=== PATIENT | female | born 1950 | race Caucasian/White ===

== ENCOUNTER → 2018-02-18 09:22 | Outpatient (CLI) | payer BC, MEDICARE, SELFPAY ==
[2018-02-18 10:12] LABS: Absolute Lymphocyte Count 1.73 X10^3/ul (0.83-4.51); Absolute Neutrophil Count 2.9 X10^3/uL (2.0-7.7); Basophil# 0.03 X10^3/uL; Basophil% 0.6 % (0-1); Eosinophil# 0.12 X10^3/uL; Eosinophils% 2.4 % (0-5); Hematocrit 40.9 % (37-47); Hemoglobin 13.2 g/dl (12.0-15.0); Lymphocyte # 1.73 X10^3/ul (4.0); Lymphocyte % 34.2 % (19-41); Mean Corp Hgb Conc 32.3 g/gl (32-36); Mean Corpuscular Hgb 28.1 pg (27.0-32.0); Mean Platelet Vol. 9.2 fl (6.2-12.0); Monocyte# 0.31 X10^3/uL; Monocyte% 6.1 % (0-10); Neutrophil # 2.87 X10^3/uL (2.7-7.7); Neutrophil % 56.7 % (47-70); Platelet Count 209 K/mm3 (150-450); RBC Distribution Width SD 44.7 fl (35.1-43.9); White Blood Count 5.1 K/mm3 (4.4-11.0)
[2018-02-18 10:14] LABS: POSITIVE COUNT NO; POSITIVE DIFFERENTIAL NO; POSITIVE MORPHOLOGY NO
[2018-02-18 10:39] LABS: Hemoglobin A1c 5.3 % (4.2-6.3)
[2018-02-18 10:46] LABS: Vitamin D,25 Hydroxy 32.5 ng/mL (29.95-100.01)
[2018-02-18 10:49] LABS: AST(SGOT) 24 U/L (15-37); Alanine Aminotransfer ALT/SGPT 24 U/L (13-56); Albumin, Serum 3.4 g/dL (3.2-5.0); Alkaline Phosphatase 67 U/L (45-117); Anion Gap 5 (5-15); BUN 13 mg/dL (7-18); BUN/Creat Ratio 18.6 RATIO (10-20); Calcium,Total 8.6 mg/dL (8.5-10.1); Chloride 109 mmol/L (98-107); EST Glomerular Filtration Rate 89 mL/min (>60); Est Glom Filt Rate - Afr Amer 108 mL/min (>60); Ferritin 48 ng/mL (8-252); Globulin 3.4 g/dL (2.2-4.2); Glucose 84 mg/dL (74-106); Magnesium 2.1 mg/dL (1.6-2.6); Potassium 3.8 mmol/L (3.5-5.1); Protein, Total 6.8 g/dL (6.4-8.2); Sodium Level 142 mmol/L (136-145); Thyroid Stim Hormone (TSH) 0.39 uIU/mL (0.358-3.74)
== END ==
PROVIDERS: Family Provider Family Medicine; PCP Family Medicine; Visit Provider Family Medicine
DX: E11.9 Type 2 diabetes mellitus without complications (principal); E03.9 Hypothyroidism, unspecified; Z98.84 Bariatric surgery status
CPT/HCPCS: 36415; 80053; 82306; 82728; 83036; 83735; 84443; 85025

== ENCOUNTER 2018-02-25 15:30 | Outpatient (RCR) | payer BC, SELFPAY ==
--- NOTE | 2017-10-08 14:56 | HP.PTEVAL_ITS ---
Patient's Visit Information GILBERTO STRATTON is a 67 year old F referred to Physical Therapy by Geo HULL with a diagnosis of R TKA. Date of Evaluation: 10/08/17 Physical Therapist: David Avina PT, - Visit Plan Frequency: 2-3x /Week Duration: 4-6 Weeks Plan: R knee PROM/mobs, stretching and strengthening, balnace and proprio, core , nustep, and HEP - Subjective Subjective: DOS: 10/06/17. Pt reports she has been in a lot of pain for the past 3 days. Pt reports she has been willy limited with sleep secondary to pain at this time. Pt is unable to take pain meds since previous surgery. `No T or N in R LE this date. Pt notes no prior Hx of R knee complications secondary to pain. Pt is retired at this time. Pt has stairs to her basement, and 2 steps into house that she nejgotiates one step at a time. Pt has been performing HEP from hospital. 8/10 at rest, 10/10 at worst - Pain R knee Pain Intensity (Out of 10): 8 Pain Intensity Range: 10 - Objective Neuro: B LE sensation is WNL to light touch. B achilles reflex= 2/3. Palpation : Incision healing well. No signs of infection. 2+ pitting edema. Girth at joint line: L knee 45 cm, R knee 51 CM. ROM: L knee 0-105 degrees, R knee 0-30- 60. MMT: L knee 5/5 throughout. R knee 2/5 and painful - Goals Goal 1:: Decrease R knee pain x 50% to aid with sleep Goal Time Frame: 4-6 Weeks Goal 2:: Increase R knee ROM x 40 degrees to aid with restoring normal gait pattern Goal Time Frame: 4-6 Weeks Goal 3:: Increase R knee strength x 1 grade to aid with stair negotiation Goal Time Frame: 4-6 Weeks Goal 4:: I with HEP Goal Time Frame: 4-6 Weeks - Rehabilitation Potential Physical Therapy Diagnosis: R knee pain, weakness, and limited ROM secondary to pain Rehabilitation Potential: Good - Anticipated Interventions Patient/Client Instruction: Educate patient on: Condition, Plan of Care For the Purpose of:: To improve self management Therapeutic Exercise to Include: Strength training, Endurance training, Balance training, Gait and locomotor training, Dynamic Lumbar Stabilization For the Purpose of:: To decrease pain, To increase ROM, To improve muscle performance and motor function Cryotherapy (ice pack, ice massage): Yes For the Purpose of:: To decrease pain Thank you for the opportunity to evaluate your patient. For Medicare and Medicare HMO plans, please review the plan of care and approve it. It will need to be FAXED BACK to us at [phone] for Medicare purposes. Please let me know if there are questions or concerns regarding this plan of care. Physician Signature: Date:
--- NOTE | 2017-11-08 17:28 | HP.PTREVAL_ITS ---
Geo Tierney, It has been my pleasure to treat GILBERTO STRATTON over the last 10 visits for R TKA. Please see the progress note below for an update on the physical therapy plan of care! Subjective: Pt reports she is sore this date. Still having trouble sleeping at night Objective/Function: R knee pain 5/10, increases to 7/10. R knee ROM: 0-22-84. R knee MMT: 3+/5. Pt is progressing well toward Rx goals. Bryant all ex's well. Plan Plan: R knee PROM/mobs, stretching and strengthening, balance and proprio, core , nustep, and HEP Goals Goal 1:: Decrease R knee pain x 50% to aid with sleep Goal Time Frame: 4-6 Weeks Goal 2:: Increase R knee ROM x 40 degrees to aid with restoring normal gait pattern Goal Time Frame: 4-6 Weeks Goal 3:: Increase R knee strength x 1 grade to aid with stair negotiation Goal Time Frame: 4-6 Weeks Goal 4:: I with HEP Goal Time Frame: 4-6 Weeks Anticipated Interventions Patient/Client Instruction: Educate patient on: Condition, Plan of Care For the Purpose of:: To improve self management Therapeutic Exercise to Include: Strength training, Endurance training, Balance training, Gait and locomotor training, Dynamic Lumbar Stabilization For the Purpose of:: To decrease pain, To increase ROM, To improve muscle performance and motor function Cryotherapy (ice pack, ice massage): Yes For the Purpose of:: To decrease pain Please do not hesitate to contact me at [phone] by phone or Fax: if you have questions or concerns regarding this new plan of care! Sincerely, David Avina, PT,
--- NOTE | 2018-02-28 16:09 | HP.PTDCSUM ---
HP - PT D/C Summary It has been my pleasure to treat GILBERTO STRATTON under orders from Geo Tierney, for the diagnosis of R TKA for a total of 58 visit(s). Discharge Date: 02/25/18 Please see the following information for a summary of their discharge status. - Subjective Subjective: Pt. reports I am doing pretty well today. Pt. reports no pain currently. Pt. reports being HEP compliant. Pt. reports being 85% better overall. - Pain R knee Pain Intensity (Out of 10): 0 - Overall Improvement % Improvement: 85 - Objective Objective/Function: PROM 0-0-112deg. AROM 0-2-104deg. Pt. contnues to have empty end feel, but limited secondary to pain. MMT: RLE- nancy 5/5 throughout; knee- ext 4+/5, flexion 4+/5; hip- flexion 4/5, abd 4/5, ext 4+/5. GAIT: Pt. ambulates with slight knee flexion in R knee during stance phase. STAIRS: Pt. is able to negotiate with 2HR and reciprocal pattern, mild increase NW with descending. - Goals Goal 1:: Decrease R knee pain x 50% to aid with sleep Goal Progress: Goal Met Goal 2:: Increase R knee ROM x 40 degrees to aid with restoring normal gait pattern Goal Progress: Goal Met Goal 3:: Increase R knee strength x 1 grade to aid with stair negotiation Goal Progress: Goal Met Goal 4:: I with HEP Goal Progress: Goal Met - Plan Plan: Pt. to be DC to HEP at this point in time. I stresed to patient to maintain knee ext stretching to continue to progress. Pt. consents. - D/C Information Discharge Comments: Pt. was treated for her R knee replacement. Pt. had difficulty with getting full ROM throughout her knee. She has progressed, but continues to be limited secondary to pain at end ranges. She is able to achieve TKE with PROM, but difficulty on own. She compleing all functional mobility with improved tolerance. Pt. will be DC to HEP to continue to progress at this point in time. If there are questions or concerns regarding this patient's physical therapy, please feel free to call me at [phone]. Thank you for the referral of this patient. Sincerely, Christ Yarbrough
== END 2018-02-25 19:00 | disposition home or self-care (01) ==
LOC: PT 15:30
PROVIDERS: Family Provider Family Medicine; PCP Family Medicine; Visit Provider Orthopaedic Surgery
DX: Z98.890 Other specified postprocedural states (principal)
CPT/HCPCS: 97110; 97161; 97530

== ENCOUNTER → 2018-03-11 12:42 | Outpatient (CLI) | payer BC, MEDICARE, SELFPAY ==
--- NOTE | 2018-03-11 12:44 | BI_ITS ---
MAMMOGRAPHY - BILATERAL SCREENING REASON FOR EXAM: Female, 67 years old. Routine annual screening examination. PERTINENT HISTORY: Non-contributory. TECHNIQUE: Digital bilateral breast ashley (3D mammographic acquisition) in the CC and MLO projections. 2-D mediolateral oblique (MLO) and craniocaudad (CC) views of both breasts were obtained. CAD: Full Field Digital Mammography with Computer Added Detection was performed. COMPARISON: Comparison is made with prior study dated March 10, 2017 and March 09, 2016. FINDINGS: Breast Composition: The breasts are almost entirely fatty. There are no dominant masses or suspicious calcifications. Stable 6 mm well-defined nodule in the upper outer aspect of the right breast. This most likely represents a small lymph node. Stable appearance of the benign appearing bilateral axillary lymph nodes. No other significant abnormalities are identified. There has been no significant change since the prior study. BI/SCREENING MAMM (CAD), BILAT IMPRESSION: Stable bilateral screening mammogram. Yearly follow-up mammogram recommended. (A) ASSESSMENT CATEGORY: BIRADS Category 2: Benign. A letter regarding these results will be sent to the patient by the facility within 30 days. Approximately 10% of breast cancers are not detected by mammography. A normal mammogram should not delay biopsy of a clinically suspicious abnormality. [id number] Electronically Signed: Noah Reno MD at 14:14 EDT Tel [phone], Service support ,
== END ==
PROVIDERS: Family Provider Family Medicine; PCP Family Medicine; Visit Provider Family Medicine
DX: Z12.31 Encounter for screening mammogram for malignant neoplasm of breast (principal)
CPT/HCPCS: 77063; 77067

== ENCOUNTER 2018-04-22 10:09 | Emergency (ER) | payer BC, MEDICARE, SELFPAY ==
[2018-04-22 10:10] VITALS: BP 141/74; PULSE 67; RESP 15; TEMP 36.6; O2SAT 98; BMI 39.8
--- NOTE | 2018-04-22 11:45 | ED.VISSUMM ---
- ER Visit Summary Date of Service: 04/22/18 Chief Complaint: Falling asleep easily at a state auction History of Present Illness: The patient is a 67 F with history of obstructive sleep apnea who has undergone 2 sleep studies. She was informed that she has no REM sleep. She recently had a sleep study with BiPAP machine. She still has not having REM sleep. Friend was concerned because she fell asleep while sitting in a chair. She reports fatigue and not sleeping well. She has not slept well for 1 year. She is awaiting the delivery of her machine. She denies headache. She denies any ocular, visual auditory symptoms. She denies any hot or cold intolerance. She does have history of hypothyroidism. She denies any cardiac, respiratory or GI symptoms. Physical Examination: Vital signs are noted and blood pressure is slightly elevated 141/74. BMI is 39.8. Head is atraumatic normocephalic. Pupils are equal round reactive. Extraocular muscles are intact. TMs are pearly white with landmarks noted. Nares patent with no drainage. Posterior pharynx without erythema or exudate. Uvula is midline. There is no dysphonia or dysphasia. Trachea is midline. There is no stridor with auscultation of the neck. Heart is regular without murmur, gallop or rub. S1 and S2 are normal. Lungs are clear to auscultation with good movement of air bilaterally. Abdomen soft nontender. She is oriented ?3. Motor sensory intact. DTRs are symmetric with no delay in relaxation phase of the ankle deep tendon reflex. Negative Babinski sign. Cranial 2 through 12 intact. Test Results: EKG was obtained and reveals a sinus rhythm rate of 61. Emergency Department Course and Treatment: Patient placed on a monitor to evaluate for any dysrhythmia or ectopy. None was noted. Twelve-lead EKG was obtained is no evidence of ischemia. Treatment Plan: Discharged to home with appropriate home-going instructions Disposition: Discharged home with friend in stable condition Impression: Sleep deprivation secondary to obstructive sleep apnea This note was generated with [employer] Later[employer] software. It may contain incorrect words, spelling, and punctuation that were not noted in review of the chart prior to signing ED Disposition - Plan for ED Patient: Disposition: Home or Assisted Living Chief Complaint: Weakness Instructions: ED Apnea Sleep Obstructive Referrals: Jarred Coley MD [Primary Care Provider] - As Needed
[2018-04-22 11:57] VITALS: PULSE 68; RESP 18; O2SAT 99
== END 2018-04-22 11:58 | disposition home or self-care (01) ==
PROVIDERS: Emergency Provider Emergency Medicine; Family Provider Family Medicine; PCP Family Medicine
DX: G47.33 Obstructive sleep apnea (adult) (pediatric) (principal); Z72.820 Sleep deprivation; E03.9 Hypothyroidism, unspecified; E66.9 Obesity, unspecified; Z68.39 Body mass index [BMI] 39.0-39.9, adult; Z79.899 Other long term (current) drug therapy
CPT/HCPCS: 93005; 99283

== ENCOUNTER → 2018-06-23 10:12 | Outpatient (CLI) | payer BC, SELFPAY ==
[2018-06-23 11:55] LABS: Hematocrit 41.9 % (37-47); Hemoglobin 12.9 g/dl (12.0-15.0); Mean Corp Hgb Conc 30.8 g/gl (32-36); Mean Corpuscular Hgb 28.4 pg (27.0-32.0); Mean Corpuscular Volume 92.1 fL (81-99); Mean Platelet Vol. 9.4 fl (6.2-12.0); Platelet Count 284 K/mm3 (150-450); RBC Distribution Width CV 13.6 % (11.6-14.6); RBC Distribution Width SD 44.8 fl (35.1-43.9); Red Blood Count 4.55 M/mm3 (4.2-5.4); White Blood Count 6.5 K/mm3 (4.4-11.0)
[2018-06-23 11:56] LABS: Scan Indicated on CBC? Y/N NO
[2018-06-23 12:14] LABS: Ferritin 633 ng/mL (8-252)
== END ==
PROVIDERS: Family Provider Family Medicine; PCP Family Medicine; Visit Provider Family Medicine
DX: D64.9 Anemia, unspecified (principal)
CPT/HCPCS: 36415; 82728; 85027

== ENCOUNTER 2018-08-19 15:30 | Outpatient (RCR) | payer BC, SELFPAY ==
--- NOTE | 2018-07-04 13:42 | HP.PTEVAL_ITS ---
Patient's Visit Information GILBERTO STRATTON is a 67 year old F referred to Physical Therapy by Geo Tierney with a diagnosis of s/p left knee replacement. Date of Evaluation: 06/03/18 Physical Therapist: Christ Yarbrough - Visit Plan Frequency: 2-3x /Week Duration: 6 Weeks Plan: Cont with POC - Subjective Subjective: pt is here today for their initial evaluation of their s/p left knee replacement. has a history of osteoarthritis and has had the right knee replaced. pt had the left knee replaced on Wednesday. On the pt received an iron transfusion and dischared. Last night the pt reported that they had significant dificulty sleeping due to frequent bathroom trips. pt reported dificulty getting in and out of bed. pt is able to perform bed transfers independantly but does recieve some help from their . pt is unable to take nsaids due to their bariatric surgery. pt relies on oxycodone and heat to alleviate pain. pt's previous right knee replacement rehab progress was slow but pt is excited and optimistic for the rehab for the left knee because they already see greater progress than they did at the beginning of the right knee's rehab. - Pain Left Knee Pain Intensity (Out of 10): 6 Pain Intensity Range: Unrated Comment: 5+ - Objective POSTURE: forward head and rounded shoulders. Pt. heavily uses AD in stance. Pt. has increased wt. shift to R side, slight L knee flexion in stance. ROM: L knee: 0-10-68deg, PROM- 0-8-78eeg. R knee AROM 0-0-118deg. MMT: LLE: pt performed knee flexion and extension against gravity but was unable to perform straight leg raise. resisted knee flexion and extension was omited this visit due to the proximity to the surgical date. GAIT: Pt. is able to ambulate with FWW without LOB and FARTUN. Pt. reports increased pain during L stance phase. Pt. ambualtes with slight knee flexion in stance phase and slightly step through pattern. STAIRS: Pt. is able to negotiate with BHR with step to pattern, loading RLE only. - Goals Goal 1:: Pt. to be I with HEP. Goal Time Frame: 4-6 Weeks Goal 2:: Pt. to have increased L knee ROM 0-0-120deg allowing for increased functional mobility. Goal Time Frame: 4-6 Weeks Goal 3:: Pt. to ambulate unlimted distances without increase in symptoms with normalized gait pattern and no AD. Goal Time Frame: 4-6 Weeks Goal 4:: Pt. to have increased L knee MMT by 1/2 grade throughout all effected musculature. Goal Time Frame: 4-6 Weeks Goal 5:: Pt. to negotiate steps with 1 HR with reciprocal pattern. - Rehabilitation Potential Physical Therapy Diagnosis: Pt. presents with s/p left knee replacement with subsequent hypombility, weakness, increased pain, decreased stability with gait and decrased functional mobility. Pt. would benefit from PT to address above limitations and get back to PLOF. Rehabilitation Potential: Good - Anticipated Interventions Patient/Client Instruction: Educate patient on: Condition, Plan of Care, Risk Factors, Benefits of Fitness Program For the Purpose of:: To foster healthy habits, To improve decision making, To facilitate caregiver knowledge, To improve self management, To prevent re- injury, To improve ability to perform tasks related to life management, To improve tolerance to ADL's Therapeutic Exercise to Include: Strength training, Power training, Agility training, Body mechanics, Flexibilty training, Gait and locomotor training, Passive ROM, Active ROM For the Purpose of:: To decrease pain, To decrease swelling/inflammation, To inc rease ROM, To improve nutrient delivery to tissue, To increase oxygenation perfusion, To improve muscle performance and motor function, To improve gait and locomotor functions, To improve health of tissue, To decrease soft tissue restriction, To increase flexibility/ROM, To improve endurance, To improve balance, To improve safety with gait Manual Therapy Techniques to Include: Mobilization, Passive ROM For the Purpose of:: To decrease pain, To decrease swelling/inflammation, To increase ROM IF ES: Yes Cryotherapy (ice pack, ice massage): Yes Vasopneumatic device: Yes For the Purpose of:: To decrease pain, To decrease swelling/inflammation, To increase ROM, To improve nutrient delivery to tissue, To improve muscle performance and motor function, To improve ability to perform ADL's Thank you for the opportunity to evaluate your patient. For Medicare and Medicare HMO plans, please review the plan of care and approve it. It will need to be FAXED BACK to us at [phone] for Medicare purposes. Please let me know if there are questions or concerns regarding this plan of care. Physician Signature: Date:
--- NOTE | 2018-11-28 18:09 | HP.PTDCSUM ---
HP - PT D/C Summary It has been my pleasure to treat GILBERTO STRATTON under orders from MAGGIE MORGAN DO, for the diagnosis of s/p left knee replacement for a total of 17 visit(s). Discharge Date: 08/19/18 Please see the following information for a summary of their discharge status. - Subjective Subjective: Pt. saw her physician and they have decided to progress with HEP at this point in time. Pt. has made gains with Pt, but has started to platuea. Pt. reports being 85% better overall. - Pain Left Knee Pain Intensity (Out of 10): 2 - Overall Improvement % Improvement: 85 - Objective Objective/Function: ROM- 0-2-114deg. MMT- 4+/5 throughout BLEs. Pt. continues to report increased soreness as end ranges. Pt. has been walking without AD and is progressing. pt. is negotiating steps with with reciprocal pattern, but has increasd functional weakness with descending. Pt. is independent with her HEP and will be DC from PT at this point in time. - Goals Goal 1:: Pt. to be I with HEP. Goal Progress: Goal Met Goal 2:: Pt. to have increased L knee ROM 0-0-120deg allowing for increased functional mobility. Goal Progress: Progressing Goal 3:: Pt. to ambulate unlimted distances without increase in symptoms with normalized gait pattern and no AD. Goal Progress: Progressing Goal 4:: Pt. to have increased L knee MMT by 1/2 grade throughout all effected musculature. Goal Progress: Progressing Goal 5:: Pt. to negotiate steps with 1 HR with reciprocal pattern. Goal Progress: Progressing - Plan Plan: pt. will be DC from PT at this point in time to HEP. - D/C Information Discharge Comments: Pt. was treated for her TKA. Pt. had a slow progression of ROM and strengthening. Treatment focused on ROM. Pt. is independent with her HEP and will be DC from PT at this point in time. If there are questions or concerns regarding this patient's physical therapy, please feel free to call me at [phone]. Thank you for the referral of this patient. Sincerely, Christ Yarbrough DPT
== END 2018-08-19 19:00 | disposition home or self-care (01) ==
LOC: PT 15:30
PROVIDERS: Family Provider Family Medicine; PCP Family Medicine; Visit Provider Orthopaedic Surgery
DX: M25.562 Pain in left knee (principal)
CPT/HCPCS: 97110; 97140; 97162

== ENCOUNTER → 2019-02-21 09:42 | Outpatient (CLI) | payer MEDICARE, SELFPAY ==
[2019-02-21 12:33] LABS: Absolute Lymphocyte Count 1.52 X10^3/ul (0.83-4.51); Absolute Neutrophil Count 2.5 X10^3/uL (2.0-7.7); Basophil# 0.01 X10^3/uL; Basophil% 0.2 % (0-1); Eosinophil# 0.08 X10^3/uL; Eosinophils% 1.8 % (0-5); Hematocrit 40.8 % (37-47); Hemoglobin 13.3 g/dl (12.0-15.0); Lymphocyte # 1.52 X10^3/ul (4.0); Lymphocyte % 34.9 % (19-41); Mean Corp Hgb Conc 32.6 g/gl (32-36); Mean Corpuscular Hgb 28.7 pg (27.0-32.0); Mean Corpuscular Volume 88.1 fL (81-99); Monocyte# 0.27 X10^3/uL; Monocyte% 6.2 % (0-10); Neutrophil # 2.46 X10^3/uL (2.7-7.7); Neutrophil % 56.7 % (47-70); Platelet Count 207 K/mm3 (150-450); RBC Distribution Width CV 12.8 % (11.6-14.6); RBC Distribution Width SD 40.5 fl (35.1-43.9); Red Blood Count 4.63 M/mm3 (4.2-5.4); White Blood Count 4.4 K/mm3 (4.4-11.0)
[2019-02-21 12:41] LABS: POSITIVE COUNT NO; POSITIVE DIFFERENTIAL NO; POSITIVE MORPHOLOGY NO
[2019-02-21 12:57] LABS: Hemoglobin A1c 4.8 % (4.2-6.3)
[2019-02-21 13:00] LABS: Vitamin D,25 Hydroxy 36.8 ng/mL (29.95-100.01)
[2019-02-21 13:13] LABS: ALB/GLOB Ratio 1.1 RATIO (0.9-2.4); AST(SGOT) 27 U/L (15-37); Alanine Aminotransfer ALT/SGPT 30 U/L (13-56); Albumin, Serum 3.4 g/dL (3.2-5.0); Alkaline Phosphatase 76 U/L (45-117); Anion Gap 9 (5-15); BUN 14 mg/dL (7-18); BUN/Creat Ratio 20.7 RATIO (10-20); Calcium,Total 9.2 mg/dL (8.5-10.1); Chloride 107 mmol/L (98-107); Cholesterol 213 mg/dL (200); Creatinine, Serum 0.68 mg/dL (0.55-1.02); EST Glomerular Filtration Rate 93 mL/min (>60); Est Glom Filt Rate - Afr Amer 112 mL/min (>60); Ferritin 294 ng/mL (8-252); Globulin 3.2 g/dL (2.2-4.2); Glucose 85 mg/dL (74-106); High Density Lipoprotein 63 mg/dL; Magnesium 2.2 mg/dL (1.6-2.6); Potassium 4.1 mmol/L (3.5-5.1); Protein, Total 6.6 g/dL (6.4-8.2); Sodium Level 144 mmol/L (136-145); Thyroid Stim Hormone (TSH) 0.15 uIU/mL (0.358-3.74); Triglycerides 96 mg/dL; Very Low Density Lipoprotein 19 mg/dL (5-40)
== END ==
PROVIDERS: Family Provider Family Medicine; PCP Family Medicine; Visit Provider Family Medicine
DX: E11.9 Type 2 diabetes mellitus without complications (principal); E03.9 Hypothyroidism, unspecified; Z98.0 Intestinal bypass and anastomosis status
CPT/HCPCS: 36415; 80053; 80061; 82306; 82728; 83036; 83735; 84443; 85025

== ENCOUNTER → 2019-03-13 | Outpatient (CLI) | payer MEDICARE, SELFPAY ==
--- NOTE | 2019-03-13 12:14 | BI_ITS ---
MAMMOGRAPHY - BILATERAL SCREENING REASON FOR EXAM: Female, 68 years old. Routine annual screening examination. PERTINENT HISTORY: Non-contributory. 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 2-D mediolateral oblique (MLO) and craniocaudad (CC) views of both breasts were obtained. CAD: Full Field Digital Mammography with Computer Added Detection was performed. COMPARISON: Comparison is made with prior study dated March 11, 2000. FINDINGS: Breast Composition: The breasts are almost entirely fatty. There are no dominant masses or suspicious calcifications. Stable 6 mm well-defined nodule in the upper outer aspect of the right breast. A central notch is seen suggestive of a small lymph node. Small benign-appearing lymph nodes are also seen in the axillary regions bilaterally. No other significant abnormalities are identified. There has been no significant change since the prior study. BI/SCREEN MAMM (CAD) W/JOSE BILAT IMPRESSION: Stable bilateral screening mammogram. Yearly follow-up mammogram recommended. (A) ASSESSMENT CATEGORY: BIRADS Category 2: Benign. A letter regarding these results will be sent to the patient by the facility within 30 days. Approximately 10% of breast cancers are not detected by mammography. A normal mammogram should not delay biopsy of a clinically suspicious abnormality. [id number] Electronically Signed: Noah Reno, at 13:47 EDT , Service support ,
== END | disposition home or self-care (01) ==
LOC: OPBI 12:11
PROVIDERS: Family Provider Family Medicine; PCP Family Medicine; Referring Provider Family Medicine; Visit Provider Family Medicine
DX: Z12.31 Encounter for screening mammogram for malignant neoplasm of breast (principal)
CPT/HCPCS: 77063; 77067

== ENCOUNTER 2019-07-20 09:30 | Outpatient (RCR) | payer MEDICARE, OTHER, SELFPAY ==
--- NOTE | 2019-06-05 16:07 | HP.PTEVAL ---
Patient's Visit Information GILBERTO STRATTON is a 68 year old F referred to Physical Therapy by Geo Tierney DO with a diagnosis of B knee pain, BN knee ankylosis. Date of Evaluation: 06/05/19 Physical Therapist: Christ Yarbrough DPT - Visit Plan Frequency: 3x /Week Duration: 4-6 Weeks Plan: Start with ROM of B knee both into flexion and extension. May us modalities to reduce symptoms. Shhe is doing some light strengthening exercises at home. Pt. to continue at home. I will see her with focus on ROM to ease symptoms while completing functional activities. - Subjective Findings: Pt. is here today for her initial evaluation with diagnosis of rigth and leg knee pain, presence of L and R artificial knee joint and ankylosis of B knees. Pt. reports she was doing well, but fell out of bed onto her R knee. Pt. had subsequent knee pain and effusion. She had an injection and draining. Pt. is walking wihtout AD, but reports walking smaller distances. Pt. is hopeful to increase her ROM and decrease her symptoms in order to get back to all recreational activities without limitations. - Pain L knee Pain Intensity (Out of 10): 3 Pain Intensity Range: 1, 5 R knee Pain Intensity (Out of 10): 4 Pain Intensity Range: 1, 5 - Objective POSTURE: Pt. has generally slight flexed posture. Pt. does not have full TKE in stance on either LE. L worse than R. PALPATION: Pt. has tenderness throughout B knees including joint lines, distal quads and distal HS. NEURO: normal throughout. ROM: R knee 0-2-110deg. L knee 0-5-108deg. Tight HS and tight hip flexors bilateral. MMT: PT. has general 4/5 strength throughout BLEs. GAIT: Pt. ambulates with slight flexed posture, increased hip lateral sway and lacks TKE on LLE during stance phase. - Goals Goal 1:: Pt. to be I with HEP. Goal Time Frame: 4-6 Weeks Goal 2:: Pt. to have increased B knee ROM to 0-0-115deg without increase in symptoms. Goal Time Frame: 4-6 Weeks Goal 3:: Pt. to complete all sit to stand movements including from latter day pew without increase in symptoms. Goal Time Frame: 4-6 Weeks Goal 4:: Pt. to complete all ADLs without increase in symptoms. Goal Time Frame: 4-6 Weeks - Rehabilitation Potential Physical Therapy Diagnosis: Pt. has signs and symptoms of B knee pain and stiffness. Pt. would benefit from PT to increase ROM and decrease her symptoms, promoting increased toelrance to all functional mobility. Rehabilitation Potential: Good - Anticipated Interventions Thank you for the opportunity to evaluate your patient. For Medicare and Medicare HMO plans, please review the plan of care and approve it. It will need to be FAXED BACK to us at [phone] for Medicare purposes. For Medicare only, by signing this I certify the plan of care. Please let me know if there are questions or concerns regarding this plan of care. Physician Signature: Date:
--- NOTE | 2020-01-29 08:48 | HP.PTDCSUM ---
It has been my pleasure to treat GILBERTO STRATTON referred by Dr. Geo Tierney DO, with the diagnosis of B knee pain, BN knee ankylosis for a total of 20 visit(s). Discharge Date: 07/20/19 Please see the following information for a summary of their discharge status. Subjective: Pt. reports she is doing much better. Pt. reprots being HEP compliant. Pt. reprots no pain currently. L knee Pain Intensity (Out of 10): 0 R knee Pain Intensity (Out of 10): 0 % Improvement: 80 Objective/Function: Pt is doing much better. Pt. has improved ROM overall. Pt. is still lacking 10deg of B knees into flexion, but is overall doign mucbn better. Pt. is walking and doing her ADls with decreased symptoms. I urged her to stay active. Pt. consents. Goal 1:: Pt. to be I with HEP. Goal Progress: Goal Met Goal 2:: Pt. to have increased B knee ROM to 0-0-115deg without increase in symptoms. Goal Progress: Progressing Goal 3:: Pt. to complete all sit to stand movements including from latter day pew without increase in symptoms. Goal Progress: Goal Met Goal 4:: Pt. to complete all ADLs without increase in symptoms. Goal Progress: Goal Met Plan: Pt. to be DC from PT at this point in time. Discharge Comments: Pt. was treated wtih ROM and stretching for her B knees. Pt. progressed, but is still stiff into flexion. I urged her to stay active and keep progressing ROM as toleraetd. Pt. cosnents. Pt. will be DC to HEP at this point in time. If there are questions or concerns regarding this patient's physical therapy, please feel free to call me at [phone]. Thank you for the referral of this patient. Sincerely, CARLOS BeltreT
== END 2019-07-20 19:00 | disposition home or self-care (01) ==
LOC: PT 09:30
PROVIDERS: Family Provider Family Medicine; PCP Family Medicine; Referring Provider Orthopaedic Surgery; Visit Provider Orthopaedic Surgery
DX: Z96.653 Presence of artificial knee joint, bilateral (principal); M24.662 Ankylosis, left knee; M24.661 Ankylosis, right knee; M25.562 Pain in left knee; M25.461 Effusion, right knee; M25.561 Pain in right knee
CPT/HCPCS: 97110; 97140; 97161

== ENCOUNTER → 2019-10-09 11:21 | Outpatient (CLI) | payer MEDICARE, OTHER, SELFPAY ==
[2019-10-09 12:55] LABS: Thyroid Stim Hormone (TSH) 5.03 uIU/mL (0.358-3.74)
== END ==
PROVIDERS: PCP Family Medicine; Referring Provider Family Medicine; Visit Provider Family Medicine
DX: E03.9 Hypothyroidism, unspecified (principal)
CPT/HCPCS: 36415; 84443

== ENCOUNTER → 2020-03-19 10:52 | Outpatient (CLI) | payer MEDICARE, OTHER, SELFPAY ==
[2020-03-19 12:46] LABS: Thyroid Stim Hormone (TSH) 7.36 uIU/mL (0.358-3.74)
[2020-03-22 09:51] LABS: Cholesterol 203 mg/dL (200); High Density Lipoprotein 77 mg/dL; Triglycerides 51 mg/dL; Very Low Density Lipoprotein 10 mg/dL (5-40)
== END ==
PROVIDERS: PCP Family Medicine; Referring Provider Family Medicine; Visit Provider Family Medicine
DX: E03.9 Hypothyroidism, unspecified (principal)
CPT/HCPCS: 36415; 80061; 84443

== ENCOUNTER → 2020-05-16 10:20 | Outpatient (CLI) | payer MEDICARE, OTHER, SELFPAY ==
--- NOTE | 2020-05-16 10:22 | BI_ITS ---
MAMMOGRAPHY - BILATERAL SCREENING REASON FOR EXAM: Female, 69 years old. Routine annual screening examination. PERTINENT HISTORY: Non-contributory. 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 2-D mediolateral oblique (MLO) and craniocaudad (CC) views of both breasts were obtained. CAD: Full Field Digital Mammography with Computer Added Detection was performed. COMPARISON: Comparison is made with prior study dated 03/13/2019 and 03/11/2018. FINDINGS: Breast Composition: The breasts are almost entirely fatty. There are no dominant masses or suspicious calcifications. Stable 6 mm well-defined nodule in the upper-outer quadrant of the right breast. No other significant abnormalities are identified. There has been no significant change since the prior study. BI/SCREEN MAMM (CAD) W/JOSE BILAT IMPRESSION: Stable bilateral screening mammogram. Yearly follow-up mammogram recommended. (A) ASSESSMENT CATEGORY: BIRADS Category 2: Benign. A letter regarding these results will be sent to the patient by the facility within 30 days. Approximately 10% of breast cancers are not detected by mammography. A normal mammogram should not delay biopsy of a clinically suspicious abnormality. [id number] Electronically Signed: Noah Reno, at 12:12 EDT , Service support ,
== END ==
PROVIDERS: PCP Family Medicine; Referring Provider Nurse Practitioner Family; Visit Provider Nurse Practitioner Family
DX: Z12.31 Encounter for screening mammogram for malignant neoplasm of breast (principal)
CPT/HCPCS: 77063; 77067

== ENCOUNTER → 2020-06-14 10:00 | Outpatient (CLI) | payer MEDICARE, OTHER, SELFPAY | PROVIDERS: PCP Family Medicine; Referring Provider Family Medicine; Visit Provider Nurse Practitioner Family | DX: E03.9 Hypothyroidism, unspecified (principal) | CPT/HCPCS: 36415; 84443 ==

== ENCOUNTER → 2020-12-14 09:09 | Outpatient (CLI) | payer MEDICARE, OTHER, SELFPAY ==
[2020-12-14 09:59] LABS: Absolute Lymphocyte Count 2.03 X10^3/uL (0.83-4.51); Absolute Neutrophil Count 2.8 X10^3/uL (2.0-7.7); Basophil# 0.03 X10^3/uL; Basophil% 0.5 % (0-1); Eosinophil# 0.12 X10^3/uL; Eosinophils% 2.2 % (0-5); Hematocrit 40.5 % (37-47); Hemoglobin 12.5 g/dL (12.0-15.0); Lymphocyte # 2.03 X10^3/ul (0.83-4.51); Lymphocyte % 37.2 % (19-41); Mean Corp Hgb Conc 30.9 g/dL (32-36); Mean Corpuscular Hgb 27.8 pg (27.0-32.0); Mean Platelet Vol. 9.7 fl (6.2-12.0); Monocyte# 0.43 X10^3/uL; Monocyte% 7.9 % (0-10); NRBC Flagged by Analyzer 0 % (0-5); Neutrophil # 2.84 X10^3/uL (2.7-7.7); Platelet Count 179 K/mm3 (150-450); RBC Distribution Width CV 13.8 % (11.6-14.6); RBC Distribution Width SD 45.8 fl (35.1-43.9); White Blood Count 5.5 K/mm3 (4.4-11.0)
[2020-12-14 10:17] LABS: Hemoglobin A1c 5.1 % (3.8-5.6)
[2020-12-14 10:29] LABS: ALB/GLOB Ratio 1.1 RATIO (0.9-2.4); AST(SGOT) 29 U/L (15-37); Alanine Aminotransfer ALT/SGPT 35 U/L (13-56); Albumin, Serum 3.4 g/dL (3.2-5.0); Alkaline Phosphatase 67 U/L (45-117); Anion Gap 5 (5-15); BUN 16 mg/dL (7-18); BUN/Creat Ratio 25.1 RATIO (10-20); Calcium,Total 8.9 mg/dL (8.5-10.1); Chloride 107 mmol/L (98-107); Cholesterol 207 mg/dL (200); Creatinine, Serum 0.64 mg/dL (0.55-1.02); EST Glomerular Filtration Rate 99 mL/min (>60); Est Glom Filt Rate - Afr Amer 119 mL/min (>60); Globulin 3.1 g/dL (2.2-4.2); Glucose 93 mg/dL (74-106); High Density Lipoprotein 72 mg/dL; Potassium 3.8 mmol/L (3.5-5.1); Protein, Total 6.5 g/dL (6.4-8.2); Sodium Level 141 mmol/L (136-145); Triglycerides 91 mg/dL; Very Low Density Lipoprotein 18 mg/dL (5-40)
== END ==
PROVIDERS: PCP Family Medicine; Referring Provider Family Medicine; Visit Provider Family Medicine
DX: I10 Essential (primary) hypertension (principal); E03.9 Hypothyroidism, unspecified; E11.9 Type 2 diabetes mellitus without complications; E78.00 Pure hypercholesterolemia, unspecified
CPT/HCPCS: 36415; 80053; 80061; 83036; 84443; 85025

== ENCOUNTER → 2021-02-18 12:20 | Outpatient (CLI) | payer MEDICARE, OTHER, SELFPAY ==
[2021-02-18 14:55] LABS: Erythrocyte Sedimentation Rate 23 mm/hr (0-30)
[2021-02-18 14:56] LABS: Hematocrit 42.7 % (37-47); Hemoglobin 13.5 g/dL (12.0-15.0); Mean Corp Hgb Conc 31.6 g/dL (32-36); Mean Corpuscular Hgb 28.3 pg (27.0-32.0); Mean Corpuscular Volume 89.5 fL (81-99); Platelet Count 220 K/mm3 (150-450); RBC Distribution Width CV 13.4 % (11.6-14.6); RBC Distribution Width SD 44.3 fl (35.1-43.9); Red Blood Count 4.77 M/mm3 (4.2-5.4); White Blood Count 5.6 K/mm3 (4.4-11.0)
[2021-02-18 15:09] LABS: BNP,B-Type NATRIURETIC PEPTIDE 36.2 pg/mL (0-100)
[2021-02-18 15:20] LABS: AST(SGOT) 25 U/L (15-37); Alanine Aminotransfer ALT/SGPT 31 U/L (13-56); Albumin, Serum 3.7 g/dL (3.2-5.0); Alkaline Phosphatase 72 U/L (45-117); Anion Gap 5 (5-15); BUN 14 mg/dL (7-18); BUN/Creat Ratio 20.6 RATIO (10-20); CRP < 2.90 mg/L (0.0-3.0); Chloride 107 mmol/L (98-107); Creatinine, Serum 0.68 mg/dL (0.55-1.02); EST Glomerular Filtration Rate 91 mL/min (>60); Est Glom Filt Rate - Afr Amer 110 mL/min (>60); Globulin 3.6 g/dL (2.2-4.2); Glucose 77 mg/dL (74-106); Protein, Total 7.3 g/dL (6.4-8.2); Rheumatoid Factor < 10.0 IU/mL (<15); Sodium Level 142 mmol/L (136-145)
[2021-02-20 19:48] LABS: ANTINUCLEAR ANTIBODIES DIRECT Negative (Negative)
[2021-02-22 09:57] LABS: CCP IgG Antibodies 6 units (0-19)
== END ==
PROVIDERS: PCP Family Medicine; Referring Provider Family Medicine; Visit Provider Family Medicine
DX: M79.89 Other specified soft tissue disorders (principal); R06.01 Orthopnea; M25.50 Pain in unspecified joint
CPT/HCPCS: 36415; 80053; 83880; 85027; 85652; 86038; 86140; 86200; 86431

== ENCOUNTER → 2021-03-17 09:22 | Outpatient (CLI) | payer MEDICARE, OTHER, SELFPAY ==
[2021-03-17 10:46] LABS: Free T3 2.4 pg/mL (2.18-3.98); T4 Free Direct 1.37 ng/dL (0.76-1.46); Thyroid Stim Hormone (TSH) 1.54 uIU/mL (0.358-3.74)
== END ==
PROVIDERS: PCP Family Medicine; Visit Provider Family Medicine
DX: E03.9 Hypothyroidism, unspecified (principal)
CPT/HCPCS: 36415; 84439; 84443; 84481

== ENCOUNTER → 2021-03-24 07:41 | Outpatient (CLI) | payer MEDICARE, OTHER, SELFPAY ==
--- NOTE | 2021-03-24 07:44 | CT_ITS ---
STUDY: CT CHEST WITH CONTRAST REASON FOR EXAM: Female, 70 years old. Chronic cough, SOB. 2 year history of cough. RADIATION DOSAGE (If Supplied By Facility): CTDIvol = ( 17.74 ) mGy, DLP = ( 583.07 ) mGycm TECHNIQUE: Transaxial imaging was performed following intravenous administration of IV 100mL Isovue-370. Multiplanar coronal and sagittal images were reformatted. Individualized dose optimization techniques were used for this CT. COMPARISON: None. FINDINGS: Stable small benign appearing bilateral axillary lymph nodes. The lungs are normal. There is no demonstrated pleural abnormality. There are calcifications of the coronary arteries. Normal mediastinum. Normal hilar regions. Normal enhanced pulmonary arteries. There is atherosclerotic calcification of the aortic arch . There are degenerative changes of the thoracic spine. Moderate sized Hiatal hernia. The patient is status post gastric bypass surgery CT/Chest WITH Contrast IMPRESSION: No acute abnormality is seen. Status post gastric bypass surgery and moderate sized hiatal hernia. Electronically Signed: Noah Reno MD at 13:32 EDT , Service support ,
[2021-03-24 14:26] LABS: CREATININE FINGERSTICK 0.6 mg/dL (0.55-1.02); EGFR FINGERSTICK > 60.0000 mL/min (>60)
== END ==
PROVIDERS: PCP Family Medicine; Referring Provider Family Medicine; Visit Provider Family Medicine
DX: J44.9 Chronic obstructive pulmonary disease, unspecified (principal)
CPT/HCPCS: 71260; Q9967

== ENCOUNTER → 2021-04-24 16:43 | Outpatient (CLI) | payer MEDICARE, OTHER, SELFPAY | PROVIDERS: PCP Family Medicine; Visit Provider Family Medicine | DX: B34.9 Viral infection, unspecified (principal) | CPT/HCPCS: 87635; U0005; U0003 ==

== ENCOUNTER → 2021-05-30 14:37 | Outpatient (CLI) | payer MEDICARE, OTHER, SELFPAY ==
[2021-05-30 17:44] LABS: Absolute Lymphocyte Count 2.29 X10^3/uL (0.83-4.51); Absolute Neutrophil Count 3.2 X10^3/uL (2.0-7.7); Basophil# 0.03 X10^3/uL; Basophil% 0.5 % (0-1); Eosinophil# 0.17 X10^3/uL; Eosinophils% 2.7 % (0-5); Hematocrit 40.5 % (37-47); Hemoglobin 12.7 g/dL (12.0-15.0); Lymphocyte # 2.29 X10^3/ul (0.83-4.51); Lymphocyte % 36.9 % (19-41); Mean Corp Hgb Conc 31.4 g/dL (32-36); Mean Corpuscular Hgb 28.5 pg (27.0-32.0); Mean Platelet Vol. 10.3 fl (6.2-12.0); Monocyte# 0.48 X10^3/uL; Monocyte% 7.7 % (0-10); NRBC Flagged by Analyzer 0 % (0-5); Neutrophil # 3.23 X10^3/uL (2.7-7.7); Platelet Count 215 K/mm3 (150-450); RBC Distribution Width CV 13.9 % (11.6-14.6); RBC Distribution Width SD 46.5 fl (35.1-43.9); Red Blood Count 4.45 M/mm3 (4.2-5.4); White Blood Count 6.2 K/mm3 (4.4-11.0)
[2021-05-30 18:22] LABS: ALB/GLOB Ratio 0.8 RATIO (0.9-2.4); AST(SGOT) 26 U/L (15-37); Alanine Aminotransfer ALT/SGPT 33 U/L (13-56); Albumin, Serum 3.3 g/dL (3.2-5.0); Alkaline Phosphatase 71 U/L (45-117); Anion Gap 8 (5-15); BUN 19 mg/dL (7-18); Calcium,Total 9.6 mg/dL (8.5-10.1); Chloride 108 mmol/L (98-107); Creatinine, Serum 0.66 mg/dL (0.55-1.02); EST Glomerular Filtration Rate 95 mL/min (>60); Est Glom Filt Rate - Afr Amer 115 mL/min (>60); Globulin 3.9 g/dL (2.2-4.2); Glucose 81 mg/dL (74-106); Potassium 3.9 mmol/L (3.5-5.1); Protein, Total 7.2 g/dL (6.4-8.2); Rheumatoid Factor < 10.0 IU/mL (<15); Sodium Level 142 mmol/L (136-145)
[2021-06-02 09:34] LABS: Hepatitis B Surface Antibody Non-Reactive; Hepatitis B Surface Antigen Non-Reactive (Nonreactive); Hepatitis C Antibody Non-Reactive (Nonreactive)
[2021-06-04 14:30] LABS: CCP IgG Antibodies 6 units (0-19)
== END ==
PROVIDERS: Visit Provider Internal Medicine Rheumatology
DX: M06.4 Inflammatory polyarthropathy (principal); M79.7 Fibromyalgia; M17.0 Bilateral primary osteoarthritis of knee; M18.0 Bilateral primary osteoarthritis of first carpometacarpal joints; E11.9 Type 2 diabetes mellitus without complications; E03.9 Hypothyroidism, unspecified; E78.5 Hyperlipidemia, unspecified; G25.81 Restless legs syndrome; F41.9 Anxiety disorder, unspecified
CPT/HCPCS: 36415; 80053; 85025; 86200; 86431; 86706; 86803; 87340

== ENCOUNTER → 2021-06-03 16:15 | Outpatient (CLI) | payer MEDICARE, OTHER, SELFPAY | PROVIDERS: PCP Family Medicine; Referring Provider Internal Medicine Gastroenterology; Visit Provider Internal Medicine Gastroenterology | DX: Z11.59 Encounter for screening for other viral diseases (principal) ==

== ENCOUNTER → 2021-06-04 08:48 | Outpatient (CLI) | payer MEDICARE, OTHER, SELFPAY | PROVIDERS: PCP Family Medicine; Referring Provider Internal Medicine Gastroenterology; Visit Provider Internal Medicine Gastroenterology | DX: Z11.59 Encounter for screening for other viral diseases (principal) | CPT/HCPCS: 87635; C9803; U0005; U0003 ==

== ENCOUNTER → 2021-06-12 10:10 | Outpatient (CLI) | payer MEDICARE, OTHER, SELFPAY ==
--- NOTE | 2021-06-12 10:15 | BI_ITS ---
MAMMOGRAPHY - BILATERAL SCREENING REASON FOR EXAM: Female, 70 years old. Routine annual screening examination. PERTINENT HISTORY: Non-contributory. 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 2-D mediolateral oblique (MLO) and craniocaudad (CC) views of both breasts were obtained. CAD: Full Field Digital Mammography with Computer Added Detection was performed. COMPARISON: Comparison is made with prior study dated 05/16/2020 and 03/13/2019. FINDINGS: Breast Composition: The breasts are almost entirely fatty. There are no dominant masses or suspicious calcifications. Stable 6 mm well-defined nodule in the upper outer quadrant of the right breast. This most likely represents a small lymph node. No other significant abnormalities are identified. There has been no significant change since the prior study. BI/SCRN MAMM (CAD)W/JOSE BILAT IMPRESSION: Stable bilateral screening mammogram. Yearly follow-up mammogram recommended. (A) ASSESSMENT CATEGORY: BIRADS Category 2: Benign. A letter regarding these results will be sent to the patient by the facility within 30 days. Approximately 10% of breast cancers are not detected by mammography. A normal mammogram should not delay biopsy of a clinically suspicious abnormality. [id number] Electronically Signed: Noah Reno MD at 12:11 EDT , Service support ,
== END ==
PROVIDERS: PCP Family Medicine; Referring Provider Family Medicine; Visit Provider Family Medicine
DX: Z12.31 Encounter for screening mammogram for malignant neoplasm of breast (principal)
CPT/HCPCS: 77063; 77067

== ENCOUNTER → 2021-08-01 11:51 | Outpatient (CLI) | payer MEDICARE, OTHER, SELFPAY ==
[2021-08-01 15:07] LABS: Absolute Lymphocyte Count 1.67 X10^3/uL (0.83-4.51); Absolute Neutrophil Count 2.8 X10^3/uL (2.0-7.7); Basophil# 0.03 X10^3/uL; Basophil% 0.6 % (0-1); Eosinophil# 0.12 X10^3/uL; Eosinophils% 2.4 % (0-5); Hematocrit 41.5 % (37-47); Hemoglobin 13.3 g/dL (12.0-15.0); Lymphocyte # 1.67 X10^3/ul (0.83-4.51); Mean Corpuscular Hgb 28.9 pg (27.0-32.0); Mean Platelet Vol. 10.2 fl (6.2-12.0); Monocyte# 0.47 X10^3/uL; Monocyte% 9.3 % (0-10); NRBC Flagged by Analyzer 0 % (0-5); Neutrophil # 2.76 X10^3/uL (2.7-7.7); Neutrophil % 54.5 % (47-70); Platelet Count 215 K/mm3 (150-450); RBC Distribution Width CV 14.1 % (11.6-14.6); RBC Distribution Width SD 46.3 fl (35.1-43.9); Red Blood Count 4.61 M/mm3 (4.2-5.4); White Blood Count 5.1 K/mm3 (4.4-11.0)
[2021-08-01 15:24] LABS: AST(SGOT) 32 U/L (15-37); Alanine Aminotransfer ALT/SGPT 45 U/L (13-56); Albumin, Serum 3.5 g/dL (3.2-5.0); Alkaline Phosphatase 82 U/L (45-117); Anion Gap 6 (5-15); BUN 18 mg/dL (7-18); BUN/Creat Ratio 27.1 RATIO (10-20); Calcium,Total 9.5 mg/dL (8.5-10.1); Chloride 107 mmol/L (98-107); Creatinine, Serum 0.66 mg/dL (0.55-1.02); EST Glomerular Filtration Rate 94 mL/min (>60); Est Glom Filt Rate - Afr Amer 114 mL/min (>60); Globulin 3.5 g/dL (2.2-4.2); Glucose 91 mg/dL (74-106); Potassium 4.2 mmol/L (3.5-5.1); Sodium Level 141 mmol/L (136-145)
== END ==
PROVIDERS: PCP Internal Medicine Rheumatology; Referring Provider Internal Medicine Rheumatology; Visit Provider Internal Medicine Rheumatology
DX: M06.4 Inflammatory polyarthropathy (principal); M79.7 Fibromyalgia; M17.0 Bilateral primary osteoarthritis of knee; M18.0 Bilateral primary osteoarthritis of first carpometacarpal joints; E11.9 Type 2 diabetes mellitus without complications; E03.9 Hypothyroidism, unspecified; E78.5 Hyperlipidemia, unspecified; G25.81 Restless legs syndrome; F41.9 Anxiety disorder, unspecified; G47.33 Obstructive sleep apnea (adult) (pediatric); Z98.84 Bariatric surgery status
CPT/HCPCS: 36415; 80053; 85025

== ENCOUNTER 2021-10-08 08:10 | Outpatient (CLI) | payer MEDICARE, OTHER, SELFPAY ==
[2021-10-08 10:25] LABS: Absolute Lymphocyte Count 2.44 X10^3/uL (0.83-4.51); Absolute Neutrophil Count 2.3 X10^3/uL (2.0-7.7); Basophil# 0.03 X10^3/uL; Basophil% 0.6 % (0-1); Eosinophil# 0.13 X10^3/uL; Eosinophils% 2.4 % (0-5); Hemoglobin 13.1 g/dL (12.0-15.0); Lymphocyte # 2.44 X10^3/ul (0.83-4.51); Lymphocyte % 44.9 % (19-41); Mean Corpuscular Hgb 29.5 pg (27.0-32.0); Mean Corpuscular Volume 92.3 fL (81-99); Mean Platelet Vol. 9.6 fl (6.2-12.0); Monocyte# 0.52 X10^3/uL; Monocyte% 9.6 % (0-10); NRBC Flagged by Analyzer 0 % (0-5); Neutrophil % 42.3 % (47-70); Platelet Count 204 K/mm3 (150-450); RBC Distribution Width CV 14.7 % (11.6-14.6); RBC Distribution Width SD 49.9 fl (35.1-43.9); Red Blood Count 4.44 M/mm3 (4.2-5.4); White Blood Count 5.4 K/mm3 (4.4-11.0)
[2021-10-08 10:48] LABS: AST(SGOT) 31 U/L (15-37); Alanine Aminotransfer ALT/SGPT 44 U/L (13-56); Albumin, Serum 3.5 g/dL (3.2-5.0); Alkaline Phosphatase 98 U/L (45-117); Anion Gap 6 (5-15); BUN 16 mg/dL (7-18); BUN/Creat Ratio 24.1 RATIO (10-20); Calcium,Total 9.4 mg/dL (8.5-10.1); Chloride 109 mmol/L (98-107); Creatinine, Serum 0.66 mg/dL (0.55-1.02); EST Glomerular Filtration Rate 94 mL/min (>60); Est Glom Filt Rate - Afr Amer 113 mL/min (>60); Globulin 3.4 g/dL (2.2-4.2); Glucose 89 mg/dL (74-106); Potassium 4.1 mmol/L (3.5-5.1); Protein, Total 6.9 g/dL (6.4-8.2); Sodium Level 141 mmol/L (136-145)
== END 2021-10-08 23:59 | disposition home or self-care (01) ==
LOC: MFPLAB 08:16
PROVIDERS: PCP Internal Medicine Rheumatology; Referring Provider Internal Medicine Rheumatology; Visit Provider Internal Medicine Rheumatology
DX: M06.4 Inflammatory polyarthropathy (principal); E11.9 Type 2 diabetes mellitus without complications; M79.7 Fibromyalgia; M65.341 Trigger finger, right ring finger; M17.0 Bilateral primary osteoarthritis of knee; M18.0 Bilateral primary osteoarthritis of first carpometacarpal joints; E03.9 Hypothyroidism, unspecified; E78.5 Hyperlipidemia, unspecified; G25.81 Restless legs syndrome; F41.9 Anxiety disorder, unspecified; G47.33 Obstructive sleep apnea (adult) (pediatric); Z98.84 Bariatric surgery status; Z79.899 Other long term (current) drug therapy
CPT/HCPCS: 36415; 80053; 85025

== ENCOUNTER 2021-10-17 10:25 | Outpatient (CLI) | payer MEDICARE, OTHER, SELFPAY ==
[2021-10-17 11:56] LABS: Erythrocyte Sedimentation Rate 16 mm/hr (0-30)
[2021-10-17 11:58] LABS: Absolute Lymphocyte Count 2.18 X10^3/uL (0.83-4.51); Absolute Neutrophil Count 2.9 X10^3/uL (2.0-7.7); Basophil# 0.03 X10^3/uL; Basophil% 0.5 % (0-1); Eosinophil# 0.14 X10^3/uL; Eosinophils% 2.4 % (0-5); Hematocrit 42.5 % (37-47); Hemoglobin 14.2 g/dL (12.0-15.0); Lymphocyte # 2.18 X10^3/ul (0.83-4.51); Lymphocyte % 37.5 % (19-41); Mean Corp Hgb Conc 33.4 g/dL (32-36); Mean Corpuscular Hgb 30.8 pg (27.0-32.0); Mean Corpuscular Volume 92.2 fL (81-99); Mean Platelet Vol. 9.7 fl (6.2-12.0); Monocyte# 0.56 X10^3/uL; Monocyte% 9.6 % (0-10); NRBC Flagged by Analyzer 0 % (0-5); Neutrophil % 49.8 % (47-70); Platelet Count 196 K/mm3 (150-450); RBC Distribution Width CV 14.3 % (11.6-14.6); RBC Distribution Width SD 48.2 fl (35.1-43.9); Red Blood Count 4.61 M/mm3 (4.2-5.4); White Blood Count 5.8 K/mm3 (4.4-11.0)
[2021-10-17 12:33] LABS: CRP < 2.90 mg/L (0.0-3.0)
== END 2021-10-17 23:59 | disposition home or self-care (01) ==
LOC: MFPLAB 10:27
PROVIDERS: PCP Physician Assistant Surgical; Referring Provider Physician Assistant Surgical; Visit Provider Physician Assistant Surgical
DX: Z96.651 Presence of right artificial knee joint (principal)
CPT/HCPCS: 36415; 85025; 85652; 86140

== ENCOUNTER 2021-11-18 09:30 | Outpatient (RCR) | payer MEDICARE, OTHER, SELFPAY | END 2021-11-27 23:59 | LOC: NS 09:30 | PROVIDERS: PCP Physician Assistant Surgical; Visit Provider Physician Assistant Surgical | DX: Z71.3 Dietary counseling and surveillance (principal); E66.01 Morbid (severe) obesity due to excess calories; E11.9 Type 2 diabetes mellitus without complications; Z68.41 Body mass index [BMI] 40.0-44.9, adult | CPT/HCPCS: 97802; 97803 ==

== ENCOUNTER 2021-11-21 15:50 | Outpatient (CLI) | payer MEDICARE, OTHER, SELFPAY ==
[2021-11-21 17:35] LABS: Absolute Lymphocyte Count 2.46 X10^3/uL (0.83-4.51); Absolute Neutrophil Count 2.8 X10^3/uL (2.0-7.7); Basophil# 0.03 X10^3/uL; Basophil% 0.5 % (0-1); Eosinophil# 0.09 X10^3/uL; Eosinophils% 1.5 % (0-5); Hematocrit 40.6 % (37-47); Lymphocyte # 2.46 X10^3/ul (0.83-4.51); Lymphocyte % 41.8 % (19-41); Mean Corpuscular Hgb 29.9 pg (27.0-32.0); Mean Corpuscular Volume 93.3 fL (81-99); Monocyte# 0.51 X10^3/uL; Monocyte% 8.7 % (0-10); NRBC Flagged by Analyzer 0 % (0-5); Neutrophil # 2.79 X10^3/uL (2.7-7.7); Neutrophil % 47.5 % (47-70); Platelet Count 208 K/mm3 (150-450); RBC Distribution Width CV 13.2 % (11.6-14.6); RBC Distribution Width SD 45.1 fl (35.1-43.9); Red Blood Count 4.35 M/mm3 (4.2-5.4); White Blood Count 5.9 K/mm3 (4.4-11.0)
[2021-11-21 18:17] LABS: ALB/GLOB Ratio 1.2 RATIO (0.9-2.4); AST(SGOT) 31 U/L (15-37); Alanine Aminotransfer ALT/SGPT 38 U/L (13-56); Albumin, Serum 3.8 g/dL (3.2-5.0); Alkaline Phosphatase 94 U/L (45-117); Anion Gap 4 (5-15); BUN 18 mg/dL (7-18); BUN/Creat Ratio 19.7 RATIO (10-20); Calcium,Total 9.5 mg/dL (8.5-10.1); Chloride 107 mmol/L (98-107); Cholesterol 206 mg/dL (200); Creatinine, Serum 0.91 mg/dL (0.55-1.02); EST Glomerular Filtration Rate 65 mL/min (>60); Est Glom Filt Rate - Afr Amer 79 mL/min (>60); Ferritin 285 ng/mL (8-252); Globulin 3.3 g/dL (2.2-4.2); Glucose 93 mg/dL (74-106); High Density Lipoprotein 57 mg/dL; Iron 47 ug/dL (50-170); Magnesium 2.5 mg/dL (1.6-2.6); Phosphorus 3.5 mg/dL (2.5-4.9); Potassium 3.8 mmol/L (3.5-5.1); Protein, Total 7.1 g/dL (6.4-8.2); Sodium Level 140 mmol/L (136-145); T4 Free Direct 1.42 ng/dL (0.76-1.46); Thyroid Stim Hormone (TSH) 0.12 uIU/mL (0.358-3.74); Triglycerides 107 mg/dL; Very Low Density Lipoprotein 21 mg/dL (5-40)
[2021-11-21 18:18] LABS: Hemoglobin A1c 5.3 % (3.8-5.6)
[2021-11-21 18:25] LABS: Vitamin B12 > 2000 pg/mL (211-911)
== END 2021-11-21 23:59 | disposition home or self-care (01) ==
LOC: MFPLAB 16:00
PROVIDERS: PCP Family Medicine; Referring Provider Family Medicine; Visit Provider Family Medicine
DX: E03.9 Hypothyroidism, unspecified (principal); E11.9 Type 2 diabetes mellitus without complications; E78.00 Pure hypercholesterolemia, unspecified; Z98.84 Bariatric surgery status
CPT/HCPCS: 36415; 80053; 80061; 82043; 82570; 82607; 82728; 83036; 83540; 83735; 84100; 84432; 84439; 84443; 84630; 85025; 86376; 86800

== ENCOUNTER 2021-11-27 10:25 | Outpatient (CLI) | payer MEDICARE, OTHER, SELFPAY ==
--- NOTE | 2021-11-27 10:28 | BD_ITS ---
STUDY: DUAL ENERGY X-RAY ABSORPTIOMETRY / DXA REASON FOR EXAM: Female, 71 years old. 733.90OsteopeniaBONE DENSITY REASON FOR EXAM TECHNIQUE: Bone Mineral Density (BMD) measurements of lumbar spine and bilateral hips were obtained. COMPARISON: Comparison is made with prior study dated 03/10/2017. FINDINGS: Lumbar Spine (L1-L4): g/cm2 (0.892) / T-score (-1.4) / Z-score (0.7) Findings are suggestive of normal bone density with a low fracture risk. Left Femur Total: g/cm2 (0.780) / T-score (-1.3) / Z-score (0.1) Left Femoral Neck: g/cm2 (0.603) / T-score (-2.2) / Z-score (-0.5) Right Femur Total: g/cm2 (0.731) / T-score (-1.7) / Z-score (-0.3) Right Femoral Neck: g/cm2 (0.604) / T-score (-2.2) / Z-score (-0.5) The T-Scores on the most recent prior examination were: Lumbar Spine (L1-L4): There has been worsening of bone density since the previous examination. Left Femur Total: which represents a worsening of 8.5%. Right Femur Total: which represents a worsening of 12.1%. BD/Dexa Bone Density Study IMPRESSION: The patient is considered osteopenic as outlined below according to World Ross Organization (WHO) criteria with a moderate fracture risk. There has been worsening of bone density since the previous examination. Reference Information: The T-score is the number of standard deviations above or below the standard which is normal for young adults at their peak bone mineral density. The World Health Organization (WHO) interprets the T-scores as follows: Above -1 Normal bone density Between -1 and -2.5 Osteopenia Equal to / or below -2.5 Osteoporosis As a practical clinical guideline, osteopenia may be graded as follows: Mild -1 through -1.5 Moderate -1.6 through -2.0 Severe -2.1 through -2.4 The Z-score is the number of standard deviations above or below age-matched controls. A Z-score of less than -1.5 would be considered abnormal. References: 1. NIH Osteoporosis and Related Bone Diseases www osteo.org 2. International Society for Clinical Densitometry www iscd.org 3. National Osteoporosis Foundation www nof.org Electronically Signed: Noah Reno MD at 8:49 EDT ,
== END 2021-11-27 23:59 | disposition home or self-care (01) ==
LOC: OPBD 10:26
PROVIDERS: PCP Family Medicine; Visit Provider Family Medicine
DX: M85.89 Other specified disorders of bone density and structure, multiple sites (principal)
CPT/HCPCS: 77080

== ENCOUNTER 2021-12-17 12:28 | Outpatient (CLI) | payer MEDICARE, OTHER, SELFPAY ==
[2021-12-17 15:17] LABS: Absolute Lymphocyte Count 2.41 X10^3/uL (0.83-4.51); Basophil# 0.02 X10^3/uL; Basophil% 0.3 % (0-1); Eosinophil# 0.12 X10^3/uL; Hematocrit 40.2 % (37-47); Lymphocyte # 2.41 X10^3/ul (0.83-4.51); Lymphocyte % 40.2 % (19-41); Mean Corp Hgb Conc 32.3 g/dL (32-36); Mean Corpuscular Hgb 29.5 pg (27.0-32.0); Mean Corpuscular Volume 91.4 fL (81-99); Monocyte# 0.41 X10^3/uL; Monocyte% 6.8 % (0-10); NRBC Flagged by Analyzer 0 % (0-5); Neutrophil # 3.03 X10^3/uL (2.7-7.7); Neutrophil % 50.7 % (47-70); Platelet Count 203 K/mm3 (150-450); RBC Distribution Width CV 12.7 % (11.6-14.6); RBC Distribution Width SD 42.5 fl (35.1-43.9)
[2021-12-17 15:42] LABS: Ferritin 240 ng/mL (8-252); Iron 63 ug/dL (50-170); Iron Binding Capacity,Total 426 ug/dL (250-450); T4 Free Direct 1.37 ng/dL (0.76-1.46); Thyroid Stim Hormone (TSH) 0.18 uIU/mL (0.358-3.74)
== END 2021-12-17 23:59 | disposition home or self-care (01) ==
LOC: MFPLAB 12:35
PROVIDERS: PCP Family Medicine; Referring Provider Family Medicine; Visit Provider Family Medicine
DX: E61.1 Iron deficiency (principal); R79.89 Other specified abnormal findings of blood chemistry; E03.9 Hypothyroidism, unspecified
CPT/HCPCS: 36415; 82728; 83540; 83550; 84432; 84439; 84443; 84445; 85025; 86376; 86800

== ENCOUNTER 2021-12-23 09:30 | Outpatient (RCR) | payer MEDICARE, OTHER, SELFPAY | END 2021-12-27 23:59 | LOC: NS 09:30 | PROVIDERS: PCP Family Medicine; Referring Provider Physician Assistant Surgical; Visit Provider Physician Assistant Surgical | DX: Z71.3 Dietary counseling and surveillance (principal); E66.01 Morbid (severe) obesity due to excess calories; E11.9 Type 2 diabetes mellitus without complications; Z68.41 Body mass index [BMI] 40.0-44.9, adult | CPT/HCPCS: 97803 ==

== ENCOUNTER → 2022-01-12 | Outpatient (CLI) | payer MEDICARE, OTHER, SELFPAY ==
--- NOTE | 2022-01-12 12:48 | ECHOD_ITS ---
Version 2 Reason For Study: Cardiac Murmur Procedure This was a 2D Doppler, Color Flow transthoracic echocardiogram. Exam performed in department. Left Ventricle Normal LV size. Left ventricular systolic function is normal. The estimated ejection fraction is 60 %. Stage 1 diastolic dysfunction. No regional wall motion abnormalities noted. Right Ventricle Normal RV size. Normal systolic function. Atria Normal left atrium. Normal right atrium. Patent foramen ovale. Mitral Valve Normal mitral valve. No mitral valve insufficiency. Tricuspid Valve Normal tricuspid valve. Mild tricuspid valve insufficiency. Pulmonary artery systolic pressure is 30 mmHg. Aortic Valve Trisinus/trileaflet aortic valve. Mild focal aortic valve calcification. Mild (1+) aortic valve insufficiency. Pulmonic Valve Normal pulmonic valve. Great Vessels Normal aortic root. The pulmonary artery is normal size. Normal inferior vena cava. Pericardium/Pleural No pericardial effusion. MMode/2D Measurements & Calculations LVIDd: 4.7 cm IVSd: 0.96 cm Ao root diam: 3.0 cm LVIDs: 2.6 cm LVPWd: 0.84 cm RVDd: 3.1 cm FS: 44.4 % LAV(MOD-bp): 46.5 ml LVAd ap4: 26.1 cm2 SV(MOD-sp4): 50.3 ml LAV(MOD-bp) Indexed: 23.8 ml/m2 LVLd ap4: 7.6 cm LAV(MOD-sp2): 51.2 ml EDV(MOD-sp4): 73.5 ml LAV(MOD-sp4): 42.9 ml EDV(sp4-el): 76.2 ml LVAs ap4: 13.1 cm2 LVLs ap4: 6.2 cm ESV(MOD-sp4): 23.2 ml ESV(sp4-el): 23.3 ml EF(MOD-sp4): 68.5 % EF(sp4-el): 69.4 % SV(sp4-el): 52.8 ml LA A4 area: 16.8 cm2 LA dimension(2D): 3.7 cm RA A4 area: 14.1 cm2 Doppler Measurements & Calculations MV E max jh: 90.2 cm/sec Lat Peak E' Jh: 10.8 cm/sec Med Peak E' Jh: 9.5 cm/sec MV A max jh: 107.2 cm/sec E/E' lat: 8.4 E/E' med: 9.5 MV E/A: 0.84 Ao V2 max: 175.3 cm/sec AI max jh: 359.7 cm/sec LV V1 max: 103.8 cm/sec Ao max P.3 mmHg AI max P.8 mmHg LV V1 max P.3 mmHg Ao V2 mean: 123.3 cm/sec Ao mean P.7 mmHg AI dec slope: 227.5 cm/sec2 Ao V2 VTI: 41.1 cm AI P1/2t: 463.1 msec PA V2 max: 90.6 cm/sec TR max jh: 254.4 cm/sec TR max P.9 mmHg ECHO/Echo Complete Interpretation Summary Normal LV size. Left ventricular systolic function is normal. The estimated ejection fraction is 60 %. Stage 1 diastolic dysfunction. Mild tricuspid valve insufficiency. Patent foramen ovale. Mild (1+) aortic valve insufficiency. Normal mitral valve. Ordering Physician: Jarred Sanabria Referring Physician: Jarred Sanabria Performed By: Bel Damon, VALENTINA, RVT
== END | disposition home or self-care (01) ==
LOC: CVS 12:46
PROVIDERS: PCP Family Medicine; Visit Provider Family Medicine
DX: R01.1 Cardiac murmur, unspecified (principal)
CPT/HCPCS: 93306

== ENCOUNTER 2022-01-13 09:21 | Outpatient (RCR) | payer MEDICARE, OTHER, SELFPAY | END 2022-01-27 23:59 | LOC: NS 09:21 | PROVIDERS: PCP Family Medicine; Referring Provider Physician Assistant Surgical; Visit Provider Physician Assistant Surgical | DX: Z71.3 Dietary counseling and surveillance (principal); E66.01 Morbid (severe) obesity due to excess calories; E11.9 Type 2 diabetes mellitus without complications; Z68.41 Body mass index [BMI] 40.0-44.9, adult | CPT/HCPCS: 97803 ==

== ENCOUNTER → 2022-02-17 | Outpatient (CLI) | payer MEDICARE, OTHER, SELFPAY ==
[2022-02-17 15:41] LABS: Absolute Lymphocyte Count 2.37 X10^3/uL (0.83-4.51); Basophil# 0.02 X10^3/uL; Basophil% 0.3 % (0-1); Eosinophil# 0.11 X10^3/uL; Eosinophils% 1.8 % (0-5); Hematocrit 42.3 % (37-47); Hemoglobin 13.4 g/dL (12.0-15.0); Lymphocyte # 2.37 X10^3/ul (0.83-4.51); Lymphocyte % 39.2 % (19-41); Mean Corp Hgb Conc 31.7 g/dL (32-36); Mean Corpuscular Volume 91.6 fL (81-99); Monocyte# 0.55 X10^3/uL; Monocyte% 9.1 % (0-10); NRBC Flagged by Analyzer 0 % (0-5); Neutrophil # 2.98 X10^3/uL (2.7-7.7); Neutrophil % 49.4 % (47-70); Platelet Count 197 K/mm3 (150-450); RBC Distribution Width CV 12.7 % (11.6-14.6); RBC Distribution Width SD 42.5 fl (35.1-43.9); Red Blood Count 4.62 M/mm3 (4.2-5.4)
[2022-02-17 18:09] LABS: Vitamin B12 912 pg/mL (211-911)
[2022-02-17 21:11] LABS: AST(SGOT) 29 U/L (15-37); Alanine Aminotransfer ALT/SGPT 38 U/L (13-56); Albumin, Serum 3.5 g/dL (3.2-5.0); Alkaline Phosphatase 83 U/L (45-117); Anion Gap 12 (5-15); BUN 15 mg/dL (7-18); Calcium,Total 9.1 mg/dL (8.5-10.1); Chloride 109 mmol/L (98-107); Creatinine, Serum 0.75 mg/dL (0.55-1.02); EST Glomerular Filtration Rate 81 mL/min (>60); Est Glom Filt Rate - Afr Amer 98 mL/min (>60); Ferritin 206 ng/mL (8-252); Globulin 3.4 g/dL (2.2-4.2); Glucose 73 mg/dL (74-106); Iron 70 ug/dL (50-170); Magnesium 2.2 mg/dL (1.6-2.6); Phosphorus 3.8 mg/dL (2.5-4.9); Potassium 4.1 mmol/L (3.5-5.1); Protein, Total 6.9 g/dL (6.4-8.2); Sodium Level 142 mmol/L (136-145); T4 Free Direct 1.22 ng/dL (0.76-1.46); Thyroid Stim Hormone (TSH) 0.34 uIU/mL (0.358-3.74)
[2022-02-20 20:42] LABS: Zinc, Plasma or Serum 75 ug/dL (44-115)
== END | disposition home or self-care (01) ==
LOC: MFPLAB 12:36
PROVIDERS: PCP Family Medicine; Referring Provider Family Medicine; Visit Provider Family Medicine
DX: E61.1 Iron deficiency (principal); E03.8 Other specified hypothyroidism; Z98.84 Bariatric surgery status
CPT/HCPCS: 36415; 80053; 82607; 82728; 83540; 83735; 84100; 84439; 84443; 84630; 85025

== ENCOUNTER 2022-02-24 09:55 | Outpatient (RCR) | payer MEDICARE, OTHER, SELFPAY | END 2022-02-26 23:59 | LOC: NS 09:55 | PROVIDERS: PCP Family Medicine; Referring Provider Physician Assistant Surgical; Visit Provider Physician Assistant Surgical | DX: Z71.3 Dietary counseling and surveillance (principal); E66.01 Morbid (severe) obesity due to excess calories; E11.9 Type 2 diabetes mellitus without complications; Z68.41 Body mass index [BMI] 40.0-44.9, adult | CPT/HCPCS: 97803 ==

== ENCOUNTER → 2022-03-03 | Outpatient (CLI) | payer MEDICARE, OTHER, SELFPAY | END | disposition home or self-care (01) | LOC: MFPLAB 10:29 | PROVIDERS: PCP Family Medicine; Visit Provider Family Medicine | DX: Z01.818 Encounter for other preprocedural examination (principal) | CPT/HCPCS: 87077; 87081 ==

== ENCOUNTER → 2022-03-05 | Outpatient (CLI) | payer MEDICARE, OTHER, SELFPAY ==
[2022-03-05 15:12] LABS: Absolute Lymphocyte Count 2.22 X10^3/uL (0.83-4.51); Absolute Neutrophil Count 3.5 X10^3/uL (2.0-7.7); Basophil# 0.03 X10^3/uL; Basophil% 0.5 % (0-1); Eosinophil# 0.14 X10^3/uL; Eosinophils% 2.2 % (0-5); Hematocrit 41.9 % (37-47); Hemoglobin 13.4 g/dL (12.0-15.0); Lymphocyte # 2.22 X10^3/ul (0.83-4.51); Lymphocyte % 34.8 % (19-41); Mean Corpuscular Hgb 28.7 pg (27.0-32.0); Mean Corpuscular Volume 89.7 fL (81-99); Mean Platelet Vol. 10.1 fl (6.2-12.0); Monocyte# 0.52 X10^3/uL; Monocyte% 8.2 % (0-10); NRBC Flagged by Analyzer 0 % (0-5); Neutrophil # 3.46 X10^3/uL (2.7-7.7); Neutrophil % 54.1 % (47-70); Platelet Count 213 K/mm3 (150-450); RBC Distribution Width CV 13.2 % (11.6-14.6); RBC Distribution Width SD 43.2 fl (35.1-43.9); Red Blood Count 4.67 M/mm3 (4.2-5.4); White Blood Count 6.4 K/mm3 (4.4-11.0)
[2022-03-05 15:33] LABS: Vitamin D,25 Hydroxy 36.9 ng/mL
[2022-03-05 15:38] LABS: ALB/GLOB Ratio 1.1 RATIO (0.9-2.4); AST(SGOT) 33 U/L (15-37); Alanine Aminotransfer ALT/SGPT 41 U/L (13-56); Albumin, Serum 3.5 g/dL (3.2-5.0); Alkaline Phosphatase 83 U/L (45-117); Anion Gap 5 (5-15); BUN 19 mg/dL (7-18); BUN/Creat Ratio 26.8 RATIO (10-20); Calcium,Total 9.7 mg/dL (8.5-10.1); Chloride 109 mmol/L (98-107); Cholesterol 226 mg/dL (200); Creatinine, Serum 0.71 mg/dL (0.55-1.02); EST Glomerular Filtration Rate 87 mL/min (>60); Est Glom Filt Rate - Afr Amer 105 mL/min (>60); Ferritin 206 ng/mL (8-252); Globulin 3.2 g/dL (2.2-4.2); Glucose 81 mg/dL (74-106); High Density Lipoprotein 64 mg/dL; Iron 78 ug/dL (50-170); Iron Binding Capacity,Total 322 ug/dL (250-450); Potassium 3.9 mmol/L (3.5-5.1); Protein, Total 6.7 g/dL (6.4-8.2); Sodium Level 142 mmol/L (136-145); Thyroid Stim Hormone (TSH) 2.26 uIU/mL (0.358-3.74); Triglycerides 104 mg/dL; Very Low Density Lipoprotein 21 mg/dL (5-40)
== END | disposition home or self-care (01) ==
LOC: MFPLAB 11:27
PROVIDERS: PCP Family Medicine; Visit Provider Family Medicine
DX: E61.1 Iron deficiency (principal); R79.89 Other specified abnormal findings of blood chemistry; M85.80 Other specified disorders of bone density and structure, unspecified site; E78.00 Pure hypercholesterolemia, unspecified
CPT/HCPCS: 36415; 80053; 80061; 82306; 82728; 83540; 83550; 84439; 84443; 85025

== ENCOUNTER 2022-03-11 09:17 | Inpatient (IN) | payer MEDICARE, OTHER, SELFPAY ==
--- NOTE | 2022-02-24 15:15 | HP.PCM_ITS ---
History and Physical History and Physical [facility] Patient Name: Michaela Hernandez : 1950 From:? DONNA BELLAMY PA-C? DATE OF SURGERY:? 03/11/2022 SCHEDULED PROCEDURE: revision right total knee arthroplasty HISTORY OF PRESENT ILLNESS: Preoperative history and physical exam was performed on February 23, 2022.? This is a 71-year-old female who has had previous bilateral total knee arthroplasties by Dr. Tierney in 2018.? ?Patient's right total knee was performed in September 2017 followed by a manipulation for the right knee in December 2017.? Patient's right knee has been having constant pain which is sharp, stabbing, sore.? She has difficulty with activities of daily living including bathing, driving, housework and shopping.? Pain is increased with going up and down stairs, sitting, walking and getting in and out of the car.? She does have start up pain.? Patient feels unsafe performing stairs as well as getting in and out of the tub.? She has tried conservative measures including ice, elevation without relief.? She has been on gabapentin.? Patient has tried physical therapy and home exercises.? Patient has had bariatric surgery in 2006 and has also participated in the [employer] program.? Despite conservative measures she continues to have severe pain with associated loss of range of motion and arthrofibrosis.? She has been using I cane for the past 4 years.? She has tried a brace over the past 6 months without relief.? After failing conservative measures and discussing treatment options with Dr. Christopher Mercedes, the patient does wish to proceed with a revision right total knee arthroplasty.? We are obtaining surgical clearance from primary care physician Dr. Sanabria.? Patient has medical history pertinent for fibromyalgia, sleep apnea with use of CPAP, osteopenia, thyroid disease.? She currently denies any chest pain, shortness of breath, fevers chills or recent infections. REVIEW OF SYSTEMS: Review Of Systems: Constitutional: Denies change in appetite, fever and weight change. Cardiovasular: Denies chest pain, heart murmur, irregular heartbeat and rest pain. Respiratory: Denies cough, pneumonia, shortness of breath, tuberculosis and wheezing. Gastrointestinal: Denies constipation, diarrhea, heartburn, nausea, rectal itching, bloody stools and vomiting. Genitourinary: Denies postmenopausal symptoms. Denies incontinence. Musculoskeletal: Reports leg swelling, pain and trouble walking, but denies weakness. Skin: Denies Raynaud's, history of shingles and tattoo. Neurological: Reports ambulatory dysfunction but denies dizziness, numbness/tingling and tremor. Psychiatric: Reports depression, but denies anxiety, insomnia and stress. Hematologic/Lymphatic: Denies anemia, bleeding/bruising tendency and past transfusion. Reviewed and updated. PAST MEDICAL HISTORY: Advance Care Plan: Other Directive, LIVING WILL Effective Date: 10/17/2021 Other Directive, POA Effective Date: 10/17/2021 Past Medical History: Medical Problems: Kidney Stones, Thyroid Disease, Osetopnea, Sleep Apnea, Fibromyalgia, Arthritis Accidents: None Surgical Hx: Bariatric Bypass - (2006) Shoulder Arthroscopy LT - (10/26/2008) DR AMOS AT [facility] Robson Arm Reduction - (09/01/2011) [facility] LT Knee Arthroscopy - (06/29/2012) [facility] Knee Replacement LT - (05/2018) -[facility] Knee Replacement RT - (09/2017) -[facility] knee manipulation - Right knee? December 2017 Anesthesia Complications: Respiratory Depression, Blood Pressure Went Low Assistive Devices: Glasses, Cpap Reviewed and updated. SOCIAL HISTORY: Social History: Marital: .Occupation: Retired.Work Status: Retired.Hand Dominance: Right- Handed. Personal Habits:? Tobacco Use: Patient has never smoked.Cigarette Use: Never.Smokeless Tobacco: Never Used Smokeless Tobacco.E-Cigarette Use: Never used.Alcohol: Denies use.Drug Use: Denies Use.Enjoy Exercising: Exercises 1-3 X/Week. Reviewed, no changes. VITALS: Ht: 60.2 Wt: 217lb 6oz Wt k.601 BMI: 42.2 BP: 134/84 Pulse: 74 Resp: 14 T: 98.7 T: 37.1C Pain Level: 8 O2SatR: 96 ALLERGIES: Vicodin - Itchy Latex NSAIDS? MEDICATIONS: Mirapex 0.25 mg 1/2 tab PO qhs, Levothyroxine Sodium 112 mcg 1 PO qam, Magnesium Oxide 400 mg 1 by mouth every day, Turmeric 500 mg take per directions on bottle, Calcium Citrate 250 mg 1200 mg calcium daily, Tylenol Extra Strength 500 mg 2 by mouth every 8 hours, Gabapentin 300 mg 1 by mouth a day, Bariatric Multivitamins/Iron? 1po qday, Baclofen 10 mg 1 by mouth every day, Escitalopram Oxalate 5 mg 1 by mouth every day, Ferrousul 325 (65 Fe) MG 1 by mouth every day, Mirtazapine 15 mg 1po qday PRE-OP EXAM:? General appearance:NORMAL? ? ? Other: Eyes: Conjunctivae and lids: NORMAL? Pupils: ERR Ears, Nose, Mouth, and Throat: NORMAL? Other: Inspection of lips, teeth and gums: NORMAL? ?Other: Neck: Examination of neck: no masses noted. Respiratory: Assessment of respiratory effort: NORMAL? ?Other: ?Auscultation of lungs: clear to auscultation no wheezes, rhonchi or rales. Cardiovascular:? Auscultation of heart: regular rate and rhythm, no murmurs, gallops or rubs. PHYSICAL EXAMINATION: Patient does walk with an antalgic gait.? Previous incision is well-healed without erythema or signs of infection.? Patient does have tenderness to palpation over the Pes bursa.? Range of motion: 0 extension to 65 flexion.? Sensation intact to light touch.? Neurovascularly intact. IMAGING STUDIES: Previous x-rays of the right knee reveal stable well aligned total knee replacement with well fixed implants.? Cement mantle appears stable.? There is anterior prominence of the anterior flange of the femur. IMPRESSION: 1.? Painful right total knee arthroplasty 2.? Sleep apnea 3.? Fibromyalgia 4.? Osteopenia 5.? Thyroid disease 6.? History of kidney stones PLAN: Dr. Christopher Mercedes did discuss and review with the patient all treatment options including surgical versus nonsurgical options.? Patient does wish to proceed with the above-stated procedure.? Potential risks, benefits, and complications of the procedure were discussed in detail including but not limited to , infection, nerve and blood vessel damage, persistent pain, numbness, tingling, paresthesias, blood clot, pulmonary embolism, and requirement for possible further surgery.? The patient expressed full understanding and has no further questions for the doctor.? Patient does agree to proceed with the above-stated procedure and has signed the surgery consent form. We discussed the current risks associated with COVID 19.? This does include the risk of exposure while in the hospital.? Patient was reassured local hospitals have low infection rates and are taking all necessary precautions to avoid exposure to patients.? In addition, we discussed strategies that can be used to help limit exposure including those that limit the patient's time in the hospital.? Also using strategies to limit the patient's need for continued inpatient services after being discharged from the hospital.? Patient was notified that we will need to comply with any screening or testing the hospital wishes to perform or that surgery may be delayed for any positive results. This dictation was created using voice recognition software. Phonetic and/or grammatical errors may exist. ___? I have re-examined the patient.? There are no clinical changes since date of exam. ___? See progress notes for changes. ___? Dictated on admission Date: ? ? ?Time: Signature:
[2022-03-11] VITALS (12 sets, daily range): BP systolic 106–140; BP diastolic 54–84; PULSE 59–82; RESP 12–18; TEMP 36.2–37; O2SAT 94–100; BMI 41.1; BMI 43.9
[2022-03-11] MEDS: Lactated Ringers 1,000 ML 999 ML IV ×2 (09:58→16:32)
[2022-03-11] MEDS: Acetaminophen 500 MG Tablet 1000 MG PO ×2 (10:00→22:37)
[2022-03-11] MEDS: Gabapentin 600 MG Tablet PO (10:00)
[2022-03-11 10:31] LABS: Bedside Glucose 80 mg/dL (74-106)
[2022-03-11] MEDS: Cefazolin 2 GM in 0.9% Normal Saline 100 ML IV (12:29)
[2022-03-11] MEDS: TXA 1000mg in NS100 100ml (IVPB at Incision) 660 MG IV (12:44)
[2022-03-11] MEDS: dexAMETHasone 10 MG/ML Vial IV (12:53)
[2022-03-11] MEDS: TXA 1000mg in NS100 100ml (IVPB at Closure) 660 MG IV (14:52)
--- NOTE | 2022-03-11 15:08 | PCM.OPRPT ---
Report of Operation Date of Procedure: 03/11/22 Pre-Operative Diagnosis: Painful right total knee replacement, arthrofibrosis Post-Operative Diagnosis: Painful right total knee replacement, arthrofibrosis Surgery/Procedure Performed:: Revision right total knee replacement entire femur and tibia. Description of Surgical Findings:: Patient had improved range of motion. Significant quadriceps tightness. Quadricep snip was performed to help with exposure and repaired with #2 FiberWire. Surgeon: Christopher Mercedes final operations technician: Sam Alonso Type of Anesthesia: Spinal Anesthesiologist: Rashaad Lay Special Medications: 2 g Ancef, 1 g TXA at incision, 1 g TXA closure, 10 mg Decadron, joint cocktail (5 mg Duramorph, 30 mL of 0.5% Ropivicaine, 1000 units of epinephrine, 30 mg of Toradol) Ancef was redosed after 2 and half hours. Specimen's removed: 3 separate specimens were sent to microbiology Estimated Blood Loss (mL): 300 Fluids Replaced: 1000 mL crystalloid Description of Procedure: Implants used: Femur: Valley triathlon total stabilized size 3 right distal femur. Distal augments: 10 mm lateral, 50 mm medial. Posterior augments 5 mm lateral, 5 mm medial. Stem: 15 x 100 mm cemented stem Tibia: Darya size 3 universal tibial baseplate with 15 x 50 mm cemented stem. Size C cone Poly: 16mm total stabilized Valley X3 polyethylene Brief history operative indications: 71-year-old F with total knee replacement previously done at outside institution. Patient demonstrated severe arthrofibrosis and continued pain. After ruling out infection we agreed to proceed with revision total knee replacement which had risks which include but not limited to blood loss, DVTs, PEs, nervous damage, infection, the risk of anesthesia. Patient demonstrate understanding was able to sign informed consent. Medical clearance was obtained. Procedure: On the date of procedure patient's R lower extremity was marked in the preoperative area. The patient was then taken back to the operating room where the patient was placed on the table in the supine position. All bony prominences were identified a well-padded. Anesthesia assumed control of the C-spine and airway and remained controlled throughout the remainder of the procedure. A tourniquet was placed on the R upper thigh and the leg was prepped in a sterile fashion. The surgeon then scrubbed at this time. Upon reentering the room R lower extremity was draped in a standard orthopedic fashion. A timeout was then called and everyone agreed upon the side, the site, the procedure to be performed, patient's identity and antibiotics given. An Esmarch bandage was used to exsanguinate the extremity and the tourniquet was placed up to 250 mmHg with the knee in flexion. A midline skin incision was made using the previous incision and extending it proximally and distally to identify normal tissue planes. Medial and lateral flaps were developed appropriate releases. The standard medial parapatellar arthrotomy was made and extended proximally with a quadricep snip based on the patient's preoperative limited range of motion we knew we were going to need extensile approach for exposure. The patella was subluxed laterally. At this time an aggressive synovectomy was performed re-creating the medial gutter first, then the suprapatellar pouch than the lateral gutter. Once this was completed the knee was flexed up an osteotome was used to remove the tibial polyethylene. The remainder of the synovium was debrided. The standard deep MCL release was done and the patella scar pad was resected and lateral releases were performed. Next our attention was directed to the femur. Where flexible osteotomes and TPS saw were used to break up the implant cement interface. This was done both medially and laterally. After this a bone tamp was used to remove the femur component from the end of the bone. This was done with minimal bone loss. At this time attention was now directed towards the proximal tibia. Possible osteotome and TPS saw were then used to break up the proximal tibia implant interface and stacked osteotomes were used to remove the tibial implant. This was done with minimal bone loss. Our attention was then turned to the tibia where the intramedullary canal was reamed to 18 and a size C tibial cone was reamed. We then made a cleanup cut on the tibia, A drop makayla was then used to verify the cut. A size 3 tibial base plate was selected. the knee was flexed and the tibial component was pinned into place and the boss reamer was used to ream the proximal medullary canal. The trial implant was impacted in its prepared position. Our attention was then turned back to the femur or the femur intramedullary canal was reamed to 18 mm using the previous implants a size 3 TCG cutting guide with a 18 mm stem was put into place. The medial epicondyle was used to set the joint line. With this TCG cutting guide we used a 16 mm polyethylene trial in order to help balance the gaps. Once the gaps were appropriately balanced the guide was firmly pinned into place. Distal cuts were made with 15 mm augments medially and 10 mm augment laterally. Posterior cuts were made with 5 mm augments medially and 5 mm augment laterally. Using the guide the box cut was made using a reciprocating saw. The appropriate trials were then placed on the femur and tibia. A trial polyethylene was trialed to ensure proper balancing and stability of the knee. Patella tracking, was then verified and corrected appropriately as needed. Our attention was then directed to the patella. Patella remained intact and appropriate. Based on x-rays it was firmly fixed. Patellar tracking was again checked and deemed appropriate. Final components were verified and opened, 6 liters of normal saline were irrigated throughout the joint under low-pressure lavage. Then the cement was mixed in a vacuum. [employer] Simplex cement with tobramycin was used. The wound was copiously irrigated with normal saline. When the cement was ready cement plugs were placed in the tibial cone was placed the components were cemented into place starting with the tibia, femur. The trial poly component was placed and the knee was placed in full extension. All excess cement was removed in the process. Once the cement had cured the tracking, alignment and balance were verified and a size 16 mm TS polyethylene component was placed. Once the final components were placed a 3-minute dilute Betadine lavage was performed followed by a chlorhexidine lavage was used and the wound was copiously irrigated with normal saline solution and the remainder of the periarticular injection was given. The wound was closed in a layer west fashion using #1 vicryl interrupted sutures for the arthrotomy, 2-0 interrupted Vicryl for the subcuticular layer and tamika for final skin closure. A sterile compressive dressing was then placed. The patient was then awakened from anesthesia, transferred to the [facility] and transferred to the PACU for recovery. Post op plan DVT ppx: Xarelto 10 mg daily patient cannot take NSAIDs due to previous bariatric surgery, thigh high compression stockings Follow up: in office in 2 weeks for wound check PT: to start POD #0 at hospital, outpatient PT should be arranged. Patient will be placed on doxycycline 100 mg twice daily for 2 weeks following surgery as we follow cultures My physician greenhouse assistant was a vital part of this case. He was important in appropriate retraction during the case, and protection of soft tissues during bony cuts. His intimate knowledge of the case and my steps aided in safe and expedient completion of the procedure as well as appropriate position of the leg during the case. He was also vital in assisting with closure under my direct supervision. Complications No intraoperative complications Admit VTE Documentation VTE Present on Admission: No VTE Mechan Device Prophylaxis: SCD's and Thigh High DONY Hose VTE Pharm Prophylaxis ordered?: Yes
--- NOTE | 2022-03-11 16:40 | RAD_ITS ---
EXAM: XR RIGHT KNEE, 1 OR 2 VIEWS CLINICAL INDICATION: post op -- AP and Lateral xray of operative knee in PACU TECHNIQUE: Frontal and/or lateral views of the right knee. This report was created using [employer] report generation technology. COMPARISON: None. FINDINGS: BONES/JOINTS: There is total knee prosthesis in anatomic alignment. No acute fracture. Preservation of the joint space. No sclerotic or destructive changes observed. SOFT TISSUES: Unremarkable. No soft tissue swelling or gas. No radiopaque foreign body. RAD/Knee 1 or 2 Views IMPRESSION: Total knee prosthesis. There are no osseous abnormalities. Electronically Signed: Calixto Washburn MD at 17:38 EDT ,
--- NOTE | 2022-03-11 17:13 | PCM.PN.HOSP ---
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 Procedure was performed by Dr. Mercedes. The hospitalist service was consulted to assist with management of patient medical comorbidities Objective Data Objective Data Vital Signs: Vital Signs Temp Pulse Resp BP Pulse Ox O2 Del Method O2 Flow Rate 98.5 F 80 14 119/65 97 Nasal Cannula 4 03/11/22 15:59 03/11/22 17:00 03/11/22 17:00 03/11/22 17:00 03/11/22 17:00 03/11/22 17:00 03/11/22 17:00 Oxygen Flow Rate (L/min) 4 Oxygen Delivery Method Nasal Cannula Weight: 102.058 kg Body Mass Index (BMI) 41.1 Intake & Output: Intake and Output for Last 24 Hours 03/09/22 03/10/22 03/11/22 23:59 23:59 23:59 Intake Total 2962 / 2962 Balance 2962 / 2962 Lab / Micro Data Labs: Laboratory Results - last 24 hr 03/11/22 10:03: POC Glucose 80 Physical Exam Narrative GENERAL: In no apparent distress HEENT: Atraumatic; EYES; Anicteric, Normal Conjunctiva NECK; supple, normal thyroid, RESPIRATORY: Diminished to auscultation CARDIOVASCULAR: Regular S1 S2, GI: soft, normoactive bowel sounds, : No Renal angle tenderness; EXTREMITIES: No edema, no clubbing, MUSCULOSKELETAL: no muscle wasting NEURO: Awake; no lateralizing signs. 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 Procedure was performed by Dr. Mercedes. The hospitalist service was consulted to assist with management of patient medical comorbidities 1. 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 Procedure was performed by Dr. Mercedes on 03/11/2022 2. Obstructive sleep apnea ? Patient is a CPAP at night plan is to continue 3. Hypothyroidism - Patient is on levothyroxine home dose continued ? 4. Restless leg syndrome Patient is on pramipexole did continue 5. Depression ? Patient is on citalopram plan is to continue 6. Class III obesity with BMI of 41.2 ? Weight loss advised Charges/Coding Visit Charges Inpatient E&M: 20356 Subs Hosp L3
[2022-03-11] MEDS: oxyCODONE 5 MG Tablet PO (18:11)
--- NOTE | 2022-03-11 19:35 | CPS ---
Set up pt's own CPAP machine with 4 lpm Bleed in and placed on pt d/t pt being unarousable and on 4 lpm nasal cannula. Nursing notified.
[2022-03-11] MEDS: Lactated Ringers 1,000 ML 125 ML IV (22:31)
[2022-03-11] MEDS: Baclofen 10 MG Tablet PO (22:36)
[2022-03-11] MEDS: Pramipexole Di-HCl 0.25 MG Tablet PO (22:36)
[2022-03-11] MEDS: Mirtazapine 15 MG Tablet PO (22:37)
[2022-03-11] MEDS: Gabapentin 400 MG Capsule PO (22:37)
[2022-03-11] MEDS: Senna/Docusate Sodium 1 Tablet 2 TABLET PO (22:37)
[2022-03-11] MEDS: Cefazolin 1 GM/50 ML BAG IV (22:38)
[2022-03-12] VITALS (7 sets, daily range): BP systolic 79–140; BP diastolic 37–93; PULSE 58–85; RESP 12–16; TEMP 36.5–37.1; O2SAT 95–99; BMI 43.9
[2022-03-12] MEDS: Acetaminophen 500 MG Tablet 1000 MG PO ×3 (05:09→20:44)
[2022-03-12] MEDS: Levothyroxine 112 MCG Tablet PO (05:09)
[2022-03-12] MEDS: Rivaroxaban 10 MG Tablet PO (05:09)
[2022-03-12 05:34] LABS: Hematocrit 31.3 % (37-47); Hemoglobin 9.8 g/dL (12.0-15.0); Mean Corp Hgb Conc 31.3 g/dL (32-36); Mean Corpuscular Hgb 29.1 pg (27.0-32.0); Mean Corpuscular Volume 92.9 fL (81-99); Mean Platelet Vol. 9.8 fl (6.2-12.0); Platelet Count 167 K/mm3 (150-450); RBC Distribution Width CV 13.2 % (11.6-14.6); RBC Distribution Width SD 45.2 fl (35.1-43.9); Red Blood Count 3.37 M/mm3 (4.2-5.4); White Blood Count 11.4 K/mm3 (4.4-11.0)
[2022-03-12 06:13] LABS: Anion Gap 6 (5-15); BUN 21 mg/dL (7-18); BUN/Creat Ratio 28.6 RATIO (10-20); Calcium,Total 8.3 mg/dL (8.5-10.1); Chloride 109 mmol/L (98-107); Creatinine, Serum 0.74 mg/dL (0.55-1.02); EST Glomerular Filtration Rate 83 mL/min (>60); Est Glom Filt Rate - Afr Amer 101 mL/min (>60); Estimated Creatinine Clearance 38.14 ml/min; Glucose 140 mg/dL (74-106); Sodium Level 141 mmol/L (136-145)
[2022-03-12] MEDS: Cefazolin 1 GM/50 ML BAG IV (06:13)
--- NOTE | 2022-03-12 07:31 | PCM.PN.HOSP ---
Subjective Subjective Postoperative day 1. Patient complains of some discomfort in the right thigh Objective Data Objective Data Vital Signs: Vital Signs Temp Pulse Resp BP Pulse Ox O2 Del Method O2 Flow Rate 98.7 F 65 15 121/93 H 99 CPAP 4 03/12/22 05:00 03/12/22 05:00 03/12/22 05:00 03/12/22 05:00 03/12/22 05:00 03/12/22 05:00 03/11/22 19:35 Oxygen Flow Rate (L/min) 4 Oxygen Delivery Method CPAP Weight: 102 kg Body Mass Index (BMI) 43.9 Intake & Output: Intake and Output for Last 24 Hours 03/10/22 03/11/22 03/12/22 23:59 23:59 23:59 Intake Total 4012 / 4812 2337.5 / 2337.5 Output Total 0 / 350 750 / 750 Balance 4012 / 4462 1587.5 / 1587.5 Lab / Micro Data Result Diagrams: 03/12/22 05:01 03/12/22 05:01 Labs: Laboratory Results - last 24 hr 03/11/22 10:03: POC Glucose 80 03/12/22 05:01: WBC 11.4 H, RBC 3.37 L, Hgb 9.8 L, Hct 31.3 L, MCV 92.9, MCH 29.1, MCHC 31.3 L, RDW Std Deviation 45.2 H, RDW Coeff of Edwar 13.2, Plt Count 167, MPV 9.8 03/12/22 05:01: Sodium 141, Potassium 5.0, Chloride 109 H, Carbon Dioxide 26.0, Anion Gap 6, BUN 21 H, Creatinine 0.74, Estim Creat Clear Calc 38.14, Est GFR (MDRD) Af Amer 101, Est GFR (MDRD) Non-Af 83, BUN/Creatinine Ratio 28.6 H, Glucose 140 H, Calcium 8.3 L Radiography Diagnostic Testing: Radiology Impression Knee X-Ray 03/11/22 16:40 IMPRESSION: Total knee prosthesis. There are no osseous abnormalities. Electronically Signed: Calixto Washburn MD at 17:38 EDT , Physical Exam Narrative GENERAL: In no apparent distress HEENT: Atraumatic; EYES; Anicteric, Normal Conjunctiva NECK; supple, normal thyroid, RESPIRATORY: Diminished to auscultation CARDIOVASCULAR: Regular S1 S2, GI: soft, normoactive bowel sounds, : No Renal angle tenderness; EXTREMITIES: No edema, no clubbing, MUSCULOSKELETAL: no muscle wasting NEURO: Awake; no lateralizing signs. 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 Procedure was performed by Dr. Mercedes. The hospitalist service was consulted to assist with management of patient medical comorbidities 1. 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 Procedure was performed by Dr. Mercedes on 03/11/2022 2. Obstructive sleep apnea ? Patient is a CPAP at night plan is to continue 3. Hypothyroidism - Patient is on levothyroxine home dose continued ? 4. Restless leg syndrome Patient is on pramipexole did continue 5. Depression ? Patient is on citalopram plan is to continue 6. Class III obesity with BMI of 41.2 ? Weight loss advised Charges/Coding Visit Charges Inpatient E&M: 59526 Subs Hosp L2
[2022-03-12] MEDS: Senna/Docusate Sodium 1 Tablet 2 TABLET PO ×2 (07:59→20:44)
[2022-03-12] MEDS: Calcium Carb/Vitamin D 1 TABLET Tablet PO ×2 (07:59→17:22)
[2022-03-12] MEDS: Ensure Surgery 237 ML LIQUID PO ×2 (07:59→17:22)
[2022-03-12] MEDS: Citalopram 10 MG Tablet PO (07:59)
[2022-03-12] MEDS: oxyCODONE 5 MG Tablet PO (09:48)
--- NOTE | 2022-03-12 10:09 | CT_ITS ---
STUDY: CT CERVICAL SPINE WITHOUT CONTRAST REASON FOR EXAM: Female, 71 years old. New onset weakness RADIATION DOSAGE (If Supplied By Facility): CTDIvol = ( 25.95 ) mGy, DLP = ( 497.39 ) mGycm TECHNIQUE: High resolution transaxial imaging was performed without contrast material. Sagittal and coronal images were reconstructed. Individualized dose optimization techniques were used for this CT. COMPARISON: None FINDINGS: Normal craniovertebral junction. Normal anterior atlantoaxial articulation. Normal odontoid process. Normal cervical lordosis. Normal vertebral bodies and posterior osseous elements. C2-3: Normal endplates. Normal disc height and morphology. Normal central canal and intervertebral neuroforamina. C3-4: Mild degree of disc space narrowing and spondylosis. C4-5: Moderate degree of disc space narrowing and spondylosis. Uncovertebral arthrosis. Mild degree of bilateral neural foraminal stenosis. C5-6: Moderate degree of disc space narrowing and spondylosis. Uncovertebral arthrosis. C6-7: Mild degree of disc space narrowing. Spondylosis. C7-T1: Normal endplates. Normal disc height and morphology. Normal central canal and intervertebral neuroforamina. Atherosclerotic calcification of the carotid bifurcations. CT/Spine Cervical without Contras IMPRESSION: Multilevel degenerative changes, as described above. Electronically Signed: Noah Reno MD at 11:09 EDT ,
--- NOTE | 2022-03-12 10:14 | PN.ORTHO_ITS ---
Subjective Subjective The patient was sitting in bedside chair upon examination after physical therapy has worked with the patient. Patient denies any chest pain, shortness of breath, dizziness, lightheadedness, or calf pain. Patient does complain of some regurgitation/nausea after eating pudding. She does have previous history of hi atal hernia and bariatric surgery. Patient is complaining of new onset weakness with dropping things with her left hand. She has had similar symptoms on her right hand but the left is new onset this morning. Pain is controlled on medications. No adverse overnight events. Patient does complain of stiffness in the knee and difficulty moving it with therapy. Patient states she has seen chiropractor in the past in which she has had some neck pain. She is concerned with the new onset of difficulty holding objects with her left hand. Objective Data Objective Data Vital Signs: Vital Signs Temp Pulse Resp BP Pulse Ox O2 Del Method O2 Flow Rate 98.2 F 60 16 108/50 L 95 Room Air 4 03/12/22 08:02 03/12/22 08:02 03/12/22 08:02 03/12/22 08:02 03/12/22 08:02 03/12/22 08:02 03/11/22 19:35 Oxygen Flow Rate (L/min) 4 Oxygen Delivery Method Room Air Weight: 102 kg Body Mass Index (BMI) 43.9 Intake & Output: Intake and Output for Last 24 Hours 03/10/22 03/11/22 03/12/22 23:59 23:59 23:59 Intake Total 4012 / 4812 2337.5 / 2337.5 Output Total 0 / 350 750 / 750 Balance 4012 / 4462 1587.5 / 1587.5 Lab / Micro Data Result Diagrams: 03/12/22 05:01 03/12/22 05:01 Labs: Laboratory Results - last 24 hr 03/11/22 10:03: POC Glucose 80 03/12/22 05:01: WBC 11.4 H, RBC 3.37 L, Hgb 9.8 L, Hct 31.3 L, MCV 92.9, MCH 29.1, MCHC 31.3 L, RDW Std Deviation 45.2 H, RDW Coeff of Edwar 13.2, Plt Count 167, MPV 9.8 03/12/22 05:01: Sodium 141, Potassium 5.0, Chloride 109 H, Carbon Dioxide 26.0, Anion Gap 6, BUN 21 H, Creatinine 0.74, Estim Creat Clear Calc 38.14, Est GFR (MDRD) Af Amer 101, Est GFR (MDRD) Non-Af 83, BUN/Creatinine Ratio 28.6 H, Glucose 140 H, Calcium 8.3 L Radiography Diagnostic Testing: Radiology Impression Knee X-Ray 03/11/22 16:40 IMPRESSION: Total knee prosthesis. There are no osseous abnormalities. Electronically Signed: Calixto Washburn MD at 17:38 EDT , Physical Exam Narrative Vital signs stable and afebrile. On clinical exam patient had no slurred speech, pupils were equal and reactive to light, no asymmetry of the face with smiling and frowning. Patient does complain of some weakness and dropping objects with her left hand SCDs and DONY hose are in place bilaterally Patient is able to plantarflex and dorsiflex actively. Sensation is intact to light touch to saphenous, sural, superficial and deep pe roneal, and tibial distribution. Incisional wound VAC in place with no drainage in the tubing or canister Negative Homans bilaterally, negative signs and symptoms of DVT. Const alert, oriented x3 and no apparent distress Assessment & Plan Assessment/Plan (1) Status post revision of total replacement of right knee: PLAN: 1. S/P revision right total knee arthroplasty POD #1 2. New onset weakness left upper extremity: Patient does have history of cervical neck pain. Case was discussed with hospitalist Dr. Henao. Hospitalist would like a CT scan of the cervical spine without contrast. 3. Continue Pain Medications: Continue with Tylenol and oxycodone for pain control. 4. DVT Prophylaxis: Patient will be on Xarelto for 2 weeks postoperatively as she is not able to have nonsteroidal anti-inflammatories due to previous bariatric surgery. 5. PT/OT: Weightbearing as tolerated with walker. 6. H & H: 9.8/31.3, asymptomatic. Postoperative anemia secondary to acute blood loss from surgery without any intra operative complications. Patient does take ferrous sulfate at home. I will add and folic acid 1 mg daily. Case was discussed with Christopher Mercedes. 7. Encouraged Incentive Spirometry 8. Continue postoperative medical management per medicine: Case was discussed with the hospitalist and at this time would like a CT scan of the cervical spine without contrast due to the new onset weakness in the left upper extremity. Clinical exam patient did not have any asymmetry of the face, slurred speech, visual changes. Patient does complain of some regurgitation with some food however she does have history of hiatal hernia. She currently denies any chest pain or shortness of breath. 9. Continue antibiotics while following cultures: Currently on doxycycline for 2 weeks postoperatively while following cultures. Currently there is no growth on cultures in chart. We will continue to monitor. 10. Disposition: Patient will require additional stay as we are currently working her up for new onset weakness with her left upper extremity with CT scan of the cervical spine. Patient also has some postoperative anemia which we will continue to follow with repeat lab work tomorrow morning. Patient does wish to try to go home when medically appropriate. Again case was discussed with hospitalist and Dr. Christopher Mercedes. I have reviewed the [place] Automated Rx Reporting System (OARRS) report for this patient for refill pattern and other prescriber involvement as part of the appr opriate surveillance for the provision of acute and chronic controlled medications. The report was requested and reviewed on the date of this entry and was considered in the prescribing process. This dictation was created using voice recognition software. Phonetic and/or grammatical errors may exist.
[2022-03-12] MEDS: Ondansetron 4 MG/2 ML Vial IV (10:17)
[2022-03-12] MEDS: 0.9% Saline Lock 10 ML Syringe IV (10:17)
--- NOTE | 2022-03-12 11:04 | CASEMGMT ---
HENRRY MATTHEWS Assessment: Face to Face with pt for initial transition planning/care coordination assessment. HENRRY MATTHEWS introduced self and role at [facility], pt voices understanding and consents to assessment. Pt is A/O x4 and answers all questions appropriately at this time. Pt sitting up in bed in no distress with at bedside. Care providers, pharmacy, and demographics verified/updated. Admitting Dx: R total knee revision PCP:Elly Specialists:lamar Mercedes Pharmacy: [facility] Insurance: [facility], MMO Prescription Benefit: yes LW/HPOA: Pt states she has a LW/DPOA and she brought it in yesterday and staff took it to be copied. She states her is her DPOA. LNOK: Joshau Hernandez, Living Arrangements: Pt lives with in a single story house with 4 steps to enter with a grab bar. Pt reports she is I in ADL's and denies concerns at home. Transportation: Pt does not drive. She states her provides her with transportation. DME/HHC/SNF: Pt has 2 grab bars in the shower, a shower chair, standard walker, cane, walking stick, high rise toilets as well as grab bars over the toilet.. Pt denies hx of HHC or SNF stays. Pt states no concerns with going home at time of dc. Pt has her outpatient therapy set up at [facility] on March 16 at 10am with her transporting her. Pt states no further concerns/needs. CM to follow. Advised pt to ask CM if any further question/concerns/needs arise, voices understanding. Pt Goal: Home with outpt therapy Plan: Home with outpt therapy set up.
--- NOTE | 2022-03-12 12:18 | CHAPLAIN ---
Type of Pastoral Visit _x__ Initial Visit ___ Follow-up Visit ___ On-call Visit ___ General Patient Visit ___ Spiritual Assessment ___ Family Conference ___ Bereavement ___ Rapid Response ___ Code Blue ___ Other (describe below) Pastoral Care Referral From _x__ Patient ___ Family ___ Nurse ___ Physician ___ Lumber Tallier ___ Chief Cruiser ___ Other (describe below) Sacrament/Intervention _x__ Active listening ___ Anointing ___ Christianity ___ Bereavement ___ Communion _x__ Taylor exploration ___ _x__ Life review _x__ Prayer ___ Reconciliation ___ Sacrament of Sick _x__ Supportive presence ___ Wedding ___ Other (describe below) Pastoral Comments patient gives report of her surgery and a few health issues being addressed at this time; pt will need to stay an additional night for more observation but states she is okay with that; spouse is in room for support as well; pt talks about her life and her taylor; interactive conversation and supportive presence given; prayer is welcomed
[2022-03-12] MEDS: Multivitamins,Ther W-Minerals Tablet 1 TABLET PO (12:36)
[2022-03-12] MEDS: Ferrous Sulfate 325 MG Tablet PO (12:36)
[2022-03-12] MEDS: Folic Acid 1 MG Tablet PO (12:36)
[2022-03-12] MEDS: Doxycycline 100 MG CAPSULE PO (20:42)
[2022-03-12] MEDS: Pramipexole Di-HCl 0.25 MG Tablet PO (20:43)
[2022-03-12] MEDS: Baclofen 10 MG Tablet PO (20:43)
[2022-03-12] MEDS: Mirtazapine 15 MG Tablet PO (20:44)
[2022-03-12] MEDS: Gabapentin 400 MG Capsule PO (20:44)
[2022-03-13 02:00] VITALS: BP 142/61; PULSE 76; RESP 14; TEMP 37; O2SAT 97
[2022-03-13] MEDS: oxyCODONE 5 MG Tablet PO ×3 (04:01→12:14)
[2022-03-13 06:00] LABS: Hematocrit 30.9 % (37-47); Hemoglobin 9.7 g/dL (12.0-15.0); Mean Corp Hgb Conc 31.4 g/dL (32-36); Mean Corpuscular Volume 92.5 fL (81-99); Mean Platelet Vol. 9.4 fl (6.2-12.0); Platelet Count 158 K/mm3 (150-450); RBC Distribution Width CV 13.4 % (11.6-14.6); RBC Distribution Width SD 44.6 fl (35.1-43.9); Red Blood Count 3.34 M/mm3 (4.2-5.4); White Blood Count 9.5 K/mm3 (4.4-11.0)
[2022-03-13 06:30] LABS: Anion Gap 2 (5-15); BUN 26 mg/dL (7-18); BUN/Creat Ratio 34.5 RATIO (10-20); Calcium,Total 8.7 mg/dL (8.5-10.1); Chloride 109 mmol/L (98-107); Creatinine, Serum 0.75 mg/dL (0.55-1.02); EST Glomerular Filtration Rate 81 mL/min (>60); Est Glom Filt Rate - Afr Amer 98 mL/min (>60); Estimated Creatinine Clearance 38.14 ml/min; Glucose 107 mg/dL (74-106); Sodium Level 143 mmol/L (136-145)
[2022-03-13] MEDS: Acetaminophen 500 MG Tablet 1000 MG PO (06:30)
[2022-03-13] MEDS: Rivaroxaban 10 MG Tablet PO (06:30)
[2022-03-13] MEDS: Levothyroxine 112 MCG Tablet PO (06:30)
--- NOTE | 2022-03-13 06:33 | PCM.PN.ORT ---
Subjective Subjective The patient was sitting in bedside chair sleeping upon examination. Patient denies any chest pain, shortness of breath, dizziness, lightheadedness, nausea or vomiting, or calf pain. Pain is controlled on medications. No adverse overnight events. Patient does complain of right thigh pain. I do feel this is secondary from the tourniquet while in surgery. She states she still has some jerking of the left hand at times. She has had this presurgery on the right side. She has been treated by chiropractor for cervical neck pain. She has never been seen by back specialist. A CT scan of the cervical spine was ordered which was consistent with degenerative changes. Patient has had wound VAC with no output in the tubing or canister. She has also tolerated therapy and has been doing well. Patient does plan on going home upon discharge in which she has help from her . She has outpatient physical therapy established. Objective Data Objective Data Vital Signs: Vital Signs Temp Pulse Resp BP Pulse Ox O2 Del Method O2 Flow Rate 98.6 F 76 14 142/61 H 97 Room Air 4 03/13/22 02:00 03/13/22 02:00 03/13/22 02:00 03/13/22 02:00 03/13/22 02:00 03/13/22 02:00 03/11/22 19:35 Oxygen Flow Rate (L/min) 4 Oxygen Delivery Method Room Air Weight: 102 kg Body Mass Index (BMI) 43.9 Intake & Output: Intake and Output for Last 24 Hours 03/11/22 03/12/22 03/13/22 23:59 23:59 23:59 Intake Total 4012 / 4812 3087.5 / 3487.5 800 / 800 Output Total 0 / 350 950 / 950 Balance 4012 / 4462 2137.5 / 2537.5 800 / 800 Lab / Micro Data Result Diagrams: 03/13/22 05:50 03/13/22 05:50 Labs: Laboratory Results - last 24 hr 03/13/22 05:50: WBC 9.5, RBC 3.34 L, Hgb 9.7 L, Hct 30.9 L, MCV 92.5, MCH 29.0, MCHC 31.4 L, RDW Std Deviation 44.6 H, RDW Coeff of Edwar 13.4, Plt Count 158, MPV 9.4 03/13/22 05:50: Sodium 143, Potassium 4.0, Chloride 109 H, Carbon Dioxide 32.0, Anion Gap 2 L, BUN 26 H, Creatinine 0.75, Estim Creat Clear Calc 38.14, Est GFR (MDRD) Af Amer 98, Est GFR (MDRD) Non-Af 81, BUN/Creatinine Ratio 34.5 H, Glucose 107 H, Calcium 8.7 Micro: Microbiology 03/11/22 16:06 Tissue - Knee Gram Stain - Final 03/11/22 16:06 Tissue - Knee Wound Culture - Preliminary No growth-Final to follow 03/11/22 16:06 Tissue - Knee Gram Stain - Final 03/11/22 16:06 Tissue - Knee Wound Culture - Preliminary No growth-Final to follow 03/11/22 16:06 Tissue - Knee Gram Stain - Final 03/11/22 16:06 Tissue - Knee Wound Culture - Preliminary No growth-Final to follow Radiography Diagnostic Testing: Radiology Impression Cervical Spine CT 03/12/22 10:09 IMPRESSION: Multilevel degenerative changes, as described above. Electronically Signed: Noah Reno MD at 11:09 EDT , Physical Exam Narrative Vital signs stable and afebrile. SCDs and DONY hose are in place bilaterally Right thigh is soft and supple. She does have tenderness in the right thigh. Patient is able to plantarflex and dorsiflex actively. Sensation is intact to light touch to saphenous, sural, superficial and deep peroneal, and tibial distribution. Incisional wound VAC in place with no output or drainage in the tubing or canister Sensation intact to light touch to axillary, radial, median, ulnar nerve distribution. Motor intact with patient able to make okay sign, cross fingers, and thumbs up Negative Homans bilaterally, negative signs and symptoms of DVT CT scan of the cervical spine was reviewed again which did reveal degenerative changes. Const alert, oriented x3 and no apparent distress Assessment & Plan Assessment/Plan (1) Status post revision of total replacement of right knee: PLAN: 1. S/P revision right total knee arthroplasty POD #2 2. Cervical spine degenerative changes: I did discuss this with the patient and I do recommend on an outpatient setting she does follow-up with back specialist. I did let her know that we had a back specialist Dr. Teran at our office that she can see as well as Dr. Cordero at [facility]. I do not feel there is any urgent reason to be seen as this is a chronic condition. She has been seen ongoing by chiropractor for adjustments. 3. Continue Pain Medications: Continue with Tylenol and oxycodone for pain control. 4. DVT Prophylaxis: Patient will be on Xarelto for 2 weeks postoperatively as she is not able to have nonsteroidal anti-inflammatories due to previous bariatric surgery. 5. PT/OT: Weightbearing as tolerated with walker. 6. H & H: 9.7/30.9, asymptomatic. Postoperative anemia secondary to acute blood loss from surgery without any intra operative complications. Patient does take ferrous sulfate at home. Patient will also utilize folic acid 1 mg daily and I did recommend follow-up with primary care physician in 12 to 14 days for recheck. 7. Reactive leukocytosis: Resolved and currently 9.5, afebrile. 8. Encouraged Incentive Spirometry 9. Continue postoperative medical management per medicine 10. Continue antibiotics while following cultures: Currently on doxycycline for 2 weeks postoperatively while following cultures. Currently there is no growth on cultures in chart. We will continue to monitor. I did discuss with the patient while taking antibiotics would recommend she use a probiotic. Also discussed with her sensitivity to the sun with doxycycline and she needs to take appropriate precautions in the sun. 11. Continue incisional wound VAC for 1 week postoperatively. Patient is to remove the wound VAC on March 18, 2022. Once the wound VAC has been removed she can shower get the incision wet. Do not submerge underwater for 6 weeks postoperatively. Only utilize soap and water over the incision. No topical ointments for 6 weeks postoperatively 12. Disposition: I do feel from an orthopedic standpoint patient is ready for discharge. I would like medical clearance for discharge from medical standpoint. With regards to the neck pain and symptoms in bilateral upper extremities I do feel patient needs to see back specialist. I did offer her recommendations. This can be done in an outpatient setting. We can also get this established at our office at her next follow-up postoperatively for her neck. Patient does have outpatient physical therapy established. Patient will follow-up per postop instructions. She would like her medications sent to [facility]. Upon discharge if she has any concerns or questions she will contact our office. I have reviewed the [place] Automated Rx Reporting System (OARRS) report for this patient for refill pattern and other prescriber involvement as part of the appropriate surveillance for the provision of acute and chronic controlled medications. The report was requested and reviewed on the date of this entry and was considered in the prescribing process. This dictation was created using voice recognition software. Phonetic and/or grammatical errors may exist.
--- NOTE | 2022-03-13 06:43 | DCINST_ITS ---
Discharge Instructions Diet Discharge Diet: No restrictions Activity Discharge Activity: May Not Drive (No driving for 6 weeks postoperatively. Must also be off all narcotics and able to walk 100 feet without the use of cane or walker) May shower in (days): 5 (Okay to shower once the incisional wound VAC has been removed on March 18, 2022. Please turn dressing away from water. Okay to get wet as long as dressing is intact to skin.) Ice area for (Minutes): 20 (Every 1-2 hours while awake[address] Please place barrier between the skin and ice pack.) Weight Bearing Status: Weight bearing as tolerated (With walker) Keep extremity elevated above heart level: Operative Extremity Dressing / Incision Call your doctor if your incision/area has: Continuous Slow Oozing, Sudden Increased Bleeding, Increased Pain/ Swelling, Increased Redness and Foul Smelling Discharge Call your doctor if you observe: Fever of 101 or Higher, Coldness, Increased Pain, Numbness or Tingling, Change in Color, Shortness of breath, Chest pain, Calf discomfort and Uncontrolled pain Additional Dressing/Incision Instructions:: Remove wound VAC on March 18, 2022. Follow [facility] Post-op Instructions. Once incisional wound VAC has been removed only use gentle soap and water over the incision. Do not use any ointments, Neosporin, salves, alcohol pads over the incision for 6 weeks postoperatively. Do not submerge underwater for 6 weeks postoperatively. Continue with DONY hose/elastic stockings for 2 weeks postoperatively. May remove at nighttime but needs to be placed back on the leg during the day. Do NOT use alcohol with narcotic pain medication. Do NOT make important decisions while taking narcotic medication. If you have problems with taking your medication (rash, itching, nausea, etc.) call the office at once. Follow Up Care Test Results: Test results from this visit will be discussed in further detail at your follow- up appointment, if applicable. Discharge Plan Admission Admit Date/Time: 03/11/22 09:17 Attending Provider: Christopher Mercedes Primary Care Provider: Jarred Sanabria Consulting Providers: Ryan Henao Instructions Additional Instructions / Restrictions: Please follow-up with primary care physician in 2 weeks for recheck with lab work for postoperative anemia Discharge Orders/Prescriptions Prescriptions: New acetaminophen 500 mg Tablet 1,000 mg PO Q8 Qty: 0 0RF Rx Instructions: Do not take more than 3000 mg Tylenol in a 24-hour period. doxycycline monohydrate 100 mg Capsule 100 mg PO BID 12 Days Qty: 24 0RF Rx Instructions: Take for 2 weeks postoperatively folic acid 1 mg Tablet 1 mg PO DAILYCM 14 Days Qty: 14 0RF oxycodone 5 mg Tablet 5 - 10 mg PO Q4H PRN PRN (Reason: Pain Score 4-10) 5 Days Qty: 60 0RF Xarelto 10 mg Tablet 10 mg PO DAILY@0600 13 Days Qty: 13 0RF Rx Instructions: Take for 2 weeks postoperatively for DVT prophylaxis sennosides-docusate sodium [Stool Softener-Stimulant Laxat] 8.6-50 mg Tablet 2 tab PO BID Qty: 14 0RF Rx Instructions: Take until first bowel movement, then as needed Continued levothyroxine 112 tablet 112 mcg PO DAILY Label Comments: magnesium 500 mg Tablet 15 mg PO DAILY citalopram [Celexa] 10 mg Tablet 10 mg PO DAILY gabapentin 400 mg Capsule 400 mg PO QHS baclofen 10 mg Tablet 10 mg PO QHS ferrous sulfate [Iron (ferrous sulfate)] 325 mg (65 mg iron) Tablet 325 mg PO DAILY pramipexole 0.25 mg tablet 1 tab PO QHS mirtazapine 15 mg Tablet 15 mg PO QHS calcium citrate-vitamin D3 [Calcium Citrate + D] 315 mg-5 mcg (200 unit) Tablet 2 tab PO BID Bariatric Multivitamins 45 mg iron- 800 mcg-120 mcg Capsule 1 cap PO DAILY Discontinued acetaminophen 500 mg Tablet 1,000 mg PO QHS Referrals / Follow Up: Jarred Sanabria MD [Primary Care Provider] - (Follow-up in 2 weeks with primary care physician) Sam Alonso PA-C [PHYSICIAN SALESPERSON [employer]] - 03/26/22 10:30 am Disposition Disposition (needs filled in before D/C Order can be placed): Home, Self Care
--- NOTE | 2022-03-13 07:30 | PCM.PN.HOSP ---
Subjective Subjective Patient seen reports not having a restful night. Hemoglobin down to 9.7 patient however not requiring blood transfusion. Case discussed with Ortho planv is for possible discharge Objective Data Objective Data Vital Signs: Vital Signs Temp Pulse Resp BP Pulse Ox O2 Del Method O2 Flow Rate 98.6 F 76 14 142/61 H 97 Room Air 4 03/13/22 02:00 03/13/22 02:00 03/13/22 02:00 03/13/22 02:00 03/13/22 02:00 03/13/22 02:00 03/11/22 19:35 Oxygen Flow Rate (L/min) 4 Oxygen Delivery Method Room Air Weight: 102 kg Body Mass Index (BMI) 43.9 Intake & Output: Intake and Output for Last 24 Hours 03/11/22 03/12/22 03/13/22 23:59 23:59 23:59 Intake Total 4012 / 4812 3087.5 / 3487.5 800 / 800 Output Total 0 / 350 950 / 950 Balance 4012 / 4462 2137.5 / 2537.5 800 / 800 Lab / Micro Data Result Diagrams: 03/13/22 05:50 03/13/22 05:50 Labs: Laboratory Results - last 24 hr 03/13/22 05:50: WBC 9.5, RBC 3.34 L, Hgb 9.7 L, Hct 30.9 L, MCV 92.5, MCH 29.0, MCHC 31.4 L, RDW Std Deviation 44.6 H, RDW Coeff of Edwar 13.4, Plt Count 158, MPV 9.4 03/13/22 05:50: Sodium 143, Potassium 4.0, Chloride 109 H, Carbon Dioxide 32.0, Anion Gap 2 L, BUN 26 H, Creatinine 0.75, Estim Creat Clear Calc 38.14, Est GFR (MDRD) Af Amer 98, Est GFR (MDRD) Non-Af 81, BUN/Creatinine Ratio 34.5 H, Glucose 107 H, Calcium 8.7 Micro: Microbiology 03/11/22 16:06 Tissue - Knee Gram Stain - Final 03/11/22 16:06 Tissue - Knee Wound Culture - Preliminary No growth-Final to follow 03/11/22 16:06 Tissue - Knee Gram Stain - Final 03/11/22 16:06 Tissue - Knee Wound Culture - Preliminary No growth-Final to follow 03/11/22 16:06 Tissue - Knee Gram Stain - Final 03/11/22 16:06 Tissue - Knee Wound Culture - Preliminary No growth-Final to follow Radiography Diagnostic Testing: Radiology Impression Cervical Spine CT 03/12/22 10:09 IMPRESSION: Multilevel degenerative changes, as described above. Electronically Signed: Noah Reno MD at 11:09 EDT , Physical Exam Narrative GENERAL: In no apparent distress HEENT: Atraumatic; EYES; Anicteric, Normal Conjunctiva NECK; supple, normal thyroid, RESPIRATORY: Diminished to auscultation CARDIOVASCULAR: Regular S1 S2, GI: soft, normoactive bowel sounds, : No Renal angle tenderness; EXTREMITIES: No edema, no clubbing, MUSCULOSKELETAL: no muscle wasting NEURO: Awake; no lateralizing signs. 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 Procedure was performed by Dr. Mercedes. The hospitalist service was consulted to assist with management of patient medical comorbidities 1. 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 Procedure was performed by Dr. Mercedes on 03/11/2022 2. Obstructive sleep apnea ? Patient is a CPAP at night plan is to continue 3. Hypothyroidism - Patient is on levothyroxine home dose continued ? 4. Restless leg syndrome Patient is on pramipexole did continue 5. Depression ? Patient is on citalopram plan is to continue 6. Class III obesity with BMI of 41.2 ? Weight loss advised Charges/Coding Visit Charges Inpatient E&M: 50003 Subs Hosp L2
[2022-03-13 07:51] VITALS: BP 113/51; PULSE 71; RESP 18; TEMP 36.6; O2SAT 100
[2022-03-13] MEDS: Doxycycline 100 MG CAPSULE PO (08:03)
[2022-03-13] MEDS: Ensure Surgery 237 ML LIQUID PO ×2 (08:03→12:14)
[2022-03-13] MEDS: Senna/Docusate Sodium 1 Tablet 2 TABLET PO (08:03)
[2022-03-13] MEDS: Folic Acid 1 MG Tablet PO (08:03)
[2022-03-13] MEDS: Citalopram 10 MG Tablet PO (08:03)
[2022-03-13] MEDS: Calcium Carb/Vitamin D 1 TABLET Tablet PO (08:03)
[2022-03-13 12:11] VITALS: BP 138/62; PULSE 103; RESP 18; TEMP 36.8; O2SAT 97
[2022-03-13] MEDS: Multivitamins,Ther W-Minerals Tablet 1 TABLET PO (12:14)
[2022-03-13] MEDS: Ferrous Sulfate 325 MG Tablet PO (12:14)
== END 2022-03-13 13:55 | disposition home or self-care (01) | DRG 467 ==
LOC: ACINP 09:19 → MS3 15:16
PROVIDERS: Physician Assistant Surgical; Admitting Provider Specialist; PCP Family Medicine; Referring Provider Specialist; Visit Provider Specialist
PROC: 0SRC0J9 Replacement of Right Knee Joint with Synthetic Substitute, Cemented, Open Approach (ICD-10-PCS; principal; 2022-03-11 11:35)
DX: T84.84XA Pain due to internal orthopedic prosthetic devices, implants and grafts, initial encounter (principal); D62 Acute posthemorrhagic anemia; Z68.41 Body mass index [BMI] 40.0-44.9, adult; E66.01 Morbid (severe) obesity due to excess calories; M24.661 Ankylosis, right knee; E03.9 Hypothyroidism, unspecified; G47.33 Obstructive sleep apnea (adult) (pediatric); M79.7 Fibromyalgia; G25.81 Restless legs syndrome; M47.812 Spondylosis without myelopathy or radiculopathy, cervical region; Y83.1 Surgical operation with implant of artificial internal device as the cause of abnormal reaction of the patient, or of later complication, without mention of misadventure at the time of the procedure; F32.A Depression, unspecified; M85.80 Other specified disorders of bone density and structure, unspecified site; Z79.890 Hormone replacement therapy; Z79.899 Other long term (current) drug therapy; Z96.653 Presence of artificial knee joint, bilateral; Z98.84 Bariatric surgery status
CPT/HCPCS: 36415; 72125; 73560; 80048; 82962; 85027; 87015; 87070; 87075; 87102; 87116; 87205; 87206; 97110; 97116; 97162; 97166; 97530; 97535; 99251; C1776; J7040; J7050; J7120; A4216; G0463; J2405; J3475

== ENCOUNTER → 2022-03-20 | Outpatient (CLI) | payer MEDICARE, OTHER, SELFPAY ==
--- NOTE | 2022-03-20 10:15 | RAD_ITS ---
EXAM: XR CHEST, 2 VIEWS CLINICAL INDICATION: RHONCHI AT RIGHT LUNG BASE TECHNIQUE: Frontal and lateral views of the chest. This report was created using [employer] report generation technology. COMPARISON: None. FINDINGS: LUNGS AND PLEURAL SPACES: Unremarkable. No consolidation or edema. No pneumothorax. No effusion. HEART: Unremarkable. Cardiac silhouette not enlarged. MEDIASTINUM: Central airways and mediastinal contour are unremarkable. BONES/JOINTS: Unremarkable. SOFT TISSUES: Unremarkable. RAD/Chest PA and Lateral IMPRESSION: No radiographic evidence of acute cardiopulmonary disease. Electronically Signed: Calixto Washburn MD at 2:57 EDT ,
== END | disposition home or self-care (01) ==
LOC: MTRAD 10:14
PROVIDERS: PCP Family Medicine; Referring Provider Family Medicine; Visit Provider Family Medicine
DX: R09.89 Other specified symptoms and signs involving the circulatory and respiratory systems (principal)
CPT/HCPCS: 71046

== ENCOUNTER → 2022-03-26 | Outpatient (CLI) | payer MEDICARE, OTHER, SELFPAY ==
--- NOTE | 2022-03-26 13:56 | VDLE_ITS ---
Reason For Study: Pain RIGHT GSV is normal. CFV is compressible, spontaneous, phasic, competent and demonstrates normal augmentation. FV is compressible, spontaneous, phasic, competent and demonstrates normal augmentation. POP V is compressible, spontaneous, phasic, competent and demonstrates normal augmentation. T/P Trunk is compressible. PTV is compressible. RT PerV is compressible. Procedure This is a venous duplex using B-mode, color flow and spectral Doppler. Exam performed in department. A preliminary report was called and/or faxed to [facility]. VL/Venous Duplex US, Unilateral Interpretation Summary Deep veins of the right lower extremity are patent and compressible segmentally . There is no evidence of right lower extremity deep vein thrombosis. Valvular competence kristian ears intact within the proximal deep venous system on the right . The right great saphenous vein a ppears patent and compressible segmentally. Ordering Physician: Sam Alonso Referring Physician: Jarred Sanabria Performed By: Kiana Harrison RVT
== END | disposition home or self-care (01) ==
LOC: CVS 13:55
PROVIDERS: PCP Family Medicine; Referring Provider Physician Assistant Surgical; Visit Provider Physician Assistant Surgical
DX: M79.661 Pain in right lower leg (principal)
CPT/HCPCS: 93971

== ENCOUNTER 2022-04-03 08:45 | Emergency (ER) | payer MEDICARE, OTHER, SELFPAY ==
[2022-04-03 08:46] VITALS: BP 142/59; PULSE 75; RESP 24; TEMP 37; O2SAT 94; BMI 44.5
--- NOTE | 2022-04-03 09:44 | CT_ITS ---
We are attempting to reach an attending provider to discuss findings. An addendum with communication details will be sent when the communication is complete. EXAM: CT ANGIOGRAPHY CHEST WITHOUT AND WITH INTRAVENOUS CONTRAST CLINICAL INDICATION: suspect PE, TECHNIQUE: Helically acquired angiography images were obtained of the chest without and with intravenous contrast. This CT exam was performed using one or more of the following dose reduction techniques: automated exposure control, adjustment of the mA and/or kV according to patient size, and/or use of iterative reconstruction technique. This report was created using [employer] report generation technology. MIP reconstructed images were created and reviewed. CONTRAST: IV 100mL Isovue-370 COMPARISON: None. FINDINGS: PULMONARY ARTERIES: There is a low density filling defects seen within the distal right main pulmonary artery as well as within the right upper middle and lower lobe segmental and subsegmental pulmonary arteries. There is also low-density filling defects seen in the left lower lobe subsegmental pulmonary arteries compatible small bilateral pulmonary emboli. There are no large central emboli identified. AORTA: Unremarkable. Normal in caliber. No evidence of dissection. GREAT VESSELS OF AORTIC ARCH: Unremarkable. Normal in caliber. No evidence of dissection. LUNGS AND PLEURAL SPACES: There are trace bilateral effusions with minimal bibasilar atelectasis. No mass. No pneumothorax. HEART: Unremarkable. Heart size is normal. No pericardial effusion. No signs of right heart strain, ratio of right ventricle to left ventricle measures less than 1. MEDIASTINUM: Unremarkable. No mediastinal or hilar adenopathy. Esophagus is unremarkable. No hiatal hernia. THYROID: Unremarkable. No thyroid lesions. BONES/JOINTS: Unremarkable. No suspicious lytic or blastic abnormality. CT/CTA Chest W/WO Contrast IMPRESSION: Small bilateral filling defects seen within right upper and lower lobe and left lower lobe subsegmental pulmonary arteries compatible small bilateral pulmonary emboli. There is minimal bibasilar atelectasis. Electronically Signed: Calixto Washburn MD at 11:37 EDT ,
--- NOTE | 2022-04-03 09:45 | CT_ITS ---
EXAM: CT ABDOMEN AND PELVIS WITH INTRAVENOUS CONTRAST CLINICAL INDICATION: upper abdominal pain TECHNIQUE: Helically acquired images were obtained of the abdomen and pelvis with intravenous contrast. This CT exam was performed using one or more of the following dose reduction techniques: automated exposure control, adjustment of the mA and/or kV according to patient size, and/or use of iterative reconstruction technique. This report was created using [employer] report generation technology. CONTRAST: IV 100mL Isovue-370 COMPARISON: None. FINDINGS: LOWER THORAX: There are small bilateral effusions. There is minimal bibasilar atelectasis. There is small hiatal hernia. There are surgical clips at the GE junction. No cardiomegaly. ABDOMEN: LIVER: Unremarkable. Homogeneous. No focal mass. GALLBLADDER AND BILE DUCTS: Unremarkable. No calcified gallstones. No gallbladder distention or wall edema. No intra- or extrahepatic biliary ductal dilation. PANCREAS: Unremarkable. No focal cystic or solid mass. SPLEEN: Unremarkable. Normal size without focal cystic or solid mass. ADRENALS: Unremarkable. No nodules. KIDNEYS AND URETERS: Unremarkable. Normal renal size and position. No hydronephrosis. STOMACH AND BOWEL: There is mild to moderate amount of stool seen throughout the colon which may represent early constipation. No stomach or bowel distention. No focal inflammatory change. PELVIS: APPENDIX: No evidence of acute appendicitis. BLADDER: Unremarkable. REPRODUCTIVE: Unremarkable as visualized. No mass. ABDOMEN and PELVIS: INTRAPERITONEAL SPACE: Unremarkable. No ascites or other fluid collection. No free air. BONES/JOINTS: See above. SOFT TISSUES: Unremarkable. No discrete abdominal or pelvic wall hernia. VASCULATURE: Unremarkable. Abdominal aorta is non-dilated. LYMPH NODES: Unremarkable. No enlarged lymph nodes. CT/Abdomen/Pelvis W IV Cont ONLY IMPRESSION: 1. Trace bilateral effusions with bibasilar atelectasis. 2. Small hiatal hernia. There are surgical clips seen at the gastroesophageal junction. 3. Mild to moderate amount of stool seen throughout the colon which may represent early constipation. Electronically Signed: Calixto Washburn MD at 11:28 EDT ,
--- NOTE | 2022-04-03 09:45 | EKG12_ITS ---
Test Reason : ABD PAIN Blood Pressure : / mmHG Vent. Rate : 068 BPM Atrial Rate : 068 BPM P-R Int : 166 ms QRS Dur : 094 ms QT Int : 398 ms P-R-T Axes : 053 -28 022 degrees QTc Int : 423 ms Normal sinus rhythm Leftward axis Low voltage QRS (Limb Leads) Poor R wave progression Confirmed by JANETT ROMERO, PHIL ([id number]), supervising editor trailer FLY LATIF ([id number]) on 04/06/2022 11:42:35 AM Referred By: GWENDOLYN Confirmed By:PHIL ROWLAND MD
--- NOTE | 2022-04-03 09:52 | ED.VIS.GI ---
HPI HPI - GI History of Present Illness Chief Complaint: Abd Pain Informant: patient Narrative Narrative: Patient is a 71-year-old female status post revision of right knee on 03/[address] Mercedes presenting with worsening abdominal pain. She states is in her left upper quadrant but radiates across her upper abdomen. She states she woke up at 3 AM with that and the pain persisted however it subsided. It worsened again this morning and so she came to the emergency room. She denies any nausea or vomiting. She denies any abdominal distention. She notes that yesterday she had a painful hard bowel movement. She has been taking stool softener/laxative as needed. She is currently on oxycodone 3 times a day. She notes the pain is worse if she takes a deep breath. Denies any associated chest pain or shortness of breathing. Is never had any like this before. Denies any history of any abdominal surgeries. Was on Xarelto 2 weeks postoperatively but is no longer on it. Denies any new swelling of her legs. Is currently participating in physical therapy. [facility] Medical History Ambulates with cane Arthritis Brain fog Chronic pain COVID-19 CPAP (continuous positive airway pressure) dependence Depression Diabetes History of echocardiogram History of edema Hypothyroid Loss of hearing Redness of skin Restless legs Shortness of breath on exertion Sleep apnea Wears hearing aid Home Medications levothyroxine 112 mcg tablet 112 mcg PO DAILY Thyroid 04/22/18 [History Last Taken 03/11/22] baclofen 10 mg tablet 10 mg PO QHS muscle spasm 02/25/22 [History Last Taken Unknown] calcium citrate 315 mg-vitamin D3 5 mcg (200 unit) tablet (Calcium Citrate + D) 2 tab PO BID supplement 02/25/22 [History Last Taken Unknown] citalopram 10 mg tablet (Celexa) 10 mg PO DAILY depression 02/25/22 [History Last Taken Unknown] ferrous sulfate 325 mg (65 mg iron) tablet (Iron (ferrous sulfate)) 325 mg PO DAILY supplement 02/25/22 [History Last Taken Unknown] gabapentin 400 mg capsule 400 mg PO QHS RLS 02/25/22 [History Last Taken Unknown] magnesium 500 mg tablet 15 mg PO DAILY supplement 02/25/22 [History Last Taken Unknown] mirtazapine 15 mg tablet 15 mg PO QHS sleep 02/25/22 [History Last Taken Unknown] fwkvncpy-ljncsdrr-djqf 45 mg-folic acid 800 mcg-vit K 120 mcg capsule (Bariatric Multivitamins) 1 cap PO DAILY supplement 02/25/22 [History Last Taken Unknown] pramipexole 0.25 mg tablet 1 tab PO QHS RLS 02/25/22 [History Last Taken Unknown] acetaminophen 500 mg tablet 1,000 mg PO Q8 #0 tabs 03/13/22 [Rx Last Taken Unknown] doxycycline monohydrate 100 mg capsule 100 mg PO BID 12 days #24 caps 03/13/22 [Rx Last Taken Unknown] folic acid 1 mg tablet 1 mg PO DAILYCM 14 days #14 tabs 03/13/22 [Rx Last Taken Unknown] oxycodone 5 mg tablet 5 - 10 mg PO Q4H PRN PRN Pain Score 4-10 5 days #60 tabs 03/13/22 [Rx Last Taken Unknown] rivaroxaban 10 mg tablet (Xarelto) 10 mg PO DAILY@0600 13 days #13 tabs 03/13/22 [Rx Last Taken Unknown] sennosides 8.6 mg-docusate sodium 50 mg tablet (Stool Softener-Stimulant Laxative) 2 tab PO BID #14 tabs 03/13/22 [Rx Last Taken Unknown] rivaroxaban 15 mg (42)-20 mg (9) tablets in a starter pack (Xarelto DVT-PE Treatment 30-Day Starter) See Rx Instructions PO .COMPLEX #51 tabs 04/03/22 [Rx Last Taken Unknown] Allergy/AdvReac Type Severity Reaction Status Date / Time latex Allergy Other Verified 04/03/22 08:46 NSAIDS (Non-Steroidal Allergy Other Verified 04/03/22 08:46 Anti-Inflamma hydrocodone AdvReac Itching Verified 04/03/22 08:46 Surgical History Bariatric surgery status History of knee replacement procedure of left knee History of knee replacement procedure of right knee History of surgery on arm Hx of shoulder surgery Status post total right knee replacement Social History Smoking Status: Never smoker ROS ROS ED Constitutional Constitutional ED: Denies chills or fever(s) ENT ENT ED: Denies rhinorrhea or sore throat Cardiovascular Cardiovascular: Denies chest pain or palpitations Respiratory/Chest Respiratory/Chest: Denies cough or dyspnea Gastrointestinal Gastrointestinal: Reports abdominal pain and constipation; Denies diarrhea, nausea or vomiting Genitourinary Genitourinary ED: Denies dysuria or hematuria Musculoskeletal Musculoskeletal: Denies arthralgias or myalgias Integumentary Denies rash Neurologic Neurologic: Denies headache(s), paresthesias or weakness Psychiatric Psychiatric: Denies anxiety Hematologic/Lymphatic Hematologic/Lymphatic: Denies easy bleeding or easy bruising EXAM Physical Exam Const Vital Signs: 04/03/22 08:46 04/03/22 10:29 04/03/22 12:00 Temperature 98.6 F Temperature Source Oral Pulse Rate 75 66 80 Respiratory Rate 24 H 19 H Blood Pressure 142/59 H 159/84 H 163/64 H Blood Pressure Mean 86 109 97 Pulse Ox 94 94 94 Oxygen Delivery Method Room Air Room Air Room Air 04/03/22 13:00 04/03/22 13:24 Temperature Temperature Source Pulse Rate 64 71 Respiratory Rate Blood Pressure 136/76 H 136/75 H Blood Pressure Mean 96 Pulse Ox 95 93 Oxygen Delivery Method Room Air Positive well nourished and well developed General Appearance ED: well developed and NAD HEENT Reports moist mucous membranes normocephalic and atraumatic Eyes PERRL and EOMs intact bilaterally Neck supple and no JVD Resp normal respiratory effort and clear to auscultation bilaterally Auscultation: Negative for rhonchi or wheezes Cardio regular rate, regular rhythm and no murmurs GI non-tender and non-distended GI Narrative: No pinpoint reproducible tenderness. Patient points to her left upper quadrant as well as her left costal margin as the area of her pain. Inspection: Negative for abdominal distention Auscultation: hypoactive bowel sounds Back/Spine no CVA tenderness Extremity full ROM Extremity Narrative: Small amount of edema of the right lower extremity consistent with postoperative status General Extremety ED: Negative for tenderness Neuro moves all extremities and no sensory deficits noted Motor Exam: Negative for general weakness Psych mental status grossly normal and thought process normal Skin Skin Narrative: Surgical incision of right anterior knee healing appropriately. No cellulitic changes or drainage appreciated MDM MDM MDM Narrative Medical decision making narrative: Patient is 71-year-old female that is status post right total knee revision presenting with left upper quadrant abdominal pain. Is not clear if this is pleuritic pain versus GI. Patient declined pain medication initially in the ER but then eventually does ask for some and is given a dose of morphine. Lab work shows anemia with a hemoglobin of 10.3 which is actually up trending from her surgery. Kidney function is normal. Troponin as well as BNP are normal. CTA of the chest shows subsegmental pulmonary emboli as well as pleural effusion on the left side. I suspect this is the cause of her pain. She does have some mild constipation on CT abdomen and pelvis. Case is discussed with the patient's surgeon, Dr. Mercedes, who is aware of these findings and that patient will need to be started anticoagulation. He recommends patient follow-up with primary care doctor for the pulmonary emboli. Patient started on Xarelto given first dose in the emergency room. She is given a starter pack. She is ambulated emergency room and does not desaturate. She is not complaining of any respiratory symptoms. She does not have findings consistent with right heart strain and I do think that she will be stable for outpatient follow-up. She is given return precautions. She is encouraged to start taking MiraLAX to help with her constipation. Lab Data Attestation: I reviewed the patient's lab results. Labs: Laboratory Results - last 24 hr 04/03/22 04/03/22 04/03/22 09:43 09:43 09:43 WBC 5.5 RBC 3.75 L Hgb 10.3 L Hct 33.7 L MCV 89.9 MCH 27.5 MCHC 30.6 L RDW Std Deviation 44.4 H RDW Coeff of Edwar 13.5 Plt Count 222 MPV 9.2 Immature Gran % (Auto) 0.200 Neut % (Auto) 69.3 Lymph % (Auto) 18.4 L Ashley % (Auto) 8.6 Eos % (Auto) 3.1 Baso % (Auto) 0.4 Absolute Neuts (auto) 3.8 Absolute Lymphs (auto) 1.01 Nucleated RBC % 0 Sodium 141 Potassium 3.9 Chloride 107 Carbon Dioxide 30.0 Anion Gap 4 L BUN 18 Creatinine 0.71 Estim Creat Clear Calc 38.14 Est GFR (MDRD) Af Amer 105 Est GFR (MDRD) Non-Af 87 BUN/Creatinine Ratio 25.4 H Glucose 99 Calcium 8.9 Total Bilirubin 0.50 AST 22 ALT 19 Alkaline Phosphatase 86 Troponin I High Sens 4 B-Natriuretic Peptide 86.4 Total Protein 6.4 Albumin 2.9 L Globulin 3.5 Albumin/Globulin Ratio 0.8 L Lipase 75 Urine Color Urine Clarity Urine pH Ur Specific [place] Urine Protein Urine Glucose (UA) Urine Ketones Urine Occult Blood Urine Nitrite Urine Bilirubin Urine Urobilinogen Ur Leukocyte Esterase Urine RBC Urine WBC Ur Squamous Epith Cells Urine Bacteria Urine Mucus 04/03/22 10:00 WBC RBC Hgb Hct MCV MCH MCHC RDW Std Deviation RDW Coeff of [place]war Plt Count MPV Immature Gran % (Auto) Neut % (Auto) Lymph % (Auto) Ashley % (Auto) Eos % (Auto) Baso % (Auto) Absolute Neuts (auto) Absolute Lymphs (auto) Nucleated RBC % Sodium Potassium Chloride Carbon Dioxide Anion Gap BUN Creatinine Estim Creat Clear Calc Est GFR (MDRD) Af Amer Est GFR (MDRD) Non-Af BUN/Creatinine Ratio Glucose Calcium Total Bilirubin AST ALT Alkaline Phosphatase Troponin I High Sens B-Natriuretic Peptide Total Protein Albumin Globulin Albumin/Globulin Ratio Lipase Urine Color Yellow Urine Clarity Clear Urine pH 8.0 Ur Specific [place] 1.015 Urine Protein Negative Urine Glucose (UA) Normal Urine Ketones Negative Urine Occult Blood Negative Urine Nitrite Negative Urine Bilirubin Negative Urine Urobilinogen Normal Ur Leukocyte Esterase Negative Urine RBC 0 SEEN Urine WBC 0-5 SEEN Ur Squamous Epith Cells 0-5 SEEN Urine Bacteria 0 SEEN Urine Mucus 0 SEEN Radiography Diagnostic Testing: Clinical Impression(s) from Imaging Studies Chest CTA 04/03/22 09:44 IMPRESSION: Small bilateral filling defects seen within right upper and lower lobe and left lower lobe subsegmental pulmonary arteries compatible small bilateral pulmonary emboli. There is minimal bibasilar atelectasis. Electronically Signed: Calixto Washburn MD at 11:37 EDT , ADDENDUM: 04/03/22 1299 IMPRESSION: Small bilateral filling defects seen within right upper and lower lobe and left lower lobe subsegmental pulmonary arteries compatible small bilateral pulmonary emboli. There is minimal bibasilar atelectasis. N.B. : The above Results were Read Back by Calixto Washburn MD to Cari Sarmiento and understanding confirmed on 04/03/2022 11:50:16 (ET). Electronically Signed: Calixto Washburn MD at 11:37 EDT , ADDENDUM: 04/03/22 1210 IMPRESSION: Small bilateral filling defects seen within right upper and lower lobe and left lower lobe subsegmental pulmonary arteries compatible small bilateral pulmonary emboli. There is minimal bibasilar atelectasis. N.B. : The above Results were Read Back by Calixto Washburn MD to Cari [id number], and understanding confirmed on 04/03/2022 12:03:50 (ET). Electronically Signed: Calixto Washburn MD at 11:37 EDT , Abdomen/Pelvis CT 04/03/22 09:45 IMPRESSION: 1. Trace bilateral effusions with bibasilar atelectasis. 2. Small hiatal hernia. There are surgical clips seen at the gastroesophageal junction. 3. Mild to moderate amount of stool seen throughout the colon which may represent early constipation. Electronically Signed: Calixto Washburn MD at 11:28 EDT , Rhythm Strip Rhythm Strip: Sinus Rhythm Rate: 68 Ectopy: None EKG Initial EKG: Attestation: I personally reviewed and interpreted this EKG as follows: Interpretation: Sinus Rhythm Comments: Sugar of 68 Left axis deviation Normal intervals Normal ST segments Discharge Plan Triage Chief Complaint: Abd Pain ED Provider: Cari Sarmiento Dx/Rx/DC Orders Clinical Impression: Bilateral pulmonary embolism, Status post total right knee replacement, Abdominal pain, LUQ Instructions: Embolism Pulmonary Dc, ED Constipation (Adult) Prescriptions: New Xarelto DVT-PE Treat 30d Start 15 mg (42)- 20 mg (9) tablets,dose pack See Rx Instructions .ROUTE .COMPLEX Qty: 51 0RF Rx Instructions: take one-15 mg tablet twice daily for 21 days, then one-20 mg tablet once daily; must take with meal/food No Action levothyroxine 112 tablet 112 mcg PO DAILY Label Comments: magnesium 500 mg Tablet 15 mg PO DAILY citalopram [Celexa] 10 mg Tablet 10 mg PO DAILY gabapentin 400 mg Capsule 400 mg PO QHS baclofen 10 mg Tablet 10 mg PO QHS ferrous sulfate [Iron (ferrous sulfate)] 325 mg (65 mg iron) Tablet 325 mg PO DAILY pramipexole 0.25 mg tablet 1 tab PO QHS mirtazapine 15 mg Tablet 15 mg PO QHS calcium citrate-vitamin D3 [Calcium Citrate + D] 315 mg-5 mcg (200 unit) Tablet 2 tab PO BID Bariatric Multivitamins 45 mg iron- 800 mcg-120 mcg Capsule 1 cap PO DAILY acetaminophen 500 mg Tablet 1,000 mg PO Q8 Qty: 0 0RF Rx Instructions: Do not take more than 3000 mg Tylenol in a 24-hour period. doxycycline monohydrate 100 mg Capsule 100 mg PO BID 12 Days Qty: 24 0RF Rx Instructions: Take for 2 weeks postoperatively folic acid 1 mg Tablet 1 mg PO DAILYCM 14 Days Qty: 14 0RF oxycodone 5 mg Tablet 5 - 10 mg PO Q4H PRN PRN (Reason: Pain Score 4-10) 5 Days Qty: 60 0RF Xarelto 10 mg Tablet 10 mg PO DAILY@0600 13 Days Qty: 13 0RF Rx Instructions: Take for 2 weeks postoperatively for DVT prophylaxis sennosides-docusate sodium [Stool Softener-Stimulant Laxat] 8.6-50 mg Tablet 2 tab PO BID Qty: 14 0RF Rx Instructions: Take until first bowel movement, then as needed Primary Care Provider: Jarred Sanabria Referrals: Jarred Sanabria MD [Primary Care Provider] - Activity Restrictions/Additional Instructions: Please follow-up with your primary care doctor in the next week for your blood clots. Return the emergency room if you develop worsening difficulty breathing or worsening pain. Start taking MiraLAX daily to help with the constipation. You should be taking stool softener every time you take pain pills as opioid pain medication causes profound constipation. Disposition Disposition: Home, Self Care Discharge Date/Time: 04/03/22 13:49
[2022-04-03 10:05] LABS: Bacteria 0 SEEN /hpf (None Seen); Mucous, Urine 0 SEEN /hpf (<or=2+); Red Blood Cells-Urine 0 SEEN /hpf (0-5)
[2022-04-03 10:06] LABS: Color, Urine Yellow (Yellow); Glucose, Dipstick Normal (Normal); Ketone-Dipstick Negative (Negative); Leukocyte Esterase-Dipstick Negative /ul (Negative); Nitrite-Dipstick Negative (Negative); Occult Blood-Urine Negative /ul (Negative); Protein-Dipstick Negative (Negative); Specific Gravity, Urine 1.015 (1.002-1.030); Urine Bilirubin Dipstick Negative (Negative); Urine Clarity Clear (Clear); Urine Urobilinogen Normal (Normal)
[2022-04-03 10:10] LABS: Absolute Lymphocyte Count 1.01 X10^3/uL (0.83-4.51); Absolute Neutrophil Count 3.8 X10^3/uL (2.0-7.7); Basophil# 0.02 X10^3/uL; Basophil% 0.4 % (0-1); Eosinophil# 0.17 X10^3/uL; Eosinophils% 3.1 % (0-5); Hematocrit 33.7 % (37-47); Hemoglobin 10.3 g/dL (12.0-15.0); Lymphocyte # 1.01 X10^3/ul (0.83-4.51); Lymphocyte % 18.4 % (19-41); Mean Corp Hgb Conc 30.6 g/dL (32-36); Mean Corpuscular Hgb 27.5 pg (27.0-32.0); Mean Corpuscular Volume 89.9 fL (81-99); Mean Platelet Vol. 9.2 fl (6.2-12.0); Monocyte# 0.47 X10^3/uL; Monocyte% 8.6 % (0-10); NRBC Flagged by Analyzer 0 % (0-5); Neutrophil % 69.3 % (47-70); Platelet Count 222 K/mm3 (150-450); RBC Distribution Width CV 13.5 % (11.6-14.6); RBC Distribution Width SD 44.4 fl (35.1-43.9); Red Blood Count 3.75 M/mm3 (4.2-5.4); White Blood Count 5.5 K/mm3 (4.4-11.0)
[2022-04-03] MEDS: Morphine 4 MG/ML Syringe IV (10:25)
[2022-04-03 10:28] LABS: Squamous Epithelial Cells - UA 0-5 SEEN /hpf (5-10); White Blood Cells 0-5 SEEN /hpf (0-5)
[2022-04-03 10:29] VITALS: BP 159/84; PULSE 66; RESP 19; O2SAT 94
[2022-04-03 10:30] LABS: ALB/GLOB Ratio 0.8 RATIO (0.9-2.4); AST(SGOT) 22 U/L (15-37); Alanine Aminotransfer ALT/SGPT 19 U/L (13-56); Albumin, Serum 2.9 g/dL (3.2-5.0); Alkaline Phosphatase 86 U/L (45-117); Anion Gap 4 (5-15); BUN 18 mg/dL (7-18); BUN/Creat Ratio 25.4 RATIO (10-20); Calcium,Total 8.9 mg/dL (8.5-10.1); Chloride 107 mmol/L (98-107); Creatinine, Serum 0.71 mg/dL (0.55-1.02); EST Glomerular Filtration Rate 87 mL/min (>60); Est Glom Filt Rate - Afr Amer 105 mL/min (>60); Estimated Creatinine Clearance 38.14 ml/min; Globulin 3.5 g/dL (2.2-4.2); Glucose 99 mg/dL (74-106); Lipase 75 U/L (73-393); Potassium 3.9 mmol/L (3.5-5.1); Protein, Total 6.4 g/dL (6.4-8.2); Sodium Level 141 mmol/L (136-145); Troponin-I HS 4 pg/mL (3.0-54.0)
[2022-04-03 10:35] LABS: BNP,B-Type NATRIURETIC PEPTIDE 86.4 pg/mL (0-100)
[2022-04-03 12:00] VITALS: BP 163/64; PULSE 80; O2SAT 94
[2022-04-03 12:30] VITALS: O2SAT 95
[2022-04-03 13:00] VITALS: BP 136/76; PULSE 64; O2SAT 95
[2022-04-03 13:24] VITALS: BP 136/75; PULSE 71; O2SAT 93
[2022-04-03] MEDS: Rivaroxaban 15 MG Tablet PO (13:25)
== END 2022-04-03 13:49 | disposition home or self-care (01) ==
PROVIDERS: Emergency Provider Emergency Medicine; PCP Family Medicine; Visit Provider Emergency Medicine
DX: I26.99 Other pulmonary embolism without acute cor pulmonale (principal); R10.12 Left upper quadrant pain; G47.30 Sleep apnea, unspecified; Z96.651 Presence of right artificial knee joint; Z86.16 Personal history of COVID-19
CPT/HCPCS: 71275; 74177; 80053; 81001; 83690; 83880; 84484; 85025; 93005; 96374; 99285; Q9967; A4216

== ENCOUNTER → 2022-04-09 | Outpatient (CLI) | payer MEDICARE, OTHER, SELFPAY ==
[2022-04-09 15:01] LABS: Hematocrit 37.2 % (37-47); Hemoglobin 11.4 g/dL (12.0-15.0); Mean Corp Hgb Conc 30.6 g/dL (32-36); Mean Corpuscular Hgb 27.2 pg (27.0-32.0); Mean Corpuscular Volume 88.8 fL (81-99); Mean Platelet Vol. 9.7 fl (6.2-12.0); Platelet Count 292 K/mm3 (150-450); RBC Distribution Width CV 13.6 % (11.6-14.6); RBC Distribution Width SD 44.4 fl (35.1-43.9); Red Blood Count 4.19 M/mm3 (4.2-5.4)
[2022-04-09 15:21] LABS: Anion Gap 7 (5-15); BUN 20 mg/dL (7-18); BUN/Creat Ratio 24.4 RATIO (10-20); Calcium,Total 9.4 mg/dL (8.5-10.1); Chloride 106 mmol/L (98-107); Creatinine, Serum 0.82 mg/dL (0.55-1.02); EST Glomerular Filtration Rate 73 mL/min (>60); Est Glom Filt Rate - Afr Amer 89 mL/min (>60); Glucose 86 mg/dL (74-106); Potassium 4.3 mmol/L (3.5-5.1); Sodium Level 140 mmol/L (136-145)
== END | disposition home or self-care (01) ==
LOC: MFPLAB 11:33
PROVIDERS: PCP Family Medicine; Visit Provider Nurse Practitioner Family
DX: I26.99 Other pulmonary embolism without acute cor pulmonale (principal)
CPT/HCPCS: 36415; 80048; 85027

== ENCOUNTER → 2022-06-09 | Outpatient (CLI) | payer MEDICARE, OTHER, SELFPAY ==
[2022-06-09 12:26] LABS: Absolute Lymphocyte Count 2.01 X10^3/uL (0.83-4.51); Absolute Neutrophil Count 3.7 X10^3/uL (2.0-7.7); Basophil# 0.02 X10^3/uL; Basophil% 0.3 % (0-1); Eosinophil# 0.12 X10^3/uL; Eosinophils% 1.9 % (0-5); Hematocrit 39.9 % (37-47); Hemoglobin 12.3 g/dL (12.0-15.0); Lymphocyte # 2.01 X10^3/ul (0.83-4.51); Lymphocyte % 31.5 % (19-41); Mean Corp Hgb Conc 30.8 g/dL (32-36); Mean Corpuscular Hgb 26.1 pg (27.0-32.0); Mean Corpuscular Volume 84.5 fL (81-99); Mean Platelet Vol. 9.5 fl (6.2-12.0); Monocyte# 0.53 X10^3/uL; Monocyte% 8.3 % (0-10); NRBC Flagged by Analyzer 0 % (0-5); Neutrophil # 3.69 X10^3/uL (2.7-7.7); Neutrophil % 57.7 % (47-70); Platelet Count 236 K/mm3 (150-450); RBC Distribution Width CV 14.6 % (11.6-14.6); RBC Distribution Width SD 44.9 fl (35.1-43.9); Red Blood Count 4.72 M/mm3 (4.2-5.4); White Blood Count 6.4 K/mm3 (4.4-11.0)
[2022-06-09 12:51] LABS: ALB/GLOB Ratio 0.9 RATIO (0.9-2.4); AST(SGOT) 31 U/L (15-37); Alanine Aminotransfer ALT/SGPT 45 U/L (13-56); Albumin, Serum 3.4 g/dL (3.2-5.0); Alkaline Phosphatase 86 U/L (45-117); Anion Gap 6 (5-15); BUN 14 mg/dL (7-18); BUN/Creat Ratio 21.1 RATIO (10-20); Calcium,Total 9.7 mg/dL (8.5-10.1); Chloride 110 mmol/L (98-107); Creatinine, Serum 0.66 mg/dL (0.55-1.02); EST Glomerular Filtration Rate 94 mL/min (>60); Est Glom Filt Rate - Afr Amer 113 mL/min (>60); Ferritin 129 ng/mL (8-252); Globulin 3.7 g/dL (2.2-4.2); Glucose 90 mg/dL (74-106); Iron 43 ug/dL (50-170); Iron Binding Capacity,Total 296 ug/dL (250-450); Magnesium 2.6 mg/dL (1.6-2.6); Phosphorus 3.2 mg/dL (2.5-4.9); Potassium 4.1 mmol/L (3.5-5.1); Protein, Total 7.1 g/dL (6.4-8.2); Sodium Level 143 mmol/L (136-145); T4 Free Direct 1.18 ng/dL (0.76-1.46); Thyroid Stim Hormone (TSH) 0.66 uIU/mL (0.358-3.74)
[2022-06-09 13:15] LABS: Vitamin B12 1609 pg/mL (211-911)
[2022-06-11 10:34] LABS: Zinc, Plasma or Serum 85 ug/dL (44-115)
== END | disposition home or self-care (01) ==
LOC: MFPLAB 10:31
PROVIDERS: PCP Family Medicine; Referring Provider Family Medicine; Visit Provider Family Medicine
DX: E61.1 Iron deficiency (principal); E03.8 Other specified hypothyroidism; Z98.84 Bariatric surgery status
CPT/HCPCS: 36415; 80053; 82607; 82728; 83540; 83550; 83735; 84100; 84439; 84443; 84630; 85025

== ENCOUNTER 2022-06-16 10:34 | Emergency (ER) | payer MEDICARE, OTHER, SELFPAY ==
[2022-06-16 10:35] VITALS: BP 147/80; PULSE 85; RESP 14; TEMP 36.8; O2SAT 97; BMI 41.5
--- NOTE | 2022-06-16 10:50 | EDS_ITS ---
HPI History of Present Illness Chief Complaint: Nosebleed Detail of Chief Complaint: Nosebleed Informant: patient Narrative Narrative: Patient presents emergency department complaint of a left-sided nosebleed that started an hour and a half ago. Patient states that she was brushing her teeth and bent over the sink when spontaneously it started to bleed. Patient is on Xarelto for history of PEs. Patient states she had a similar episode about a week and a half ago that stopped relatively easily. Patient tried using ice to the area and squeezing her nose without success. Patient states that she called her ENT's office and was advised to come to the emergency department. Prior similar symptoms: Yes PFSH [facility] Medical History Ambulates with cane Arthritis Brain fog Chronic pain COVID-19 CPAP (continuous positive airway pressure) dependence Depression Diabetes History of echocardiogram History of edema Hypothyroid Loss of hearing Redness of skin Restless legs Shortness of breath on exertion Sleep apnea Wears hearing aid Home Medications levothyroxine 112 mcg tablet 112 mcg PO DAILY Thyroid 04/22/18 [History Last Taken 03/11/22] baclofen 10 mg tablet 10 mg PO QHS muscle spasm 02/25/22 [History Last Taken Unknown] calcium citrate 315 mg-vitamin D3 5 mcg (200 unit) tablet (Calcium Citrate + D) 2 tab PO BID supplement 02/25/22 [History Last Taken Unknown] ferrous sulfate 325 mg (65 mg iron) tablet (Iron (ferrous sulfate)) 325 mg PO DAILY supplement 02/25/22 [History Last Taken Unknown] gabapentin 400 mg capsule 400 mg PO QHS RLS 02/25/22 [History Last Taken Unknown] magnesium 500 mg tablet 15 mg PO DAILY supplement 02/25/22 [History Last Taken Unknown] mirtazapine 15 mg tablet 15 mg PO QHS sleep 02/25/22 [History Last Taken Unknown] dbmudeou-sdbkvbfi-wkqi 45 mg-folic acid 800 mcg-vit K 120 mcg capsule (Bariatric Multivitamins) 1 cap PO DAILY supplement 02/25/22 [History Last Taken Unknown] pramipexole 0.25 mg tablet 1 tab PO QHS RLS 02/25/22 [History Last Taken Unknown] acetaminophen 500 mg tablet 1,000 mg PO Q8 #0 tabs 03/13/22 [Rx Last Taken Unknown] sennosides 8.6 mg-docusate sodium 50 mg tablet (Stool Softener-Stimulant Laxative) 2 tab PO BID #14 tabs 03/13/22 [Rx Last Taken Unknown] escitalopram oxalate 10 mg tablet 10 mg PO DAILY 06/16/22 [History Last Taken Unknown] montelukast 10 mg tablet 10 mg PO DAILY 06/16/22 [History Last Taken Unknown] rivaroxaban 10 mg tablet (Xarelto) 20 mg PO DAILY@0600 06/16/22 [History Last Taken Unknown] Allergy/AdvReac Type Severity Reaction Status Date / Time latex Allergy Other Verified 06/16/22 10:35 NSAIDS (Non-Steroidal Allergy Other Verified 06/16/22 10:35 Anti-Inflamma hydrocodone AdvReac Itching Verified 06/16/22 10:35 Surgical History Bariatric surgery status History of knee replacement procedure of left knee History of knee replacement procedure of right knee History of surgery on arm Hx of shoulder surgery Status post total right knee replacement Social History Smoking Status: Never smoker ROS ROS ED Review of Systems ROS Unobtainable: other Constitutional Constitutional ED: Reports lethargy; Denies chills, fever(s), sweats or weight loss Eyes Eyes: Denies blurry vision, change in vision or diplopia ENT ENT ED: Reports other Details: Left-sided nosebleed ; Denies rhinorrhea or sore throat Cardiovascular Cardiovascular: Denies chest pain, orthopnea or racing heartbeat Respiratory/Chest Respiratory/Chest: Denies cough, dyspnea, dyspnea on exertion, orthopnea or sputum Gastrointestinal Gastrointestinal: Denies abdominal pain, diarrhea, nausea or vomiting Genitourinary Genitourinary ED: Denies dysuria, hematuria or urinary frequency Musculoskeletal Musculoskeletal: Denies arthralgias, back pain, myalgias or neck pain Integumentary Denies abscess, Abrasions or rash Neurologic Neurologic: Denies headache(s) or weakness Psychiatric Psychiatric: Denies anxiety, depression or suicidal thoughts Endocrine Endocrinology: Denies polydipsia, polyphagia or polyuria Hematologic/Lymphatic Hematologic/Lymphatic: Denies easy bleeding, easy bruising or lymphadenopathy Allergic/Immunologic Allergic/Immunologic ED: Denies mouth swelling, tongue swelling or urticaria EXAM Physical Exam Const Vital Signs: 06/16/22 10:35 Temperature 98.2 F Temperature Source Temporal Pulse Rate 85 Respiratory Rate 14 Blood Pressure 147/80 H Blood Pressure Mean 102 Pulse Ox 97 Oxygen Delivery Method Room Air Positive well nourished and well developed General Appearance ED: well developed and NAD HEENT Reports TM's clear and moist mucous membranes HEENT Narrative: Patient had a clip on her nose as I enter the room. There is no significant active bleeding noted. When I inspected the left nasal vault there was a large clot noted within the nasal vault. I had her blow the clot out. I was able to visualize a vessel on the anterior septum where I suspect the bleeding was originating and it happens to have a clot on it. normocephalic and atraumatic; Negative for trauma or tenderness Tympanic Membrane ED: Yes TM's clear Eyes PERRL and EOMs intact bilaterally General Eye ED: Negative for pale conjunctiva or scleral icterus Neck no lymphadenopathy, supple and no JVD General: Negative for tenderness Chest Wall inspection of chest normal and palpation of chest normal Chest: Negative for tenderness Resp normal respiratory effort and clear to auscultation bilaterally Effort and Inspection: Negative for respiratory distress or pain with movement Auscultation: Negative for rhonchi, wheezes or diminished lung sounds Cardio regular rate, regular rhythm, S1 normal heart sound, S2 normal heart sound and no murmurs Peripheral Pulses: pulses 2+ throughout GI normal to inspection, nondistended, normoactive bowel sounds, soft to palpation, non-tender, non-distended and no masses Back/Spine no CVA tenderness and no thoracic nor lumbar tenderness Extremity normal to inspection General Extremety ED: Negative for edema General Extremity: Negative for edema Neuro oriented x3, CN's II-XII intact bilaterally, no sensory deficits noted and gait normal Sensorium / Orientation: awake, alert, oriented to person, oriented to place and oriented to time Motor Exam: strength 5/5 throughout and strength abnormal Psych mental status grossly normal Skin no rashes or lesions noted and no wounds MDM MDM MDM Narrative Medical decision making narrative: I had patient blow her nose and expel the clot from the left side of the nose. I visualized a vessel on the anterior septum that I suspect was the source of the bleeding and had a clot on it. I did dip a cottonball in the other solution and placed in the left nasal vault. After the cottonball was removed there was small amount of oozing noted from the suspected vessel on the anterior septum. I used silver nitrate sticks to cauterize this area with good results. Patient was observed for half an hour in the department and had no further bleeding. There is no blood on the oropharynx. I ambulated the patient. At this point we will attempt to contact her ear nose and throat physician to arrange close follow-up. Patient advised to hold constant pressure for 20 minutes without letting go if symptoms recur. If the bleeding does not stop with pressure she is to return to the emergency department. Discharge Plan Triage Chief Complaint: Nosebleed ED Provider: Wellington Garibay Dx/Rx/DC Orders Clinical Impression: Anterior epistaxis Instructions: ED Epistaxis (Adult) Prescriptions: No Action levothyroxine 112 tablet 112 mcg PO DAILY Label Comments: magnesium 500 mg Tablet 15 mg PO DAILY gabapentin 400 mg Capsule 400 mg PO QHS baclofen 10 mg Tablet 10 mg PO QHS ferrous sulfate [Iron (ferrous sulfate)] 325 mg (65 mg iron) Tablet 325 mg PO DAILY pramipexole 0.25 mg tablet 1 tab PO QHS mirtazapine 15 mg Tablet 15 mg PO QHS calcium citrate-vitamin D3 [Calcium Citrate + D] 315 mg-5 mcg (200 unit) Tablet 2 tab PO BID Bariatric Multivitamins 45 mg iron- 800 mcg-120 mcg Capsule 1 cap PO DAILY acetaminophen 500 mg Tablet 1,000 mg PO Q8 Qty: 0 0RF Rx Instructions: Do not take more than 3000 mg Tylenol in a 24-hour period. sennosides-docusate sodium [Stool Softener-Stimulant Laxat] 8.6-50 mg Tablet 2 tab PO BID Qty: 14 0RF Rx Instructions: Take until first bowel movement, then as needed montelukast 10 mg Tablet 10 mg PO DAILY escitalopram oxalate 10 mg Tablet 10 mg PO DAILY Xarelto 10 mg tablet 20 mg PO DAILY@0600 Rx Instructions: Take for 2 weeks postoperatively for DVT prophylaxis Primary Care Provider: Jarred Sanabria Referrals: Jarred Sanabria MD [Primary Care Provider] - Simone Walker MD [Med Staff - Active Staff] - 3-5 Days Disposition Disposition: Home, Self Care
[2022-06-16] MEDS: Ondansetron ODT 4 MG Tablet PO (11:25)
[2022-06-16] MEDS: Silver Nitrate (BKC) 2 EACH TOPICAL (11:25)
[2022-06-16 12:16] VITALS: BP 135/71; PULSE 66; RESP 15; O2SAT 98
--- NOTE | 2022-06-16 14:18 | CHAPLAIN ---
Type of Pastoral Visit ___ Initial Visit ___ Follow-up Visit ___ On-call Visit ___ General Patient Visit ___ Spiritual Assessment ___ Family Conference ___ Bereavement ___ Rapid Response ___ Code Blue _x__ Other (describe below) Pastoral Care Referral From ___ Patient _x__ Family ___ Nurse ___ Physician ___ Field Operations Farm Manager ___ Saturation Diver ___ Other (describe below) Sacrament/Intervention _x__ Active listening ___ Anointing ___ Mormonism ___ Bereavement ___ Communion ___ Taylor exploration ___ ___ Life review _x__ Prayer ___ Reconciliation ___ Sacrament of Sick _x__ Supportive presence ___ Wedding ___ Other (describe below) Pastoral Comments
== END 2022-06-16 12:17 | disposition home or self-care (01) ==
PROVIDERS: Emergency Provider Emergency Medicine; PCP Family Medicine; Visit Provider Emergency Medicine
DX: R04.0 Epistaxis (principal); G47.30 Sleep apnea, unspecified; E03.9 Hypothyroidism, unspecified; F32.A Depression, unspecified; Z86.16 Personal history of COVID-19; Z79.01 Long term (current) use of anticoagulants; Z79.899 Other long term (current) drug therapy
CPT/HCPCS: 30901; 99282

== ENCOUNTER 2022-06-17 10:30 | Outpatient (RCR) | payer MEDICARE, OTHER, SELFPAY ==
--- NOTE | 2022-03-16 11:56 | HP.PTEVAL_ITS ---
Patient's Visit Information GILBERTO STRATTON is a 71 year old F referred to Physical Therapy by Kem Alonso PA-C with a diagnosis of R TKA revision. Date of Evaluation: 03/16/22 Physical Therapist: David Avina PT, ATC - Visit Plan Frequency: 2-3x /Week Duration: 4-6 Weeks Plan: R knee PROM/mobs, stretching and strengthening, balance and proprio, core stab ex's, bike, and HEP - Subjective DOS: 03/11/22. Pt reports she had a R knee TKA revision performed. Pt reports she had a R TKA performed in 2018, but the pain never went away. Pt reports she has to have a revision on her L knee next year. Pt reports she is in a lot of pain t adelita. Pt reports she is having sleep difficulty at this time secondary to pain. Pt reports she is unable to lift her leg in or out of bed secondary to pain and weakness. Pt reports she has been wearing a wound vac since her date of surgery that is to be taken out in two days. Pt reports no tingling or numbness at this time secondary to pain. Pt is retired at this time. Pt reports she has 3 stairs into her house that she has to negotiote one step at a time. Pt is currently using a WW for ambulation, but notes she ambulated without an AD prior to surgery. Pt has been performing a HEP since the DOS. Pt reports her pain is 9- 10/10 while at rest. - Pain R knee Pain Intensity (Out of 10): 10 Pain Intensity Range: 10 - Objective Neuro: B LE sensation is WNL to light touch. Girth at joint line: R knee 53, L knee 50 cm. ROM: L knee 0-5-80, R knee 0-20-50. MMT: R knee flex= 3, ext= 0; L knee flex= 12, ext= 16. Gait: Pt ambulates with a very slow cadance. No knee movement on R LE - Balance/Special Test Scores Lower Extremity Functional Score: 8 - Goals Goal 1:: Decrease R knee pain x 50% to aid with sleep Goal Time Frame: 4-6 Weeks Goal 2:: Increase R knee ROM x 30 degrees to aid with restoring a more normalized gait pattern Goal Time Frame: 4-6 Weeks Goal 3:: Increase R knee strength x 10 #F to aid with stair negotiation Goal Time Frame: 4-6 Weeks Goal 4:: I with HEP Goal Time Frame: 4-6 Weeks - Rehabilitation Potential Physical Therapy Diagnosis: Pt has R knee pain, weakness, and limited ROM secondary to R TKA revision Rehabilitation Potential: Good - Anticipated Interventions Patient/Client Instruction: Educate patient on: Condition, Plan of Care For the Purpose of:: To improve self management Therapeutic Exercise to Include: Strength training, Endurance training, Balance training, Flexibilty training, Gait and locomotor training, Passive ROM, Active ROM, Dynamic Lumbar Stabilization For the Purpose of:: To decrease pain, To increase ROM, To improve muscle performance and motor function Cryotherapy (ice pack, ice massage): Yes For the Purpose of:: To decrease pain Thank you for the opportunity to evaluate your patient. For Medicare and Medicare HMO plans, please review the plan of care and approve it. It will need to be FAXED BACK to us at [phone] for Medicare purposes. For Medicare only, by signing this I certify the plan of care. Please let me know if there are questions or concerns regarding this plan of care. Physician Signature: Date:
--- NOTE | 2022-06-17 12:09 | HP.PTDCSUM ---
It has been my pleasure to treat GILBERTO STRATTON referred by Kem Alonso PA-C, with the diagnosis of R TKA revision for a total of 38 visit(s). Discharge Date: Please see the following information for a summary of their discharge status. Subjective: I dont have any pain today R knee Pain Intensity (Out of 10): 0 R anterior michele Pain Intensity (Out of 10): 2 % Improvement: 100 Objective/Function: R knee pain 0/10. R knee MMT: flex= 19, ext= 27 #F. R knee ROM: 0-7-100 degrees. Pt is I with HEP. Rx goals achieved Goal 1:: Decrease R knee pain x 50% to aid with sleep Goal 2:: Increase R knee ROM x 30 degrees to aid with restoring a more normalized gait pattern Goal 3:: Increase R knee strength x 10 #F to aid with stair negotiation Goal 4:: I with HEP Plan: Discharge If there are questions or concerns regarding this patient's physical therapy, please feel free to call me at [phone]. Thank you for the referral of this patient. Sincerely, David Avina, PT, ATC Balance/Gait/Functional tests - Balance/Special Test Scores Lower Extremity Functional Score: 56
== END 2022-06-17 12:43 | disposition home or self-care (01) ==
LOC: PT 10:30
PROVIDERS: PCP Family Medicine; Referring Provider Physician Assistant Surgical; Visit Provider Physician Assistant Surgical
DX: M25.561 Pain in right knee (principal); Z96.651 Presence of right artificial knee joint
CPT/HCPCS: 97110; 97140; 97161; 97164

== ENCOUNTER → 2022-07-17 | Outpatient (CLI) | payer MEDICARE, OTHER, SELFPAY ==
--- NOTE | 2022-07-17 11:45 | BI_ITS ---
MAMMOGRAPHY - BILATERAL SCREENING REASON FOR EXAM: Female, 71 years old. Routine annual screening examination. PERTINENT HISTORY: Non-contributory. 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 2-D mediolateral oblique (MLO) and craniocaudad (CC) views of both breasts were obtained. CAD: Full Field Digital Mammography with Computer Added Detection was performed. COMPARISON: Comparison is made with prior study dated 06/12/2021 and 05/16/2020. FINDINGS: Breast Composition: The breasts are almost entirely fatty. There are no dominant masses or suspicious calcifications. Stable 6 mm well-defined nodule in the upper outer aspect of the right breast Stable small benign-appearing bilateral axillary lymph nodes. No other significant abnormalities are identified. There has been no significant change since the prior study. BI/SCRN MAMM (CAD)W/JOSE BILAT IMPRESSION: Stable bilateral screening mammogram. Yearly follow-up mammogram recommended. (A) ASSESSMENT CATEGORY: BIRADS Category 2: Benign. A letter regarding these results will be sent to the patient by the facility within 30 days. Approximately 10% of breast cancers are not detected by mammography. A normal mammogram should not delay biopsy of a clinically suspicious abnormality. [id number] Electronically Signed: Noah Reno MD at 12:47 EST ,
== END | disposition home or self-care (01) ==
LOC: OPBI 11:44
PROVIDERS: PCP Family Medicine; Visit Provider Family Medicine
DX: Z12.31 Encounter for screening mammogram for malignant neoplasm of breast (principal)
CPT/HCPCS: 77063; 77067

== ENCOUNTER → 2022-10-12 | Outpatient (CLI) | payer MEDICARE, OTHER, SELFPAY ==
[2022-10-12 16:02] LABS: Erythrocyte Sedimentation Rate 29 mm/hr (0-30)
[2022-10-12 16:04] LABS: Absolute Neutrophil Count 2.8 X10^3/uL (2.0-7.7); Basophil# 0.03 X10^3/uL; Basophil% 0.5 % (0-1); Eosinophil# 0.14 X10^3/uL; Eosinophils% 2.2 % (0-5); Hematocrit 42.4 % (37-47); Hemoglobin 13.1 g/dL (12.0-15.0); Lymphocyte % 44.3 % (19-41); Mean Corp Hgb Conc 30.9 g/dL (32-36); Mean Corpuscular Hgb 27.5 pg (27.0-32.0); Mean Corpuscular Volume 88.9 fL (81-99); Mean Platelet Vol. 10.1 fl (6.2-12.0); Monocyte# 0.52 X10^3/uL; Monocyte% 8.2 % (0-10); NRBC Flagged by Analyzer 0 % (0-5); Neutrophil # 2.82 X10^3/uL (2.7-7.7); Neutrophil % 44.6 % (47-70); Platelet Count 239 K/mm3 (150-450); RBC Distribution Width CV 14.5 % (11.6-14.6); RBC Distribution Width SD 47.1 fl (35.1-43.9); Red Blood Count 4.77 M/mm3 (4.2-5.4); White Blood Count 6.3 K/mm3 (4.4-11.0)
[2022-10-12 16:10] LABS: CRP < 2.90 mg/L (0.0-3.0)
== END | disposition home or self-care (01) ==
LOC: MTLAB 11:18
PROVIDERS: PCP Family Medicine; Visit Provider Specialist
DX: T84.82XD Fibrosis due to internal orthopedic prosthetic devices, implants and grafts, subsequent encounter (principal)
CPT/HCPCS: 36415; 85025; 85652; 86140

== ENCOUNTER → 2022-10-19 | Outpatient (CLI) | payer MEDICARE, OTHER, SELFPAY ==
[2022-10-19 11:03] LABS: RBC /Synovial Fluid 0.096 10^6/uL (0); Synovial Fld Mononuclear WBC # 0.318 10^3/ul; Synovial Fld Mononuclear WBC % 79.3 %; Synovial Fld Polynuclear WBC # 0.083 10^3/uL; Synovial Fld Polynuclear WBC % 20.7 %
[2022-10-19 11:15] LABS: AUTO B FLUID DILUENT BKGD CT WBC <0.1 RBC <0.01 (W<.1,R<.01)
[2022-10-19 11:16] LABS: Source / Synovial Fluid RIGHT KNEE; Viscosity / Synovial Fluid Sl. Viscous (HIGH)
[2022-10-19 11:17] LABS: Appearance /Synovial Fluid Cloudy (CLEAR); Color / Synovial Fluid Bloody (Pale Yellow)
[2022-10-19 12:27] LABS: Lymph 37 %; Monocyte /Synovial Fluid 31 %; Neutrophil 31 % (0-25); Other Cell /Synovial Fluid 1 %
[2022-10-19 12:35] LABS: Body Fluid QC Type(s) BF1Q
[2022-10-20 14:49] LABS: Pathologist Comment Reviewed
== END | disposition home or self-care (01) ==
LOC: LAB 08:39 → LABSPEC 08:41
PROVIDERS: PCP Family Medicine; Referring Provider Specialist; Visit Provider Specialist
DX: M25.461 Effusion, right knee (principal); Z96.651 Presence of right artificial knee joint
CPT/HCPCS: 87015; 87070; 87075; 87101; 87116; 87205; 87206; 89050; 89051

== ENCOUNTER → 2022-12-08 | Outpatient (CLI) | payer MEDICARE, OTHER, SELFPAY ==
[2022-12-08 15:20] LABS: Absolute Lymphocyte Count 2.19 X10^3/uL (0.83-4.51); Absolute Neutrophil Count 2.6 X10^3/uL (2.0-7.7); Basophil# 0.04 X10^3/uL; Basophil% 0.7 % (0-1); Eosinophil# 0.14 X10^3/uL; Eosinophils% 2.6 % (0-5); Hematocrit 42.6 % (37-47); Hemoglobin 13.3 g/dL (12.0-15.0); Lymphocyte # 2.19 X10^3/ul (0.83-4.51); Mean Corp Hgb Conc 31.2 g/dL (32-36); Mean Corpuscular Hgb 28.4 pg (27.0-32.0); Mean Platelet Vol. 9.8 fl (6.2-12.0); Monocyte# 0.44 X10^3/uL; NRBC Flagged by Analyzer 0 % (0-5); Neutrophil # 2.64 X10^3/uL (2.7-7.7); Neutrophil % 48.3 % (47-70); Platelet Count 189 K/mm3 (150-450); RBC Distribution Width CV 14.1 % (11.6-14.6); Red Blood Count 4.68 M/mm3 (4.2-5.4); White Blood Count 5.5 K/mm3 (4.4-11.0)
[2022-12-08 15:42] LABS: Vitamin B12 1266 pg/mL (211-911); Vitamin D,25 Hydroxy 32.7 ng/mL
[2022-12-08 15:46] LABS: AST(SGOT) 40 U/L (15-37); Alanine Aminotransfer ALT/SGPT 50 U/L (13-56); Albumin, Serum 3.2 g/dL (3.2-5.0); Alkaline Phosphatase 76 U/L (45-117); Anion Gap 5 (5-15); BUN 14 mg/dL (7-18); BUN/Creat Ratio 20.3 RATIO (10-20); Calcium,Total 9.3 mg/dL (8.5-10.1); Chloride 108 mmol/L (98-107); Creatinine, Serum 0.69 mg/dL (0.55-1.02); EST Glomerular Filtration Rate 89 mL/min (>60); Est Glom Filt Rate - Afr Amer 108 mL/min (>60); Ferritin 119 ng/mL (8-252); Globulin 3.3 g/dL (2.2-4.2); Glucose 92 mg/dL (74-106); Iron 90 ug/dL (50-170); Magnesium 2.4 mg/dL (1.6-2.6); Phosphorus 3.2 mg/dL (2.5-4.9); Protein, Total 6.5 g/dL (6.4-8.2); Sodium Level 139 mmol/L (136-145); T4 Free Direct 1.05 ng/dL (0.76-1.46); Thyroid Stim Hormone (TSH) 2.07 uIU/mL (0.358-3.74)
[2022-12-11 10:48] LABS: Zinc, Plasma or Serum 67 ug/dL (44-115)
== END | disposition home or self-care (01) ==
LOC: MFPLAB 11:35
PROVIDERS: PCP Family Medicine; Visit Provider Family Medicine
DX: E61.1 Iron deficiency (principal); M85.80 Other specified disorders of bone density and structure, unspecified site; E03.8 Other specified hypothyroidism; Z98.84 Bariatric surgery status
CPT/HCPCS: 36415; 80053; 82306; 82607; 82728; 83540; 83735; 84100; 84439; 84443; 84630; 85025

== ENCOUNTER → 2023-04-22 | Outpatient (CLI) | payer MEDICARE, OTHER, SELFPAY ==
[2023-04-22 15:22] LABS: Absolute Lymphocyte Count 2.77 X10^3/uL (0.83-4.51); Absolute Neutrophil Count 3.5 X10^3/uL (2.0-7.7); Basophil# 0.04 X10^3/uL; Basophil% 0.6 % (0-1); Eosinophil# 0.18 X10^3/uL; Eosinophils% 2.6 % (0-5); Hematocrit 42.5 % (37-47); Hemoglobin 13.7 g/dL (12.0-15.0); Lymphocyte # 2.77 X10^3/ul (0.83-4.51); Mean Corp Hgb Conc 32.2 g/dL (32-36); Mean Corpuscular Hgb 29.7 pg (27.0-32.0); Mean Platelet Vol. 9.6 fl (6.2-12.0); Monocyte# 0.42 X10^3/uL; Monocyte% 6.1 % (0-10); NRBC Flagged by Analyzer 0 % (0-5); Neutrophil % 50.6 % (47-70); Platelet Count 273 K/mm3 (150-450); RBC Distribution Width CV 13.3 % (11.6-14.6); RBC Distribution Width SD 45.1 fl (35.1-43.9); Red Blood Count 4.62 M/mm3 (4.2-5.4); White Blood Count 6.9 K/mm3 (4.4-11.0)
[2023-04-22 15:50] LABS: Vitamin B12 1039 pg/mL (211-911); Vitamin D,25 Hydroxy 39.9 ng/mL
[2023-04-22 16:17] LABS: ALB/GLOB Ratio 0.9 RATIO (0.9-2.4); AST(SGOT) 32 U/L (15-37); Alanine Aminotransfer ALT/SGPT 38 U/L (13-56); Albumin, Serum 3.3 g/dL (3.2-5.0); Alkaline Phosphatase 70 U/L (45-117); Anion Gap 6 (5-15); BUN 15 mg/dL (7-18); BUN/Creat Ratio 20.9 RATIO (10-20); Calcium,Total 9.2 mg/dL (8.5-10.1); Chloride 108 mmol/L (98-107); Cholesterol 200 mg/dL (200); Creatinine, Serum 0.72 mg/dL (0.55-1.02); EST Glomerular Filtration Rate 85 mL/min (>60); Est Glom Filt Rate - Afr Amer 103 mL/min (>60); Ferritin 167 ng/mL (8-252); Globulin 3.5 g/dL (2.2-4.2); Glucose 96 mg/dL (74-106); High Density Lipoprotein 60 mg/dL; Iron 59 ug/dL (50-170); Iron Binding Capacity,Total 289 ug/dL (250-450); Phosphorus 3.3 mg/dL (2.5-4.9); Potassium 4.3 mmol/L (3.5-5.1); Protein, Total 6.8 g/dL (6.4-8.2); Sodium Level 142 mmol/L (136-145); T4 Free Direct 1.08 ng/dL (0.76-1.46); Thyroid Stim Hormone (TSH) 3.08 uIU/mL (0.358-3.74); Triglycerides 114 mg/dL; Very Low Density Lipoprotein 23 mg/dL (5-40)
[2023-04-30 16:09] LABS: Zinc, Plasma or Serum 65 ug/dL (44-115)
== END | disposition home or self-care (01) ==
LOC: MFPLAB 11:42
PROVIDERS: PCP Family Medicine; Visit Provider Family Medicine
DX: E03.8 Other specified hypothyroidism (principal); M85.80 Other specified disorders of bone density and structure, unspecified site; E61.1 Iron deficiency; Z98.84 Bariatric surgery status
CPT/HCPCS: 36415; 80053; 80061; 82306; 82607; 82728; 83540; 83550; 84100; 84439; 84443; 84630; 85025

== ENCOUNTER 2023-05-05 13:00 | Outpatient (RCR) | payer MEDICARE, OTHER, SELFPAY ==
--- NOTE | 2023-03-23 11:59 | HP.PTEVAL_ITS ---
Patient's Visit Information Visit Information Visit Information: GILBERTO STRATTON is a 72 year old F referred to Physical Therapy by SYDNEE Barksdale with a diagnosis of B knee pain. Date of Evaluation: 03/23/23 Physical Therapist: David Avina, PT, ATC Visit Plan Frequency: 2-3x /Week Duration: 4-6 Weeks Plan: B knee stretching and strengthening, balance and proprio, core strengthening, nustep, gait training, and stair negotiation Subjective Subjective: Pt had a R TKA revisional surgery performed in February 2022. Pt reports she had B TKA in 2018 at different times. Pt notes she had so much scar tissue build up in her R knee that that was the reason for the revisional surgery. Pt reports her L knee was going to have the same revisional surgery performed, but has been put on hold secondary to the poor outcome of her R knee. Pt has recently had a nerve block and an ablasion in B knees to aid with the pain, but pt reports no significant improvements at this time. Pt denies tingling or numbness at this time. Pt has 3 stairs to enter the house that she has to negotiate one step at a time and use her arms a lot. Pt ambulated from the wait ing room to the eval room 140 feet and notes that is as far as she could walk. Pt reports sleep difficulty secondary to pain. Pain B knees: Pain Intensity (Out of 10): 7 Pain Intensity Range: 8 Objective Objective: Neuro: B LE sensation is WNL to light touch Girth at joint line: R knee 54 cm, L knee 51 cm ROM: R knee 0-75 degrees, L knee 0-65 degrees MMT: L knee flex= 7, ext= 21 #F; R knee flex= 11, ext= 27 #F Gait: Pt is able to ambulate approximately 140 feet with cane until needing to sit down secondary to pain and weakness Balance/Special Test Scores Lower Extremity Functional Score: 22 Goals Goal 1:: Decrease B knee pain x 25% to aid with sleep Goal Time Frame: 4-6 Weeks Goal 2:: Increase B knee ROM x 20 degrees to aid with decreasing pain Goal Time Frame: 4-6 Weeks Goal 3:: Increase B knee strength x 20 #F to aid with stair negotiation Goal Time Frame: 4-6 Weeks Goal 4:: I with HEP Goal Time Frame: 4-6 Weeks Rehabilitation Potential Physical Therapy Diagnosis: Pt has B knee pain, weakness, and limited ROM secondary to residual effects from TKA Rehabilitation Potential: Good Anticipated Interventions Patient/Client Instruction: Educate patient on: Condition and Plan of Care For the Purpose of:: To improve self management Therapeutic Exercise to Include: Strength training, Balance training, Flexibilty training, Gait and locomotor training, Active ROM and Dynamic Lumbar Stab ilization For the Purpose of:: To decrease pain, To increase ROM and To improve muscle performance and motor function Cryotherapy (ice pack, ice massage): Yes For the Purpose of:: To decrease pain Text: Thank you for the opportunity to evaluate your patient. For Medicare and Medicare HMO plans, please review the plan of care and approve it. It will need to be FAXED BACK to us at [phone] for Medicare purposes. For Medicare only, by signing this I certify the plan of care. Please let me know if there are questions or concerns regarding this plan of care. Physician Signature: Date:
--- NOTE | 2023-05-05 14:00 | HP.PTDCSUM_ITS ---
Discharge Summary D/C summary: It has been my pleasure to treat GILBERTO STRATTON referred by LATRELL Barksdale, with the diagnosis of B knee pain for a total of 10 visit(s). Discharge Date: Please see the following information for a summary of their discharge status. Subjective Subjective: Pt. reports of severe P! in B hips and B knees lower back. Pain B knees: Pain Intensity (Out of 10): 8 LBP: Pain Intensity (Out of 10): 9 Overall Improvement % Improvement: 30 Objective Objective/Function: Pt. did not respond well to rx. Sever P! in B hips and B knees which prevented rx. Goals Goal 1:: Decrease B knee pain x 25% to aid with sleep Goal 2:: Increase B knee ROM x 20 degrees to aid with decreasing pain Goal 3:: Increase B knee strength x 20 #F to aid with stair negotiation Goal 4:: I with HEP Plan Plan: Discontinue to HEP per patients request D/C Information d/c sentence: If there are questions or concerns regarding this patient's physical therapy, please feel free to call me at [phone]. Thank you for the referral of this patient. Sincerely, David Avina, PT, ATC Balance/Gait/Functional tests Balance/Special Test Scores Lower Extremity Functional Score: 22 Improvement % Improvement: 30
== END 2023-05-05 15:21 | disposition home or self-care (01) ==
LOC: PT 13:00
PROVIDERS: PCP Family Medicine; Referring Provider Nurse Practitioner Acute Care; Visit Provider Nurse Practitioner Acute Care
DX: M25.562 Pain in left knee (principal); M25.561 Pain in right knee; Z96.653 Presence of artificial knee joint, bilateral
CPT/HCPCS: 97110; 97161

== ENCOUNTER → 2023-06-14 | Outpatient (CLI) | payer MEDICARE, OTHER, SELFPAY ==
[2023-06-14 15:36] LABS: ALB/GLOB Ratio 0.9 RATIO (0.9-2.4); AST(SGOT) 43 U/L (15-37); Alanine Aminotransfer ALT/SGPT 59 U/L (13-56); Albumin, Serum 3.6 g/dL (3.2-5.0); Alkaline Phosphatase 83 U/L (45-117); Anion Gap 7 (5-15); BUN 24 mg/dL (7-18); BUN/Creat Ratio 28.8 RATIO (10-20); Calcium,Total 9.4 mg/dL (8.5-10.1); Chloride 103 mmol/L (98-107); Creatinine, Serum 0.83 mg/dL (0.55-1.02); EST Glomerular Filtration Rate 72 mL/min (>60); Est Glom Filt Rate - Afr Amer 87 mL/min (>60); Globulin 4.2 g/dL (2.2-4.2); Glucose 97 mg/dL (74-106); Magnesium 2.7 mg/dL (1.6-2.6); Protein, Total 7.8 g/dL (6.4-8.2); Sodium Level 139 mmol/L (136-145)
== END | disposition home or self-care (01) ==
LOC: MFPLAB 11:21
PROVIDERS: Family Medicine; PCP Family Medicine; Visit Provider Family Medicine
DX: M79.89 Other specified soft tissue disorders (principal)
CPT/HCPCS: 36415; 80053; 83735

== ENCOUNTER 2023-06-16 13:31 | Outpatient (RCR) | payer MEDICARE, OTHER, SELFPAY ==
--- NOTE | 2023-06-17 06:49 | HP.OTEVAL ---
Patient's Visit Information Visit Information Visit Information: GILBERTO STRATTON is a 72 year old F, referred to Occupational Therapy by Dr. Juan Carter MD, with a diagnosis of lymphedema. Date of Evaluation: 06/16/23 Occupational Therapist: Trisha Monroy, NALDO/Robert, CHT Subjective Subjective: This 72 year old female was seen for OT eval with dx of lymphedema- pt states she has swelling in BLE since 2016. pt states she has had 3 TKR last one being February 2023. pt states she is now on two diacritics and has lost 4lbs. Pt states she feels this has helped stop her legs from weeping. Pt has not use compression socks in the past- did use declan hose after her knee sx. Pt and pts spouse states she does not sleep more than 2-3 hours in bed then gets up- more from pain vs swelling. Both pt and spouse would like to know what they can do to control swelling. Lymphedema (Circumferential Measure) Mid-foot: right 23cm left 23cm Ankle: right 32cm left 29cm Lower calf: right 34cm left 34cm Largest calf: right 50cm left 50cm Below knee: right 50cm left 50cm Above knee: right 55cm left 55cm Mid-thigh: right 60cm left 60cm Lower Exremity Comments: pt demo stage II lymphedema Lower Limb Functional Index Lower Extremity Functional Score: 23 Goals Goal: Patient will demonstrate a 20% reduction in edema by discharge: Yes Goal: Patient will demonstrate adequate knowledge of self-bandaging by the end of the first week.: Yes Goal: Patient will demonstrate adequate knowledge of self-massage by the end of the second week.: Yes Goal: Patient will demonstrate adequate knowledge of skin care and precautions by the end of the first week.: Yes Goal: Patient will demonstrate adequate knowledge of therapeutic exercises by discharge.: Yes Goal: Patient will voice understanding of need to replace compression garment every four to six months by discharge.: Yes Rehabilitation General Assessment: pt demo with stage II lymphedema. pt demo need for skilled OT services 3-4 visits to ensure understanding of life long mtg POC for her lymphedema. Today therapist ed. pt on need of compression garment 20-30 mmHg. Advised pt would benefit from velcro closure compression garment and compression socks. therapist also ed. pt on skin care- lymph stimulation ex. pt and pts spouse demo understanding and agree to POC.- therapist will get order for compression garments - family wants faxed to [facility] in [place]- Rehabilitation Potential: Questionable Anticipated Interventions Anticipated Interventions: Education re Diagnosis, Education re Life-long lymphedema Management, Education re Self-Bandaging Techniques, Education re Skin Care and Precautions, Education re Self Massage Techniques, Education re Correct Donning Tech,Care&Wearing Sched Comp Garments, Caregiver Training and Home Program Visit Plan Frequency: 1x/Week Duration: 2-4 Weeks TEXT: Thank you for the opportunity to evaluate your patient. For Medicare and Medicare HMO plans, please review the plan of care and approve it. It will need to be FAXED BACK to us at [phone] for Medicare purposes. Please let me know if there are questions or concerns regarding this plan of care. Physician Signature: Date:
--- NOTE | 2023-12-07 15:20 | HP.OT.NRP ---
Patient Information Patient Information: GILBERTO STRATTON was seen in my office for initial evaluation on 06/16/23. The following Plan of Care was established for this patient: POC Established Initial Frequency: 1x/Week Initial Duration: 2-4 Weeks Anticipated Interventions Anticipated Interventions: Education re Diagnosis, Education re Life-long lymphedema Management, Education re Self-Bandaging Techniques, Education re Skin Care and Precautions, Education re Self Massage Techniques, Education re Correct Donning Tech,Care&Wearing Sched Comp Garments, Caregiver Training and Home Program Last Seen Last Seen: This patient was last seen in our office 06/16/23. Pertinent comments regarding their Occupational therapy will appear below: pt was seen for eval only- order for compression garments were faxed to [facility] per family request. No further apts. were scheduled and due to time lapse in services pt is d/c at this time. At this point I will be discontinuing this patient from occupational therapy. I would be happy to see this patient again in the future if found appropriate by the physician. Thank you! Trisha Monroy, OTR/L, CHT
== END 2023-06-16 19:00 | disposition home or self-care (01) ==
LOC: OT 13:31
PROVIDERS: PCP Family Medicine; Referring Provider Family Medicine; Visit Provider Family Medicine
DX: I89.0 Lymphedema, not elsewhere classified (principal)
CPT/HCPCS: 97166; 97530

== ENCOUNTER → 2023-07-30 | Outpatient (CLI) | payer MEDICARE, OTHER, SELFPAY ==
--- NOTE | 2023-07-30 12:28 | BI_ITS ---
MAMMOGRAPHY - BILATERAL SCREENING REASON FOR EXAM: Female, 72 years old. Routine annual screening examination. PERTINENT HISTORY: Non-contributory. 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 2-D mediolateral oblique (MLO) and craniocaudad (CC) views of both breasts were obtained. CAD: Full Field Digital Mammography with Computer Added Detection was performed. COMPARISON: Comparison is made with prior study dated July 17, 2022 and June 12, 2021. FINDINGS: Breast Composition: The breasts are almost entirely fatty. There are no dominant masses or suspicious calcifications. Stable 6 mm well-defined nodule in the upper outer aspect of the right breast. This most likely represents a small lymph node. Stable fat-containing bilateral axillary lymph nodes. No other significant abnormalities are identified. There has been no significant change since the prior study. BI/SCRN MAMM (CAD)W/JOSE BILAT IMPRESSION: Stable bilateral screening mammogram. Yearly follow-up mammogram recommended. (A) ASSESSMENT CATEGORY: BIRADS Category 2: Benign. A letter regarding these results will be sent to the patient by the facility within 30 days. Approximately 10% of breast cancers are not detected by mammography. A normal mammogram should not delay biopsy of a clinically suspicious abnormality. [id number] Electronically Signed: Noah Reno MD at 13:52 EST ,
== END | disposition home or self-care (01) ==
LOC: OPBI 12:28
PROVIDERS: PCP Family Medicine; Referring Provider Family Medicine; Visit Provider Family Medicine
DX: Z12.31 Encounter for screening mammogram for malignant neoplasm of breast (principal)
CPT/HCPCS: 77063; 77067

== ENCOUNTER → 2023-10-14 | Outpatient (CLI) | payer MEDICARE, OTHER, SELFPAY ==
[2023-10-14 12:13] LABS: Absolute Lymphocyte Count 3.06 X10^3/uL (0.83-4.51); Absolute Neutrophil Count 3.2 X10^3/uL (2.0-7.7); Basophil# 0.04 X10^3/uL; Basophil% 0.6 % (0-1); Eosinophil# 0.15 X10^3/uL; Eosinophils% 2.1 % (0-5); Hematocrit 44.1 % (37-47); Hemoglobin 14.1 g/dL (12.0-15.0); Lymphocyte # 3.06 X10^3/ul (0.83-4.51); Lymphocyte % 43.6 % (19-41); Mean Corpuscular Hgb 28.8 pg (27.0-32.0); Mean Platelet Vol. 9.8 fl (6.2-12.0); Monocyte# 0.55 X10^3/uL; Monocyte% 7.8 % (0-10); NRBC Flagged by Analyzer 0 % (0-5); Neutrophil # 3.21 X10^3/uL (2.7-7.7); Neutrophil % 45.8 % (47-70); Platelet Count 231 K/mm3 (150-450); RBC Distribution Width CV 13.2 % (11.6-14.6); RBC Distribution Width SD 43.6 fl (35.1-43.9)
[2023-10-14 12:45] LABS: Vitamin B12 1123 pg/mL (211-911); Vitamin D,25 Hydroxy 41.9 ng/mL
[2023-10-14 13:49] LABS: ALB/GLOB Ratio 0.9 RATIO (0.9-2.4); AST(SGOT) 56 U/L (15-37); Alanine Aminotransfer ALT/SGPT 64 U/L (13-56); Albumin, Serum 3.6 g/dL (3.2-5.0); Alkaline Phosphatase 78 U/L (45-117); Anion Gap 6 (5-15); BUN 20 mg/dL (7-18); BUN/Creat Ratio 22.2 RATIO (10-20); Calcium,Total 9.9 mg/dL (8.5-10.1); Chloride 107 mmol/L (98-107); Cholesterol 221 mg/dL (200); EST Glomerular Filtration Rate 65 mL/min (>60); Est Glom Filt Rate - Afr Amer 79 mL/min (>60); Ferritin 211 ng/mL (8-252); Globulin 3.8 g/dL (2.2-4.2); Glucose 91 mg/dL (74-106); High Density Lipoprotein 57 mg/dL; Iron 83 ug/dL (50-170); Iron Binding Capacity,Total 336 ug/dL (250-450); Magnesium 2.3 mg/dL (1.6-2.6); Phosphorus 3.6 mg/dL (2.5-4.9); Protein, Total 7.4 g/dL (6.4-8.2); Sodium Level 140 mmol/L (136-145); T4 Free Direct 1.28 ng/dL (0.76-1.46); Thyroid Stim Hormone (TSH) 0.47 uIU/mL (0.358-3.74); Triglycerides 166 mg/dL; Very Low Density Lipoprotein 33 mg/dL (5-40)
--- OUTSIDE RECORDS SUMMARY | 2023-10-14 14:35 | XMS RPT_ITS | CCD ---
Author Name Unknown Address [address] [place] [address] Organization [facility] Care Team Providers Care [employer] Name Role Phone Niall, Geo L Unavailable Unavailable Coley, Jarred K Unavailable Unavailable Niall, Geo L Unavailable Unavailable Coley, Jarred K Unavailable Unavailable Niall, Geo L Unavailable Unavailable Niall, Geo L Unavailable Unavailable Coley, Jarred K Unavailable Unavailable Niall, Geo L Unavailable Unavailable Coley, Jarred K Unavailable Unavailable Niall, Geo L Unavailable Unavailable Coley, Jarred K Unavailable Unavailable Niall, Geo L Unavailable Unavailable Coley, Jarred K Unavailable Unavailable Problems Active Problems Problem Classification Problem Date Documented Da te Episodic/Chronic Unclassified (1 source) Unknown / UNK(Unknown) Onset: 09-29-2017 Past or Other Problems Problem Classification Problem Date Documented Da te Episodic/Chronic Unclassified (1 source) OSTEOARTHRITIS, RIGHT KNEE~ Onset: 09-29-2017 Results Test Name Value Interpretation Reference Range Facil ity Encounters Encounter Date Encounter Type Care Provider Facility Start: 06-01-2018 Evaluation and manag ement of inpatient Geo Tierney Facility:[facility] Start: 05-26-2018 Patient encounter procedure Geo Tierney Facility:[facility] Start: 05-25-2018 Patient encounter procedure Geo Tierney Facility:[facility] Start: 05-19-2018 Patient encounter procedure Geo Tierney Facility:[facility] Start: 10-06-2017 End: 10-07-2017 Evaluation and management of inpatient Geo Tierney Facility:[facility] Start: 09-29-2017 Patient encounter procedure Geo Tierney Facility:[facility] Procedures Date Procedure Procedure Detail Performing Clinician Start: 06-01-2018 Antibody screen Geo Tierney Payers Date Payer Category Payer Unknown [id number] 2015 Medicare [id number] Unknown [id number] 2.16.8 [id number] Unknown [id number] 2.16.8 [id number] Unknown [id number] 2.16.8 [id number] Unknown [id number] 2.16.8 [id number] Unknown [id number] 2.16.8 [id number] Unknown [id number] 2.16.8 [id number] Summary Purpose Family History No Family History Records Found Advance Directives No Advanced Directives Records Found Additional Source Comments INFORMATION SOURCE (unrecogn ized section and content) FOR RECORDS PERTAINING TO PATIENTS WHO ARE OR HAVE BEEN ENROLLED IN A CHEMICAL DEPENDENCY/SUBSTANCEABUSE PROGRAM, SOME INFORMATION MAY BE OMITTED. This clinical summary was aggregated from multiple sources. Caution should be exercised in using it in the provision of clinical care. This summary normalizes information from multiple sources, and as a consequence, information in this document may materially change the coding, format and clinical context of patient data. In addition, data may be omitted in some cases. CLINICAL DECISIONS SHOULD BE BASED ON THE PRIMARY CLINICAL RECORDS. [employer] [facility]. provides no warranty or guarantee of the accuracy or completeness of information in this document.
[2023-10-21 16:10] LABS: Zinc, Plasma or Serum 77 ug/dL (44-115)
== END | disposition home or self-care (01) ==
LOC: MFPLAB 11:07
PROVIDERS: PCP Family Medicine; Visit Provider Family Medicine
DX: M85.80 Other specified disorders of bone density and structure, unspecified site (principal); E66.01 Morbid (severe) obesity due to excess calories; Z98.84 Bariatric surgery status; E03.8 Other specified hypothyroidism; E61.1 Iron deficiency
CPT/HCPCS: 36415; 80053; 80061; 82306; 82607; 82728; 83540; 83550; 83735; 84100; 84439; 84443; 84630; 85025

== ENCOUNTER → 2023-10-25 | Outpatient (CLI) | payer MEDICARE, OTHER, SELFPAY ==
--- OUTSIDE RECORDS SUMMARY | 2023-10-25 10:07 | XMS RPT_ITS | CCD ---
Author Name Unknown Address [address] [place] [address] Organization [facility] Care Team Providers Care [employer] Name Role Phone Niall, Geo L Unavailable [...] and manag ement of inpatient Geo Tierney Facility:[facility] Start: 05-26-2018 Patient encounter procedure Geo Tierney Facility:[facility] Start: 05-25-2018 Patient encounter procedure Geo Tierney Facility:[facility] Start: 05-19-2018 Patient encounter procedure Geo Tierney Facility:[facility] Start: 10-06-2017 End: 10-07-2017 Evaluation and management of inpatient Geo Tierney Facility:[facility] Start: 09-29-2017 Patient encounter procedure Geo Tierney Facility:[facility] Procedures Date Procedure Procedure Detail Performing Clinician Start: 06-01-2018 Antibody screen Geo Tierney Payers Date Payer Category Payer Unknown [id number] 2015 Medicare [id number] Unknown [id number] 2.16.8 [id number] Unknown [id number] 2.16.8 [id number] Unknown [id number] 2.16.8 [id number] Unknown [id number] 2.16.8 [id number] Unknown [id number] 2.16.8 [id number] Unknown [id number] 2.16.8 [id number] Summary Purpose Family History No Family History [...] BE BASED ON THE PRIMARY CLINICAL RECORDS. [facility]. provides no warranty or guarantee of the accuracy or completeness of information in this document.
[2023-10-25 12:29] LABS: Hepatitis B Surface Antibody Non-Reactive
== END | disposition home or self-care (01) ==
LOC: MFPLAB 09:43
PROVIDERS: PCP Family Medicine; Visit Provider Family Medicine
DX: R73.09 Other abnormal glucose (principal)
CPT/HCPCS: 36415; 86706

== ENCOUNTER → 2023-12-28 | Outpatient (CLI) | payer MEDICARE, OTHER, SELFPAY ==
--- NOTE | 2023-12-28 12:06 | BD_ITS ---
STUDY: DUAL ENERGY X-RAY ABSORPTIOMETRY / DXA REASON FOR EXAM: Female, 73 years old. M810 TECHNIQUE: Bone Mineral Density (BMD) measurements of lumbar spine and bilateral hips were obtained. COMPARISON: Comparison is made with prior study November 27, 2021. FINDINGS: Lumbar Spine (L1-L4): g/cm2 (0.926) / T-score (-1.1) / Z-score (1.1) Findings are suggestive of osteopenia with a low fracture risk. Left Femur Total: g/cm2 (0.851) / T-score (-0.7) / Z-score (0.8) Left Femoral Neck: g/cm2 (0.642) / T-score (-1.9) / Z-score (0.0) Right Femur Total: g/cm2 (0.796) / T-score (-1.2) / Z-score (0.4) Right Femoral Neck: g/cm2 (0.610) / T-score (-2.1) / Z-score (-0.3) The T-Scores on the most recent prior examination were: Lumbar Spine (L1-L4): There has been improvement of bone density since the previous examination. Left Femur Total: which represents an improvement of 9.1. Right Femur Total: which represents an improvement of 8.8%. BD/Dexa Bone Density Study IMPRESSION: The patient is considered osteopenic as outlined below according to World Ross Organization (WHO) criteria with a moderate fracture risk. There has been improvement of bone density since the previous examination. Reference Information: The T-score is the number of standard deviations above or below the standard which is normal for young adults at their peak bone mineral density. The World Health Organization (WHO) interprets the T-scores as follows: Above -1 Normal bone density Between -1 and -2.5 Osteopenia Equal to / or below -2.5 Osteoporosis As a practical clinical guideline, osteopenia may be graded as follows: Mild -1 through -1.5 Moderate -1.6 through -2.0 Severe -2.1 through -2.4 The Z-score is the number of standard deviations above or below age-matched controls. A Z-score of less than -1.5 would be considered abnormal. References: 1. NIH Osteoporosis and Related Bone Diseases www osteo.org 2. International Society for Clinical Densitometry www iscd.org 3. National Osteoporosis Foundation www nof.org Electronically Signed: Noah Reno MD at 15:32 EDT ,
== END | disposition home or self-care (01) ==
LOC: OPBD 12:05
PROVIDERS: PCP Family Medicine; Referring Provider Family Medicine; Visit Provider Family Medicine
DX: M81.0 Age-related osteoporosis without current pathological fracture (principal)
CPT/HCPCS: 77080

== ENCOUNTER → 2024-01-05 | Outpatient (CLI) | payer MEDICARE, OTHER, SELFPAY ==
[2024-01-05 15:28] LABS: Erythrocyte Sedimentation Rate 29 mm/hr (0-30)
[2024-01-05 15:30] LABS: Absolute Lymphocyte Count 3.09 X10^3/uL (0.83-4.51); Absolute Neutrophil Count 2.8 X10^3/uL (2.0-7.7); Basophil# 0.04 X10^3/uL; Basophil% 0.6 % (0-1); Eosinophil# 0.11 X10^3/uL; Eosinophils% 1.7 % (0-5); Hematocrit 43.3 % (37-47); Hemoglobin 13.5 g/dL (12.0-15.0); Lymphocyte # 3.09 X10^3/ul (0.83-4.51); Lymphocyte % 46.5 % (19-41); Mean Corp Hgb Conc 31.2 g/dL (32-36); Mean Corpuscular Hgb 28.2 pg (27.0-32.0); Mean Corpuscular Volume 90.4 fL (81-99); Mean Platelet Vol. 10.3 fl (6.2-12.0); Monocyte# 0.56 X10^3/uL; Monocyte% 8.4 % (0-10); NRBC Flagged by Analyzer 0 % (0-5); Neutrophil # 2.83 X10^3/uL (2.7-7.7); Neutrophil % 42.6 % (47-70); Platelet Count 202 K/mm3 (150-450); RBC Distribution Width CV 13.7 % (11.6-14.6); RBC Distribution Width SD 45.4 fl (35.1-43.9); Red Blood Count 4.79 M/mm3 (4.2-5.4); White Blood Count 6.6 K/mm3 (4.4-11.0)
[2024-01-05 15:39] LABS: Vitamin B12 1211 pg/mL (211-911); Vitamin D,25 Hydroxy 52.1 ng/mL
[2024-01-05 16:50] LABS: ALB/GLOB Ratio 0.9 RATIO (0.9-2.4); AST(SGOT) 37 U/L (15-37); Alanine Aminotransfer ALT/SGPT 44 U/L (13-56); Albumin, Serum 3.4 g/dL (3.2-5.0); Alkaline Phosphatase 64 U/L (45-117); Anion Gap 7 (5-15); BUN 17 mg/dL (7-18); Calcium,Total 9.7 mg/dL (8.5-10.1); Chloride 106 mmol/L (98-107); Cholesterol 189 mg/dL (200); Creatinine, Serum 0.81 mg/dL (0.55-1.02); EST Glomerular Filtration Rate 74 mL/min (>60); Est Glom Filt Rate - Afr Amer 90 mL/min (>60); Ferritin 181 ng/mL (8-252); Globulin 3.7 g/dL (2.2-4.2); Glucose 101 mg/dL (74-106); High Density Lipoprotein 60 mg/dL; Iron 106 ug/dL (50-170); Iron Binding Capacity,Total 310 ug/dL (250-450); Potassium 3.8 mmol/L (3.5-5.1); Protein, Total 7.1 g/dL (6.4-8.2); Rheumatoid Factor < 10.0 IU/mL (<15); Sodium Level 141 mmol/L (136-145); T4 Free Direct 1.32 ng/dL (0.76-1.46); Thyroid Stim Hormone (TSH) 0.85 uIU/mL (0.358-3.74); Triglycerides 111 mg/dL; Very Low Density Lipoprotein 22 mg/dL (5-40)
[2024-01-07 11:09] LABS: ANTINUCLEAR ANTIBODIES DIRECT Negative (Negative)
== END | disposition home or self-care (01) ==
LOC: MFPLAB 12:06
PROVIDERS: PCP Family Medicine; Visit Provider Family Medicine
DX: E78.00 Pure hypercholesterolemia, unspecified (principal); M06.9 Rheumatoid arthritis, unspecified; E03.8 Other specified hypothyroidism; D64.9 Anemia, unspecified; M85.80 Other specified disorders of bone density and structure, unspecified site
CPT/HCPCS: 36415; 80053; 80061; 82306; 82607; 82728; 82746; 83540; 83550; 84439; 84443; 85025; 85652; 86038; 86431

== ENCOUNTER 2024-01-12 12:24 | Emergency (ER) | payer MEDICARE, OTHER, SELFPAY ==
[2024-01-12 12:24] VITALS: BP 140/69; PULSE 55; RESP 16; TEMP 36; O2SAT 99
--- NOTE | 2024-01-12 12:36 | RAD_ITS ---
STUDY: X-RAY CHEST REASON FOR EXAM: Female, 73 years old. Chest pain TECHNIQUE: PA and lateral views of the chest. COMPARISON: Comparison is made with prior study of March 20, 2022. FINDINGS: EKG electrodes are seen. The lungs are clear and expanded. There is no demonstrated pleural abnormality. Normal size heart. Normal mediastinum and todd. Normal visualized pulmonary arteries. There is atherosclerotic calcification of the aortic arch with tortuosity. There are degenerative changes of the visualized thoracic spine. Normal visualized ribs, clavicles, and shoulders. Surgical clips are seen in the epigastric region. RAD/Chest PA and Lateral IMPRESSION: No acute abnormality is seen. Electronically Signed: Noah Reno MD at 13:10 EDT ,
--- NOTE | 2024-01-12 12:36 | EKG12_ITS ---
Test Reason : CP Blood Pressure : / mmHG Vent. Rate : 055 BPM Atrial Rate : 055 BPM P-R Int : 178 ms QRS Dur : 094 ms QT Int : 432 ms P-R-T Axes : 059 -27 026 degrees QTc Int : 413 ms Sinus bradycardia Nonspecific ST abnormality Abnormal ECG Baseline artifact Confirmed by Geo Oswald ([id number]), editor book FLY LATIF ([id number]) on 01/17/2024 9:41:20 AM Referred By: Confirmed By:Geo Oswald
--- NOTE | 2024-01-12 12:37 | ED.VIS.CHEST ---
HPI History of Present Illness Chief Complaint: Chest Pain Detail of Chief Complaint: Chest pain and dyspnea while sitting in Dr. Malcom Barajas's office. Informant: patient, spouse/S.O. and PCP (Nurse practitioner at pulmonary office) Onset/Context/Timing Onset: Hours Activity at onset: sudden Timing: Continuous Quality: Positive for Dull Location: - (Started right upper chest radiated down to the left lower chest) Current Severity: Mild Maximum Severity: Moderate Worsened By: Nothing Relieved By: Nothing Associated Symptoms: Positive for Dyspnea; Negative for Nausea, Vomiting, Diaphoresis, Cough, Fever, Lightheadedness, Acid Reflux or Palpitations Narrative Narrative: Patient is a 73-year-old woman with obstructive sleep apnea, hypothyroidism, lymphedema on loop diuretic and potassium sparing diuretic who presents from Dr. Malcom Barajas's office because of abrupt onset of chest discomfort with shortness of breath. supplemented history because she is cognitively impaired. Apparently, per , multiple family members with dementia on maternal and paternal side. Patient still reporting chest pain. It is not as severe. It is described as a dull ache. It originally started in the right upper anterior chest and radiated to the central left lower anterior chest. This was associated with dyspnea. She does report dyspnea with activity since the onset of chest pain. The pain was not worse walking into the emergency department. She has no known history of cardiac disease. She has no known history of stress test. She denies history of hiatal hernia, reflux, peptic ulcer disease. Denies black or maroon-colored stool. Review of prior records indicate patient is on anticoagulant. Will need to confirm. Prior Similar Symptoms: No Recent Illness/Hospitalization: No CVD Risk Factors: Negative for Hypertension, Diabetes, Hypercholesterolemia, Family History 1' </=55 or Smoking PE Risk Factors: Negative for Recent Travel/Surgery, Recent Immobilization, Prior DVT or PE, Cancer or OCP + Smoking + >/=35 TAD Risk Factors: Negative for Marfan's Syndrome, Hypertension or Family History [facility] Medical History Brain fog COVID-19 Wears hearing aid Loss of hearing History of edema Redness of skin Depression Diabetes Hypothyroid Ambulates with cane Arthritis Chronic pain Restless legs Shortness of breath on exertion Sleep apnea CPAP (continuous positive airway pressure) dependence History of echocardiogram Home Medications ?Medication ?Instructions ?Recorded ?Last Taken ?Type levothyroxine 112 mcg tablet 112 mcg PO DAILY Thyroid 04/22/18 03/11/22 History baclofen 10 mg tablet 10 mg PO QHS muscle spasm 02/25/22 Unknown History calcium citrate 315 mg-vitamin D3 2 tab PO BID supplement 02/25/22 Unknown History 5 mcg (200 unit) tablet (Calcium Citrate + D) ferrous sulfate 325 mg (65 mg 325 mg PO DAILY supplement 02/25/22 Unknown History iron) tablet (Iron (ferrous sulfate)) gabapentin 400 mg capsule 400 mg PO QHS RLS 02/25/22 Unknown History magnesium 500 mg tablet 15 mg PO DAILY supplement 02/25/22 Unknown History mirtazapine 15 mg tablet 15 mg PO QHS sleep 02/25/22 Unknown History ujluvxwj-agunoyuh-vvwf 45 mg-folic 1 cap PO DAILY supplement 02/25/22 Unknown History acid 800 mcg-vit K 120 mcg capsule (Bariatric Multivitamins) acetaminophen 500 mg tablet 1,000 mg (2 x 500 mg) PO Q8 #0 tabs 03/13/22 Unknown Rx sennosides 8.6 mg-docusate sodium 2 tab PO BID #14 tabs 03/13/22 Unknown Rx 50 mg tablet (Stool Softener-Stimulant Laxative) escitalopram oxalate 10 mg tablet 10 mg PO DAILY 06/16/22 Unknown History montelukast 10 mg tablet 10 mg PO DAILY 06/16/22 Unknown History rivaroxaban 10 mg tablet (Xarelto) 20 mg PO DAILY@0600 06/16/22 Unknown History furosemide 20 mg tablet 20 mg PO DAILY 01/12/24 Unknown History pramipexole 0.5 mg tablet 0.5 mg PO DAILY 01/12/24 Unknown History spironolactone 25 mg tablet 25 mg PO DAILY 01/12/24 Unknown History Allergy/AdvReac Type Severity Reaction Status Date / Time latex Allergy Other Verified 01/12/24 12:27 NSAIDS (Non-Steroidal Allergy Other Verified 01/12/24 12:27 Anti-Inflamma hydrocodone AdvReac Itching Verified 01/12/24 12:27 Surgical History Status post total right knee replacement History of knee replacement procedure of right knee History of knee replacement procedure of left knee History of surgery on arm Hx of shoulder surgery Bariatric surgery status Social History (Updated 01/12/24 @ 12:[address] David Marks MD) household members: spouse Smoking Status: Never smoker ROS ROS ED Review of Systems ROS Unobtainable: due to mental status Constitutional Constitutional ED: Denies chills or fever(s) Eyes Eyes: Reports none ENT ENT ED: Denies rhinorrhea or sore throat Cardiovascular Cardiovascular: Reports as per HPI; Denies orthopnea or paroxysmal nocturnal dyspnea Respiratory/Chest Respiratory/Chest: Reports dyspnea and dyspnea on exertion; Denies cough, orthopnea or paroxysmal nocturnal dyspnea Gastrointestinal Gastrointestinal: Denies nausea or vomiting Musculoskeletal Musculoskeletal: Denies back pain or neck pain Integumentary Denies rash Neurologic Neurologic: Denies paresthesias or weakness Hematologic/Lymphatic Hematologic/Lymphatic: Denies easy bleeding or easy bruising EXAM Physical Exam Const Vital Signs: 01/12/24 12:24 01/12/24 12:36 01/12/24 12:42 Temperature 96.8 F L Temperature Source Temporal Pulse Rate 55 L Respiratory Rate 16 Respiratory Effort Normal Blood Pressure 140/69 H Blood Pressure Mean 92 Pulse Ox 99 Oxygen Delivery Method Room Air Room Air 01/12/24 13:24 01/12/24 14:00 01/12/24 15:00 Temperature Temperature Source Pulse Rate 55 L 63 58 L Respiratory Rate 16 14 14 Respiratory Effort Blood Pressure 108/53 L 134/82 H 125/65 H Blood Pressure Mean 71 99 85 Pulse Ox 98 96 98 Oxygen Delivery Method Room Air Room Air Room Air Positive well nourished and well developed Constitutional Narrative: BMI is elevated. General Appearance ED: well developed and NAD; Negative for pallor HEENT Reports moist mucous membranes normocephalic and atraumatic Eyes PERRL and EOMs intact bilaterally General Eye ED: Negative for pale conjunctiva or scleral icterus Neck no lymphadenopathy, supple and no JVD Neck Narrative: Trachea is midline. Resp normal respiratory effort and clear to auscultation bilaterally Cardio regular rhythm, S1 normal heart sound, S2 normal heart sound and no murmurs Rate: bradycardia GI normal to inspection, nondistended, normoactive bowel sounds, soft to palpation, non-tender and non-distended; Negative for hepatosplenomegaly or no masses Back/Spine no CVA tenderness Extremity Negative for normal to inspection General Extremety ED: Yes edema; Negative for pulses abnormal or tenderness General Extremity: edema; Negative for pulses abnormal Neuro CN's II-XII intact bilaterally and no sensory deficits noted Sensorium / Orientation: awake and alert Motor Exam: strength 5/5 throughout Psych mental status grossly normal Skin no rashes or lesions noted and no wounds General Skin Exam: Negative for jaundice or pallor Heart Score History: Slightly/Non-Suspicious Age: >/= 65 years Risk Factors: No Risk Factors Score: 2 MDM MDM MDM Narrative Medical decision making narrative: Need to evaluate for cardiac versus noncardiac etiology. Noncardiac etiology would be pulmonary, GI (GERD, peptic ulcer disease, hiatal hernia and biliary). Symptoms are not suggestive of pulmonary embolus. Patient is on anticoagulant. Furthermore she is not tachycardic or tachypneic and pulse ox is 99% on room room air. History & Record Review Additional record(s) reviewed:: Prior inpatient record (Hospitalized February 2022 for revision of right total knee arthroplasty) and Prior ED visit (Seen for anterior epistaxis, left upper quadrant abdominal pain and somnolence (sleep apnea diagnosed) Lab Data Attestation: I reviewed the patient's lab results. Lab results narrative: CBC is normal. Basic metabolic panel is normal. First troponin is less than 3. Will obtain 2-hour troponin since patient arrived 30 minutes from the onset of her symptoms. Labs: Laboratory Results - last 24 hr 01/12/24 01/12/24 12:35 14:57 WBC 7.5 RBC 4.85 Hgb 13.9 Hct 43.5 MCV 89.7 MCH 28.7 MCHC 32.0 RDW Std Deviation 44.4 H RDW Coeff of Edwar 13.6 Plt Count 209 MPV 10.4 Immature Gran % (Auto) 0.100 Neut % (Auto) 36.7 L Lymph % (Auto) 52.1 H [place] % (Auto) 8.1 Eos % (Auto) 2.3 Baso % (Auto) 0.7 Absolute Neuts (auto) 2.7 Absolute Lymphs (auto) 3.88 Nucleated RBC % 0 Sodium 139 Potassium 3.7 Chloride 105 Carbon Dioxide 28.0 Anion Gap 6 BUN 20 H Creatinine 0.87 Est GFR (MDRD) Af Amer 82 Est GFR (MDRD) Non-Af 68 BUN/Creatinine Ratio 22.9 H Glucose 97 Calcium 10.0 Troponin I High Sens < 3 L 4 Second troponin is 4 with a delta of +1. In light of this result patient be discharged to home. Radiography Chest X-Ray - ED: 2 View and Read by ED Physician (Independently read and interpreted by me at 09/01/2008 is negative for any acute findings. There is some minimal chronic changes with may be due to body habitus. Cardiac silhouette and size normal. Lung parenchyma is unremarkable. Mediastinum is unremarkable. Osseous structures are unremarkable.) Diagnostic Testing: Clinical Impression(s) from Imaging Studies Chest X-Ray 01/12/24 12:36 IMPRESSION: No acute abnormality is seen. Electronically Signed: Noah Reno MD at 13:10 EDT , EKG Initial EKG: Attestation: I personally reviewed and interpreted this EKG as follows: Interpretation: Sinus Bradycardia (Rate is 55. AR interval is 170 ms. QT QRS duration is 94 ms. QT durations 432 ms. [place] is normal. There is artifact which the computer is reading as nonspecific ST-T wave abnormality.) Discharge Plan Triage Chief Complaint: Chest Pain ED Provider: David Marks Dx/Rx/DC Orders Clinical Impression: Acute chest pain, Dyspnea, History of obstructive sleep apnea, Sinus bradycardia seen on pvc monitor, History of hypothyroidism, Elevated blood-pressure reading, without diagnosis of hypertension Instructions: ED Chest Pain, Noncardiac, ED Chest Pain, Uncertain Cause, ED Hypertension, To Be Confirmed Prescriptions: No Action levothyroxine 112 tablet 112 mcg PO DAILY Patient Comments: magnesium 500 mg Tablet 15 mg PO DAILY gabapentin 400 mg Capsule 400 mg PO QHS baclofen 10 mg Tablet 10 mg PO QHS ferrous sulfate [Iron (ferrous sulfate)] 325 mg (65 mg iron) Tablet 325 mg PO DAILY mirtazapine 15 mg Tablet 15 mg PO QHS calcium citrate-vitamin D3 [Calcium Citrate + D] 315 mg-5 mcg (200 unit) Tablet 2 tab PO BID Bariatric Multivitamins 45 mg iron- 800 mcg-120 mcg Capsule 1 cap PO DAILY acetaminophen 500 mg Tablet 1,000 mg PO Q8 Qty: 0 0RF Rx Instructions: Do not take more than 3000 mg Tylenol in a 24-hour period. sennosides-docusate sodium [Stool Softener-Stimulant Laxat] 8.6-50 mg Tablet 2 tab PO BID Qty: 14 0RF Rx Instructions: Take until first bowel movement, then as needed montelukast 10 mg Tablet 10 mg PO DAILY escitalopram oxalate 10 mg Tablet 10 mg PO DAILY Xarelto 10 mg tablet 20 mg PO DAILY@0600 Rx Instructions: Take for 2 weeks postoperatively for DVT prophylaxis spironolactone 25 mg tablet 25 mg PO DAILY pramipexole 0.5 mg tablet 0.5 mg PO DAILY furosemide 20 mg tablet 20 mg PO DAILY Primary Care Provider: Jarred Sanabria Referrals: Jarred Sanabria MD [Primary Care Provider] - 5-7 Days Print Language: Frisian Disposition Disposition: Home, Self Care
[2024-01-12 13:03] LABS: Absolute Lymphocyte Count 3.88 X10^3/uL (0.83-4.51); Absolute Neutrophil Count 2.7 X10^3/uL (2.0-7.7); Basophil# 0.05 X10^3/uL; Basophil% 0.7 % (0-1); Eosinophil# 0.17 X10^3/uL; Eosinophils% 2.3 % (0-5); Hematocrit 43.5 % (37-47); Hemoglobin 13.9 g/dL (12.0-15.0); Lymphocyte # 3.88 X10^3/ul (0.83-4.51); Lymphocyte % 52.1 % (19-41); Mean Corpuscular Hgb 28.7 pg (27.0-32.0); Mean Corpuscular Volume 89.7 fL (81-99); Mean Platelet Vol. 10.4 fl (6.2-12.0); Monocyte% 8.1 % (0-10); NRBC Flagged by Analyzer 0 % (0-5); Neutrophil # 2.74 X10^3/uL (2.7-7.7); Neutrophil % 36.7 % (47-70); Platelet Count 209 K/mm3 (150-450); RBC Distribution Width CV 13.6 % (11.6-14.6); RBC Distribution Width SD 44.4 fl (35.1-43.9); Red Blood Count 4.85 M/mm3 (4.2-5.4); White Blood Count 7.5 K/mm3 (4.4-11.0)
[2024-01-12 13:24] VITALS: BP 108/53; PULSE 55; RESP 16; O2SAT 98
[2024-01-12 13:26] LABS: Anion Gap 6 (5-15); BUN 20 mg/dL (7-18); BUN/Creat Ratio 22.9 RATIO (10-20); Chloride 105 mmol/L (98-107); Creatinine, Serum 0.87 mg/dL (0.55-1.02); EST Glomerular Filtration Rate 68 mL/min (>60); Est Glom Filt Rate - Afr Amer 82 mL/min (>60); Glucose 97 mg/dL (74-106); Potassium 3.7 mmol/L (3.5-5.1); Sodium Level 139 mmol/L (136-145); Troponin-I HS (w/2H Reflex) < 3 pg/mL (3.0-54.0)
[2024-01-12 14:00] VITALS: BP 134/82; PULSE 63; RESP 14; O2SAT 96
[2024-01-12 14:51] LABS: Reflex Troponin-HS? (from REC) Y
[2024-01-12 15:00] VITALS: BP 125/65; PULSE 58; RESP 14; O2SAT 98
[2024-01-12 15:53] LABS: Troponin-I HS 4 pg/mL (3.0-54.0)
[2024-01-12 16:00] VITALS: BP 126/66; PULSE 55; RESP 16; TEMP 36.9; O2SAT 97
[2024-01-12 16:15] VITALS: BP 123/66; PULSE 78; RESP 16; TEMP 36.7; O2SAT 98
== END 2024-01-12 16:15 | disposition home or self-care (01) ==
PROVIDERS: Emergency Provider Emergency Medicine; PCP Family Medicine; Visit Provider Emergency Medicine
DX: R07.9 Chest pain, unspecified (principal); F03.90 Unspecified dementia, unspecified severity, without behavioral disturbance, psychotic disturbance, mood disturbance, and anxiety; E11.9 Type 2 diabetes mellitus without complications; E03.9 Hypothyroidism, unspecified; G47.33 Obstructive sleep apnea (adult) (pediatric); R06.00 Dyspnea, unspecified; I89.0 Lymphedema, not elsewhere classified; R00.1 Bradycardia, unspecified; R03.0 Elevated blood-pressure reading, without diagnosis of hypertension; Z99.89 Dependence on other enabling machines and devices; F32.A Depression, unspecified; Z96.653 Presence of artificial knee joint, bilateral
CPT/HCPCS: 71046; 80048; 84484; 85025; 93005; 99283; A4216

== ENCOUNTER → 2024-04-20 | Outpatient (CLI) | payer MEDICARE, OTHER, SELFPAY ==
[2024-04-20 11:56] LABS: Absolute Lymphocyte Count 3.45 X10^3/uL (0.83-4.51); Absolute Neutrophil Count 3.3 X10^3/uL (2.0-7.7); Basophil# 0.03 X10^3/uL; Basophil% 0.4 % (0-1); Eosinophil# 0.23 X10^3/uL; Eosinophils% 3.1 % (0-5); Hematocrit 43.7 % (37-47); Lymphocyte # 3.45 X10^3/ul (0.83-4.51); Lymphocyte % 45.8 % (19-41); Mean Corpuscular Hgb 29.2 pg (27.0-32.0); Mean Corpuscular Volume 91.2 fL (81-99); Mean Platelet Vol. 9.6 fl (6.2-12.0); Monocyte# 0.53 X10^3/uL; NRBC Flagged by Analyzer 0 % (0-5); Neutrophil # 3.28 X10^3/uL (2.7-7.7); Neutrophil % 43.4 % (47-70); Platelet Count 197 K/mm3 (150-450); RBC Distribution Width CV 13.3 % (11.6-14.6); Red Blood Count 4.79 M/mm3 (4.2-5.4); White Blood Count 7.5 K/mm3 (4.4-11.0)
[2024-04-20 15:23] LABS: Vitamin B12 1208 pg/mL (211-911); Vitamin D,25 Hydroxy 52.7 ng/mL
[2024-04-20 16:02] LABS: ALB/GLOB Ratio 0.9 RATIO (0.9-2.4); AST(SGOT) 48 U/L (15-37); Alanine Aminotransfer ALT/SGPT 58 U/L (13-56); Albumin, Serum 3.5 g/dL (3.2-5.0); Alkaline Phosphatase 72 U/L (45-117); Anion Gap 10 (5-15); BUN 17 mg/dL (7-18); BUN/Creat Ratio 20.8 RATIO (10-20); Calcium,Total 9.4 mg/dL (8.5-10.1); Chloride 103 mmol/L (98-107); Creatinine, Serum 0.82 mg/dL (0.55-1.02); EST Glomerular Filtration Rate 73 mL/min (>60); Est Glom Filt Rate - Afr Amer 89 mL/min (>60); Ferritin 222 ng/mL (8-252); Globulin 4.1 g/dL (2.2-4.2); Glucose 102 mg/dL (74-106); Iron 94 ug/dL (50-170); Iron Binding Capacity,Total 400 ug/dL (250-450); Potassium 3.9 mmol/L (3.5-5.1); Protein, Total 7.6 g/dL (6.4-8.2); Sodium Level 140 mmol/L (136-145); T4 Free Direct 1.32 ng/dL (0.76-1.46); Thyroid Stim Hormone (TSH) 0.426 uIU/mL (0.358-3.740)
== END | disposition home or self-care (01) ==
LOC: MFPLAB 11:11
PROVIDERS: PCP Family Medicine; Visit Provider Family Medicine
DX: D64.9 Anemia, unspecified (principal); M85.80 Other specified disorders of bone density and structure, unspecified site; E03.8 Other specified hypothyroidism
CPT/HCPCS: 36415; 80053; 82306; 82607; 82728; 82746; 83540; 83550; 84439; 84443; 85025

== ENCOUNTER → 2024-08-01 | Outpatient (CLI) | payer MEDICARE, OTHER, SELFPAY ==
--- NOTE | 2024-08-01 11:48 | BI_ITS ---
MAMMOGRAPHY - BILATERAL SCREENING REASON FOR EXAM: Female, 73 years old. Routine annual screening examination. PERTINENT HISTORY: Non-contributory. 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 2-D mediolateral oblique (MLO) and craniocaudad (CC) views of both breasts were obtained. CAD: Full Field Digital Mammography with Computer Added Detection was performed. COMPARISON: Comparison is made with prior study dated July 30, 2023 and July 17, 2022. FINDINGS: Breast Composition: The breasts are almost entirely fatty. There are no dominant masses or suspicious calcifications. Stable fat-containing bilateral axillary lymph nodes. Stable 6 mm well-defined nodule in the upper outer aspect of the right breast with a fatty notch suggestive of a small intramammary lymph node. No other significant abnormalities are identified. There has been no significant change since the prior study. BI/SCRN MAMM (CAD)W/JOSE BILAT IMPRESSION: Stable bilateral screening mammogram. Yearly follow-up mammogram recommended. (A) ASSESSMENT CATEGORY: BIRADS Category 2: Benign. A letter regarding these results will be sent to the patient by the facility within 30 days. Approximately 10% of breast cancers are not detected by mammography. A normal mammogram should not delay biopsy of a clinically suspicious abnormality. [id number] Electronically Signed: Noah Reno MD at 12:58 EST ,
== END | disposition home or self-care (01) ==
LOC: OPBI 11:31
PROVIDERS: PCP Family Medicine; Referring Provider Family Medicine; Visit Provider Family Medicine
DX: Z12.31 Encounter for screening mammogram for malignant neoplasm of breast (principal)
CPT/HCPCS: 77063; 77067

== ENCOUNTER → 2024-08-15 | Outpatient (CLI) | payer MEDICARE, OTHER, SELFPAY ==
[2024-08-15 12:43] LABS: Absolute Lymphocyte Count 4.26 X10^3/uL (0.83-4.51); Absolute Neutrophil Count 3.7 X10^3/uL (2.0-7.7); Basophil# 0.05 X10^3/uL; Basophil% 0.6 % (0-1); Eosinophil# 0.12 X10^3/uL; Eosinophils% 1.4 % (0-5); Hematocrit 45.2 % (37-47); Hemoglobin 14.8 g/dL (12.0-15.0); Lymphocyte # 4.26 X10^3/ul (0.83-4.51); Lymphocyte % 49.2 % (19-41); Mean Corp Hgb Conc 32.7 g/dL (32-36); Mean Corpuscular Hgb 29.2 pg (27.0-32.0); Mean Corpuscular Volume 89.2 fL (81-99); Mean Platelet Vol. 9.7 fl (6.2-12.0); Monocyte# 0.51 X10^3/uL; Monocyte% 5.9 % (0-10); NRBC Flagged by Analyzer 0 % (0-5); Neutrophil % 42.8 % (47-70); Platelet Count 216 K/mm3 (150-450); RBC Distribution Width CV 13.4 % (11.6-14.6); RBC Distribution Width SD 43.6 fl (35.1-43.9); Red Blood Count 5.07 M/mm3 (4.2-5.4); White Blood Count 8.7 K/mm3 (4.4-11.0)
[2024-08-15 14:11] LABS: ALB/GLOB Ratio 0.9 RATIO (0.9-2.4); AST(SGOT) 52 U/L (15-37); Alanine Aminotransfer ALT/SGPT 69 U/L (13-56); Albumin, Serum 3.6 g/dL (3.2-5.0); Alkaline Phosphatase 85 U/L (45-117); Anion Gap 7 (5-15); BUN 19 mg/dL (7-18); BUN/Creat Ratio 23.5 RATIO (10-20); Calcium,Total 9.3 mg/dL (8.5-10.1); Chloride 105 mmol/L (98-107); Creatinine, Serum 0.81 mg/dL (0.55-1.02); EST Glomerular Filtration Rate 74 mL/min (>60); Est Glom Filt Rate - Afr Amer 90 mL/min (>60); Ferritin 255 ng/mL (8-252); Glucose 129 mg/dL (74-106); Iron 79 ug/dL (50-170); Iron Binding Capacity,Total 338 ug/dL (250-450); Potassium 3.6 mmol/L (3.5-5.1); Protein, Total 7.6 g/dL (6.4-8.2); Sodium Level 139 mmol/L (136-145); T4 Free Direct 1.39 ng/dL (0.76-1.46); Thyroid Stim Hormone (TSH) 0.935 uIU/mL (0.358-3.740)
[2024-08-17 02:32] LABS: Hemoglobin A1c 6.2 % (3.8-5.6)
[2024-08-17 09:25] LABS: Hepatitis B Surface Antibody Non-Reactive; Hepatitis B Surface Antigen Non-Reactive (Nonreactive); Hepatitis C Antibody Non-Reactive (Nonreactive); Vitamin B12 1084 pg/mL (211-911)
== END | disposition home or self-care (01) ==
LOC: MFPLAB 11:15
PROVIDERS: PCP Family Medicine; Referring Provider Family Medicine; Visit Provider Family Medicine
DX: D64.9 Anemia, unspecified (principal); Z98.84 Bariatric surgery status; E61.1 Iron deficiency; R73.09 Other abnormal glucose; M85.80 Other specified disorders of bone density and structure, unspecified site; Z79.899 Other long term (current) drug therapy
CPT/HCPCS: 36415; 80053; 82306; 82607; 82728; 82746; 83036; 83540; 83550; 84439; 84443; 85025; 86706; 86803; 87086; 87088; 87340

== ENCOUNTER → 2024-12-19 | Outpatient (CLI) | payer MEDICARE, OTHER, SELFPAY ==
[2024-12-19 12:47] LABS: Cholesterol 199 mg/dL (<=200); High Density Lipoprotein 51 mg/dL; Low Density Lipoprotein Calc. 125 mg/dL; Triglycerides 114 mg/dL; Very Low Density Lipoprotein 23 mg/dL (5-40); cholesterol:hdl ratio screen 3.89
== END | disposition home or self-care (01) ==
LOC: MFPLAB 11:09
PROVIDERS: PCP Family Medicine; Referring Provider Family Medicine; Visit Provider Family Medicine
DX: E03.8 Other specified hypothyroidism (principal)
CPT/HCPCS: 36415; 80061

== ENCOUNTER → 2024-12-20 | Outpatient (CLI) | payer MEDICARE, OTHER, SELFPAY ==
[2024-12-22 17:08] LABS: H.Pylori Breath Test Negative (Negative)
== END | disposition home or self-care (01) ==
LOC: LAB 14:37
PROVIDERS: PCP Family Medicine; Referring Provider Family Medicine; Visit Provider Family Medicine
DX: Z00.00 Encounter for general adult medical examination without abnormal findings (principal)
CPT/HCPCS: 83013

== ENCOUNTER → 2025-01-19 | Outpatient (CLI) | payer MEDICARE, OTHER, SELFPAY ==
[2025-01-19 12:46] LABS: Absolute Lymphocyte Count 5.37 X10^3/uL (0.83-4.51); Absolute Neutrophil Count 3.1 X10^3/uL (2.0-7.7); Basophil# 0.05 X10^3/uL; Basophil% 0.5 % (0-1); Eosinophil# 0.11 X10^3/uL; Eosinophils% 1.2 % (0-5); Hematocrit 44.2 % (37-47); Hemoglobin 14.4 g/dL (12.0-15.0); Lymphocyte # 5.37 X10^3/ul (0.83-4.51); Lymphocyte % 57.8 % (19-41); Mean Corp Hgb Conc 32.6 g/dL (32-36); Mean Corpuscular Hgb 29.1 pg (27.0-32.0); Mean Corpuscular Volume 89.3 fL (81-99); Mean Platelet Vol. 10.1 fl (6.2-12.0); Monocyte# 0.62 X10^3/uL; Monocyte% 6.7 % (0-10); NRBC Flagged by Analyzer 0 % (0-5); Neutrophil # 3.13 X10^3/uL (2.7-7.7); Neutrophil % 33.7 % (47-70); POSITIVE DIFFERENTIAL YES; POSITIVE MORPHOLOGY YES; Platelet Count 219 K/mm3 (150-450); RBC Distribution Width CV 13.3 % (11.6-14.6); RBC Distribution Width SD 43.7 fl (35.1-43.9); Red Blood Count 4.95 M/mm3 (4.2-5.4); White Blood Count 9.3 K/mm3 (4.4-11.0)
[2025-01-19 12:48] LABS: ALB/GLOB Ratio 1.4 RATIO (0.9-2.4); AST(SGOT) 46 U/L (<=31); Alanine Aminotransfer ALT/SGPT 42 U/L (<=34); Albumin, Serum 4.1 g/dL (3.4-4.8); Alkaline Phosphatase 73 U/L (35-104); Anion Gap 13 (5-15); BUN 17 mg/dL (4-19); BUN/Creat Ratio 18.1 RATIO (10-20); Calcium,Total 9.5 mg/dL (7.6-11.0); Carbon Dioxide 24.1 mmol/L (21.0-32.0); Chloride 103 mmol/L (98-108); Creatinine, Serum 0.96 mg/dL (0.70-1.20); EST Glomerular Filtration Rate 63 (>60); Glucose 106 mg/dL (70-99); Iron 105 ug/dL (50-170); Iron Binding Capacity,Total 321 ug/dL (250-450); Iron Binding Capacity,Unsat 216 ug/dL (228-428); Magnesium 2.3 mg/dL (1.5-2.2); Phosphorus 3.1 mg/dL (2.7-4.5); Protein, Total 7.1 g/dL (5.9-8.4); Sodium Level 140 mmol/L (133-145); Total Bilirubin 0.46 mg/dL (0.00-1.30)
[2025-01-19 12:52] LABS: Ferritin 329 ng/mL (22-378); Vitamin B12 1478 pg/mL (180-914); Vitamin D,25 Hydroxy 49.2 ng/mL (30-100)
[2025-01-19 13:35] LABS: Differential Indicated SCAN CRITERIA MET
[2025-01-19 14:55] LABS: Reactive Lymphocyte 1+
[2025-01-20 09:11] LABS: Hemoglobin A1c 6.1 % (<=5.6)
[2025-01-23 11:08] LABS: Zinc, Plasma or Serum 89 ug/dL (44-115)
== END | disposition home or self-care (01) ==
LOC: MFPLAB 11:10
PROVIDERS: PCP Family Medicine; Referring Provider Family Medicine; Visit Provider Family Medicine
DX: D64.9 Anemia, unspecified (principal); E03.8 Other specified hypothyroidism; M85.80 Other specified disorders of bone density and structure, unspecified site; Z98.84 Bariatric surgery status; R73.09 Other abnormal glucose
CPT/HCPCS: 36415; 80053; 82306; 82607; 82728; 82746; 83036; 83540; 83550; 83735; 84100; 84439; 84443; 84630; 85025

== ENCOUNTER → 2025-02-02 | Outpatient (CLI) | payer MEDICARE, OTHER, SELFPAY ==
--- NOTE | 2025-02-02 06:46 | MRI_ITS ---
PROCEDURE: BRAIN WITHOUT CONTRAST 02/02/2025 REASON FOR EXAM: COGNITIVE IMPAIRMENT TECHNIQUE: Noncontrast brain MRI. Multiplanar and multisequence images were obtained. COMPARISON: None FINDINGS: No diffusion restriction to suggest acute/subacute ischemia. No evidence of acute intracranial hemorrhage, midline shift or mass effect. Mild/moderate generalized cerebral atrophy. Cavum vergae and septum pellucidum. No hydrocephalus. No suspicious parenchymal signal abnormalities. Negative for chronic microhemorrhage. Complete opacification of the left maxillary sinus. Mastoid air cells are clear. Globes are intact. MRI/Brain without Contrast IMPRESSION: 1. No acute intracranial process or parenchymal signal abnormality. 2. Atrophy. 3. Left maxillary sinus disease. Reading Location: [facility]
--- OUTSIDE RECORDS SUMMARY | 2025-02-02 06:54 | XMS RPT_ITS | CCD ---
Author Organization [facility] Care Team Providers Care Station Superintendent Name Role Phone Niall, Geo L Unavailable [...] Unavailable Unavailable Coley, Jarred K Unavailable Unavailable Dr. Jarred Sanabria Primary Care Provider [phone] Dr. Johnnie Linton Attending Provider [phone] Christopher Mercedes Admit Provider Dr. Christopher Mercedes Referring Provider [phone] Dr. Christopher Mercedes Other Provider [phone] Ryan Henao Attending Provider Unavailable Dr. Ryan Henao Other Provider Unavailable Dr. Jarred Sanabria Primary Care Provider [phone] Dr. Jarred Sanabria MD Primary Care Provider [phone] Dr. Jarred Sanabria MD Attending Provider Dr. Jarred Sanabria MD Referring Provider Jarred Sanabria Attending Unavailable Jarred Sanabria Referring Unavailable Jarred Sanabria Primary Care Unavailable Jarred Sanabria Attending Unavailable Jarred Sanabria Referring Unavailable Jarred Sanabria Primary Care Unavailable Austin Chanel Attending Unavailable Jarred Sanabria Referring Unavailable Jarred Sanabria Primary Care Unavailable Jarred Sanabria Attending Unavailable Jarred Sanabria Referring Unavailable Jarred Sanabria Primary Care Unavailable Jarred Sanabria Attending Unavailable Jarred Sanabria Referring Unavailable Jarred Sanabria Primary Care Unavailable Jarred Sanabria Primary Care Unavailable Analisa Nur Attending Unavailable Analisa Nur Referring Unavailable Jarred Sanabria Attending Unavailable Jarred Sanabria Primary Care Unavailable Jarred Sanabria Attending Unavailable Jarred Sanabria Referring Unavailable Jarred Sanabria Primary Care Unavailable Allergies Allergy Classification Reported Allergen(s) Allergy Type Date of Onset Reaction(s) Facility (20 sources) HYDROcodone Drug Allergy 02-25-2022 Itching [facility] (20 sources) Latex Allergy to substance 02-25-2022 Other [facility] Comment on above: peeled skin off (19 sources) NSAIDS (Non-Steroidal Anti-Inflamma; Translations: [NSAIDS (Non-Steroidal Anti-Inflamma] Allergy to substance 03-11-2022 Other [facility] Comment on above: HAS HAD GASTRIC BYPA SS SURGERY (1 source) HYDROcodone Drug Allergy 01-31-2025 [facility] (1 source) Latex Drug allergy (disorder) 01-31-2025 [facility] Medications Current Medications Medication Drug Class(es) Dates Sig (Normalized) Sig (Original) acetaminophen 500 mg oral tablet (20 sources) Start: 03-13-2022 Acetaminophen 500 mg Tablet Active 1000 mg PO EVERY 8 HOURS 0 March 13, 2022 12:00am Do not take more than 3000 mg Tylenol in a 24-hour period. Start: 03-13-2022 take 3000 mg by mout h every eight hours Acetaminophen Active 1000 MG PO EVERY 8 HOURS 0 March 13, 2022 12:00am Do not take more than 3000 mg Tylenol in a 24-hour period. Start: 02-25-2022 End: 03-13-2022 take 2 tablets by mouth at bedtime Acetaminophen 500 mg Tablet Discontinued 1000 mg PO AT BEDTIME February 25, 2022 12:00am March 13, 2022 6:45am Start: 02-25-2022 End: 03-13-2022 take 1000 mg by mouth at bedtime Acetaminophen Discontinued 1000 MG PO AT BEDTIME February 25, 2022 12:00am March 13, 2022 6:45am baclofen 10 mg oral tablet (20 sources) gamma-Aminobutyric Acid-ergic Agonist Start: 02-25-2022 take 1 tablet by mouth at bedtime Baclofen 10 mg Tablet Active 10 mg PO AT BEDTIME February 25, 2022 12:00am calcium citrate 1500 mg / cholecalciferol 200 unt oral tablet (20 sources) Vitamin D Start: 02-25-2022 Calcium Citrate-Vitamin D3 (Calcium Citrate + D) 315 mg-5 mcg (200 unit) Tablet Active 2 {tbl} PO TWICE A DAY February 25, 2022 12:00am citalopram 10 mg oral tablet (6 sources) Serotonin Reuptake Inhibitor Start: 02-25-2022 take 1 tablet by mouth once daily Citalopram (Celexa) 10 mg Tablet Active 10 MG PO DAILY February 25, 2022 12:00am docusate sodium 50 mg / sennosides, senior living 8.6 mg oral tablet (18 sources) Start: 03-13-2022 Sennosides-Docusate Sodium (Stool Softener-Stimulant Laxat) 8.6-50 mg Tablet Active 2 {tbl} PO TWICE A DAY March 13, 2022 12:00am Take until first bowel movement, then as needed doxycycline monohydrate 100 mg oral capsule (4 sources) Tetracycline-class Drug Start: 03-13-2022 take 100 mg by mouth twice daily Doxycycline Monohydrate Active 100 MG PO TWICE A DAY 22 08March 13, 2022 12:00am Take for 2 weeks postoperatively escitalopram 10 mg oral tablet (20 sources) Serotonin Reuptake Inhibitor Start: 06-16-2022 take 1 tablet by mouth once daily Escitalopram Oxalate 10 mg Tablet Active 10 mg PO DAILY June 16, 2022 12:00am Start: 04-22-2018 take 10 mg by mouth at bedtime Escitalopram Oxalate Active 10 MG PO AT BEDTIME April 22, 2018 10:55am ferrous sulfate 325 mg oral tablet (20 sources) Start: 02-25-2022 take 1 tablet by mouth once daily Ferrous Sulfate (Iron (Ferrous Sulfate)) 325 mg (65 mg iron) Tablet Active 325 mg PO DAILY February 25, 2022 12:00am folic acid 1 mg oral tablet (4 sources) Start: 03-13-2022 take 1 mg by mouth once daily at mealtime Folic Acid Active 1 MG PO DAILY WITH MEALS March 13, 2022 12:00am furosemide 20 mg oral tablet (2 sources) Loop Diuretic Start: 01-12-2024 take 1 tablet by mouth once daily Furosemide 20 mg tablet Active 20 mg PO DAILY January 12, 2024 12:00am gabapentin 400 mg oral capsule (20 sources) Anti-epileptic Agent Start: 02-25-2022 take 1 capsule by mouth at bedtime Gabapentin 400 mg Capsule Active 400 mg PO AT BEDTIME February 25, 2022 12:00am levothyroxine sodium 0.112 mg oral tablet (20 sources) l-Thyroxine Start: 04-22-2018 take 1 tablet by mouth once daily Levothyroxine 112 tablet Active 112 ug PO DAILY April 22, 2018 12:00am Magnesium (20 sources) Start: 02-25-2022 Magnesium 500 mg Tablet Active 15 mg PO DAILY February 25, 2022 12:00am Start: 02-25-2022 take 15 mg by mouth once daily Magnesium Active 15 MG PO DAILY February 24, 2022 11:00pm Start: 02-25-2022 take 15 mg by mouth once daily Magnesium Active 15 MG PO DAILY February 25, 2022 12:00am metaxalone 800 mg oral tablet (8 sources) Start: 04-22-2018 take 800 mg by mouth at bedtime Metaxalone Active 800 MG PO AT BEDTIME April 22, 2018 10:55am mirtazapine 15 mg oral tablet (20 sources) Start: 02-25-2022 take 1 tablet by mouth at bedtime Mirtazapine 15 mg Tablet Active 15 mg PO AT BEDTIME February 25, 2022 12:00am montelukast 10 mg oral tablet (14 sources) Leukotriene Receptor Antagonist Start: 06-16-2022 take 1 tablet by mouth once daily Montelukast 10 mg Tablet Active 10 mg PO DAILY June 16, 2022 12:00am Iagnypkxassb-Rgm-T jos-Fa-Vit K (Bariatric Multivitamins) 45 mg iron- 800 mcg-120 mcg Capsule (20 sources) Start: 02-25-2022 Multivitamin-M in-I jos-Fa-Vit K (Bariatric Multivitamins) 45 mg iron- 800 mcg-120 mcg Capsule Active 1 NMA PO DAILY February 25, 2022 12:00am Start: 02-25-2022 take 1 capsule by [facility] once daily Ksgxmdnqpvjg-Era-Qckv-Fa-Vit K (Bariatri c Multivitamins) 45 mg iron- 800 mcg-120 mcg Capsule Active 1 CAP PO DAILY February 24, 2022 11:00pm Start: 02-25-2022 take 1 capsule by [facility] once daily Jqnclzcbmejc-Xlo-Iylv-Fa-Vit K (Bariatri c Multivitamins) 45 mg iron- 800 mcg-120 mcg Capsule Active 1 CAP PO DAILY February 25, 2022 12:00am oxyCODONE hydrochloride 5 mg oral tablet (4 sources) Opioid Agonist Start: 03-13-2022 take 5-10 mg by mouth every four hours as needed Oxycodone Active 5 - 10 MG PO EVERY 4 HOURS NEEDED 60 5 March 13, 2022 pramipexole dihydrochloride 0.5 mg oral tablet (20 sources) Nonergot Dopamine Agonist Start: 01-12-2024 take 1 tablet by mouth once daily Pramipexole 0.5 mg tablet Active 0.5 mg PO DAILY January 12, 2024 12:00am Start: 02-25-2022 End: 01-12-2024 Pramipexole 0.25 mg tablet Discontinued 1 {tbl} PO AT BEDTIME February 25, 2022 12:00am January 12, 2024 12:30pm Start: 02-25-2022 take 1 tablet by [facility] at bedtime Pramipexole Active 1 TABLET PO AT BEDTIME February 25, 2022 12:00am Start: 04-22-2018 take 2 tablets by [facility] at bedtime Pramipexole Active 2 TABLET PO AT BEDTIME April 22, 2018 10:55am rivaroxaban 10 mg oral tablet (20 sources) Factor Xa Inhibitor Start: 06-16-2022 take 2 tablets by mouth once daily Rivaroxaban (Xarelto) 10 mg tablet Active 20 mg PO DAILY@06June 16, 2022 11:12am Take for 2 weeks postoperatively for DVT prophylaxis Start: 04-03-2022 take 1 tablet by stan twice daily at mealtime Rivaroxaban (Xarelto Dvt-Pe Treat 30d Start) 15 mg (42)- 20 mg (9) tablets,dose pack Active 0 PO .COMPLEX 51 April 03, 2022 12:00am take one-15 mg tablet twice daily for 21 days, then one-20 mg tablet once daily; must take with meal/food Start: 03-13-2022 End: 06-16-2022 take 1 tablet by mouth once daily Rivaroxaban (Xarelto) 10 mg Tablet Discontinued 10 mg PO DAILY@0600 13 13 March 13, 2022 12:00am June 16, 2022 11:13am Take for 2 weeks postoperatively for DVT prophylaxis spironolactone 25 mg oral tablet (2 sources) Aldosterone Antagonist Start: 01-12-2024 take 1 tablet by mouth once daily Spironolactone 25 mg tablet Active 25 mg PO DAILY January 12, 2024 12:00am Problems Active Problems Problem Classification Problem Date Documented Da te Episodic/Chronic Abdominal pain (16 sources) Left upper quadrant pain; Translations: [Left upper quadrant pain] 04-11-2022 Episodic Cardiac dysrhythmias (2 sources) ECG: sinus bradycardia; Translations: [Bradycardia, unspecified] 01-20-2024 Episodic Deficiency and other anemia (1 source) Anemia, unspecified; Translations: [Anemia, unspecified] Onset: 01-25-2025 Episodic Nonspecific chest pain (2 sources) Acute chest pain; Translations: [Chest pain, unspecified] 01-20-2024 Episodic Other circulatory disease (2 sources) Elevated blood-pressure reading without diagnosis of hypertension; Translations: [Elevated blood-pressure reading, without diagnosis of hypertension] 01-20-2024 Episodic Other connective tissue disease (18 sources) History of total knee arthroplasty; Translations: [Presence of right artificial knee joint] 04-03-2022 Chronic Other connective tissue disease (18 sources) History of revision of right total knee arthroplasty; Translations: [Presence of right artificial knee joint] 03-12-2022 Chronic Other connective tissue disease (12 sources) Presence of right artificial knee joint; Translations: [Knee joint replacement] Chronic Other lower respiratory disease (2 sources) Dyspnea; Translations: [Dyspnea, unspecified] 01-20-2024 Episodic Other nervous system disorders (2 sources) H/O: respiratory disease; Translations: [Personal history of other diseases of the nervous system and sense organs] 01-20-2024 Episodic Other nervous system disorders (2 sources) Other symptoms and signs involving cognitive functions and awareness; Translations: [Other symptoms and signs involving cognitive functions and awareness] Onset: 01-31-2025 Episodic Other nutritional; endocrine; and metabolic disorders (2 sources) H/O: hypothyroidism; Translations: [Personal history of other endocrine, nutritional and metabolic disease] 01-20-2024 Episodic Other upper respiratory disease (14 sources) Anterior epistaxis; Translations: [Epistaxis] 06-24-2022 Episodic Pulmonary heart disease (16 sources) Pulmonary embolism; Translations: [Other pulmonary embolism without acute cor pulmonale] 04-11-2022 Episodic Thyroid disorders (1 source) Other specified hypothyroidism; Translations: [Other specified hypothyroidism] Onset: 12-25-2024 Chronic Unclassified (1 source) Unknown / UNK(Unknown) Onset: 09-29-2017 Past or Other Problems Problem Classification Problem Date Documented Da te Episodic/Chronic Other screening for suspected conditions (not mental disorders or infectious disease) (1 source) Encounter for screening mammogram for malignant neoplasm of breast; Translations: [Encounter for screening mammogram for malignant neoplasm of breast] Onset: 08-31-2024 Episodic Unclassified (1 source) OSTEOARTHRITIS, RIGHT KNEE~ Onset: 09-29-2017 Results Test Name Value Interpretation Reference Range Facility Neurology Visit Reporton Neurology Visit Report [facility] [address], [address] [place] [address] OFFICE VISIT Date of Service: 01/31/25 MR#: [id number] Acct: [id number] Name: GILBERTO HERNANDEZ Rep #: [id number] : 1950 Provider: Dr. Austin rodriguez MD Age/Sex: 74/F [place] [facility] [place]: Signed HPI HPI Chief Complaint: Establish Care Details: The patient is a 74-year-old right handed female who presents to [facility]. She was referred 11/21/[address] Jarred Sanabria with [facility] for dementia. Patient presents with her and her daughter for evaluation of dementia. Patient is seen with nurse practitioner Analisa Palacios. Patient has a prior diagnosis of dementia. She is currently on Aricept for memory defect. Patient is able to provide a limited amount of information on her own behalf. Patient's and daughter are able to provide additional details. It appears likely the patient has had noticeable decline in memory for at least 5 years perhaps longer. Over the past 2 years or so his memory loss has become much more profound. Patient's recent memory is significantly impaired. Patient's began paying household bills about 2 years ago. Patient discontinued driving about 2 years ago as well. Patient has had a few episodes of confusion and possible hallucinations. At times she was grabbing at objects in the air but that turned out to be floaters in her eyesight. Patient has had bilateral cataract ectomy's and lens implants. Vision appears to be doing relatively well. Her hearing is intact. Patient has had a gastric bypass procedure done. She is on vitamin supplementation for that issue. Her basic blood work including B12 TSH within normal limits. Patient has hemoglobin A1c of 6.1. No brain imaging has been done. This patient has had right shoulder replacement and bilateral knee replacements with a redo of the right knee. She she has persistent pain in the right knee which is no longer correctable by surgical procedure. Patient has had difficulties with confusion and disorientation with anesthesia or sedating medication such as Benadryl. ROS: General: No recent respiratory issues. (I note that there was a CTA on the chart dated 2021 indicating bilateral pulmonary emboli.) HEENT: No headache, status post bilateral cataract implants, intact hearing (past medical history indicates hearing loss) no epistaxis. Respiratory: No shortness of breath cough or hemoptysis Cardiac: No chest pain or palpitations Abdomen: No abdominal pain vomiting blood passing blood in stool : No hematuria Extremities: Right shoulder replacement bilateral knee replacements Skin: No rashes or other lesions Neurologic no strokes no seizures Psychiatric: No known psychiatric issue no behavioral changes Exam Const Other: Blood pressure is 116/77 pulse 68 respiration 16 temperature 90.2 O2 sat 97%. Patient BMI is 45.8%. General appearance is a obese female in good spirits. HEENT: Normocephalic. Conjunctive of eyes clear. Respiratory: Clear to auscultation Cardiac: Regular rhythm no murmurs Abdomen obese Extremities apparently has difficulty walking due to right knee pain. Uses a cane. Prone to ankle swelling. Skin: Intact on exposed areas. Neurologic examination: Mental status: Patient is awake alert oriented to day month and year. Memory testing shows she could recall 3 items immediately but after few minutes had 0 recall. Mini-Mental status exam is scored at 21/30. No delusions or hallucinations noted. Language capabilities show normal administrative receptionist expression repetition. Insight and judgment appears to be impaired. Patient does not fully comprehend the nature of her current deficits. CN II-XII: Pupils are equal round minimal reaction. Visual perea appear intact. Funduscopic exam not done. Extraocular muscles are intact. Facial sensation expression normal. Hearing appears intact although at times I think she probably does have some mild hearing loss. Swallowing phonation tongue appear intact. Motor exam: No focal weakness observed. Patient has limitations due to right knee arthritis and multiple surgeries. Cerebellar function: No tremors cogwheeling rigidity bradykinesia. No ataxia. Reflexes were difficult to elicit. MC perhaps trace at the elbows absent at the knees. Sensory exam: Intact to tactile and vibratory sense all 4 extremities. Station gait: Romberg is negative. Patient is able to ambulate but has limitations due to right knee arthritis. Assessment and Plan Assessment and Plan (1) Cognitive impairment: Status: Chronic Comment: Decline in memory and declining ability to pay bills and carry out certain activities of daily living over the past 5 years. Findings are consistent with dementia likely Alzheimer's type. Plan: 1. Check P tau 217 and A 2. 2. Obtain MRI without contrast of brain (more content not included)... Normal [facility] Zinc, Plasma or Serumon 12-29 ZINC,PLASMA/SER 89 ug/dL Normal 44-115 [facility] Comment on above: Order Comment: Order Date: 08/15/24 Order Info: [id number] - B12 Order Info: [id number] - VITD25 Result Comment: Dete ction Limit = 5 Performed at: [address] [id number] Director Voice: Triston Carrion MD, Phone: [phone] Performed By: #### L 9519.8175, C4841.0285, L3476.3053, L559.3398 #### [facility] [address] [place], [address] Hemoglobin A1con 01-20-2025 HbA1c (Bld) [Mass fraction] 6.1 % High <=5.6 [facility] Comment on above: Result Comment: Norm al < 5.7 % Prediabetic 5.7 - 6.4 % Diabetic >or= 6.5 % Please note range changes. Performed By: #### L 3890.6300, L3890.6200, L3890.6100, L501.9985 #### [facility] [address] [place], [address] Absolute lymphocyte countOrd ered By: Jarred Sanabria on 01-19-2025 Lymphocytes Auto (Unsp spec) [#/Vol] 5.37 10*3/uL High 0.83-4.51 [facility] Absolute neutrophil countOrd ered By: Jarred Sanabria on 01-19-2025 Neutrophils (Bld) [#/Vol] 3.1 10*3/uL 2.0-7.7 [facility] Anion gap in Serum or Plasma Ordered By: Jarred Sanabria on 01-19-2025 Anion gap [Moles/Vol] 13 mmol/L 5-15 [facility] Automated lymphocyte count a s percentage of total leukocytesOrdered By: Jarred Sanabria on 01-19-2025 Lymphocytes/100 WBC Auto (Unsp spec) 57.8 % High 19-41 [facility] BUN/creatinine ratioOrdered By: Jarred Sanabria on 01-19-2025 Urea nitrogen/Creatinine [Mass ratio] 18.1 mg/mg 10-20 [facility] Basophil percentageOrdered B y: Jarred Sanabria on 01-19-2025 Basophils/100 WBC (Bld) 0.5 % 0-1 [facility] Bilirubin, totalOrdered By: Jarred Sanabria on 01-19-2025 Bilirubin [Mass/Vol] 0.46 mg/dL 0.00-1.30 [facility] Blood manual differential co mment interpretation (narrative result)Ordered By: Jarred Sanabria on 01-19-2025 Manual differential comment Feliciano (Bld) [Interp] COMMENT [facility] Comment on above: LYMPHOCYTOSIS CBC W/Diff, Automatedon 12-29 SMEAR COMMENT COMMENT Normal [facility] Comment on above: Result Comment: LYMP HOCYTOSIS Performed By: #### L 3890.6300, L3890.6200, L3890.6100, L501.9985 #### [facility] [address] [place], [address] REACTIVE LYMPH 1+ Normal [facility] Comment on above: Performed By: #### L 3890.6300, L3890.6200, L3890.6100, L501.9985 #### [facility] [address] [place], [address] Carbon dioxide, total [Moles /volume] in Central venous bloodOrdered By: Jarred Sanabria on 01-19-2025 CO2 [Moles/Vol] 24.1 mmol/L 21.0-32.0 [facility] Chloride assayOrdered By: Dominique Sanabria on 01-19-2025 Chloride [Moles/Vol] 103 mmol/L 98-108 [facility] Comprehensive Metabolic Prof ilon 01-19-2025 Albumin [Mass/Vol] 4.1 g/dL Normal 3.4-4.8 [facility] Comment on above: Performed By: #### L [id number], L503.0106, L501.9985, L503.6550, L506.0400, L501.2300, L506.1001, L503.6030, L100.0100, L3300.9900, L506.0200, L501.5200, L500.4050 #### [facility] [address] [place], [address] Albumin/Globulin [Mass ratio] 1.4 {ratio} Normal 0.9-2.4 [facility] Comment on above: Performed By: #### L 501.9520, L503.0106, L501.9985, L503.6550, L506.0400, L501.2300, L506.1001, L503.6030, L100.0100, L3300.9900, L506.0200, L501.5200, L500.4050 #### [facility] [address] [place], [address] ALK PHOS 73 U/L Normal 35-104 [facility] Comment on above: Performed By: #### L 501.9520, L503.0106, L501.9985, L503.6550, L506.0400, L501.2300, L506.1001, L503.6030, L100.0100, L3300.9900, L506.0200, L501.5200, L500.4050 #### [facility] [address] [place], [place], [id number] ALT [Catalytic activity/Vol] 42 U/L High <=34 [facility] Comment on above: Performed By: #### L 501.9520, L503.0106, L501.9985, L503.6550, L506.0400, L501.2300, L506.1001, L503.6030, L100.0100, L3300.9900, L506.0200, L501.5200, L500.4050 #### [facility] [address] [place], [place], [id number] AST [Catalytic activity/Vol] 46 U/L High <=31 [facility] Comment on above: Performed By: #### L 501.9520, L503.0106, L501.9985, L503.6550, L506.0400, L501.2300, L506.1001, L503.6030, L100.0100, L3300.9900, L506.0200, L501.5200, L500.4050 #### [facility] [address] [place], [place], [id number] Bilirubin [Mass/Vol] 0.46 mg/dL Normal 0.00-1.30 [facility] Comment on above: Performed By: #### L 501.9520, L503.0106, L501.9985, L503.6550, L506.0400, L501.2300, L506.1001, L503.6030, L100.0100, L3300.9900, L506.0200, L501.5200, L500.4050 #### [facility] [address] [place], [address] BUN/CRE 18.1 RATIO Normal 10-20 [facility] Comment on above: Performed By: #### L 501.9520, L503.0106, L501.9985, L503.6550, L506.0400, L501.2300, L506.1001, L503.6030, L100.0100, L3300.9900, L506.0200, L501.5200, L500.4050 #### [facility] [address] [place], [address] Calcium [Mass/Vol] 9.5 mg/dL Normal 7.6-11.0 [facility] Comment on above: Performed By: #### L 501.9520, L503.0106, L501.9985, L503.6550, L506.0400, L501.2300, L506.1001, L503.6030, L100.0100, L3300.9900, L506.0200, L501.5200, L500.4050 #### [facility] [address] [place], [place], [id number] ([address] Chloride [Moles/Vol] 103 mmol/L Normal 98-108 [facility] Comment on above: Performed By: #### L 501.9520, L503.0106, L501.9985, L503.6550, L506.0400, L501.2300, L506.1001, L503.6030, L100.0100, L3300.9900, L506.0200, L501.5200, L500.4050 #### [facility] [address] [place], [place], [id number] ([address] CO2 [Moles/Vol] 24.1 mmol/L Normal 21.0-32.0 [facility] Comment on above: Performed By: #### L 501.9520, L503.0106, L501.9985, L503.6550, L506.0400, L501.2300, L506.1001, L503.6030, L100.0100, L3300.9900, L506.0200, L501.5200, L500.4050 #### [facility] [address] [place], [place], [id number] Creatinine [Mass/Vol] 0.96 mg/dL Normal 0.70-1.20 [facility] Comment on above: Performed By: #### L 501.9520, L503.0106, L501.9985, L503.6550, L506.0400, L501.2300, L506.1001, L503.6030, L100.0100, L3300.9900, L506.0200, L501.5200, L500.4050 #### [facility] [address] [place], [address] GAP 13 Normal 5-15 [facility] Comment on above: Performed By: #### L 501.9520, L503.0106, L501.9985, L503.6550, L506.0400, L501.2300, L506.1001, L503.6030, L100.0100, L3300.9900, L506.0200, L501.5200, L500.4050 #### [facility] [address] [place], [place], [id number] GFR/1.73 sq M.predicted among non-blacks MDRD (S/P/Bld) [Vol rate/Area] 63 mL/min/{1.73_m2} Normal >60 [facility] Comment on above: Result Comment: mL/m in/1.73m2 CKD-EPI Creatinine Equation (2020) Performed By: #### L 501.9520, L503.0106, L501.9985, L503.6550, L506.0400, L501.2300, L506.1001, L503.6030, L100.0100, L3300.9900, L506.0200, L501.5200, L500.4050 #### [facility] [address] [place], [address] Globulin (S) [Mass/Vol] 3.0 g/dL Normal 2.2-4.2 [facility] Comment on above: Performed By: #### L 501.9520, L503.0106, L501.9985, L503.6550, L506.0400, L501.2300, L506.1001, L503.6030, L100.0100, L3300.9900, L506.0200, L501.5200, L500.4050 #### [facility] [address] [place], [address] Glucose [Mass/Vol] 106 mg/dL High 70-99 [facility] Comment on above: Performed By: #### L 501.9520, L503.0106, L501.9985, L503.6550, L506.0400, L501.2300, L506.1001, L503.6030, L100.0100, L3300.9900, L506.0200, L501.5200, L500.4050 #### [facility] [address] [place], [address] Potassium [Moles/Vol] 4.0 mmol/L Normal 3.3-5.1 [facility] Comment on above: Performed By: #### L 501.9520, L503.0106, L501.9985, L503.6550, L506.0400, L501.2300, L506.1001, L503.6030, L100.0100, L3300.9900, L506.0200, L501.5200, L500.4050 #### [facility] [address] [place], [address] Sodium [Moles/Vol] 140 mmol/L Normal 133-145 [facility] Comment on above: Performed By: #### L 501.9520, L503.0106, L501.9985, L503.6550, L506.0400, L501.2300, L506.1001, L503.6030, L100.0100, L3300.9900, L506.0200, L501.5200, L500.4050 #### [facility] [address] [place], [place], [id number] T PROT 7.1 g/dL Normal 5.9-8.4 [facility] Comment on above: Performed By: #### L 501.9520, L503.0106, L501.9985, L503.6550, L506.0400, L501.2300, L506.1001, L503.6030, L100.0100, L3300.9900, L506.0200, L501.5200, L500.4050 #### [facility] [address] [place], [place], [id number] Urea nitrogen [Mass/Vol] 17 mg/dL Normal 4-19 [facility] Comment on above: Performed By: #### L 501.9520, L503.0106, L501.9985, L503.6550, L506.0400, L501.2300, L506.1001, L503.6030, L100.0100, L3300.9900, L506.0200, L501.5200, L500.4050 #### [facility] [address] [place], [place], [address] Eosinophil percentageOrdered By: Jarred Sanabria on 01-19-2025 Eosinophils/100 WBC (Bld) 1.2 % 0-5 [facility] Erythrocyte distribution wid th ratioOrdered By: Jarred Sanabria on 01-19-2025 Erythrocyte distribution width (RBC) [Ratio] 13.3 % 11.6-14.6 [facility] Erythrocyte distribution wid th standard deviationOrdered By: Jarred Sanabria on 01-19-2025 Erythrocyte distribution width (RBC) [Ratio] 43.7 fl 35.1-43.9 [facility] Ferritinon 01-19-2025 Ferritin [Mass/Vol] 329 ng/mL Normal 22-378 [facility] Comment on above: Performed By: #### L 3890.6300, L3890.6200, L3890.6100, L501.9985 #### [facility] [address] [place], [place], [address] Folate [Mass/volume] in Seru m or PlasmaOrdered By: Jarred Sanabria on 01-19-2025 Folate [Mass/Vol] 37.30 ng/mL High 4.60-34.80 [facility] Folates,Serum (Folic Acid)on 01-19-2025 FOLATES,SERUM 37.30 ng/mL High 4.60-34.80 [facility] Comment on above: Order Comment: Order Date: 08/15/24 Order Info: [id number] - B12 Order Info: [id number] - VITD25 Performed By: #### L 3890.6300, L3890.6200, L3890.6100, L501.9985 #### [facility] [address] [place], [place], [address] Glomerular filtration rate ( GFR) estimation/1.73 sq m using serum, plasma, or whole bOrdered By: Jarred Sanabria on 01-19-2025 GFR/1.73 sq M.predicted among non-blacks MDRD (S/P/Bld) [Vol rate/Area] 63 mL/min/{1.73_m2} >60 [facility] Comment on above: mL/min/1.73m2 CKD-EP I Creatinine Equation (2020) Hematocrit Auto (Bld) [Volum e fraction]Ordered By: Jarred Sanabria on 01-19-2025 Hematocrit (Bld) [Volume fraction] 44.2 % 37-47 [facility] Hemoglobin A1c percentageOrd ered By: Jarred Sanabria on 01-19-2025 HbA1c (Bld) [Mass fraction] 6.1 % High <5.7 [facility] Comment on above: Normal < 5.7 % Predi abetic 5.7 - 6.4 % Diabetic >or= 6.5 % Please note range changes. Hemoglobin measurementOrdere d By: Jarred Sanabria on 01-19-2025 Hemoglobin (Bld) [Mass/Vol] 14.4 g/dL 12.0-15.0 [facility] Immature granulocytes/100 WB C Auto (Bld)Ordered By: Jarred Sanabria on 01-19-2025 Immature granulocytes/100 WBC (Bld) 0.100 % 0.0-0.9 [facility] Comment on above: IG% - Immature Granu locytes (promyelocytes, myelocytes and metamyelocytes) > 1% indicates that a LEFT SHIFT is Present. Iron measurement (mass/mass) Ordered By: Jarred Sanabria on 01-19-2025 Iron (Unsp spec) [Mass/Mass] 105 ug/dL 50-170 [facility] Iron+Iron Binding Capacityon 01-19-2025 Iron [Mass/Vol] 105 ug/dL Normal 50-170 [facility] Comment on above: Performed By: #### L 501.9520, L503.0106, L501.9985, L503.6550, L506.0400, L501.2300, L506.1001, L503.6030, L100.0100, L3300.9900, L506.0200, L501.5200, L500.4050 #### [facility] [address] [place], [address] IRON SATURATION 33.0 Normal 13-59 [facility] Comment on above: Performed By: #### L 501.9520, L503.0106, L501.9985, L503.6550, L506.0400, L501.2300, L506.1001, L503.6030, L100.0100, L3300.9900, L506.0200, L501.5200, L500.4050 #### [facility] [address] [place], [place], [address] TIBC 321 ug/dL Normal 250-450 [facility] Comment on above: Performed By: #### L 501.9520, L503.0106, L501.9985, L503.6550, L506.0400, L501.2300, L506.1001, L503.6030, L100.0100, L3300.9900, L506.0200, L501.5200, L500.4050 #### [facility] [address] [place], [place], [address] UIBC 216 ug/dL Low 228-428 [facility] Comment on above: Performed By: #### L 501.9520, L503.0106, L501.9985, L503.6550, L506.0400, L501.2300, L506.1001, L503.6030, L100.0100, L3300.9900, L506.0200, L501.5200, L500.4050 #### [facility] [address] [place], [place], [id number] Laboratory - Chemistry and C hemistry - challengeOrdered By: Jarred Sanabria on 01-19-2025 AST [Catalytic activity/Vol] 46 U/L High <32 [facility] MCV (mean corpuscular volume ) determinationOrdered By: Jarred Sanabria on 01-19-2025 MCV (RBC) [Entitic vol] 89.3 fL 81-99 [facility] Magnesiumon 01-19-2025 Magnesium [Mass/Vol] 2.3 mg/dL High 1.5-2.2 [facility] Comment on above: Performed By: #### L 501.9520, L503.0106, L501.9985, L503.6550, L506.0400, L501.2300, L506.1001, L503.6030, L100.0100, L3300.9900, L506.0200, L501.5200, L500.4050 #### [facility] [address] [place], [place], [address] Magnesium measurement (mass/ volume)Ordered By: Jarred Sanabria on 01-19-2025 Magnesium (Unsp spec) [Mass/Vol] 2.3 mg/dL High 1.5-2.2 [facility] Mean corpuscular hemoglobin (MCH) determinationOrdered By: Jarred Sanabria on 01-19-2025 MCH (RBC) [Entitic mass] 29.1 pg 27.0-32.0 [facility] Mean corpuscular hemoglobin concentration (MCHC) determinationOrdered By: Jarred Sanabria on 01-19-2025 MCHC (RBC) [Mass/Vol] 32.6 g/dL 32-36 [facility] Mean platelet volume determi nationOrdered By: Jarred Sanabria on 01-19-2025 Platelet mean volume (Bld) [Entitic vol] 10.1 fL 6.2-12.0 [facility] Monocyte percentageOrdered B y: Jarred Sanabria on 01-19-2025 Monocytes/100 WBC (Bld) 6.7 % 0-10 [facility] Neutrophil percentageOrdered By: Jarred Sanabria on 01-19-2025 Neutrophils/100 WBC (Bld) 33.7 % Low 47-70 [facility] No Panel InformationOrdered By: Jarred Sanabria on 01-19-2025 Unsaturated Iron Binding Capacity 216 ug/dL Low 228-428 [facility] Nucleated red blood cell per centageOrdered By: Jarred Sanabria on 01-19-2025 Nucleated RBC/100 WBC (Bld) [Ratio] 0 % 0-5 [facility] Phosphoruson 01-19-2025 Phosphate [Mass/Vol] 3.1 mg/dL Normal 2.7-4.5 [facility] Comment on above: Performed By: #### L 501.9520, L503.0106, L501.9985, L503.6550, L506.0400, L501.2300, L506.1001, L503.6030, L100.0100, L3300.9900, L506.0200, L501.5200, L500.4050 #### [facility] [address] [place], [place], [address] Platelet countOrdered By: Dominique Sanabria on 01-19-2025 Platelets (Bld) [#/Vol] 219 10*3/uL 150-450 [facility] Potassium measurement (mass/ volume)Ordered By: Jarred Sanabria on 01-19-2025 Potassium (Unsp spec) [Mass/Vol] 4.0 mmol/L 3.3-5.1 [facility] RBC Auto (Bld) [#/Vol]Ordere d By: Jarred Sanabria on 01-19-2025 RBC (Bld) [#/Vol] 4.95 10*6/uL 4.2-5.4 [facility] Serum creatinine measurement (mass/volume)Ordered By: Jarred Sanabria on 01-19-2025 Creatinine [Mass/Vol] 0.96 mg/dL 0.70-1.20 [facility] Serum globulin measurementOr dered By: Jarred Sanabria on 01-19-2025 Globulin (S) [Mass/Vol] 3.0 g/dL 2.2-4.2 [facility] Serum glucose measurement (m ass/volume)Ordered By: Jarred Sanabria on 01-19-2025 Glucose [Mass/Vol] 106 mg/dL High 70-99 [facility] Serum or plasma alanine christopher otransferase (ALT) measurementOrdered By: Jarred Sanabria on 01-19-2025 ALT [Catalytic activity/Vol] 42 U/L High <35 [facility] Serum or plasma albumin mary anne urement (mass/volume)Ordered By: Jarred Sanabria on 01-19-2025 Albumin [Mass/Vol] 4.1 g/dL 3.4-4.8 [facility] Serum or plasma albumin/glob ulin mass ratioOrdered By: Jarred Sanabria on 01-19-2025 Albumin/Globulin [Mass ratio] 1.4 {ratio} 0.9-2.4 [facility] Serum or plasma alkaline tiffany sphatase measurementOrdered By: Jarred Sanabria on 01-19-2025 ALP [Catalytic activity/Vol] 73 U/L 35-104 [facility] Serum or plasma calcium mary anne urement (mass/volume)Ordered By: Jarred Sanabria on 01-19-2025 Calcium [Mass/Vol] 9.5 mg/dL 7.6-11.0 [facility] Serum or plasma ferritin cayla surement (mass/volume)Ordered By: Jarred Sanabria on 01-19-2025 Ferritin [Mass/Vol] 329 ng/mL 22-378 [facility] Serum or plasma iron saturat ion measurement (mass fraction)Ordered By: Jarred Sanabria on 01-19-2025 Iron saturation [Mass fraction] 33.0 % 13-59 [facility] Serum or plasma urea nitroge n measurement (mass/volume)Ordered By: Jarred Sanabria on 01-19-2025 Urea nitrogen [Mass/Vol] 17 mg/dL 4-19 [facility] Serum or plasma zinc measure ment (mass/volume)Ordered By: Jarred Sanabria on 01-19-2025 Zinc [Mass/Vol] 89 ug/dL 44-115 [facility] Comment on above: Detection Limit = 5P erformed at: [facility] [id number] Director: Triston Carrion MD, Phone: [phone] Sodium levelOrdered By: Jarred Sanabria on 01-19-2025 Sodium [Moles/Vol] 140 mmol/L 133-145 [facility] T4 Free Directon 01-19-2025 T4 FREE DIRECT 1.50 ng/dL High 0.76-1.46 [facility] Comment on above: Performed By: #### L 3890.6300, L3890.6200, L3890.6100, L501.9985 #### [facility] [address] [place], [place] [address], [address] T4 freeOrdered By: Jarred avendano on 01-19-2025 Free T4 [Mass/Vol] 1.50 ng/dL High 0.76-1.46 [facility] TSH DL <= 0.005 mIU/L QnOrde red By: Jarred Sanabria on 01-19-2025 TSH Qn 0.610 uIU/mL 0.300-4.200 [facility] Thyroid Stim Hormone (TSH)on 01-19-2025 TSH 0.610 uIU/mL Normal 0.300-4.200 [facility] Comment on above: Performed By: #### L 501.9520, L503.0106, L501.9985, L503.6550, L506.0400, L501.2300, L506.1001, L503.6030, L100.0100, L3300.9900, L506.0200, L501.5200, L500.4050 #### [facility] [address] [place], [place], [phone] (383) Total proteinOrdered By: Mik Sanabria on 01-19-2025 Protein [Mass/Vol] 7.1 g/dL 5.9-8.4 [facility] Vitamin B12on 01-19-2025 Cobalamin (Vitamin B12) [Mass/Vol] 1478 pg/mL High 180-914 [facility] Comment on above: Performed By: #### L 501.9520, L503.0106, L501.9985, L503.6550, L506.0400, L501.2300, L506.1001, L503.6030, L100.0100, L3300.9900, L506.0200, L501.5200, L500.4050 #### [facility] [address] [place], [place], [id number] (390) Vitamin B12 ser/plasOrdered By: Jarred Sanabria on 01-19-2025 Cobalamin (Vitamin B12) [Mass/Vol] 1478 pg/mL High 180-914 [facility] Vitamin D,25 Hydroxyon 01-19 Vitamin D 25-OH 49.2 ng/mL Normal 30-100 [facility] Comment on above: Result Comment: Sonia min D Status Deficiency: <20 ng/mL (50nmol/L) Insufficiency: 20-30 ng/mL (50-75 nmol/L) Sufficiency: 30-100 ng/mL (75-250 nmol/L) Toxicity: >100 ng/mL (>250 nmol/L) Performed By: #### L 3890.6300, L3890.6200, L3890.6100, L501.9985 #### [facility] [address] [place], [place], [id number] White blood cell (WBC) count Ordered By: Jarred Sanabria on 01-19-2025 WBC (Bld) [#/Vol] 9.3 10*3/uL 4.4-11.0 [facility] H pylori Breath Teston 12-22 H.Pylori Breath Negative Normal Negative [facility] Comment on above: Result Comment: Perf ormed at: [facility] [id number] Director Voice: Abdoulaye Ward PhD, Phone: [phone] Performed By: #### L 3890.6300, L3890.6200, L3890.6100, L501.9985 #### [facility] [address] [place], [place], [address] CBC W/Diff, Automatedon 11-29 Absolute Neut Normal 2.0-7.7 [facility] Comment on above: Order Comment: Order Date: 01/05/24Order Info: [id number] - CBCD Result Comment: HOSSEIN ENT SAID THEY WERE ONLY SUPPOSED TO GET THE BREATH TEST Performed By: #### L 501.9520, L503.0106, L501.9985, L503.6550, L506.0400, L501.2300, L506.1001, L503.6030, L100.0100, L3300.9900, L506.0200, L501.5200, L500.4050 #### [facility] [address] [place], [place], [address] HCT Normal 37-47 [facility] Comment on above: Order Comment: Order Date: 01/05/24Order Info: [id number] - CBCD Result Comment: HOSSEIN ENT SAID THEY WERE ONLY SUPPOSED TO GET THE BREATH TEST Performed By: #### L 501.9520, L503.0106, L501.9985, L503.6550, L506.0400, L501.2300, L506.1001, L503.6030, L100.0100, L3300.9900, L506.0200, L501.5200, L500.4050 #### [facility] [address] [place], [place], [id number] HGB Normal 12.0-15.0 [facility] Comment on above: Order Comment: Order Date: 01/05/24Order Info: [id number] - CBCD Result Comment: HOSSEIN ENT SAID THEY WERE ONLY SUPPOSED TO GET THE BREATH TEST Performed By: #### L 501.9520, L503.0106, L501.9985, L503.6550, L506.0400, L501.2300, L506.1001, L503.6030, L100.0100, L3300.9900, L506.0200, L501.5200, L500.4050 #### [facility] [address] [place], [place], [id number] MCH Normal 27.0-32.0 [facility] Comment on above: Order Comment: Order Date: 01/05/24Order Info: [id number] - CBCD Result Comment: HOSSEIN ENT SAID THEY WERE ONLY SUPPOSED TO GET THE BREATH TEST Performed By: #### L 501.9520, L503.0106, L501.9985, L503.6550, L506.0400, L501.2300, L506.1001, L503.6030, L100.0100, L3300.9900, L506.0200, L501.5200, L500.4050 #### [facility] [address] [place], [place], [address] MCHC Normal 32-36 [facility] Comment on above: Order Comment: Order Date: 01/05/24Order Info: [id number] - CBCD Result Comment: HOSSEIN ENT SAID THEY WERE ONLY SUPPOSED TO GET THE BREATH TEST Performed By: #### L 501.9520, L503.0106, L501.9985, L503.6550, L506.0400, L501.2300, L506.1001, L503.6030, L100.0100, L3300.9900, L506.0200, L501.5200, L500.4050 #### [facility] [address] [place], [place], [phone] (435) MCV Normal 81-99 [facility] Comment on above: Order Comment: Order Date: 01/05/24Order Info: [id number] - CBCD Result Comment: HOSSEIN ENT SAID THEY WERE ONLY SUPPOSED TO GET THE BREATH TEST Performed By: #### L 501.9520, L503.0106, L501.9985, L503.6550, L506.0400, L501.2300, L506.1001, L503.6030, L100.0100, L3300.9900, L506.0200, L501.5200, L500.4050 #### [facility] [address] [place], [place], [phone] (559) NEUT% Normal 47-70 [facility] Comment on above: Order Comment: Order Date: 01/05/24Order Info: [id number] - CBCD Result Comment: HOSSEIN ENT SAID THEY WERE ONLY SUPPOSED TO GET THE BREATH TEST Performed By: #### L 501.9520, L503.0106, L501.9985, L503.6550, L506.0400, L501.2300, L506.1001, L503.6030, L100.0100, L3300.9900, L506.0200, L501.5200, L500.4050 #### [facility] [address] [facility] [place], [place], [phone] (458) PLT Normal 150-450 [facility] Comment on above: Order Comment: Order Date: 01/05/24Order Info: [id number] - CBCD Result Comment: HOSSEIN ENT SAID THEY WERE ONLY SUPPOSED TO GET THE BREATH TEST Performed By: #### L 501.9520, L503.0106, L501.9985, L503.6550, L506.0400, L501.2300, L506.1001, L503.6030, L100.0100, L3300.9900, L506.0200, L501.5200, L500.4050 #### [facility] [address] [place], [place], [phone] (484) RBC Normal 4.2-5.4 [facility] Comment on above: Order Comment: Order Date: 01/05/24Order Info: [id number] - CBCD Result Comment: HOSSEIN ENT SAID THEY WERE ONLY SUPPOSED TO GET THE BREATH TEST Performed By: #### L 501.9520, L503.0106, L501.9985, L503.6550, L506.0400, L501.2300, L506.1001, L503.6030, L100.0100, L3300.9900, L506.0200, L501.5200, L500.4050 #### [facility] [address] [place], [place], [phone] (408) RDW CV Normal 11.6-14.6 [facility] Comment on above: Order Comment: Order Date: 01/05/24Order Info: [id number] - CBCD Result Comment: HOSSEIN ENT SAID THEY WERE ONLY SUPPOSED TO GET THE BREATH TEST Performed By: #### L 501.9520, L503.0106, L501.9985, L503.6550, L506.0400, L501.2300, L506.1001, L503.6030, L100.0100, L3300.9900, L506.0200, L501.5200, L500.4050 #### [facility] [address] [place], [place], [phone] (996) RDW SD Normal 35.1-43.9 [facility] Comment on above: Order Comment: Order Date: 01/05/24Order Info: [id number] - CBCD Result Comment: HOSSEIN ENT SAID THEY WERE ONLY SUPPOSED TO GET THE BREATH TEST Performed By: #### L 501.9520, L503.0106, L501.9985, L503.6550, L506.0400, L501.2300, L506.1001, L503.6030, L100.0100, L3300.9900, L506.0200, L501.5200, L500.4050 #### [facility] [address] [place], [place], [id number] WBC Normal 4.4-11.0 [facility] Comment on above: Order Comment: Order Date: 01/05/24Order Info: [id number] - CBCD Result Comment: HOSSEIN ENT SAID THEY WERE ONLY SUPPOSED TO GET THE BREATH TEST Performed By: #### L 501.9520, L503.0106, L501.9985, L503.6550, L506.0400, L501.2300, L506.1001, L503.6030, L100.0100, L3300.9900, L506.0200, L501.5200, L500.4050 #### [facility] [address] [facility] [place], [place], [id number] CO2 post dose urea Ql (Exhl gas)Ordered By: Jarred Sanabria on 12-20-2024 Helicobacter pylori Breath Test Negative Negative [facility] Comment on above: Performed at: [place] [id number] Director: Abdoulaye Ward PhD, Phone: [phone] Comprehensive Metabolic Prof kortney 12-20-2024 ALB Normal 3.4-4.8 [facility] Comment on above: Order Comment: Order Date: 01/05/24Order Info: [id number] - CMPOrder Info: [id number] - PHOSOrder Info: [id number] - MGOrder Info: [id number] - TSHOrder Info: [id number] - FEOrder Info: [id number] - FEROrder Info: [id number] - T4F Result Comment: HOSSEIN ENT SAID THEY WERE ONLY SUPPOSED TO GET THE BREATH TEST Performed By: #### L 501.9520, L503.0106, L501.9985, L503.6550, L506.0400, L501.2300, L506.1001, L503.6030, L100.0100, L3300.9900, L506.0200, L501.5200, L500.4050 #### [facility] [address] [place], [place], [phone] (025) ALK PHOS Normal 35-104 [facility] Comment on above: Order Comment: Order Date: 01/05/24Order Info: [id number] - CMPOrder Info: [id number] - PHOSOrder Info: [id number] - MGOrder Info: 6-3 - TSHOrder Info: 249-4 - FEOrder Info: [id number] - FEROrder Info: [id number] - T4F Result Comment: HOSSEIN ENT SAID THEY WERE ONLY SUPPOSED TO GET THE BREATH TEST Performed By: #### L 501.9520, L503.0106, L501.9985, L503.6550, L506.0400, L501.2300, L506.1001, L503.6030, L100.0100, L3300.9900, L506.0200, L501.5200, L500.4050 #### [facility] [address] [place], [address] ALT Normal <=34 [facility] Comment on above: Order Comment: Order Date: 01/05/24Order Info: 07- - CMPOrder Info: [id number] - PHOSOrder Info: [id number] - MGOrder Info: 6-3 - TSHOrder Info: [id number] - FEOrder Info: [id number] - FEROrder Info: [id number] - T4F Result Comment: HOSSEIN ENT SAID THEY WERE ONLY SUPPOSED TO GET THE BREATH TEST Performed By: #### L 501.9520, L503.0106, L501.9985, L503.6550, L506.0400, L501.2300, L506.1001, L503.6030, L100.0100, L3300.9900, L506.0200, L501.5200, L500.4050 #### [facility] [address] [place], [place], [address] (847) AST Normal <=31 [facility] Comment on above: Order Comment: Order Date: 01/05/24Order Info: [id number] - CMPOrder Info: [id number] - PHOSOrder Info: [id number] - MGOrder Info: [id number] - TSHOrder Info: [id number] - FEOrder Info: 4 - FEROrder Info: [id number] - T4F Result Comment: HOSSEIN ENT SAID THEY WERE ONLY SUPPOSED TO GET THE BREATH TEST Performed By: #### L 501.9520, L503.0106, L501.9985, L503.6550, L506.0400, L501.2300, L506.1001, L503.6030, L100.0100, L3300.9900, L506.0200, L501.5200, L500.4050 #### [facility] [address] [place], [place], [id number] BUN Normal 4-19 [facility] Comment on above: Order Comment: Order Date: 01/05/24Order Info: [id number] - CMPOrder Info: [id number] - PHOSOrder Info: [id number] - MGOrder Info: 3 - TSHOrder Info: [id number] - FEOrder Info: [id number] - FEROrder Info: 7 - T4F Result Comment: HOSSEIN ENT SAID THEY WERE ONLY SUPPOSED TO GET THE BREATH TEST Performed By: #### L 501.9520, L503.0106, L501.9985, L503.6550, L506.0400, L501.2300, L506.1001, L503.6030, L100.0100, L3300.9900, L506.0200, L501.5200, L500.4050 #### [facility] [address] [place], [place], [id number] BUN/CRE Normal 10-20 [facility] Comment on above: Order Comment: Order Date: 01/05/24Order Info: [id number] - CMPOrder Info: [id number] - PHOSOrder Info: [id number] - MGOrder Info: [id number] - TSHOrder Info: 2494 - FEOrder Info: 227-4 - FEROrder Info: 3024-02 - T4F Result Comment: HOSSEIN ENT SAID THEY WERE ONLY SUPPOSED TO GET THE BREATH TEST Performed By: #### L 501.9520, L503.0106, L501.9985, L503.6550, L506.0400, L501.2300, L506.1001, L503.6030, L100.0100, L3300.9900, L506.0200, L501.5200, L500.4050 #### [facility] [address] [place], [place], [id number] Calcium Normal 7.6-11.0 [facility] Comment on above: Order Comment: Order Date: 01/05/24Order Info: [id number] - CMPOrder Info: [id number] - PHOSOrder Info: [id number] - MGOrder Info: 3 - TSHOrder Info: [id number] - FEOrder Info: [id number] - FEROrder Info: 3024-02 - T4F Result Comment: HOSSEIN ENT SAID THEY WERE ONLY SUPPOSED TO GET THE BREATH TEST Performed By: #### L 501.9520, L503.0106, L501.9985, L503.6550, L506.0400, L501.2300, L506.1001, L503.6030, L100.0100, L3300.9900, L506.0200, L501.5200, L500.4050 #### [facility] [address] [place], [place], [address] CL Normal 98-108 [facility] Comment on above: Order Comment: Order Date: 01/05/24Order Info: 07-1 - CMPOrder Info: [id number] - PHOSOrder Info: [id number] - MGOrder Info: 3 - TSHOrder Info: 4 - FEOrder Info: 4 - FEROrder Info: 7 - T4F Result Comment: HOSSEIN ENT SAID THEY WERE ONLY SUPPOSED TO GET THE BREATH TEST Performed By: #### L 501.9520, L503.0106, L501.9985, L503.6550, L506.0400, L501.2300, L506.1001, L503.6030, L100.0100, L3300.9900, L506.0200, L501.5200, L500.4050 #### [facility] [address] [place], [place], [id number] CO2 Normal 21.0-32.0 [facility] Comment on above: Order Comment: Order Date: 01/05/24Order Info: 07- - CMPOrder Info: 2776-08 - PHOSOrder Info: - MGOrder Info: 3 - TSHOrder Info: 2497-11 - FEOrder Info: 2275-11 - FEROrder Info: 7 - T4F Result Comment: HOSSEIN ENT SAID THEY WERE ONLY SUPPOSED TO GET THE BREATH TEST Performed By: #### L 501.9520, L503.0106, L501.9985, L503.6550, L506.0400, L501.2300, L506.1001, L503.6030, L100.0100, L3300.9900, L506.0200, L501.5200, L500.4050 #### [facility] [address] [place], [place], [address] CREAT,SERUM Normal 0.70-1.20 [facility] Comment on above: Order Comment: Order Date: 01/05/24Order Info: 07 - CMPOrder Info: [id number] - PHOSOrder Info: - MGOrder Info: 3 - TSHOrder Info: 24904-02 - FEOrder Info: 4 - FEROrder Info: 7 - T4F Result Comment: HOSSEIN ENT SAID THEY WERE ONLY SUPPOSED TO GET THE BREATH TEST Performed By: #### L 501.9520, L503.0106, L501.9985, L503.6550, L506.0400, L501.2300, L506.1001, L503.6030, L100.0100, L3300.9900, L506.0200, L501.5200, L500.4050 #### [facility] [address] [place], [address] eGFR Normal >60 [facility] Comment on above: Order Comment: Order Date: 01/05/24Order Info: 0786-1 - CMPOrder Info: 2776- - PHOSOrder Info: 75310-1 - MGOrder Info: 3016-3 - TSHOrder Info: 2498-4 - FEOrder Info: 2276-4 - FEROrder Info: 3024-7 - T4F Result Comment: HOSSEIN ENT SAID THEY WERE ONLY SUPPOSED TO GET THE BREATH TEST Performed By: #### L 501.9520, L503.0106, L501.9985, L503.6550, L506.0400, L501.2300, L506.1001, L503.6030, L100.0100, L3300.9900, L506.0200, L501.5200, L500.4050 #### [facility] [address] [place], [address] GAP Normal 5-15 [facility] Comment on above: Order Comment: Order Date: 01/05/24Order Info: 0786 - CMPOrder Info: 2776-08 - PHOSOrder Info: 92587-9 - MGOrder Info: 6-3 - TSHOrder Info: 249-4 - FEOrder Info: 2276-4 - FEROrder Info: 3024-7 - T4F Result Comment: HOSSEIN ENT SAID THEY WERE ONLY SUPPOSED TO GET THE BREATH TEST Performed By: #### L 501.9520, L503.0106, L501.9985, L503.6550, L506.0400, L501.2300, L506.1001, L503.6030, L100.0100, L3300.9900, L506.0200, L501.5200, L500.4050 #### [facility] [address] [place], [address] GLU Normal 70-99 [facility] Comment on above: Order Comment: Order Date: 01/05/24Order Info: 0786-1 - CMPOrder Info: 2776- - PHOSOrder Info: 65899-8 - MGOrder Info: 63 - TSHOrder Info: 2497-11 - FEOrder Info: 2275-11 - FEROrder Info: 7 - T4F Result Comment: HOSSEIN ENT SAID THEY WERE ONLY SUPPOSED TO GET THE BREATH TEST Performed By: #### L 501.9520, L503.0106, L501.9985, L503.6550, L506.0400, L501.2300, L506.1001, L503.6030, L100.0100, L3300.9900, L506.0200, L501.5200, L500.4050 #### [facility] [address] [place], [address] Potassium Normal 3.3-5.1 [facility] Comment on above: Order Comment: Order Date: 01/05/24Order Info: 86-1 - CMPOrder Info: 2776-08 - PHOSOrder Info: 67732-0 - MGOrder Info: 3 - TSHOrder Info: 2497-11 - FEOrder Info: 2275-11 - FEROrder Info: 3024-02 - T4F Result Comment: HOSSEIN ENT SAID THEY WERE ONLY SUPPOSED TO GET THE BREATH TEST Performed By: #### L 501.9520, L503.0106, L501.9985, L503.6550, L506.0400, L501.2300, L506.1001, L503.6030, L100.0100, L3300.9900, L506.0200, L501.5200, L500.4050 #### [facility] [address] [place], [address] T BILI Normal 0.00-1.30 [facility] Comment on above: Order Comment: Order Date: 01/05/24Order Info: 0786-1 - CMPOrder Info: 2776-08 - PHOSOrder Info: 95211-7 - MGOrder Info: 63 - TSHOrder Info: 2498-4 - FEOrder Info: 2276-4 - FEROrder Info: 302-7 - T4F Result Comment: HOSSEIN ENT SAID THEY WERE ONLY SUPPOSED TO GET THE BREATH TEST Performed By: #### L 501.9520, L503.0106, L501.9985, L503.6550, L506.0400, L501.2300, L506.1001, L503.6030, L100.0100, L3300.9900, L506.0200, L501.5200, L500.4050 #### [facility] [address] [place], [place], [id number] T PROT Normal 5.9-8.4 [facility] Comment on above: Order Comment: Order Date: 01/05/24Order Info: 07-1 - CMPOrder Info: 2776-08 - PHOSOrder Info: 59637-5 - MGOrder Info: 3 - TSHOrder Info: 2497-11 - FEOrder Info: 4 - FEROrder Info: 7 - T4F Result Comment: HOSSEIN ENT SAID THEY WERE ONLY SUPPOSED TO GET THE BREATH TEST Performed By: #### L 501.9520, L503.0106, L501.9985, L503.6550, L506.0400, L501.2300, L506.1001, L503.6030, L100.0100, L3300.9900, L506.0200, L501.5200, L500.4050 #### [facility] [address] [place], [place], [address] Comprehensive Metabolic Profil Normal 133-145 [facility] Comment on above: Order Comment: Order Date: 01/05/24Order Info: 07-1 - CMPOrder Info: 2776-08 - PHOSOrder Info: 46415-4 - MGOrder Info: 3015-3 - TSHOrder Info: 2494 - FEOrder Info: 227-4 - FEROrder Info: 302-7 - T4F Result Comment: HOSSEIN ENT SAID THEY WERE ONLY SUPPOSED TO GET THE BREATH TEST Performed By: #### L 501.9520, L503.0106, L501.9985, L503.6550, L506.0400, L501.2300, L506.1001, L503.6030, L100.0100, L3300.9900, L506.0200, L501.5200, L500.4050 #### [facility] [address] [place], [address] Helicobacter pylori breath t estOrdered By: Jarred Sanabria on 12-20-2024 CO2 post dose urea Ql (Exhl gas) Negative Negative [facility] Comment on above: Performed at: [facility] [place] [id number] Director: Abdoulaye Ward PhD, Phone: [phone] Calculated very low density lipoprotein (VLDL) cholesterol measurementOrdered By: Jarred Sanabria on 12-19-2024 Calculated very low density lipoprotein (VLDL) cholesterol measurement 23 mg/dL 40 [facility] VLDL Cholesterol 23 mg/dL 40 [facility] LDL calc ser/plasOrdered By: Jarred Sanabria on 12-19-2024 Cholesterol in LDL [Mass/Vol] 125 mg/dL [facility] Comment on above: Xaksmttuns=149-010 m g/dL & Higher Vnvl=784 mg/dL or greater LDL Cholesterol, Calculated 125 mg/dL [facility] Comment on above: Owwxwsdncx=290-080 m g/dL & Higher Cnqh=905 mg/dL or greater Lipid Profileon 12-19-2024 CHOL:HDL 3.89 Normal [facility] Comment on above: Performed By: #### L 3890.6300, L3890.6200, L3890.6100, L501.9985 #### [facility] [address] [place], [address] Cholesterol [Mass/Vol] 199 mg/dL Normal <=200 [facility] Comment on above: Result Comment: Chol esterol level, Desirable <200 mg/dL Borderline high cholesterol 200-239 mg/dL High cholesterol >=240 mg/dL Recommendations of the NCEP Adult Treatment Panel for the following risk-cutoff thresholds for the [place] population. Performed By: #### L 3890.6300, L3890.6200, L3890.6100, L501.9985 #### [facility] [address] [place], [address] Cholesterol in HDL [Mass/Vol] 51 mg/dL Normal [facility] Comment on above: Result Comment: Caryn onal Cholesterol Education Program (NCEP) guidelines: <40 mg/dL: Low HDL-cholesterol (major risk factor for CHD) >= 60 mg/dL: High HDL-cholesterol (negative risk factor for CHD) HDL-cholesterol is affected by a number of factors, e.g. smoking, exercise, hormones, sex and age. Performed By: #### L 3890.6300, L3890.6200, L3890.6100, L501.9985 #### [facility] [address] [place], [address] Cholesterol in LDL [Mass/Vol] 125 mg/dL Normal [facility] Comment on above: Result Comment: Bord ajggzg=793-610 mg/dL Higher Esud=734 mg/dL or greater Performed By: #### L 3890.6300, L3890.6200, L3890.6100, L501.9985 #### [facility] [address] [place], [address] Cholesterol in VLDL [Mass/Vol] 23 mg/dL Normal 5-40 [facility] Comment on above: Performed By: #### L 3890.6300, L3890.6200, L3890.6100, L501.9985 #### [facility] [address] [place], [address] Triglyceride [Mass/Vol] 114 mg/dL Normal [facility] Comment on above: Result Comment: The drugs N-Acetylcysteine and Metamizole may falsely depress this assay. Normal range: <150 mg/dL Borderline High: 150-199 mg/dL High: 200-499 mg/dL Very High: >500 mg/dL Performed By: #### L 3890.6300, L3890.6200, L3890.6100, L501.9985 #### [facility] [address] [place], [address] Screening total cholesterol/ high density lipoprotein (HDL) cholesterol ratioOrdered By: Jarred Sanabria on 12-19-2024 Cholesterol.total/Chol esterol in HDL [Mass ratio] 3.89 {ratio} [facility] Serum or plasma cholesterol in HDL measurement (mass/volume)Ordered By: Jarred Sanabria on 12-19-2024 Cholesterol in HDL [Mass/Vol] 51 mg/dL >40 [facility] Comment on above: National Cholesterol Education Program (NCEP) guidelines:<40 mg/dL: Low HDL-cholesterol (major risk factor for CHD)>= 60 mg/dL: High HDL-cholesterol (negative risk factor for CHD)HDL-cholesterol is affected by a number of factors, e.g. smoking, exercise, hormones, sex and age. Serum or plasma cholesterol measurement (mass/volume)Ordered By: Jarred Sanabria on 12-19-2024 Cholesterol [Mass/Vol] 199 mg/dL <201 [facility] Comment on above: Cholesterol level, D esirable <200 mg/dLBorderline high cholesterol 200-239 mg/dLHigh cholesterol >=240 mg/dLRecommendations of the NCEP Adult Treatment Panel for the following risk-cutoff thresholds for the [place] population. Triglycerides measurementOrd ered By: Jarred Sanabria on 12-19-2024 Triglyceride [Mass/Vol] 114 mg/dL <199 [facility] Comment on above: The drugs N-Acetylcy steine and Metamizole may falsely depress this assay. Normal range: <150 mg/dLBorderline High: 150-199 mg/dLHigh: 200-499 mg/dLVery High: >500 mg/dL Hemoglobin A1con 08-17-2024 HbA1c (Bld) [Mass fraction] 6.2 % High 3.8-5.6 [facility] Comment on above: Order Comment: MARGI Pedroza ADD A1C HEBSAG HEBSAB HECAB TO BLOOD DRAWN 08/15/24 PER Result Comment: Norm al < 5.7 % Prediabetic 5.7 - 6.4 % Diabetic >or= 6.5 % Please note range changes. Performed By: #### L 3890.6300, L3890.6200, L3890.6100, L501.9985 #### [facility] [address] [place], [place], [id number] Hepatitis B Surface Antibody on 08-17-2024 HEP B Surf Ab Non-Reactive Normal [facility] Comment on above: Order Comment: Order Date: 08/15/24 Order Info: 9 Order Info: 57612-6 - VITD25 Result Comment: Non Reactive: Inconsistent with immunity less than <10 mIU/mL Reactive: Consistent with immunity greater than or equal to 10 mIU/mL Performed By: #### L 3890.6300, L3890.6200, L3890.6100, L501.9985 #### [facility] [address] [place], [place], [id number] Hepatitis B Surface Antigeno n 08-17-2024 HEP B Surf Ag Non-Reactive Normal Nonreactive [facility] Comment on above: Order Comment: Order Date: 08/15/24 Order Info: 2132-04 Order Info: 39150-0 - VITD25 Performed By: #### L 3890.6300, L3890.6200, L3890.6100, L501.9985 #### [facility] [address] [place], [place], [id number] Hepatitis C Antibodyon 08-17 Hepatitis C AB Non-Reactive Normal Nonreactive [facility] Comment on above: Order Comment: Order Date: 08/15/24 Order Info: 9 Order Info: 52984-3 - VITD25 Result Comment: Non Reactive: < 0.8 Equivocal: >/= 0.8 to < 1.0 Reactive: >/= 1.0 The CDC requires that a reactive/equivocal HCV antibody result be sent out for confirmation. HCV Quant by PCR testing. Performed By: #### L 3890.6300, L3890.6200, L3890.6100, L501.9985 #### [facility] [address] [place], [place], [address] Urine Cultureon 08-17-2024 [facility] Order Date: 08/15/24 Order Info: 630-4 - CUUR Mixed Gram Pos Gram Neg Org [place] Count 25,000-50,000 MIXC Mixed contaminants. Submit a new specimen if indicated. Normal [facility] Comment on above: Performed By: #### L 3890.6300, L3890.6200, L3890.6100, L501.9985 #### [facility] [address] [place], [place], [id number] Vitamin B12on 08-17-2024 Cobalamin (Vitamin B12) [Mass/Vol] 1084 pg/mL High 211-911 [facility] Comment on above: Order Comment: Order Date: 08/15/24Order Info: 9 - W27Bhwkm Info: 93675-0 - VITD25 Performed By: #### L 501.9520, L503.0106, L501.9985, L503.6550, L506.0400, L501.2300, L506.1001, L503.6030, L100.0100, L3300.9900, L506.0200, L501.5200, L500.4050 #### [facility] [address] [place], [place], [address] Vitamin D,25 Hydroxyon 08-17 Vitamin D 25-OH 45.0 ng/mL Normal [facility] Comment on above: Order Comment: Order Date: 08/15/24Order Info: 9 - K11Nbcmu Info: 94997-7 - VITD25 Result Comment: Sonia min D 25(OH) Status Range Deficiency <20 ng/mL (50nmol/L) Insufficiency 20 - 30 ng/mL (50 - 75 nmol/L) Sufficiency 30 - 100 ng/mL (75 - 250 nmol/L) Toxicity >100 ng/mL (>250 nmol/L) Performed By: #### L 501.9520, L503.0106, L501.9985, L503.6550, L506.0400, L501.2300, L506.1001, L503.6030, L100.0100, L3300.9900, L506.0200, L501.5200, L500.4050 #### [facility] [address] [place], [address] CBC W/Diff, Automatedon 07-30 Absolute Lymph 4.26 X10 3/uL Normal 0.83-4.51 [facility] Comment on above: Order Comment: Order Date: 08/15/24 Order Info: 2132-9 - B12 Order Info: 71084-3 - VITD25 Performed By: #### L 3890.6300, L3890.6200, L3890.6100, L501.9985 #### [facility] [address] [place], [address] Absolute Neut 3.7 X10 3/uL Normal 2.0-7.7 [facility] Comment on above: Order Comment: Order Date: 08/15/24 Order Info: 213-9 - B12 Order Info: 28529-2 - VITD25 Performed By: #### L 3890.6300, L3890.6200, L3890.6100, L501.9985 #### [facility] [address] [place], [address] Basophils/100 WBC (Bld) 0.6 % Normal 0-1 [facility] Comment on above: Order Comment: Order Date: 08/15/24 Order Info: 2132-9 - B12 Order Info: 29302-0 - VITD25 Performed By: #### L 3890.6300, L3890.6200, L3890.6100, L501.9985 #### [facility] [address] [place], [address] Eosinophils/100 WBC (Bld) 1.4 % Normal 0-5 [facility] Comment on above: Order Comment: Order Date: 08/15/24 Order Info: 9 - B12 Order Info: 01153-2 - VITD25 Performed By: #### L 3890.6300, L3890.6200, L3890.6100, L501.9985 #### [facility] [address] [place], [address] Erythrocyte distribution width (RBC) [Ratio] 13.4 % Normal 11.6-14.6 [facility] Comment on above: Order Comment: Order Date: 08/15/24 Order Info: 2132-04 - B12 Order Info: 72045-7 - VITD25 Performed By: #### L 3890.6300, L3890.6200, L3890.6100, L501.9985 #### [facility] [address] [place], [address] Hematocrit (Bld) [Volume fraction] 45.2 % Normal 37-47 [facility] Comment on above: Order Comment: Order Date: 08/15/24 Order Info: 9 - B12 Order Info: 42275-6 - VITD25 Performed By: #### L 3890.6300, L3890.6200, L3890.6100, L501.9985 #### [facility] [address] [place], [address] Hemoglobin (Bld) [Mass/Vol] 14.8 g/dL Normal 12.0-15.0 [facility] Comment on above: Order Comment: Order Date: 08/15/24 Order Info: 9 - B12 Order Info: 98818-3 - VITD25 Performed By: #### L 3890.6300, L3890.6200, L3890.6100, L501.9985 #### [facility] [address] [place], [address] IG% 0.100 Normal 0.0-0.9 [facility] Comment on above: Order Comment: Order Date: 08/15/24 Order Info: 2132-9 - B12 Order Info: 26468-0 - VITD25 Result Comment: IG% - Immature Granulocytes (promyelocytes, myelocytes and metamyelocytes) > 1% indicates that a LEFT SHIFT is Present. Performed By: #### L 3890.6300, L3890.6200, L3890.6100, L501.9985 #### [facility] [address] [place], [address] Lymphocytes/100 WBC (Bld) 49.2 % High 19-41 [facility] Comment on above: Order Comment: Order Date: 08/15/24 Order Info: 2132-04 B12 Order Info: 86032-8 - VITD25 Performed By: #### L 3890.6300, L3890.6200, L3890.6100, L501.9985 #### [facility] [address] [place], [address] MCH (RBC) [Entitic mass] 29.2 pg Normal 27.0-32.0 [facility] Comment on above: Order Comment: Order Date: 08/15/24 Order Info: 2132-04 B12 Order Info: 17417-4 - VITD25 Performed By: #### L 3890.6300, L3890.6200, L3890.6100, L501.9985 #### [facility] [address] [place], [address] MCHC (RBC) [Mass/Vol] 32.7 g/dL Normal 32-36 [facility] Comment on above: Order Comment: Order Date: 08/15/24 Order Info: 2132-04 B12 Order Info: 26126-1 - VITD25 Performed By: #### L 3890.6300, L3890.6200, L3890.6100, L501.9985 #### [facility] [address] [place], [address] MCV (RBC) [Entitic vol] 89.2 fL Normal 81-99 [facility] Comment on above: Order Comment: Order Date: 08/15/24 Order Info: 2132-04 - B12 Order Info: 04865-2 - VITD25 Performed By: #### L 3890.6300, L3890.6200, L3890.6100, L501.9985 #### [facility] [address] [place], [address] Monocytes/100 WBC (Bld) 5.9 % Normal 0-10 [facility] Comment on above: Order Comment: Order Date: 08/15/24 Order Info: 2132-04 Order Info: 67207-7 - VITD25 Performed By: #### L 3890.6300, L3890.6200, L3890.6100, L501.9985 #### [facility] [address] [place], [address] Neutrophils/100 WBC (Bld) 42.8 % Low 47-70 [facility] Comment on above: Order Comment: Order Date: 08/15/24 Order Info: 2132-04 Order Info: 86390-4 - VITD25 Performed By: #### L 3890.6300, L3890.6200, L3890.6100, L501.9985 #### [facility] [address] [place], [address] Nucleated RBC (Bld) [#/Vol] 0 10*3/uL Normal 0-5 [facility] Comment on above: Order Comment: Order Date: 08/15/24 Order Info: 2132-04 Order Info: 72771-5 - VITD25 Performed By: #### L 3890.6300, L3890.6200, L3890.6100, L501.9985 #### [facility] [address] [place], [address] Platelet mean volume (Bld) [Entitic vol] 9.7 fL Normal 6.2-12.0 [facility] Comment on above: Order Comment: Order Date: 08/15/24 Order Info: 9 - B12 Order Info: 36842-3 - VITD25 Performed By: #### L 3890.6300, L3890.6200, L3890.6100, L501.9985 #### [facility] [address] [place], [address] Platelets (Bld) [#/Vol] 216 10*3/uL Normal 150-450 [facility] Comment on above: Order Comment: Order Date: 08/15/24 Order Info: 2132-04 - B12 Order Info: 93283-3 - VITD25 Performed By: #### L 3890.6300, L3890.6200, L3890.6100, L501.9985 #### [facility] [address] [place], [address] RBC (Bld) [#/Vol] 5.07 10*6/uL Normal 4.2-5.4 [facility] Comment on above: Order Comment: Order Date: 08/15/24 Order Info: 2132-04 - B12 Order Info: 71148-5 - VITD25 Performed By: #### L 3890.6300, L3890.6200, L3890.6100, L501.9985 #### [facility] [address] [place], [address] RDW SD 43.6 fl Normal 35.1-43.9 [facility] Comment on above: Order Comment: Order Date: 08/15/24 Order Info: 9 - B12 Order Info: 28126-9 - VITD25 Performed By: #### L 3890.6300, L3890.6200, L3890.6100, L501.9985 #### [facility] [address] [place], [address] WBC (Bld) [#/Vol] 8.7 10*3/uL Normal 4.4-11.0 [facility] Comment on above: Order Comment: Order Date: 08/15/24 Order Info: 2131-9 - B12 Order Info: 55951-0 - VITD25 Performed By: #### L 3890.6300, L3890.6200, L3890.6100, L501.9985 #### [facility] [address] [place], [address] Comprehensive Metabolic Prof ilon 08-15-2024 Albumin [Mass/Vol] 3.6 g/dL Normal 3.2-5.0 [facility] Comment on above: Order Comment: Order Date: 08/15/24 Order Info: 2132-04 - B12 Order Info: 62312-7 - VITD25 Performed By: #### L 3890.6300, L3890.6200, L3890.6100, L501.9985 #### [facility] [address] [place], [address] Albumin/Globulin [Mass ratio] 0.9 {ratio} Normal 0.9-2.4 [facility] Comment on above: Order Comment: Order Date: 08/15/24 Order Info: 9 - B12 Order Info: 68706-3 - VITD25 Performed By: #### L 3890.6300, L3890.6200, L3890.6100, L501.9985 #### [facility] [address] [place], [address] ALK P 85 U/L Normal 45-117 [facility] Comment on above: Order Comment: Order Date: 08/15/24 Order Info: 9 - B12 Order Info: 77055-0 - VITD25 Performed By: #### L 3890.6300, L3890.6200, L3890.6100, L501.9985 #### [facility] [address] [place], [address] ALT [Catalytic activity/Vol] 69 U/L High 13-56 [facility] Comment on above: Order Comment: Order Date: 08/15/24 Order Info: 2131-9 - B12 Order Info: 91857-0 - VITD25 Performed By: #### L 3890.6300, L3890.6200, L3890.6100, L501.9985 #### [facility] [address] [place], [address] AST [Catalytic activity/Vol] 52 U/L High 15-37 [facility] Comment on above: Order Comment: Order Date: 08/15/24 Order Info: 9 - B12 Order Info: 12003-3 - VITD25 Performed By: #### L 3890.6300, L3890.6200, L3890.6100, L501.9985 #### [facility] [address] [place], [address] Bilirubin [Mass/Vol] 0.40 mg/dL Normal 0.20-1.00 [facility] Comment on above: Order Comment: Order Date: 08/15/24 Order Info: 2132-04 - B12 Order Info: 78892-5 - VITD25 Result Comment: For patients on eltrombopag therapy, use of Dimension Smiley TBIL is not recommended. Performed By: #### L 3890.6300, L3890.6200, L3890.6100, L501.9985 #### [facility] [address] [place], [address] BUN/CRE 23.5 RATIO High 10-20 [facility] Comment on above: Order Comment: Order Date: 08/15/24 Order Info: 9 - B12 Order Info: 21111-5 - VITD25 Performed By: #### L 3890.6300, L3890.6200, L3890.6100, L501.9985 #### [facility] [address] [place], [address] CA,Total 9.3 mg/dL Normal 8.5-10.1 [facility] Comment on above: Order Comment: Order Date: 08/15/24 Order Info: 21310-08 - B12 Order Info: 15254-2 - VITD25 Performed By: #### L 3890.6300, L3890.6200, L3890.6100, L501.9985 #### [facility] [address] [place], [address] Chloride [Moles/Vol] 105 mmol/L Normal 98-107 [facility] Comment on above: Order Comment: Order Date: 08/15/24 Order Info: 2131-9 - B12 Order Info: 85802-7 - VITD25 Performed By: #### L 3890.6300, L3890.6200, L3890.6100, L501.9985 #### [facility] [address] [place], [address] CO2 [Moles/Vol] 27.0 mmol/L Normal 21.0-32.0 [facility] Comment on above: Order Comment: Order Date: 08/15/24 Order Info: 9 - B12 Order Info: 14068-0 - VITD25 Performed By: #### L 3890.6300, [id number], L3890.6100, [id number] #### [facility] [address] [place], [address] Creatinine [Mass/Vol] 0.81 mg/dL Normal 0.55-1.02 [facility] Comment on above: Order Comment: Order Date: 08/15/24 Order Info: 9 - B12 Order Info: 11967-0 - VITD25 Result Comment: The validity of the calculated GFR GFRAA in patients over 70 years has not been determined. Clinical correlation is essential. Performed By: #### L [id number], [id number], L3890.6100, [id number] #### [facility] [address] [place], [address] EST GFR - AA 90 mL/min Normal >60 [facility] Comment on above: Order Comment: Order Date: 08/15/24 Order Info: 2132-04 Order Info: [id number] - VITD25 Result Comment: Afri can [place] GFR Calc Performed By: #### L [id number], [id number], L3890.6100, [id number] #### [facility] Laboratory [address] [place], [address] GAP 7 Normal 5-15 [facility] Comment on above: Order Comment: Order Date: 08/15/24 Order Info: 2132-04 Order Info: 51961-9 - VITD25 Performed By: #### L 3890.6300, L3890.6200, L3890.6100, L501.9985 #### [facility] [address] [place], [address] GFR/1.73 sq M.predicted among non-blacks MDRD (S/P/Bld) [Vol rate/Area] 74 mL/min/{1.73_m2} Normal >60 [facility] Comment on above: Order Comment: Order Date: 08/15/24 Order Info: 2132-04 Order Info: 98746-8 - VITD25 Result Comment: Non- GFR Calc Performed By: #### L 3890.6300, L3890.6200, L3890.6100, L501.9985 #### [facility] [address] [place], [place], [id number] Globulin (S) [Mass/Vol] 4.0 g/dL Normal 2.2-4.2 [facility] Comment on above: Order Comment: Order Date: 08/15/24 Order Info: 2132-04 Order Info: 62348-8 - VITD25 Performed By: #### L 3890.6300, L3890.6200, L3890.6100, L501.9985 #### [facility] [address] [place], [address] Glucose [Mass/Vol] 129 mg/dL High 74-106 [facility] Comment on above: Order Comment: Order Date: 08/15/24 Order Info: 2132-04 Order Info: 33867-3 - VITD25 Result Comment: Fast ing Glucose result greater than or equal to 126 mg/dL suggests DIABETES MELLITUS per A.D.A. criteria. Performed By: #### L 3890.6300, L3890.6200, L3890.6100, L501.9985 #### [facility] [address] [place], [address] Potassium [Moles/Vol] 3.6 mmol/L Normal 3.5-5.1 [facility] Comment on above: Order Comment: Order Date: 08/15/24 Order Info: 2132-04 Order Info: 52804-6 - VITD25 Performed By: #### L 3890.6300, L3890.6200, L3890.6100, L501.9985 #### [facility] [address] [place], [address] Sodium [Moles/Vol] 139 mmol/L Normal 136-145 [facility] Comment on above: Order Comment: Order Date: 08/15/24 Order Info: 2132-04 Order Info: 07681-6 - VITD25 Performed By: #### L 3890.6300, L3890.6200, L3890.6100, L501.9985 #### [facility] [address] [place], [address] T PROT 7.6 g/dL Normal 6.4-8.2 [facility] Comment on above: Order Comment: Order Date: 08/15/24 Order Info: 2132-04 Order Info: 59879-4 - VITD25 Performed By: #### L 3890.6300, L3890.6200, L3890.6100, L501.9985 #### [facility] [address] [place], [address] Urea nitrogen [Mass/Vol] 19 mg/dL High 7-18 [facility] Comment on above: Order Comment: Order Date: 08/15/24 Order Info: 9 - B12 Order Info: 86953-5 - VITD25 Performed By: #### L 3890.6300, L3890.6200, L3890.6100, L501.9985 #### [facility] [address] [place], [address] Ferritinon 08-15-2024 Ferritin [Mass/Vol] 255 ng/mL High 8-252 [facility] Comment on above: Order Comment: Order Date: 08/15/24 Order Info: 9 - B12 Order Info: 52642-4 - VITD25 Performed By: #### L 3890.6300, L3890.6200, L3890.6100, L501.9985 #### [facility] [address] [place], [address] Folates, (Folic Acid)on 07-30 FOLATES 35.10 ng/mL Normal 3.1-55.4 [facility] Comment on above: Order Comment: Order Date: 08/15/24 Order Info: 2132-04 - B12 Order Info: 12328-6 - VITD25 Performed By: #### L 3890.6300, L3890.6200, L3890.6100, L501.9985 #### [facility] [address] [place], [address] Ironon 08-15-2024 Iron [Mass/Vol] 79 ug/dL Normal 50-170 [facility] Comment on above: Order Comment: Order Date: 08/15/24 Order Info: 9 - B12 Order Info: 76464-5 - VITD25 Performed By: #### L 3890.6300, L3890.6200, L3890.6100, L501.9985 #### [facility] [address] [place], [address] Iron Binding Capacity,Totalo n 08-15-2024 TIBC 338 ug/dL Normal 250-450 [facility] Comment on above: Order Comment: Order Date: 08/15/24 Order Info: 2132-04 B12 Order Info: 51283-0 - VITD25 Performed By: #### L 3890.6300, L3890.6200, L3890.6100, L501.9985 #### [facility] [address] [place], [address] T4 Free Directon 08-15-2024 T4 FREE DIRECT 1.39 ng/dL Normal 0.76-1.46 [facility] Comment on above: Order Comment: Order Date: 08/15/24 Order Info: 2132-04 B12 Order Info: 92346-8 - VITD25 Performed By: #### L 3890.6300, L3890.6200, L3890.6100, L501.9985 #### [facility] [address] [place], [address] Thyroid Stim Hormone (TSH)on 08-15-2024 TSH 0.935 uIU/mL Normal 0.358-3.740 [facility] Comment on above: Order Comment: Order Date: 08/15/24 Order Info: 2132-04 B12 Order Info: 85385-3 - VITD25 Performed By: #### L 3890.6300, L3890.6200, L3890.6100, L501.9985 #### [facility] [address] [place], [address] SCRN MAMM (CAD)W/JOSE BILATo n 08-01-2024 SCRN MAMM (CAD)W/JOSE BILAT [facility] Imaging Services [address] [place] [address] SCRN MAMM (CAD)W/JOSE BILAT MR#: [id number] Acct: [id number] Name: GILBERTO HERNANDEZ Rep #: [id number] : 1950 F 73 From: Noah smith MD PCP: Dr. Jarred Sanabria MD Status: [facility] Study: SCRN MAMM (CAD)W/JOSE BILAT Date of Exam: 11/20 Exam# [id number] Ordering Dr: Jarred Sanabria MD [id number] MAMMOGRAPHY - BILATERAL SCREENING REASON FOR EXAM: Female, 73 years old. Routine annual screening examination. PERTINENT HISTORY: Non-contributory. 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 2-D mediolateral oblique (MLO) and craniocaudad (CC) views of both breasts were obtained. CAD: Full Field Digital Mammography with Computer Added Detection was performed. COMPARISON: Comparison is made with prior study dated July 30, 2023 and July 17, 2022. FINDINGS: Breast Composition: The breasts are almost entirely fatty. There are no dominant masses or suspicious calcifications. Stable fat-containing bilateral axillary lymph nodes. Stable 6 mm well-defined nodule in the upper outer aspect of the right breast with a fatty notch suggestive of a small intramammary lymph node. No other significant abnormalities are identified. There has been no significant change since the prior study. BI/SCRN MAMM (CAD)W/JOSE BILAT IMPRESSION: Stable bilateral screening mammogram. Yearly follow-up mammogram recommended. (A) ASSESSMENT CATEGORY: BIRADS Category 2: Benign. A letter regarding these results will be sent to the patient by the facility within 30 days. Approximately 10% of breast cancers are not detected by mammography. A normal mammogram should not delay biopsy of a clinically suspicious abnormality. [id number] Electronically Signed: Noah Reno MD at 12:58 EST , CC: Dr. Jarred Sanabria MD Dietary Supervisor: Signed Normal [facility] CBC W/Diff, Automatedon 08-2 Absolute Lymph 3.45 X10 3/uL Normal 0.83-4.51 [facility] Comment on above: Order Comment: Order Date: 08/15/24 Order Info: 2132-04 - B12 Order Info: 99137-7 - VITD25 Performed By: #### L 3890.6300, L3890.6200, L3890.6100, L501.9985 #### [facility] [address] [place], [place], [address] [phone] Absolute Neut 3.3 X10 3/uL Normal 2.0-7.7 [facility] Comment on above: Order Comment: Order Date: 08/15/24 Order Info: 2132-04 B12 Order Info: 41259-4 - VITD25 Performed By: #### L 3890.6300, L3890.6200, L3890.6100, L501.9985 #### [facility] [address] [place], [place], [address] ([phone] Basophils/100 WBC (Bld) 0.4 % Normal 0-1 [facility] Comment on above: Order Comment: Order Date: 08/15/24 Order Info: 2132-04 B12 Order Info: 33821-1 - VITD25 Performed By: #### L 3890.6300, L3890.6200, L3890.6100, L501.9985 #### [facility] [address] [place], [address] Eosinophils/100 WBC (Bld) 3.1 % Normal 0-5 [facility] Comment on above: Order Comment: Order Date: 08/15/24 Order Info: 9 B12 Order Info: 89950-1 - VITD25 Performed By: #### L 3890.6300, L3890.6200, L3890.6100, L501.9985 #### [facility] [address] [place], [place], [address] Erythrocyte distribution width (RBC) [Ratio] 13.3 % Normal 11.6-14.6 [facility] Comment on above: Order Comment: Order Date: 08/15/24 Order Info: 2132-04 - B12 Order Info: 36611-4 - VITD25 Performed By: #### L 3890.6300, L3890.6200, L3890.6100, L501.9985 #### [facility] [address] [place], [address] Hematocrit (Bld) [Volume fraction] 43.7 % Normal 37-47 [facility] Comment on above: Order Comment: Order Date: 08/15/24 Order Info: 2132-04 - B12 Order Info: 35194-7 - VITD25 Performed By: #### L 3890.6300, L3890.6200, L3890.6100, L501.9985 #### [facility] [address] [place], [address] Hemoglobin (Bld) [Mass/Vol] 14.0 g/dL Normal 12.0-15.0 [facility] Comment on above: Order Comment: Order Date: 08/15/24 Order Info: 2132-04 B12 Order Info: 49919-4 - VITD25 Performed By: #### L 3890.6300, L3890.6200, L3890.6100, L501.9985 #### [facility] [address] [place], [address] IG% 0.300 Normal 0.0-0.9 [facility] Comment on above: Order Comment: Order Date: 08/15/24 Order Info: 2132-04 - B12 Order Info: 23547-3 - VITD25 Result Comment: IG% - Immature Granulocytes (promyelocytes, myelocytes and metamyelocytes) > 1% indicates that a LEFT SHIFT is Present. Performed By: #### L 3890.6300, L3890.6200, L3890.6100, L501.9985 #### [facility] [address] [place], [address] Lymphocytes/100 WBC (Bld) 45.8 % High 19-41 [facility] Comment on above: Order Comment: Order Date: 08/15/24 Order Info: 9 - B12 Order Info: 07812-2 - VITD25 Performed By: #### L 3890.6300, L3890.6200, L3890.6100, L501.9985 #### [facility] [address] [place], [address] MCH (RBC) [Entitic mass] 29.2 pg Normal 27.0-32.0 [facility] Comment on above: Order Comment: Order Date: 08/15/24 Order Info: 2132-04 - B12 Order Info: 43307-4 - VITD25 Performed By: #### L 3890.6300, L3890.6200, L3890.6100, L501.9985 #### [facility] [address] [place], [address] MCHC (RBC) [Mass/Vol] 32.0 g/dL Normal 32-36 [facility] Comment on above: Order Comment: Order Date: 08/15/24 Order Info: 9 - B12 Order Info: 48379-2 - VITD25 Performed By: #### L 3890.6300, L3890.6200, L3890.6100, L501.9985 #### [facility] [address] [place], [address] MCV (RBC) [Entitic vol] 91.2 fL Normal 81-99 [facility] Comment on above: Order Comment: Order Date: 08/15/24 Order Info: 9 - B12 Order Info: 34454-9 - VITD25 Performed By: #### L 3890.6300, L3890.6200, L3890.6100, L501.9985 #### [facility] [address] [place], [address] Monocytes/100 WBC (Bld) 7.0 % Normal 0-10 [facility] Comment on above: Order Comment: Order Date: 08/15/24 Order Info: 2132-04 - B12 Order Info: 88815-6 - VITD25 Performed By: #### L 3890.6300, L3890.6200, L3890.6100, L501.9985 #### [facility] [address] [place], [address] Neutrophils/100 WBC (Bld) 43.4 % Low 47-70 [facility] Comment on above: Order Comment: Order Date: 08/15/24 Order Info: 2132-04 B12 Order Info: 74780-3 - VITD25 Performed By: #### L 3890.6300, L3890.6200, L3890.6100, L501.9985 #### [facility] [address] [place], [address] Nucleated RBC (Bld) [#/Vol] 0 10*3/uL Normal 0-5 [facility] Comment on above: Order Comment: Order Date: 08/15/24 Order Info: 2132-04 - B12 Order Info: 57390-5 - VITD25 Performed By: #### L 3890.6300, L3890.6200, L3890.6100, L501.9985 #### [facility] [address] [place], [address] Platelet mean volume (Bld) [Entitic vol] 9.6 fL Normal 6.2-12.0 [facility] Comment on above: Order Comment: Order Date: 08/15/24 Order Info: 2132-04 B12 Order Info: 56429-4 - VITD25 Performed By: #### L 3890.6300, L3890.6200, L3890.6100, L501.9985 #### [facility] [address] [place], [address] Platelets (Bld) [#/Vol] 197 10*3/uL Normal 150-450 [facility] Comment on above: Order Comment: Order Date: 08/15/24 Order Info: 9 - B12 Order Info: 02318-1 - VITD25 Performed By: #### L 3890.6300, L3890.6200, L3890.6100, L501.9985 #### [facility] [address] [place], [address] RBC (Bld) [#/Vol] 4.79 10*6/uL Normal 4.2-5.4 [facility] Comment on above: Order Comment: Order Date: 08/15/24 Order Info: 2132-04 - B12 Order Info: 48323-1 - VITD25 Performed By: #### L 3890.6300, L3890.6200, L3890.6100, L501.9985 #### [facility] [address] [place], [address] RDW SD 45.0 fl High 35.1-43.9 [facility] Comment on above: Order Comment: Order Date: 08/15/24 Order Info: 9 - B12 Order Info: 22100-3 - VITD25 Performed By: #### L 3890.6300, L3890.6200, L3890.6100, L501.9985 #### [facility] [address] [place], [address] WBC (Bld) [#/Vol] 7.5 10*3/uL Normal 4.4-11.0 [facility] Comment on above: Order Comment: Order Date: 08/15/24 Order Info: 9 - B12 Order Info: 45360-0 - VITD25 Performed By: #### L 3890.6300, L3890.6200, L3890.6100, L501.9985 #### [facility] [address] [place], [place], [address] Comprehensive Metabolic Prof ilon 04-20-2024 Albumin [Mass/Vol] 3.5 g/dL Normal 3.2-5.0 [facility] Comment on above: Order Comment: Order Date: 08/15/24 Order Info: 9 - B12 Order Info: 15974-9 - VITD25 Performed By: #### L 3890.6300, L3890.6200, L3890.6100, L501.9985 #### [facility] [address] [place], [place], [address] Albumin/Globulin [Mass ratio] 0.9 {ratio} Normal 0.9-2.4 [facility] Comment on above: Order Comment: Order Date: 08/15/24 Order Info: 2132-04 - B12 Order Info: 14398-2 - VITD25 Performed By: #### L 3890.6300, L3890.6200, L3890.6100, L501.9985 #### [facility] [address] [place], [place], [address] ALK P 72 U/L Normal 45-117 [facility] Comment on above: Order Comment: Order Date: 08/15/24 Order Info: 9 - B12 Order Info: 83546-0 - VITD25 Performed By: #### L 3890.6300, L3890.6200, L3890.6100, L501.9985 #### [facility] [address] [place], [address] ALT [Catalytic activity/Vol] 58 U/L High 13-56 [facility] Comment on above: Order Comment: Order Date: 08/15/24 Order Info: 9 - B12 Order Info: 05777-0 - VITD25 Performed By: #### L 3890.6300, L3890.6200, L3890.6100, L501.9985 #### [facility] [address] [place], [address] AST [Catalytic activity/Vol] 48 U/L High 15-37 [facility] Comment on above: Order Comment: Order Date: 08/15/24 Order Info: 2132-04 - B12 Order Info: 78692-7 - VITD25 Result Comment: Slig ht Hemolysis, Result may be falsely increased. Performed By: #### L 3890.6300, L3890.6200, L3890.6100, L501.9985 #### [facility] [address] [place], [address] Bilirubin [Mass/Vol] 0.40 mg/dL Normal 0.20-1.00 [facility] Comment on above: Order Comment: Order Date: 08/15/24 Order Info: 2132-04 - B12 Order Info: 16447-5 - VITD25 Result Comment: For patients on eltrombopag therapy, use of Dimension Smiley TBIL is not recommended. Performed By: #### L 3890.6300, L3890.6200, L3890.6100, L501.9985 #### [facility] [address] [place], [address] BUN/CRE 20.8 RATIO High 10-20 [facility] Comment on above: Order Comment: Order Date: 08/15/24 Order Info: 2132-04 B12 Order Info: 80928-2 - VITD25 Performed By: #### L 3890.6300, L3890.6200, L3890.6100, L501.9985 #### [facility] [address] [place], [address] CA,Total 9.4 mg/dL Normal 8.5-10.1 [facility] Comment on above: Order Comment: Order Date: 08/15/24 Order Info: 2132-04 B12 Order Info: 39626-4 - VITD25 Performed By: #### L 3890.6300, L3890.6200, L3890.6100, L501.9985 #### [facility] [address] [place], [address] Chloride [Moles/Vol] 103 mmol/L Normal 98-107 [facility] Comment on above: Order Comment: Order Date: 08/15/24 Order Info: 9 - B12 Order Info: 85709-0 - VITD25 Performed By: #### L 3890.6300, L3890.6200, L3890.6100, L501.9985 #### [facility] [address] [place], [address] CO2 [Moles/Vol] 27.0 mmol/L Normal 21.0-32.0 [facility] Comment on above: Order Comment: Order Date: 08/15/24 Order Info: 2132-04 B12 Order Info: 24063-2 - VITD25 Performed By: #### L 3890.6300, L3890.6200, L3890.6100, L501.9985 #### [facility] [address] [place], [address] Creatinine [Mass/Vol] 0.82 mg/dL Normal 0.55-1.02 [facility] Comment on above: Order Comment: Order Date: 08/15/24 Order Info: 2132-04 - B12 Order Info: 68028-9 - VITD25 Result Comment: The validity of the calculated GFR GFRAA in patients over 70 years has not been determined. Clinical correlation is essential. Performed By: #### L 3890.6300, L3890.6200, L3890.6100, L501.9985 #### [facility] [address] [place], [address] EST GFR - AA 89 mL/min Normal >60 [facility] Comment on above: Order Comment: Order Date: 08/15/24 Order Info: 9 - B12 Order Info: 28893-6 - VITD25 Result Comment: Afri can [place] GFR Calc Performed By: #### L 3890.6300, L3890.6200, L3890.6100, L501.9985 #### [facility] [address] [place], [address] GAP 10 Normal 5-15 [facility] Comment on above: Order Comment: Order Date: 08/15/24 Order Info: 2132-04 Order Info: 46295-6 - VITD25 Performed By: #### L 3890.6300, L3890.6200, L3890.6100, L501.9985 #### [facility] [address] [place], [address] GFR/1.73 sq M.predicted among non-blacks MDRD (S/P/Bld) [Vol rate/Area] 73 mL/min/{1.73_m2} Normal >60 [facility] Comment on above: Order Comment: Order Date: 08/15/24 Order Info: 2132-04 Order Info: 53448-7 - VITD25 Result Comment: Non- GFR Calc Performed By: #### L 3890.6300, L3890.6200, L3890.6100, L501.9985 #### [facility] [address] [place], [address] Globulin (S) [Mass/Vol] 4.1 g/dL Normal 2.2-4.2 [facility] Comment on above: Order Comment: Order Date: 08/15/24 Order Info: 2132-04 Order Info: 25258-9 - VITD25 Performed By: #### L 3890.6300, L3890.6200, L3890.6100, L501.9985 #### [facility] [address] [place], [address] Glucose [Mass/Vol] 102 mg/dL Normal 74-106 [facility] Comment on above: Order Comment: Order Date: 08/15/24 Order Info: 2132-9 - B12 Order Info: 23034-1 - VITD25 Result Comment: Fast ing Glucose result from 100 to 125 mg/dL suggests IMPAIRED HOMEOSTASIS per A.D.A. criteria. Performed By: #### L 3890.6300, L3890.6200, L3890.6100, L501.9985 #### [facility] [address] [place], [address] Potassium [Moles/Vol] 3.9 mmol/L Normal 3.5-5.1 [facility] Comment on above: Order Comment: Order Date: 08/15/24 Order Info: 2132-04 B12 Order Info: 53380-9 - VITD25 Result Comment: Slig ht Hemolysis, Result may be falsely increased. Performed By: #### L 3890.6300, L3890.6200, L3890.6100, L501.9985 #### [facility] [address] [place], [address] Sodium [Moles/Vol] 140 mmol/L Normal 136-145 [facility] Comment on above: Order Comment: Order Date: 08/15/24 Order Info: 2132-04 B12 Order Info: 56483-4 - VITD25 Performed By: #### L 3890.6300, L3890.6200, L3890.6100, L501.9985 #### [facility] [address] [place], [address] T PROT 7.6 g/dL Normal 6.4-8.2 [facility] Comment on above: Order Comment: Order Date: 08/15/24 Order Info: 9 - B12 Order Info: 46699-7 - VITD25 Performed By: #### L 3890.6300, L3890.6200, L3890.6100, L501.9985 #### [facility] [address] [place], [address] Urea nitrogen [Mass/Vol] 17 mg/dL Normal 7-18 [facility] Comment on above: Order Comment: Order Date: 08/15/24 Order Info: 2132-04 - B12 Order Info: 27284-1 - VITD25 Performed By: #### L 3890.6300, L3890.6200, L3890.6100, L501.9985 #### [facility] [address] [place], [address] Ferritinon 04-20-2024 Ferritin [Mass/Vol] 222 ng/mL Normal 8-252 [facility] Comment on above: Order Comment: Order Date: 08/15/24 Order Info: 2132-04 - B12 Order Info: 36898-3 - VITD25 Performed By: #### L 3890.6300, L3890.6200, L3890.6100, L501.9985 #### [facility] [address] [place], [address] Folates, (Folic Acid)on 03-31 FOLATES 49.30 ng/mL Normal 3.1-55.4 [facility] Comment on above: Order Comment: Order Date: 08/15/24 Order Info: 2132-04 - B12 Order Info: 99123-4 - VITD25 Result Comment: Slig ht Hemolysis, Result may be falsely increased. Performed By: #### L 3890.6300, L3890.6200, L3890.6100, L501.9985 #### [facility] [address] [place], [address] Ironon 04-20-2024 Iron [Mass/Vol] 94 ug/dL Normal 50-170 [facility] Comment on above: Order Comment: Order Date: 08/15/24 Order Info: 2132-04 - B12 Order Info: 42609-4 - VITD25 Result Comment: Slig ht Hemolysis, Result may be falsely increased. Performed By: #### L 3890.6300, L3890.6200, L3890.6100, L501.9985 #### [facility] [address] [place], [place], [address] Iron Binding Capacity,Totalo n 04-20-2024 TIBC 400 ug/dL Normal 250-450 [facility] Comment on above: Order Comment: Order Date: 08/15/24 Order Info: 2132-04 - B12 Order Info: 55270-8 - VITD25 Performed By: #### L 3890.6300, L3890.6200, L3890.6100, L501.9985 #### [facility] [address] [place], [place], [address] T4 Free Directon 04-20-2024 T4 FREE DIRECT 1.32 ng/dL Normal 0.76-1.46 [facility] Comment on above: Order Comment: Order Date: 08/15/24 Order Info: 2132-04 - B12 Order Info: 41326-4 - VITD25 Performed By: #### L 3890.6300, L3890.6200, L3890.6100, L501.9985 #### [facility] [address] [place], [place], [address] Thyroid Stim Hormone (TSH)on 04-20-2024 TSH 0.426 uIU/mL Normal 0.358-3.740 [facility] Comment on above: Order Comment: Order Date: 08/15/24 Order Info: 2132-04 - B12 Order Info: 68699-4 - VITD25 Performed By: #### L 3890.6300, L3890.6200, L3890.6100, L501.9985 #### [facility] [address] [place], [address] Vitamin B12on 04-20-2024 Cobalamin (Vitamin B12) [Mass/Vol] 1208 pg/mL High 211-911 [facility] Comment on above: Order Comment: Order Date: 08/15/24 Order Info: 2132-04 - B12 Order Info: 50398-9 - VITD25 Performed By: #### L 3890.6300, L3890.6200, L3890.6100, [id number] #### [facility] [address] [place], [place], [address] Vitamin D,25 Hydroxyon 04-20 Vitamin D 25-OH 52.7 ng/mL Normal [facility] Comment on above: Order Comment: Order Date: 08/15/24 Order Info: 2132-9 - B12 Order Info: [id number] - VITD25 Result Comment: Sonia min D 25(OH) Status Range Deficiency <20 ng/mL (50nmol/L) Insufficiency 20 - 30 ng/mL (50 - 75 nmol/L) Sufficiency 30 - 100 ng/mL (75 - 250 nmol/L) Toxicity >100 ng/mL (>250 nmol/L) Performed By: #### L 3890.6300, L3890.6200, L3890.6100, [id number] #### [facility] [address] [place], [address] Serum hepatitis B virus surf jesus antibody IgG detectionOrdered By: Jarred Sanabria on 10-25-2023 HBV surface IgG Ql (S) Non-Reactive [facility] Comment on above: Non Reactive: Incons istent with immunity less than <10 mIU/mL Reactive: Consistent with immunity greater than or equal to 10 mIU/mL Absolute lymphocyte countOrd ered By: Jarred Sanabria on 10-14-2023 Lymphocytes Auto (Unsp spec) [#/Vol] 3.06 10*3/uL 0.83-4.51 [facility] Automated lymphocyte count a s percentage of total leukocytesOrdered By: Jarred Sanabria on 10-14-2023 Lymphocytes/100 WBC Auto (Unsp spec) 43.6 % 19-41 [facility] Basophil percentageOrdered B y: Jarred Sanabria on 10-14-2023 Basophil percentage 3.6 mg/dL 2.5-4.9 [facility] Basophils/100 WBC (Bld) 0.6 % 0-1 [facility] Bilirubin [Mass/Vol] 0.40 mg/dL 0.20-1.00 [facility] Comment on above: For patients on eltr ombopag therapy, use of Dimension Smiley TBIL is not recommended. Chloride [Moles/Vol] 107 mmol/L 98-107 [facility] Cholesterol [Mass/Vol] 221 mg/dL <200 [facility] Comment on above: <200 mg/dL Desirable 200-240 mg/dL Borderline >240 mg/dL High Risk Eosinophils/100 WBC (Bld) 2.1 % 0-5 [facility] Glucose [Mass/Vol] 91 mg/dL 74-106 [facility] Hemoglobin (Bld) [Mass/Vol] 14.1 g/dL 12.0-15.0 [facility] Monocytes/100 WBC (Bld) 7.8 % 0-10 [facility] Neutrophils (Bld) [#/Vol] 3.2 10*3/uL 2.0-7.7 [facility] Neutrophils/100 WBC (Bld) 45.8 % 47-70 [facility] Potassium [Moles/Vol] 4.0 mmol/L 3.5-5.1 [facility] Protein [Mass/Vol] 7.4 g/dL 6.4-8.2 [facility] Sodium [Moles/Vol] 140 mmol/L 136-145 [facility] Triglyceride [Mass/Vol] 166 mg/dL <199 [facility] Comment on above: The drugs N-Acetylcy steine and Metamizole may falsely depress this assay.Serum Triglycerides Reference Interval Normal <150 mg/dL Borderline high 150 - 199 mg/dL High 200 - 499 mg/dL Very High > or = 500 mg/dL WBC (Bld) [#/Vol] 7.0 10*3/uL 4.4-11.0 [facility] Determination of erythrocyte mean corpuscular volume (MCV)Ordered By: Jarred Sanabria on 10-14-2023 MCV (RBC) [Entitic vol] 90.0 fL 81-99 [facility] Erythrocyte distribution wid th ratioOrdered By: Jarred Sanabria on 10-14-2023 Erythrocyte distribution width (RBC) [Ratio] 13.2 % 11.6-14.6 [facility] Erythrocyte distribution wid th standard deviationOrdered By: Jarred Sanabria on 10-14-2023 Erythrocyte distribution width (RBC) [Entitic vol] 43.6 fL 35.1-43.9 [facility] Hematocrit Auto (Bld) [Volum e fraction]Ordered By: Jarred Sanabria on 10-14-2023 Hematocrit (Bld) [Volume fraction] 44.1 % 37-47 [facility] Immature granulocytes/100 WB C Auto (Bld)Ordered By: Jarred Sanabria on 10-14-2023 Immature granulocytes/100 WBC (Bld) 0.100 % 0.0-0.9 [facility] Comment on above: IG% - Immature Granu locytes (promyelocytes, myelocytes and metamyelocytes) > 1% indicates that a LEFT SHIFT is Present. Iron measurement (mass/mass) Ordered By: Jarerd Sanabria on 10-14-2023 Iron (Unsp spec) [Mass/Mass] 83 ug/dL 50-170 [facility] Laboratory - Chemistry and C hemistry - challengeOrdered By: Jarred Sanabria on 10-14-2023 Albumin/Globulin [Mass ratio] 0.9 {ratio} 0.9-2.4 [facility] ALP [Catalytic activity/Vol] 78 U/L 45-117 [facility] ALT [Catalytic activity/Vol] 64 U/L 13-56 [facility] Cholesterol in HDL [Mass/Vol] 57 mg/dL >40 [facility] Comment on above: The drugs N-Acetylcy steine and Metamizole may falsely depress this assay. Reference Range HDL <40 mg/dL Low HDL Cholesterol HDL >or= 60 mg/dL High HDL Cholesterol Cholesterol in LDL [Mass/Vol] 131 mg/dL 0-130 [facility] CO2 [Moles/Vol] 27.0 mmol/L 21.0-32.0 [facility] Cobalamin (Vitamin B12) [Mass/Vol] 1123 pg/mL 211-911 [facility] Ferritin [Mass/Vol] 211 ng/mL 8-252 [facility] Globulin (S) [Mass/Vol] 3.8 g/dL 2.2-4.2 [facility] Magnesium [Mass/Vol] 2.3 mg/dL 1.6-2.6 [facility] Urea nitrogen/Creatinine [Mass ratio] 22.2 mg/mg 10-20 [facility] Laboratory - Hematology and Cell countsOrdered By: Jarred Sanabria on 10-14-2023 MCH (RBC) [Entitic mass] 28.8 pg 27.0-32.0 [facility] MCHC (RBC) [Mass/Vol] 32.0 g/dL 32-36 [facility] Nucleated RBC/100 WBC (Bld) [Ratio] 0 % 0-5 [facility] Platelet mean volume (Bld) [Entitic vol] 9.8 fL 6.2-12.0 [facility] Platelets (Bld) [#/Vol] 231 10*3/uL 150-450 [facility] No Panel InformationOrdered By: Jarred Sanabria on 10-14-2023 Estimated GFR (MDRD) Amer 79 mL/min >60 [facility] Comment on above: GFR Calc Estimated GFR (MDRD) Non-Af Amer 65 mL/min >60 [facility] Comment on above: Non- GFR Calc Total Iron Binding Capacity 336 ug/dL 250-450 [facility] Vitamin D 25-Hydroxy 41.9 ng/mL [facility] Comment on above: Vitamin D 25(OH) Sta tus Range Deficiency <20 ng/mL (50nmol/L) Insufficiency 20 - 30 ng/mL (50 - 75 nmol/L) Sufficiency 30 - 100 ng/mL (75 - 250 nmol/L) Toxicity >100 ng/mL (>250 nmol/L) VLDL Cholesterol 33 mg/dL 5-40 [facility] RBC Auto (Bld) [#/Vol]Ordere d By: Jarred Sanabria on 10-14-2023 RBC (Bld) [#/Vol] 4.90 10*6/uL 4.2-5.4 [facility] Serum or plasma calcium mary anne urement (mass/volume)Ordered By: Jarred Sanabria on 10-14-2023 Calcium [Mass/Vol] 9.9 mg/dL 8.5-10.1 [facility] Serum or plasma creatinine m easurement (mass/volume)Ordered By: Jarred Sanabria on 10-14-2023 Creatinine [Mass/Vol] 0.90 mg/dL 0.55-1.02 [facility] Comment on above: The validity of the calculated GFR & GFRAA in patients over 70 years has not been determined. Clinical correlation is essential. Serum or plasma thyroid stim ulating hormone (TSH) measurement (units/volume)Ordered By: Jarred Sanabria on 10-14-2023 TSH Qn 0.47 uIU/mL 0.358-3.74 [facility] Serum or plasma urea nitroge n measurement (mass/volume)Ordered By: Jarred Sanabria on 10-14-2023 Urea nitrogen [Mass/Vol] 20 mg/dL 7-18 [facility] Serum or plasma zinc measure ment (mass/volume)Ordered By: Jarred Sanabria on 10-14-2023 Zinc [Mass/Vol] 77 ug/dL 44-115 [facility] Comment on above: Detection Limit = 5P erformed at: [facility] [id number] Director: Triston Carrion MD, Phone: [phone] Thin prep Papanicolaou smear with manual screeningOrdered By: Jarred Sanabria on 10-14-2023 Thin prep Papanicolaou smear with manual screening 3.6 g/dL 3.2-5.0 [facility] Thin prep Papanicolaou smear with manual screening 56 U/L 15-37 [facility] Thin prep Papanicolaou smear with manual screening 6 5-15 [facility] Thin prep Papanicolaou smear with manual screening 1.28 ng/dL 0.76-1.46 [facility] Basophil percentageOrdered B y: Juan Carter on 06-14-2023 Bilirubin [Mass/Vol] 0.40 mg/dL 0.20-1.00 [facility] Comment on above: For patients on eltr ombopag therapy, use of Dimension Smiley TBIL is not recommended. Chloride [Moles/Vol] 103 mmol/L 98-107 [facility] Glucose [Mass/Vol] 97 mg/dL 74-106 [facility] Potassium [Moles/Vol] 4.0 mmol/L 3.5-5.1 [facility] Protein [Mass/Vol] 7.8 g/dL 6.4-8.2 [facility] Sodium [Moles/Vol] 139 mmol/L 136-145 [facility] Laboratory - Chemistry and C hemistry - challengeOrdered By: Juan Carter on 06-14-2023 ALP [Catalytic activity/Vol] 83 U/L 45-117 [facility] ALT [Catalytic activity/Vol] 59 U/L 13-56 [facility] CO2 [Moles/Vol] 29.0 mmol/L 21.0-32.0 [facility] Globulin (S) [Mass/Vol] 4.2 g/dL 2.2-4.2 [facility] Magnesium [Mass/Vol] 2.7 mg/dL 1.6-2.6 [facility] Urea nitrogen/Creatinine [Mass ratio] 28.8 mg/mg 10-20 [facility] No Panel InformationOrdered By: Juan Carter on 06-14-2023 Estimated GFR (MDRD) Amer 87 mL/min >60 [facility] Comment on above: GFR Calc Estimated GFR (MDRD) Non-Af Amer 72 mL/min >60 [facility] Comment on above: Non- GFR Calc Serum or plasma albumin mary anne urement (mass/volume)Ordered By: Juan Carter on 06-14-2023 Albumin [Mass/Vol] 3.6 g/dL 3.2-5.0 [facility] Serum or plasma albumin/glob ulin mass ratioOrdered By: Juan Carter on 06-14-2023 Albumin/Globulin [Mass ratio] 0.9 {ratio} 0.9-2.4 [facility] Serum or plasma calcium mary anne urement (mass/volume)Ordered By: Juan Carter on 06-14-2023 Calcium [Mass/Vol] 9.4 mg/dL 8.5-10.1 [facility] Serum or plasma creatinine m easurement (mass/volume)Ordered By: Juan Carter on 06-14-2023 Creatinine [Mass/Vol] 0.83 mg/dL 0.55-1.02 [facility] Comment on above: The validity of the calculated GFR & GFRAA in patients over 70 years has not been determined. Clinical correlation is essential. Serum or plasma urea nitroge n measurement (mass/volume)Ordered By: Juan Carter on 06-14-2023 Urea nitrogen [Mass/Vol] 24 mg/dL 7-18 [facility] Thin prep Papanicolaou smear with manual screeningOrdered By: Juan Carter on 06-14-2023 Thin prep Papanicolaou smear with manual screening 43 U/L 15-37 [facility] Thin prep Papanicolaou smear with manual screening 7 5-15 [facility] Absolute lymphocyte countOrd ered By: Jarred Sanabria on 04-22-2023 Lymphocytes Auto (Unsp spec) [#/Vol] 2.77 10*3/uL 0.83-4.51 [facility] Basophil percentageOrdered B y: Jarred Sanabria on 04-22-2023 Basophil percentage 3.3 mg/dL 2.5-4.9 [facility] Basophils/100 WBC (Bld) 0.6 % 0-1 [facility] Bilirubin [Mass/Vol] 0.30 mg/dL 0.20-1.00 [facility] Comment on above: For patients on eltr ombopag therapy, use of Dimension Smiley TBIL is not recommended. Chloride [Moles/Vol] 108 mmol/L 98-107 [facility] Cholesterol [Mass/Vol] 200 mg/dL <200 [facility] Comment on above: <200 mg/dL Desirable 200-240 mg/dL Borderline >240 mg/dL High Risk Eosinophils/100 WBC (Bld) 2.6 % 0-5 [facility] Glucose [Mass/Vol] 96 mg/dL 74-106 [facility] Neutrophils (Bld) [#/Vol] 3.5 10*3/uL 2.0-7.7 [facility] Neutrophils/100 WBC (Bld) 50.6 % 47-70 [facility] Potassium [Moles/Vol] 4.3 mmol/L 3.5-5.1 [facility] Protein [Mass/Vol] 6.8 g/dL 6.4-8.2 [facility] Sodium [Moles/Vol] 142 mmol/L 136-145 [facility] Triglyceride [Mass/Vol] 114 mg/dL <199 [facility] Comment on above: The drugs N-Acetylcy steine and Metamizole may falsely depress this assay.Serum Triglycerides Reference Interval Normal <150 mg/dL Borderline high 150 - 199 mg/dL High 200 - 499 mg/dL Very High > or = 500 mg/dL WBC (Bld) [#/Vol] 6.9 10*3/uL 4.4-11.0 [facility] Blood erythrocytes count (nu mber/volume)Ordered By: Jarred Sanabria on 04-22-2023 RBC (Bld) [#/Vol] 4.62 10*6/uL 4.2-5.4 [facility] Blood hemoglobin measurement (mass/volume)Ordered By: Jarred Sanabria on 04-22-2023 Hemoglobin (Bld) [Mass/Vol] 13.7 g/dL 12.0-15.0 [facility] Blood lymphocytes/100 leukoc ytesOrdered By: Jarred Sanabria on 04-22-2023 Lymphocytes/100 WBC (Bld) 40.0 % 19-41 [facility] Blood monocytes/100 leukocyt esOrdered By: Jarred Sanabria on 04-22-2023 Monocytes/100 WBC (Bld) 6.1 % 0-10 [facility] Blood platelet mean volumeOr dered By: Jarred Sanabria on 04-22-2023 Platelet mean volume (Bld) [Entitic vol] 9.6 fL 6.2-12.0 [facility] Determination of erythrocyte mean corpuscular volume (MCV)Ordered By: Jarred Sanabria on 04-22-2023 MCV (RBC) [Entitic vol] 92.0 fL 81-99 [facility] Hematocrit Auto (Bld) [Volum e fraction]Ordered By: Jarred Sanabria on 04-22-2023 Hematocrit (Bld) [Volume fraction] 42.5 % 37-47 [facility] Iron measurement (mass/mass) Ordered By: Jarred Sanabria on 04-22-2023 Iron (Unsp spec) [Mass/Mass] 59 ug/dL 50-170 [facility] Laboratory - Chemistry and C hemistry - challengeOrdered By: Jarred Sanabria on 04-22-2023 ALP [Catalytic activity/Vol] 70 U/L 45-117 [facility] ALT [Catalytic activity/Vol] 38 U/L 13-56 [facility] CO2 [Moles/Vol] 28.0 mmol/L 21.0-32.0 [facility] Cobalamin (Vitamin B12) [Mass/Vol] 1039 pg/mL 211-911 [facility] Free T4 [Mass/Vol] 1.08 ng/dL 0.76-1.46 [facility] Globulin (S) [Mass/Vol] 3.5 g/dL 2.2-4.2 [facility] Urea nitrogen/Creatinine [Mass ratio] 20.9 mg/mg 10-20 [facility] Laboratory - Hematology and Cell countsOrdered By: Jarred Sanabria on 04-22-2023 Erythrocyte distribution width (RBC) [Entitic vol] 45.1 fL 35.1-43.9 [facility] Erythrocyte distribution width (RBC) [Ratio] 13.3 % 11.6-14.6 [facility] Immature granulocytes/100 WBC (Bld) 0.100 % 0.0-0.9 [facility] Comment on above: IG% - Immature Granu locytes (promyelocytes, myelocytes and metamyelocytes) > 1% indicates that a LEFT SHIFT is Present. MCH (RBC) [Entitic mass] 29.7 pg 27.0-32.0 [facility] Nucleated RBC/100 WBC (Bld) [Ratio] 0 % 0-5 [facility] MCHC Auto (RBC) [Mass/Vol]Or dered By: Jarred Sanabria on 04-22-2023 MCHC (RBC) [Mass/Vol] 32.2 g/dL 32-36 [facility] No Panel InformationOrdered By: Jarred Sanabria on 04-22-2023 Estimated GFR (MDRD) Amer 103 mL/min >60 [facility] Comment on above: GFR Calc Estimated GFR (MDRD) Non-Af Amer 85 mL/min >60 [facility] Comment on above: Non- GFR Calc Thyroid Stimulating Hormone (TSH) 3.08 uIU/mL 0.358-3.74 [facility] Total Iron Binding Capacity 289 ug/dL 250-450 [facility] Vitamin D 25-Hydroxy 39.9 ng/mL [facility] Comment on above: Vitamin D 25(OH) Sta tus Range Deficiency <20 ng/mL (50nmol/L) Insufficiency 20 - 30 ng/mL (50 - 75 nmol/L) Sufficiency 30 - 100 ng/mL (75 - 250 nmol/L) Toxicity >100 ng/mL (>250 nmol/L) Platelets bldOrdered By: Mik Sanabria on 04-22-2023 Platelets (Bld) [#/Vol] 273 10*3/uL 150-450 [facility] Serum or plasma albumin mary anne urement (mass/volume)Ordered By: Jarred Sanabria on 04-22-2023 Albumin [Mass/Vol] 3.3 g/dL 3.2-5.0 [facility] Serum or plasma albumin/glob ulin mass ratioOrdered By: Jarred Sanabria on 04-22-2023 Albumin/Globulin [Mass ratio] 0.9 {ratio} 0.9-2.4 [facility] Serum or plasma calcium mary anne urement (mass/volume)Ordered By: Jarred Sanabria on 04-22-2023 Calcium [Mass/Vol] 9.2 mg/dL 8.5-10.1 [facility] Serum or plasma cholesterol in HDL measurement (mass/volume)Ordered By: Jarred Sanabria on 04-22-2023 Cholesterol in HDL [Mass/Vol] 60 mg/dL >40 [facility] Comment on above: The drugs N-Acetylcy steine and Metamizole may falsely depress this assay. Reference Range HDL <40 mg/dL Low HDL Cholesterol HDL >or= 60 mg/dL High HDL Cholesterol Serum or plasma cholesterol in VLDL measurement (mass/volume)Ordered By: Jarred Sanabria on 04-22-2023 Cholesterol in VLDL [Mass/Vol] 23 mg/dL 5-40 [facility] Serum or plasma creatinine m easurement (mass/volume)Ordered By: Jarred Sanabria on 04-22-2023 Creatinine [Mass/Vol] 0.72 mg/dL 0.55-1.02 [facility] Comment on above: The validity of the calculated GFR & GFRAA in patients over 70 years has not been determined. Clinical correlation is essential. Serum or plasma ferritin cayla surement (mass/volume)Ordered By: Jarred Sanabria on 04-22-2023 Ferritin [Mass/Vol] 167 ng/mL 8-252 [facility] Serum or plasma low density lipoprotein (LDL) cholesterol measurement (mass/volume)Ordered By: Jarred Sanabria on 04-22-2023 Cholesterol in LDL [Mass/Vol] 117 mg/dL 0-130 [facility] Serum or plasma urea nitroge n measurement (mass/volume)Ordered By: Jarred Sanabria on 04-22-2023 Urea nitrogen [Mass/Vol] 15 mg/dL 7-18 [facility] Serum or plasma zinc measure ment (mass/volume)Ordered By: Jarred Sanabria on 04-22-2023 Zinc [Mass/Vol] 65 ug/dL 44-115 [facility] Comment on above: Detection Limit = 5P erformed at: - [facility] [id number] Director: Triston Carrion MD, Phone: [phone] Thin prep Papanicolaou smear with manual screeningOrdered By: Jarred Sanabria on 04-22-2023 Thin prep Papanicolaou smear with manual screening 32 U/L 15-37 [facility] Thin prep Papanicolaou smear with manual screening 6 5-15 [facility] Absolute lymphocyte countOrd ered By: Dr. Sanabria on 12-08-2022 Lymphocytes Auto (Unsp spec) [#/Vol] 2.19 10*3/uL 0.83-4.51 [facility] Acid fast bacilli (AFB) cult ureOrdered By: Dr. Mercedes on 12-08-2022 Mycobacterium sp identified Org specific cx Nom (Unsp spec) [facility] Basophil percentageOrdered B y: Dr. Sanabria on 12-08-2022 Basophil percentage 3.2 mg/dL 2.5-4.9 [facility] Basophils/100 WBC (Bld) 0.7 % 0-1 [facility] Bilirubin [Mass/Vol] 0.30 mg/dL 0.20-1.00 [facility] Comment on above: For patients on eltr ombopag therapy, use of Dimension Smiley TBIL is not recommended. Chloride [Moles/Vol] 108 mmol/L 98-107 [facility] Eosinophils/100 WBC (Bld) 2.6 % 0-5 [facility] Glucose [Mass/Vol] 92 mg/dL 74-106 [facility] Neutrophils (Bld) [#/Vol] 2.6 10*3/uL 2.0-7.7 [facility] Neutrophils/100 WBC (Bld) 48.3 % 47-70 [facility] Potassium [Moles/Vol] 4.0 mmol/L 3.5-5.1 [facility] Protein [Mass/Vol] 6.5 g/dL 6.4-8.2 [facility] Sodium [Moles/Vol] 139 mmol/L 136-145 [facility] WBC (Bld) [#/Vol] 5.5 10*3/uL 4.4-11.0 [facility] Blood erythrocytes count (nu mber/volume)Ordered By: Dr. Sanabria on 12-08-2022 RBC (Bld) [#/Vol] 4.68 10*6/uL 4.2-5.4 [facility] Blood hemoglobin measurement (mass/volume)Ordered By: Dr. Sanabria on 12-08-2022 Hemoglobin (Bld) [Mass/Vol] 13.3 g/dL 12.0-15.0 [facility] Blood lymphocytes/100 leukoc ytesOrdered By: Dr. Sanabria on 12-08-2022 Lymphocytes/100 WBC (Bld) 40.0 % 19-41 [facility] Blood monocytes/100 leukocyt esOrdered By: Dr. Sanabria on 12-08-2022 Monocytes/100 WBC (Bld) 8.0 % 0-10 [facility] Blood platelet mean volumeOr dered By: Dr. Sanabria on 12-08-2022 Platelet mean volume (Bld) [Entitic vol] 9.8 fL 6.2-12.0 [facility] Determination of erythrocyte mean corpuscular volume (MCV)Ordered By: Dr. Sanabria on 12-08-2022 MCV (RBC) [Entitic vol] 91.0 fL 81-99 [facility] Hematocrit Auto (Bld) [Volum e fraction]Ordered By: Dr. Sanabria on 12-08-2022 Hematocrit (Bld) [Volume fraction] 42.6 % 37-47 [facility] Iron measurement (mass/mass) Ordered By: Dr. Sanabria on 12-08-2022 Iron (Unsp spec) [Mass/Mass] 90 ug/dL 50-170 [facility] Laboratory - Chemistry and C hemistry - challengeOrdered By: Dr. Sanabria on 12-08-2022 ALP [Catalytic activity/Vol] 76 U/L 45-117 [facility] ALT [Catalytic activity/Vol] 50 U/L 13-56 [facility] CO2 [Moles/Vol] 26.0 mmol/L 21.0-32.0 [facility] Cobalamin (Vitamin B12) [Mass/Vol] 1266 pg/mL 211-911 [facility] Free T4 [Mass/Vol] 1.05 ng/dL 0.76-1.46 [facility] Globulin (S) [Mass/Vol] 3.3 g/dL 2.2-4.2 [facility] Magnesium [Mass/Vol] 2.4 mg/dL 1.6-2.6 [facility] Urea nitrogen/Creatinine [Mass ratio] 20.3 mg/mg 10-20 [facility] Laboratory - Hematology and Cell countsOrdered By: Dr. Sanabria on 12-08-2022 Erythrocyte distribution width (RBC) [Entitic vol] 47.0 fL 35.1-43.9 [facility] Erythrocyte distribution width (RBC) [Ratio] 14.1 % 11.6-14.6 [facility] Immature granulocytes/100 WBC (Bld) 0.400 % 0.0-0.9 [facility] Comment on above: IG% - Immature Granu locytes (promyelocytes, myelocytes and metamyelocytes) > 1% indicates that a LEFT SHIFT is Present. MCH (RBC) [Entitic mass] 28.4 pg 27.0-32.0 [facility] Nucleated RBC/100 WBC (Bld) [Ratio] 0 % 0-5 [facility] MCHC Auto (RBC) [Mass/Vol]Or dered By: Dr. Sanabria on 12-08-2022 MCHC (RBC) [Mass/Vol] 31.2 g/dL 32-36 [facility] No Panel InformationOrdered By: Dr. Sanabria on 12-08-2022 Estimated GFR (MDRD) Amer 108 mL/min >60 [facility] Comment on above: GFR Calc Estimated GFR (MDRD) Non-Af Amer 89 mL/min >60 [facility] Comment on above: Non- GFR Calc Thyroid Stimulating Hormone (TSH) 2.07 uIU/mL 0.358-3.74 [facility] Vitamin D 25-Hydroxy 32.7 ng/mL [facility] Comment on above: Vitamin D 25(OH) Sta tus Range Deficiency <20 ng/mL (50nmol/L) Insufficiency 20 - 30 ng/mL (50 - 75 nmol/L) Sufficiency 30 - 100 ng/mL (75 - 250 nmol/L) Toxicity >100 ng/mL (>250 nmol/L) Platelets bldOrdered By: Dr. Sanabria on 12-08-2022 Platelets (Bld) [#/Vol] 189 10*3/uL 150-450 [facility] Serum or plasma albumin mary anne urement (mass/volume)Ordered By: Dr. Sanabria on 12-08-2022 Albumin [Mass/Vol] 3.2 g/dL 3.2-5.0 [facility] Serum or plasma albumin/glob ulin mass ratioOrdered By: Dr. Sanabria on 12-08-2022 Albumin/Globulin [Mass ratio] 1.0 {ratio} 0.9-2.4 [facility] Serum or plasma calcium mary anne urement (mass/volume)Ordered By: Dr. Sanabria on 12-08-2022 Calcium [Mass/Vol] 9.3 mg/dL 8.5-10.1 [facility] Serum or plasma creatinine m easurement (mass/volume)Ordered By: Dr. Sanabria on 12-08-2022 Creatinine [Mass/Vol] 0.69 mg/dL 0.55-1.02 [facility] Comment on above: The validity of the calculated GFR & GFRAA in patients over 70 years has not been determined. Clinical correlation is essential. Serum or plasma ferritin cayla surement (mass/volume)Ordered By: Dr. Sanabria on 12-08-2022 Ferritin [Mass/Vol] 119 ng/mL 8-252 [facility] Serum or plasma urea nitroge n measurement (mass/volume)Ordered By: Dr. Sanabria on 12-08-2022 Urea nitrogen [Mass/Vol] 14 mg/dL 7-18 [facility] Serum or plasma zinc measure ment (mass/volume)Ordered By: Dr. Sanabria on 12-08-2022 Zinc [Mass/Vol] 67 ug/dL 44-115 [facility] Comment on above: Detection Limit = 5P erformed at: [facility] [id number] [place], [place] [id number] Director: Triston Carrion MD, Phone: [phone] Thin prep Papanicolaou smear with manual screeningOrdered By: Dr. Sanabria on 12-08-2022 Thin prep Papanicolaou smear with manual screening 40 U/L 15-37 [facility] Thin prep Papanicolaou smear with manual screening 5 5-15 [facility] Fungus cultureOrdered By: Dr Cj Mercedes on 11-25-2022 Fungus identified Cx Nom (Unsp spec) [facility] Thin prep Papanicolaou smear with manual screeningOrdered By: Dr. Mercedes on 11-25-2022 Thin prep Papanicolaou smear with manual screening [facility] Blood lymphocytes/100 leukoc ytesOrdered By: Dr. Mercedes on 10-19-2022 Lymphocytes/100 WBC (Bld) 37 % [facility] Color of Synovial fluidOrder ed By: Dr. Mercedes on 10-19-2022 Color (Syn fld) Bloody Pale Yellow [facility] Determination of appearance of synovial fluidOrdered By: Dr. Mercedes on 10-19-2022 Appearance (Syn fld) Cloudy CLEAR [facility] Gram stain for investigation of transfusion reactionOrdered By: Dr. Mercedes on 10-19-2022 Microscopic observation Gram stain Nom (Unsp spec) [facility] No Panel InformationOrdered By: Dr. Mercedes on 10-19-2022 Synovial Fluid Mononuclear WBCs 0.318 10^3/ul [facility] Synovial Fluid Mononuclear WBCs % 79.3 % [facility] Synovial Fluid Polynuclear WBCs 0.083 10^3/uL [facility] Synovial Fluid Polynuclear WBCs % 20.7 % [facility] Synovial Fluid Total Cells Counted 0.4490 10^3/uL 0.000-0.000 [facility] Comment on above: This is the Total Nu mber of Nucleated Cell Types in the Body Fluid. Qualitative synovial fluid v iscosityOrdered By: Dr. Mercedes on 10-19-2022 Viscosity Ql (Syn fld) Sl. Viscous HIGH W [facility] Review by pathologistOrdered By: Dr. Mercedes on 02-20-2023 Pathologist review Feliciano (Unsp spec) [Interp] Reviewed [facility] Comment on above: Previous reported re sult: May follow Edited by: RGOMERCEDES on 10/20/22:1449Negative for malignant cells.Joseluis De Dios M.D. 10/20/22 AMENDED REPORT 10/20/22 1449 PATH COM/SYFL previously reported as: May follow Specimen source identificati on of body fluidOrdered By: Dr. Mercedes on 10-19-2022 Specimen source Nom (Body fld) RIGHT KNEE [facility] Synovial fluid erythrocytes count (number/volume)Ordered By: Dr. Mercedes on 10-19-2022 RBC (Syn fld) [#/Vol] 0.096 10^6/uL 0-0 [facility] Synovial fluid leukocytes co unt (number/volume)Ordered By: Dr. Mercedes on 10-19-2022 WBC (Syn fld) [#/Vol] 0.4010 10^3/uL 0.000-0.00 2 [facility] Synovial fluid monocyte perc entageOrdered By: Dr. Mercedes on 10-19-2022 Monocytes/100 WBC (Syn fld) 31 % [facility] Synovial fluid neutrophil pe rcentageOrdered By: Dr. Mercedes on 10-19-2022 Neutrophils/100 WBC (Syn fld) 31 % 0-25 [facility] Synovial fluid other cells/1 00 leukocytes identificationOrdered By: Dr. Mercedes on 10-19-2022 Other cells/100 WBC Nom (Syn fld) 1 % [facility] Absolute lymphocyte countOrd ered By: Dr. Mercedes on 10-12-2022 Lymphocytes Auto (Unsp spec) [#/Vol] 2.80 10*3/uL 0.83-4.51 [facility] Basophil percentageOrdered B y: Dr. Mercedes on 10-12-2022 Basophils/100 WBC (Bld) 0.5 % 0-1 [facility] Eosinophils/100 WBC (Bld) 2.2 % 0-5 [facility] Neutrophils (Bld) [#/Vol] 2.8 10*3/uL 2.0-7.7 [facility] Neutrophils/100 WBC (Bld) 44.6 % 47-70 [facility] WBC (Bld) [#/Vol] 6.3 10*3/uL 4.4-11.0 [facility] Blood erythrocytes count (nu mber/volume)Ordered By: Dr. Mercedes on 10-12-2022 RBC (Bld) [#/Vol] 4.77 10*6/uL 4.2-5.4 [facility] Blood hemoglobin measurement (mass/volume)Ordered By: Dr. Mercedes on 10-12-2022 Hemoglobin (Bld) [Mass/Vol] 13.1 g/dL 12.0-15.0 [facility] Blood lymphocytes/100 leukoc ytesOrdered By: Dr. Mercedes on 10-12-2022 Lymphocytes/100 WBC (Bld) 44.3 % 19-41 [facility] Blood monocytes/100 leukocyt esOrdered By: Dr. Mercedes on 10-12-2022 Monocytes/100 WBC (Bld) 8.2 % 0-10 [facility] Blood platelet mean volumeOr dered By: Dr. Mercedes on 10-12-2022 Platelet mean volume (Bld) [Entitic vol] 10.1 fL 6.2-12.0 [facility] Determination of erythrocyte mean corpuscular volume (MCV)Ordered By: Dr. Mercedes on 10-12-2022 MCV (RBC) [Entitic vol] 88.9 fL 81-99 [facility] Erythrocyte sedimentation ra teOrdered By: Dr. Mercedes on 10-12-2022 ESR (Bld) [Velocity] 29 mm/h 0-30 [facility] Hematocrit Auto (Bld) [Volum e fraction]Ordered By: Dr. Mercedes on 10-12-2022 Hematocrit (Bld) [Volume fraction] 42.4 % 37-47 [facility] Laboratory - Hematology and Cell countsOrdered By: Dr. Mercedes on 10-12-2022 Erythrocyte distribution width (RBC) [Entitic vol] 47.1 fL 35.1-43.9 [facility] Erythrocyte distribution width (RBC) [Ratio] 14.5 % 11.6-14.6 [facility] Immature granulocytes/100 WBC (Bld) 0.200 % 0.0-0.9 [facility] Comment on above: IG% - Immature Granu locytes (promyelocytes, myelocytes and metamyelocytes) > 1% indicates that a LEFT SHIFT is Present. MCH (RBC) [Entitic mass] 27.5 pg 27.0-32.0 [facility] Nucleated RBC/100 WBC (Bld) [Ratio] 0 % 0-5 [facility] MCHC Auto (RBC) [Mass/Vol]Or dered By: Dr. Mercedes on 10-12-2022 MCHC (RBC) [Mass/Vol] 30.9 g/dL 32-36 [facility] Platelets bldOrdered By: Dr. Mercedes on 10-12-2022 Platelets (Bld) [#/Vol] 239 10*3/uL 150-450 [facility] Serum or plasma C reactive p rotein measurement (mass/volume)Ordered By: Dr. Mercedes on 10-12-2022 CRP [Mass/Vol] mg/L 0.0-3.0 [facility] Comment on above: C-Reactive Protein ( CRP) provides useful information for thediagnosis, therapy and monitoring of inflammatory processesand associated diseases. For the evaluation of Relative Riskfor Cardiovascular Disease, a High Sensitivity CRP (HSCRP)should be ordered. Absolute lymphocyte counton 06-09-2022 Lymphocytes Auto (Unsp spec) [#/Vol] 2.01 10*3/uL 0.83-4.51 [facility] Work Phone: [phone] Basophil percentageon 2021 Basophil percentage 3.2 mg/dL 2.5-4.9 [facility] Work Phone: Basophils/100 WBC (Bld) 0.3 % 0-1 [facility] Work Phone: Bilirubin [Mass/Vol] 0.20 mg/dL 0.20-1.00 [facility] Work Phone: Comment on above: For patients on eltr ombopag therapy, use of Dimension Smiley TBIL is not recommended. Chloride [Moles/Vol] 110 mmol/L 98-107 [facility] Work Phone: Eosinophils/100 WBC (Bld) 1.9 % 0-5 [facility] Work Phone: Glucose [Mass/Vol] 90 mg/dL 74-106 [facility] Work Phone: Neutrophils (Bld) [#/Vol] 3.7 10*3/uL 2.0-7.7 [facility] Work Phone: Neutrophils/100 WBC (Bld) 57.7 % 47-70 [facility] Work Phone: Potassium [Moles/Vol] 4.1 mmol/L 3.5-5.1 [facility] Work Phone: Protein [Mass/Vol] 7.1 g/dL 6.4-8.2 [facility] Work Phone: Sodium [Moles/Vol] 143 mmol/L 136-145 [facility] Work Phone: WBC (Bld) [#/Vol] 6.4 10*3/uL 4.4-11.0 [facility] Work Phone: Blood erythrocytes count (nu mber/volume)on 06-09-2022 RBC (Bld) [#/Vol] 4.72 10*6/uL 4.2-5.4 [facility] Work [facility]: Blood hemoglobin measurement (mass/volume)on 06-09-2022 Hemoglobin (Bld) [Mass/Vol] 12.3 g/dL 12.0-15.0 [facility] Work Phone: Blood lymphocytes/100 leukoc yteson 06-09-2022 Lymphocytes/100 WBC (Bld) 31.5 % 19-41 [facility] Work Phone: Blood monocytes/100 leukocyt eson 06-09-2022 Monocytes/100 WBC (Bld) 8.3 % 0-10 [facility] Work Phone: Blood platelet mean volumeon 06-09-2022 Platelet mean volume (Bld) [Entitic vol] 9.5 fL 6.2-12.0 [facility] Work Phone: Determination of erythrocyte mean corpuscular volume (MCV)on 06-09-2022 MCV (RBC) [Entitic vol] 84.5 fL 81-99 [facility] Work Phone: Hematocrit Auto (Bld) [Volum e fraction]on 06-09-2022 Hematocrit (Bld) [Volume fraction] 39.9 % 37-47 [facility] Work Phone: Iron measurement (mass/mass) on 06-09-2022 Iron (Unsp spec) [Mass/Mass] 43 ug/dL 50-170 [facility] Work Phone: Laboratory - Chemistry and C hemistry - challengeon 06-09-2022 ALP [Catalytic activity/Vol] 86 U/L 45-117 [facility] Work Phone: ALT [Catalytic activity/Vol] 45 U/L 13-56 [facility] Work Phone: CO2 [Moles/Vol] 27.0 mmol/L 21.0-32.0 [facility] Work Phone: Cobalamin (Vitamin B12) [Mass/Vol] 1609 pg/mL 211-911 [facility] Work Phone: Free T4 [Mass/Vol] 1.18 ng/dL 0.76-1.46 [facility] Work Phone: Globulin (S) [Mass/Vol] 3.7 g/dL 2.2-4.2 [facility] Work Phone: Magnesium [Mass/Vol] 2.6 mg/dL 1.6-2.6 [facility] Work Phone: Urea nitrogen/Creatinine [Mass ratio] 21.1 mg/mg 10-20 [facility] Work Phone: Laboratory - Hematology and Cell countson 06-09-2022 Erythrocyte distribution width (RBC) [Entitic vol] 44.9 fL 35.1-43.9 [facility] Work Phone: Erythrocyte distribution width (RBC) [Ratio] 14.6 % 11.6-14.6 [facility] Work Phone: Immature granulocytes/100 WBC (Bld) 0.300 % 0.0-0.9 [facility] Work Phone: Comment on above: IG% - Immature Granu locytes (promyelocytes, myelocytes and metamyelocytes) > 1% indicates that a LEFT SHIFT is Present. MCH (RBC) [Entitic mass] 26.1 pg 27.0-32.0 [facility] Work Phone: Nucleated RBC/100 WBC (Bld) [Ratio] 0 % 0-5 [facility] Work Phone: [phone] MCHC Auto (RBC) [Mass/Vol]on 06-09-2022 MCHC (RBC) [Mass/Vol] 30.8 g/dL 32-36 [facility] Work Phone: [phone] No Panel Informationon 06-09 Estimated GFR (MDRD) Amer 113 mL/min >60 [facility] Work Phone: Comment on above: GFR Calc Estimated GFR (MDRD) Non-Af Amer 94 mL/min >60 [facility] Work Phone: Comment on above: Non- GFR Calc Thyroid Stimulating Hormone (TSH) 0.66 uIU/mL 0.358-3.74 [facility] Work Phone: [phone] Total Iron Binding Capacity 296 ug/dL 250-450 [facility] Work Phone: [phone] Platelets bldon 06-09-2022 Platelets (Bld) [#/Vol] 236 10*3/uL 150-450 [facility] Work Phone: [phone] Serum or plasma albumin mary anne urement (mass/volume)on 06-09-2022 Albumin [Mass/Vol] 3.4 g/dL 3.2-5.0 [facility] Work Phone: [phone] Serum or plasma albumin/glob ulin mass ratioon 06-09-2022 Albumin/Globulin [Mass ratio] 0.9 {ratio} 0.9-2.4 [facility] Work Phone: [phone] Serum or plasma calcium mary anne urement (mass/volume)on 06-09-2022 Calcium [Mass/Vol] 9.7 mg/dL 8.5-10.1 [facility] Work Phone: Serum or plasma creatinine m easurement (mass/volume)on 06-09-2022 Creatinine [Mass/Vol] 0.66 mg/dL 0.55-1.02 [facility] Work Phone: Comment on above: The validity of the calculated GFR & GFRAA in patients over 70 years has not been determined. Clinical correlation is essential. Serum or plasma ferritin cayla surement (mass/volume)on 06-09-2022 Ferritin [Mass/Vol] 129 ng/mL 8-252 [facility] Work Phone: Serum or plasma urea nitroge n measurement (mass/volume)on 06-09-2022 Urea nitrogen [Mass/Vol] 14 mg/dL 7-18 [facility] Work Phone: Serum or plasma zinc measure ment (mass/volume)on 06-09-2022 Zinc [Mass/Vol] 85 ug/dL 44-115 [facility] Work Phone: Comment on above: Detection Limit = 5P erformed at: [facility] [id number] [place], [place] [id number] Director: Triston Carrion MD, Phone: [phone] Thin prep Papanicolaou smear with manual screeningon 06-09-2022 Thin prep Papanicolaou smear with manual screening 31 U/L 15-37 [facility] Work Phone: Thin prep Papanicolaou smear with manual screening 6 5-15 [facility] Work Phone: Basophil percentageon 2021 Chloride [Moles/Vol] 106 mmol/L 98-107 [facility] Work Phone: Glucose [Mass/Vol] 86 mg/dL 74-106 [facility] Work Phone: Potassium [Moles/Vol] 4.3 mmol/L 3.5-5.1 [facility] Work Phone: [phone] Sodium [Moles/Vol] 140 mmol/L 136-145 [facility] Work Phone: [phone] WBC (Bld) [#/Vol] 5.0 10*3/uL 4.4-11.0 [facility] Work Phone: [phone] Blood erythrocytes count (nu mber/volume)on 04-09-2022 RBC (Bld) [#/Vol] 4.19 10*6/uL 4.2-5.4 [facility] Work Phone: [phone] Blood hemoglobin measurement (mass/volume)on 04-09-2022 Hemoglobin (Bld) [Mass/Vol] 11.4 g/dL 12.0-15.0 [facility] Work Phone: [phone] Blood platelet mean volumeon 04-09-2022 Platelet mean volume (Bld) [Entitic vol] 9.7 fL 6.2-12.0 [facility] Work Phone: Determination of erythrocyte mean corpuscular volume (MCV)on 04-09-2022 MCV (RBC) [Entitic vol] 88.8 fL 81-99 [facility] Work Phone: Hematocrit Auto (Bld) [Volum e fraction]on 04-09-2022 Hematocrit (Bld) [Volume fraction] 37.2 % 37-47 [facility] Work Phone: Laboratory - Chemistry and C hemistry - challengeon 04-09-2022 CO2 [Moles/Vol] 27.0 mmol/L 21.0-32.0 [facility] Work Phone: [phone] Urea nitrogen/Creatinine [Mass ratio] 24.4 mg/mg 10-20 [facility] Work Phone: [phone] Laboratory - Hematology and Cell countson 04-09-2022 Erythrocyte distribution width (RBC) [Entitic vol] 44.4 fL 35.1-43.9 [facility] Work Phone: [phone] Erythrocyte distribution width (RBC) [Ratio] 13.6 % 11.6-14.6 [facility] Work Phone: MCH (RBC) [Entitic mass] 27.2 pg 27.0-32.0 [facility] Work Phone: MCHC Auto (RBC) [Mass/Vol]on 04-09-2022 MCHC (RBC) [Mass/Vol] 30.6 g/dL 32-36 [facility] Work Phone: No Panel Informationon 04-09 Estimated GFR (MDRD) Amer 89 mL/min >60 [facility] Work Phone: Comment on above: GFR Calc Estimated GFR (MDRD) Non-Af Amer 73 mL/min >60 [facility] Work Phone: Comment on above: Non- GFR Calc Platelets bldon 04-09-2022 Platelets (Bld) [#/Vol] 292 10*3/uL 150-450 [facility] Work Phone: Serum or plasma calcium mary anne urement (mass/volume)on 04-09-2022 Calcium [Mass/Vol] 9.4 mg/dL 8.5-10.1 [facility] Work Phone: Serum or plasma creatinine m easurement (mass/volume)on 04-09-2022 Creatinine [Mass/Vol] 0.82 mg/dL 0.55-1.02 [facility] Work Phone: Comment on above: The validity of the calculated GFR & GFRAA in patients over 70 years has not been determined. Clinical correlation is essential. Serum or plasma urea nitroge n measurement (mass/volume)on 04-09-2022 Urea nitrogen [Mass/Vol] 20 mg/dL 7-18 [facility] Work Phone: Thin prep Papanicolaou smear with manual screeningon 04-09-2022 Thin prep Papanicolaou smear with manual screening 7 5-15 [facility] Work Phone: Absolute lymphocyte counton 04-03-2022 Lymphocytes Auto (Unsp spec) [#/Vol] 1.01 10*3/uL 0.83-4.51 [facility] Work Phone: Basophil percentageon 2021 Basophil percentage 0-5 SEEN /hpf 0-5 [facility] Work Phone: Basophils/100 WBC (Bld) 0.4 % 0-1 [facility] Work Phone: Bilirubin [Mass/Vol] 0.50 mg/dL 0.20-1.00 [facility] Work Phone: Comment on above: For patients on eltr ombopag therapy, use of Dimension Smiley TBIL is not recommended. Chloride [Moles/Vol] 107 mmol/L 98-107 [facility] Work Phone: Eosinophils/100 WBC (Bld) 3.1 % 0-5 [facility] Work Phone: Glucose [Mass/Vol] 99 mg/dL 74-106 [facility] Work Phone: Neutrophils (Bld) [#/Vol] 3.8 10*3/uL 2.0-7.7 [facility] Work Phone: Neutrophils/100 WBC (Bld) 69.3 % 47-70 [facility] Work Phone: Potassium [Moles/Vol] 3.9 mmol/L 3.5-5.1 [facility] Work Phone: Protein [Mass/Vol] 6.4 g/dL 6.4-8.2 [facility] Work Phone: Sodium [Moles/Vol] 141 mmol/L 136-145 [facility] Work Phone: WBC (Bld) [#/Vol] 5.5 10*3/uL 4.4-11.0 [facility] Work Phone: Bilirubin Test strip Ql (U)o n 04-03-2022 Bilirubin Ql (U) Negative Negative [facility] Work Phone: Blood erythrocytes count (nu mber/volume)on 04-03-2022 RBC (Bld) [#/Vol] 3.75 10*6/uL 4.2-5.4 [facility] Work Phone: [phone] Blood hemoglobin measurement (mass/volume)on 04-03-2022 Hemoglobin (Bld) [Mass/Vol] 10.3 g/dL 12.0-15.0 [facility] Work Phone: Blood lymphocytes/100 leukoc yteson 04-03-2022 Lymphocytes/100 WBC (Bld) 18.4 % 19-41 [facility] Work Phone: Blood monocytes/100 leukocyt eson 04-03-2022 Monocytes/100 WBC (Bld) 8.6 % 0-10 [facility] Work Phone: Blood platelet mean volumeon 04-03-2022 Platelet mean volume (Bld) [Entitic vol] 9.2 fL 6.2-12.0 [facility] Work Phone: [phone] Determination of erythrocyte mean corpuscular volume (MCV)on 04-03-2022 MCV (RBC) [Entitic vol] 89.9 fL 81-99 [facility] Work Phone: Hematocrit Auto (Bld) [Volum e fraction]on 04-03-2022 Hematocrit (Bld) [Volume fraction] 33.7 % 37-47 [facility] Work Phone: [phone] Ketones Test strip Ql (U)on 04-03-2022 Ketones Ql (U) Negative Negative [facility] Work Phone: [phone] Laboratory - Chemistry and C hemistry - challengeon 04-03-2022 ALP [Catalytic activity/Vol] 86 U/L 45-117 [facility] Work Phone: ALT [Catalytic activity/Vol] 19 U/L 13-56 [facility] Work Phone: CO2 [Moles/Vol] 30.0 mmol/L 21.0-32.0 [facility] Work Phone: [phone] Globulin (S) [Mass/Vol] 3.5 g/dL 2.2-4.2 [facility] Work Phone: Lipase [Catalytic activity/Vol] 75 U/L 73-393 [facility] Work Phone: Natriuretic peptide B (Bld) [Mass/Vol] 86.4 pg/mL 0-100 [facility] Work Phone: Urea nitrogen/Creatinine [Mass ratio] 25.4 mg/mg 10-20 [facility] Work Phone: Laboratory - Hematology and Cell countson 04-03-2022 Erythrocyte distribution width (RBC) [Entitic vol] 44.4 fL 35.1-43.9 [facility] Work Phone: Erythrocyte distribution width (RBC) [Ratio] 13.5 % 11.6-14.6 [facility] Work Phone: Immature granulocytes/100 WBC (Bld) 0.200 % 0.0-0.9 [facility] Work Phone: Comment on above: IG% - Immature Granu locytes (promyelocytes, myelocytes and metamyelocytes) > 1% indicates that a LEFT SHIFT is Present. MCH (RBC) [Entitic mass] 27.5 pg 27.0-32.0 [facility] Work Phone: Nucleated RBC/100 WBC (Bld) [Ratio] 0 % 0-5 [facility] Work Phone: MCHC Auto (RBC) [Mass/Vol]on 04-03-2022 MCHC (RBC) [Mass/Vol] 30.6 g/dL 32-36 [facility] Work Phone: Mucus LM Ql (Urine sed)on Mucus Ql (Urine sed) 0 SEEN /hpf [facility] Work Phone: Nitrite Test strip Ql (U)on 04-03-2022 Nitrite Ql (U) Negative Negative [facility] Work Phone: No Panel Informationon 04-03 Estimated Creatinine Clearance Calc 38.14 ml/min [facility] Work Phone: Estimated GFR (MDRD) Amer 105 mL/min >60 [facility] Work Phone: Comment on above: GFR Calc Estimated GFR (MDRD) Non-Af Amer 87 mL/min >60 [facility] Work Phone: Comment on above: Non- GFR Calc Troponin I High Sensitivity 4 pg/mL 3.0-54.0 [facility] Work Phone: Comment on above: Please Note: New Mikaela t Units and Gender Specific Reference Ranges. For more information see Policy Stat Procedure Smiley High Sensitivity Troponin (TNIH) and attachments. Platelets bldon 04-03-2022 Platelets (Bld) [#/Vol] 222 10*3/uL 150-450 [facility] Work Phone: Protein Test strip Ql (U)on 04-03-2022 Protein Ql (U) Negative Negative [facility] Work Phone: Serum or plasma albumin mary anne urement (mass/volume)on 04-03-2022 Albumin [Mass/Vol] 2.9 g/dL 3.2-5.0 [facility] Work Phone: Serum or plasma albumin/glob ulin mass ratioon 04-03-2022 Albumin/Globulin [Mass ratio] 0.8 {ratio} 0.9-2.4 [facility] Work Phone: Serum or plasma calcium mary anne urement (mass/volume)on 04-03-2022 Calcium [Mass/Vol] 8.9 mg/dL 8.5-10.1 [facility] Work Phone: Serum or plasma creatinine m easurement (mass/volume)on 04-03-2022 Creatinine [Mass/Vol] 0.71 mg/dL 0.55-1.02 [facility] Work Phone: Comment on above: The validity of the calculated GFR & GFRAA in patients over 70 years has not been determined. Clinical correlation is essential. Serum or plasma urea nitroge n measurement (mass/volume)on 04-03-2022 Urea nitrogen [Mass/Vol] 18 mg/dL 7-18 [facility] Work Phone: Squamous epithelial cells de tection in urine sediment by light microscopyon 04-03-2022 Epithelial cells.squamous LM Ql (Urine sed) 0-5 SEEN /hpf 5-10 [facility] Work Phone: Thin prep Papanicolaou smear with manual screeningon 04-03-2022 Thin prep Papanicolaou smear with manual screening 22 U/L 15-37 [facility] Work Phone: Thin prep Papanicolaou smear with manual screening 4 5-15 [facility] Work Phone: Urine blood detectionon -0 RBC Ql (U) Negative Negative [facility] Work Phone: RBC Ql (U) 0 SEEN /hpf 0-5 [facility] Work Phone: Urine clarityon 04-03-2022 Clarity (U) Clear Clear [facility] Work Phone: Urine color determinationon 04-03-2022 Color (U) Yellow Yellow [facility] Work Phone: Urine glucose detectionon Glucose Ql (U) Normal mg/dl Normal [facility] Work Phone: Urine leukocyte esterase det ection by dipstickon 04-03-2022 Leukocyte esterase Test strip Ql (U) Negative Negative [facility] Work Phone: Urine pHon 04-03-2022 pH (U) 8.0 [pH] 5.0 - 8.0 [facility] Work Phone: Urine sediment bacteria coun t by microscopy (number/high power field)on 04-03-2022 Bacteria LM.HPF (Urine sed) [#/Area] 0 /[HPF] None Seen [facility] Work Phone: Urine specific gravity measu rementon 04-03-2022 Specific gravity (U) [Rel density] 1.015 1.002-1.030 [facility] Work Phone: Urobilinogen Auto test strip Ql (U)on 04-03-2022 Urobilinogen Ql (U) Normal mg/dl Normal [facility] Work Phone: Basophil percentageon 2021 Chloride [Moles/Vol] 109 mmol/L 98-107 [facility] Work Phone: Glucose [Mass/Vol] 107 mg/dL 74-106 [facility] Work Phone: Comment on above: Fasting Glucose resu lt from 100 to 125 mg/dL suggests IMPAIRED HOMEOSTASIS per A.D.A. criteria. Potassium [Moles/Vol] 4.0 mmol/L 3.5-5.1 [facility] Work Phone: Sodium [Moles/Vol] 143 mmol/L 136-145 [facility] Work Phone: WBC (Bld) [#/Vol] 9.5 10*3/uL 4.4-11.0 [facility] Work Phone: Blood erythrocytes count (nu mber/volume)on 03-13-2022 RBC (Bld) [#/Vol] 3.34 10*6/uL 4.2-5.4 [facility] Work Phone: Blood hemoglobin measurement (mass/volume)on 03-13-2022 Hemoglobin (Bld) [Mass/Vol] 9.7 g/dL 12.0-15.0 [facility] Work Phone: Blood platelet mean volumeon 03-13-2022 Platelet mean volume (Bld) [Entitic vol] 9.4 fL 6.2-12.0 [facility] Work Phone: Determination of erythrocyte mean corpuscular volume (MCV)on 03-13-2022 MCV (RBC) [Entitic vol] 92.5 fL 81-99 [facility] Work Phone: Hematocrit Auto (Bld) [Volum e fraction]on 03-13-2022 Hematocrit (Bld) [Volume fraction] 30.9 % 37-47 [facility] Work Phone: Laboratory - Chemistry and C hemistry - challengeon 03-13-2022 CO2 [Moles/Vol] 32.0 mmol/L 21.0-32.0 [facility] Work Phone: Urea nitrogen/Creatinine [Mass ratio] 34.5 mg/mg 10-20 [facility] Work Phone: Laboratory - Hematology and Cell countson 03-13-2022 Erythrocyte distribution width (RBC) [Entitic vol] 44.6 fL 35.1-43.9 [facility] Work Phone: Erythrocyte distribution width (RBC) [Ratio] 13.4 % 11.6-14.6 [facility] Work Phone: MCH (RBC) [Entitic mass] 29.0 pg 27.0-32.0 [facility] Work Phone: MCHC Auto (RBC) [Mass/Vol]on 03-13-2022 MCHC (RBC) [Mass/Vol] 31.4 g/dL 32-36 [facility] Work Phone: No Panel Informationon 03-13 Estimated Creatinine Clearance Calc 38.14 ml/min [facility] Work Phone: Estimated GFR (MDRD) Amer 98 mL/min >60 [facility] Work Phone: Comment on above: GFR Calc Estimated GFR (MDRD) Non-Af Amer 81 mL/min >60 [facility] Work Phone: Comment on above: Non- GFR Calc Platelets bldon 03-13-2022 Platelets (Bld) [#/Vol] 158 10*3/uL 150-450 [facility] Work Phone: Serum or plasma calcium mary anne urement (mass/volume)on 03-13-2022 Calcium [Mass/Vol] 8.7 mg/dL 8.5-10.1 [facility] Work Phone: Serum or plasma creatinine m easurement (mass/volume)on 03-13-2022 Creatinine [Mass/Vol] 0.75 mg/dL 0.55-1.02 [facility] Work Phone: Comment on above: The validity of the calculated GFR & GFRAA in patients over 70 years has not been determined. Clinical correlation is essential. Serum or plasma urea nitroge n measurement (mass/volume)on 03-13-2022 Urea nitrogen [Mass/Vol] 26 mg/dL 7-18 [facility] Work Phone: Thin prep Papanicolaou smear with manual screeningon 03-13-2022 Thin prep Papanicolaou smear with manual screening 2 5-15 [facility] Work Phone: Glucose Glucometer (BldC) [M ass/Vol]on 03-11-2022 Glucose [Mass/Vol] 80 mg/dL 74-106 [facility] Work Phone: Comment on above: MANAGEMENT OF PATIEN T CARE PER NURSING PROTOCOL Absolute lymphocyte counton 03-05-2022 Lymphocytes Auto (Unsp spec) [#/Vol] 2.22 10*3/uL 0.83-4.51 [facility] Work Phone: Basophil percentageon 2021 Basophils/100 WBC (Bld) 0.5 % 0-1 [facility] Work Phone: Bilirubin [Mass/Vol] 0.30 mg/dL 0.20-1.00 [facility] Work Phone: Comment on above: For patients on eltr ombopag therapy, use of Dimension Smiley TBIL is not recommended. Chloride [Moles/Vol] 109 mmol/L 98-107 [facility] Work Phone: Cholesterol [Mass/Vol] 226 mg/dL <200 [facility] Work Phone: Comment on above: <200 mg/dL Desirable 200-240 mg/dL Borderline >240 mg/dL High Risk Eosinophils/100 WBC (Bld) 2.2 % 0-5 [facility] Work Phone: Glucose [Mass/Vol] 81 mg/dL 74-106 [facility] Work Phone: Neutrophils (Bld) [#/Vol] 3.5 10*3/uL 2.0-7.7 [facility] Work Phone: Neutrophils/100 WBC (Bld) 54.1 % 47-70 [facility] Work Phone: Potassium [Moles/Vol] 3.9 mmol/L 3.5-5.1 [facility] Work Phone: Protein [Mass/Vol] 6.7 g/dL 6.4-8.2 [facility] Work Phone: Sodium [Moles/Vol] 142 mmol/L 136-145 [facility] Work Phone: [phone] Triglyceride [Mass/Vol] 104 mg/dL <199 [facility] Work Phone: [phone] Comment on above: The drugs N-Acetylcy steine and Metamizole may falsely depress this assay.Serum Triglycerides Reference Interval Normal <150 mg/dL Borderline high 150 - 199 mg/dL High 200 - 499 mg/dL Very High > or = 500 mg/dL WBC (Bld) [#/Vol] 6.4 10*3/uL 4.4-11.0 [facility] Work Phone: [phone] Blood erythrocytes count (nu mber/volume)on 03-05-2022 RBC (Bld) [#/Vol] 4.67 10*6/uL 4.2-5.4 [facility] Work Phone: Blood hemoglobin measurement (mass/volume)on 03-05-2022 Hemoglobin (Bld) [Mass/Vol] 13.4 g/dL 12.0-15.0 [facility] Work Phone: Blood lymphocytes/100 leukoc yteson 03-05-2022 Lymphocytes/100 WBC (Bld) 34.8 % 19-41 [facility] Work Phone: Blood monocytes/100 leukocyt eson 03-05-2022 Monocytes/100 WBC (Bld) 8.2 % 0-10 [facility] Work Phone: Blood platelet mean volumeon 03-05-2022 Platelet mean volume (Bld) [Entitic vol] 10.1 fL 6.2-12.0 [facility] Work Phone: [phone] Determination of erythrocyte mean corpuscular volume (MCV)on 03-05-2022 MCV (RBC) [Entitic vol] 89.7 fL 81-99 [facility] Work Phone: Hematocrit Auto (Bld) [Volum e fraction]on 03-05-2022 Hematocrit (Bld) [Volume fraction] 41.9 % 37-47 [facility] Work Phone: [phone] Iron measurement (mass/mass) on 03-05-2022 Iron (Unsp spec) [Mass/Mass] 78 ug/dL 50-170 [facility] Work Phone: [phone] Laboratory - Chemistry and C hemistry - challengeon 03-05-2022 ALP [Catalytic activity/Vol] 83 U/L 45-117 [facility] Work Phone: [phone] ALT [Catalytic activity/Vol] 41 U/L 13-56 [facility] Work Phone: CO2 [Moles/Vol] 28.0 mmol/L 21.0-32.0 [facility] Work Phone: [phone] Free T4 [Mass/Vol] 1.10 ng/dL 0.76-1.46 [facility] Work Phone: Globulin (S) [Mass/Vol] 3.2 g/dL 2.2-4.2 [facility] Work Phone: [phone] Urea nitrogen/Creatinine [Mass ratio] 26.8 mg/mg 10-20 [facility] Work Phone: Laboratory - Hematology and Cell countson 03-05-2022 Erythrocyte distribution width (RBC) [Entitic vol] 43.2 fL 35.1-43.9 [facility] Work Phone: [phone] Erythrocyte distribution width (RBC) [Ratio] 13.2 % 11.6-14.6 [facility] Work Phone: Immature granulocytes/100 WBC (Bld) 0.200 % 0.0-0.9 [facility] Work Phone: Comment on above: IG% - Immature Granu locytes (promyelocytes, myelocytes and metamyelocytes) > 1% indicates that a LEFT SHIFT is Present. MCH (RBC) [Entitic mass] 28.7 pg 27.0-32.0 [facility] Work Phone: Nucleated RBC/100 WBC (Bld) [Ratio] 0 % 0-5 [facility] Work Phone: MCHC Auto (RBC) [Mass/Vol]on 03-05-2022 MCHC (RBC) [Mass/Vol] 32.0 g/dL 32-36 [facility] Work Phone: No Panel Informationon 03-05 Estimated GFR (MDRD) Amer 105 mL/min >60 [facility] Work Phone: Comment on above: GFR Calc Estimated GFR (MDRD) Non-Af Amer 87 mL/min >60 [facility] Work Phone: Comment on above: Non- GFR Calc Thyroid Stimulating Hormone (TSH) 2.26 uIU/mL 0.358-3.74 [facility] Work Phone: Total Iron Binding Capacity 322 ug/dL 250-450 [facility] Work Phone: Vitamin D 25-Hydroxy 36.9 ng/mL [facility] Work Phone: Comment on above: Vitamin D 25(OH) Sta tus Range Deficiency <20 ng/mL (50nmol/L) Insufficiency 20 - 30 ng/mL (50 - 75 nmol/L) Sufficiency 30 - 100 ng/mL (75 - 250 nmol/L) Toxicity >100 ng/mL (>250 nmol/L) Platelets bldon 03-05-2022 Platelets (Bld) [#/Vol] 213 10*3/uL 150-450 [facility] Work Phone: Serum or plasma albumin mary anne urement (mass/volume)on 03-05-2022 Albumin [Mass/Vol] 3.5 g/dL 3.2-5.0 [facility] Work Phone: Serum or plasma albumin/glob ulin mass ratioon 03-05-2022 Albumin/Globulin [Mass ratio] 1.1 {ratio} 0.9-2.4 [facility] Work Phone: Serum or plasma calcium mary anne urement (mass/volume)on 03-05-2022 Calcium [Mass/Vol] 9.7 mg/dL 8.5-10.1 [facility] Work Phone: Serum or plasma cholesterol in HDL measurement (mass/volume)on 03-05-2022 Cholesterol in HDL [Mass/Vol] 64 mg/dL >40 [facility] Work Phone: Comment on above: The drugs N-Acetylcy steine and Metamizole may falsely depress this assay. Reference Range HDL <40 mg/dL Low HDL Cholesterol HDL >or= 60 mg/dL High HDL Cholesterol Serum or plasma cholesterol in VLDL measurement (mass/volume)on 03-05-2022 Cholesterol in VLDL [Mass/Vol] 21 mg/dL 5-40 [facility] Work Phone: Serum or plasma creatinine m easurement (mass/volume)on 03-05-2022 Creatinine [Mass/Vol] 0.71 mg/dL 0.55-1.02 [facility] Work Phone: Comment on above: The validity of the calculated GFR & GFRAA in patients over 70 years has not been determined. Clinical correlation is essential. Serum or plasma ferritin cayla surement (mass/volume)on 03-05-2022 Ferritin [Mass/Vol] 206 ng/mL 8-252 [facility] Work Phone: Serum or plasma low density lipoprotein (LDL) cholesterol measurement (mass/volume)on 03-05-2022 Cholesterol in LDL [Mass/Vol] 141 mg/dL 0-130 [facility] Work Phone: Serum or plasma urea nitroge n measurement (mass/volume)on 03-05-2022 Urea nitrogen [Mass/Vol] 19 mg/dL 7-18 [facility] Work Phone: Thin prep Papanicolaou smear with manual screeningon 03-05-2022 Thin prep Papanicolaou smear with manual screening 33 U/L 15-37 [facility] Work Phone: Thin prep Papanicolaou smear with manual screening 5 5-15 [facility] Work Phone: Absolute lymphocyte counton 02-17-2022 Lymphocytes Auto (Unsp spec) [#/Vol] 2.37 10*3/uL 0.83-4.51 [facility] Work Phone: Basophil percentageon 2021 Basophil percentage 3.8 mg/dL 2.5-4.9 [facility] Work Phone: Basophils/100 WBC (Bld) 0.3 % 0-1 [facility] Work Phone: Bilirubin [Mass/Vol] 0.30 mg/dL 0.20-1.00 [facility] Work Phone: Comment on above: For patients on eltr ombopag therapy, use of Dimension Smiley TBIL is not recommended. Chloride [Moles/Vol] 109 mmol/L 98-107 [facility] Work Phone: Eosinophils/100 WBC (Bld) 1.8 % 0-5 [facility] Work Phone: Glucose [Mass/Vol] 73 mg/dL 74-106 [facility] Work Phone: Neutrophils (Bld) [#/Vol] 3.0 10*3/uL 2.0-7.7 [facility] Work Phone: Neutrophils/100 WBC (Bld) 49.4 % 47-70 [facility] Work Phone: Potassium [Moles/Vol] 4.1 mmol/L 3.5-5.1 [facility] Work Phone: Protein [Mass/Vol] 6.9 g/dL 6.4-8.2 [facility] Work Phone: Sodium [Moles/Vol] 142 mmol/L 136-145 [facility] Work Phone: WBC (Bld) [#/Vol] 6.0 10*3/uL 4.4-11.0 [facility] Work Phone: Blood erythrocytes count (nu mber/volume)on 02-17-2022 RBC (Bld) [#/Vol] 4.62 10*6/uL 4.2-5.4 [facility] Work Phone: Blood hemoglobin measurement (mass/volume)on 02-17-2022 Hemoglobin (Bld) [Mass/Vol] 13.4 g/dL 12.0-15.0 [facility] Work Phone: Blood lymphocytes/100 leukoc yteson 02-17-2022 Lymphocytes/100 WBC (Bld) 39.2 % 19-41 [facility] Work Phone: Blood monocytes/100 leukocyt eson 02-17-2022 Monocytes/100 WBC (Bld) 9.1 % 0-10 [facility] Work Phone: Blood platelet mean volumeon 02-17-2022 Platelet mean volume (Bld) [Entitic vol] 10.0 fL 6.2-12.0 [facility] Work Phone: [phone] Determination of erythrocyte mean corpuscular volume (MCV)on 02-17-2022 MCV (RBC) [Entitic vol] 91.6 fL 81-99 [facility] Work Phone: Hematocrit Auto (Bld) [Volum e fraction]on 02-17-2022 Hematocrit (Bld) [Volume fraction] 42.3 % 37-47 [facility] Work Phone: [phone] Iron measurement (mass/mass) on 02-17-2022 Iron (Unsp spec) [Mass/Mass] 70 ug/dL 50-170 [facility] Work Phone: Laboratory - Chemistry and C hemistry - challengeon 02-17-2022 ALP [Catalytic activity/Vol] 83 U/L 45-117 [facility] Work Phone: ALT [Catalytic activity/Vol] 38 U/L 13-56 [facility] Work Phone: CO2 [Moles/Vol] 21.0 mmol/L 21.0-32.0 [facility] Work Phone: Cobalamin (Vitamin B12) [Mass/Vol] 912 pg/mL 211-911 [facility] Work Phone: Free T4 [Mass/Vol] 1.22 ng/dL 0.76-1.46 [facility] Work Phone: Globulin (S) [Mass/Vol] 3.4 g/dL 2.2-4.2 [facility] Work Phone: Magnesium [Mass/Vol] 2.2 mg/dL 1.6-2.6 [facility] Work Phone: Urea nitrogen/Creatinine [Mass ratio] 20.0 mg/mg 10-20 [facility] Work Phone: Laboratory - Hematology and Cell countson 02-17-2022 Erythrocyte distribution width (RBC) [Entitic vol] 42.5 fL 35.1-43.9 [facility] Work Phone: Erythrocyte distribution width (RBC) [Ratio] 12.7 % 11.6-14.6 [facility] Work Phone: Immature granulocytes/100 WBC (Bld) 0.200 % 0.0-0.9 [facility] Work Phone: Comment on above: IG% - Immature Granu locytes (promyelocytes, myelocytes and metamyelocytes) > 1% indicates that a LEFT SHIFT is Present. MCH (RBC) [Entitic mass] 29.0 pg 27.0-32.0 [facility] Work Phone: Nucleated RBC/100 WBC (Bld) [Ratio] 0 % 0-5 [facility] Work Phone: MCHC Auto (RBC) [Mass/Vol]on 02-17-2022 MCHC (RBC) [Mass/Vol] 31.7 g/dL 32-36 [facility] Work Phone: No Panel Informationon 02-17 Estimated GFR (MDRD) Amer 98 mL/min >60 [facility] Work Phone: Comment on above: GFR Calc Estimated GFR (MDRD) Non-Af Amer 81 mL/min >60 [facility] Work Phone: Comment on above: Non- GFR Calc Thyroid Stimulating Hormone (TSH) 0.34 uIU/mL 0.358-3.74 [facility] Work Phone: Platelets bldon 02-17-2022 Platelets (Bld) [#/Vol] 197 10*3/uL 150-450 [facility] Work Phone: Serum or plasma albumin mary anne urement (mass/volume)on 02-17-2022 Albumin [Mass/Vol] 3.5 g/dL 3.2-5.0 [facility] Work Phone: Serum or plasma albumin/glob ulin mass ratioon 02-17-2022 Albumin/Globulin [Mass ratio] 1.0 {ratio} 0.9-2.4 [facility] Work Phone: Serum or plasma calcium mary anne urement (mass/volume)on 02-17-2022 Calcium [Mass/Vol] 9.1 mg/dL 8.5-10.1 [facility] Work Phone: Serum or plasma creatinine m easurement (mass/volume)on 02-17-2022 Creatinine [Mass/Vol] 0.75 mg/dL 0.55-1.02 [facility] Work Phone: Comment on above: The validity of the calculated GFR & GFRAA in patients over 70 years has not been determined. Clinical correlation is essential. Serum or plasma ferritin cayla surement (mass/volume)on 02-17-2022 Ferritin [Mass/Vol] 206 ng/mL 8-252 [facility] Work Phone: Serum or plasma urea nitroge n measurement (mass/volume)on 02-17-2022 Urea nitrogen [Mass/Vol] 15 mg/dL 7-18 [facility] Work Phone: [phone] Serum or plasma zinc measure ment (mass/volume)on 02-17-2022 Zinc [Mass/Vol] 75 ug/dL 44-115 [facility] Work Phone: [phone] Comment on above: Detection Limit = 5P erformed at: [facility] [address] [id number] Director: Triston Carrion MD, Phone: [phone] Thin prep Papanicolaou smear with manual screeningon 02-17-2022 Thin prep Papanicolaou smear with manual screening 29 U/L 15-37 [facility] Work Phone: Thin prep Papanicolaou smear with manual screening 12 5-15 [facility] Work Phone: Absolute lymphocyte counton 12-17-2021 Lymphocytes Auto (Unsp spec) [#/Vol] 2.41 10*3/uL 0.83-4.51 [facility] Work Phone: Basophil percentageon 2021 Basophils/100 WBC (Bld) 0.3 % 0-1 [facility] Work Phone: Eosinophils/100 WBC (Bld) 2.0 % 0-5 [facility] Work Phone: Neutrophils (Bld) [#/Vol] 3.0 10*3/uL 2.0-7.7 [facility] Work Phone: Neutrophils/100 WBC (Bld) 50.7 % 47-70 [facility] Work Phone: WBC (Bld) [#/Vol] 6.0 10*3/uL 4.4-11.0 [facility] Work Phone: Blood erythrocytes count (nu mber/volume)on 12-17-2021 RBC (Bld) [#/Vol] 4.40 10*6/uL 4.2-5.4 [facility] Work Phone: Blood hemoglobin measurement (mass/volume)on 12-17-2021 Hemoglobin (Bld) [Mass/Vol] 13.0 g/dL 12.0-15.0 [facility] Work Phone: Blood lymphocytes/100 leukoc yteson 12-17-2021 Lymphocytes/100 WBC (Bld) 40.2 % 19-41 [facility] Work Phone: [phone] Blood monocytes/100 leukocyt eson 12-17-2021 Monocytes/100 WBC (Bld) 6.8 % 0-10 [facility] Work Phone: Blood platelet mean volumeon 12-17-2021 Platelet mean volume (Bld) [Entitic vol] 10.0 fL 6.2-12.0 [facility] Work Phone: [phone] Determination of erythrocyte mean corpuscular volume (MCV)on 12-17-2021 MCV (RBC) [Entitic vol] 91.4 fL 81-99 [facility] Work Phone: Hematocrit Auto (Bld) [Volum e fraction]on 12-17-2021 Hematocrit (Bld) [Volume fraction] 40.2 % 37-47 [facility] Work Phone: Iron measurement (mass/mass) on 12-17-2021 Iron (Unsp spec) [Mass/Mass] 63 ug/dL 50-170 [facility] Work Phone: [phone] Comment on above: Slight Hemolysis, Re sult may be falsely increased. Laboratory - Chemistry and C hemistry - challengeon 12-17-2021 Free T4 [Mass/Vol] 1.37 ng/dL 0.76-1.46 [facility] Work Phone: [phone] Laboratory - Hematology and Cell countson 12-17-2021 Erythrocyte distribution width (RBC) [Entitic vol] 42.5 fL 35.1-43.9 [facility] Work Phone: [phone] Erythrocyte distribution width (RBC) [Ratio] 12.7 % 11.6-14.6 [facility] Work Phone: [phone] Immature granulocytes/100 WBC (Bld) 0.000 % 0.0-0.9 [facility] Work Phone: Comment on above: IG% - Immature Granu locytes (promyelocytes, myelocytes and metamyelocytes) > 1% indicates that a LEFT SHIFT is Present. MCH (RBC) [Entitic mass] 29.5 pg 27.0-32.0 [facility] Work Phone: Nucleated RBC/100 WBC (Bld) [Ratio] 0 % 0-5 [facility] Work Phone: MCHC Auto (RBC) [Mass/Vol]on 12-17-2021 MCHC (RBC) [Mass/Vol] 32.3 g/dL 32-36 [facility] Work Phone: No Panel Informationon 12-17 Thyroglobulin Antibody See comment [facility] Work Phone: Comment on above: TEST RESULT LIMITSTh yroglobulin Antibody 5.9 High IU/mL 0.0- 0.9 Thyroglobulin Antibody measured by [employer]. Thyroid Stimulating Hormone (TSH) 0.18 uIU/mL 0.358-3.74 [facility] Work Phone: Total Iron Binding Capacity 426 ug/dL 250-450 [facility] Work Phone: Platelets bldon 12-17-2021 Platelets (Bld) [#/Vol] 203 10*3/uL 150-450 [facility] Work Phone: Serum or plasma ferritin cayla surement (mass/volume)on 12-17-2021 Ferritin [Mass/Vol] 240 ng/mL 8-252 [facility] Work Phone: Serum or plasma thyroperoxid ase antibody assay (units/volume)on 12-17-2021 TPO Ab Qn See comment [facility] Work Phone: Comment on above: TEST RESULT LIMITSTh yroid Peroxidase (TPO) Ab 97 High IU/mL 0 - 34 TESTING PERFORMED AT [facility]. ORIGINAL REPORT ON FILE IN LAB CONTAINS ADDITIONAL TEST SITE INFORMATION. Thyroglobulin measurement by radioimmunoassay (BEV)on 12-17-2021 Thyroglobulin Ab BEV Qn (S) See comment [facility] Work Phone: Comment on above: Test not performed. Insufficient specimen to perform or complete analysis. Thyroid stimulating immunogl obulins detectionon 12-17-2021 Thyroid stimulating immunoglobulins Ql (S) See comment [facility] Work Phone: Comment on above: TEST RESULT LIMITSTh yroid Stim Immunoglobulin Thyroid Stim Immunoglobulin <0.10 IU/L 0.00-0.55 ___ TESTING PERFORMED AT [facility]. ORIGINAL REPORT ON FILE IN LAB CONTAINS ADDITIONAL TEST SITE INFORMATION. Absolute lymphocyte counton 11-21-2021 Lymphocytes Auto (Unsp spec) [#/Vol] 2.46 10*3/uL 0.83-4.51 [facility] Work Phone: Basophil percentageon 2021 Basophil percentage 3.5 mg/dL 2.5-4.9 [facility] Work Phone: Basophils/100 WBC (Bld) 0.5 % 0-1 [facility] Work Phone: Bilirubin [Mass/Vol] 0.40 mg/dL 0.20-1.00 [facility] Work Phone: Comment on above: For patients on eltr ombopag therapy, use of Dimension Smiley TBIL is not recommended. Chloride [Moles/Vol] 107 mmol/L 98-107 [facility] Work Phone: Cholesterol [Mass/Vol] 206 mg/dL <200 [facility] Work Phone: [phone] Comment on above: <200 mg/dL Desirable 200-240 mg/dL Borderline >240 mg/dL High Risk Eosinophils/100 WBC (Bld) 1.5 % 0-5 [facility] Work Phone: Glucose [Mass/Vol] 93 mg/dL 74-106 [facility] Work Phone: Neutrophils (Bld) [#/Vol] 2.8 10*3/uL 2.0-7.7 [facility] Work Phone: Neutrophils/100 WBC (Bld) 47.5 % 47-70 [facility] Work Phone: Potassium [Moles/Vol] 3.8 mmol/L 3.5-5.1 [facility] Work Phone: Protein [Mass/Vol] 7.1 g/dL 6.4-8.2 [facility] Work Phone: Sodium [Moles/Vol] 140 mmol/L 136-145 [facility] Work Phone: [phone] Triglyceride [Mass/Vol] 107 mg/dL <199 [facility] Work Phone: [phone] Comment on above: The drugs N-Acetylcy steine and Metamizole may falsely depress this assay.Serum Triglycerides Reference Interval Normal <150 mg/dL Borderline high 150 - 199 mg/dL High 200 - 499 mg/dL Very High > or = 500 mg/dL WBC (Bld) [#/Vol] 5.9 10*3/uL 4.4-11.0 [facility] Work Phone: [phone] Blood erythrocytes count (nu mber/volume)on 11-21-2021 RBC (Bld) [#/Vol] 4.35 10*6/uL 4.2-5.4 [facility] Work Phone: Blood hemoglobin measurement (mass/volume)on 11-21-2021 Hemoglobin (Bld) [Mass/Vol] 13.0 g/dL 12.0-15.0 [facility] Work Phone: Blood lymphocytes/100 leukoc yteson 11-21-2021 Lymphocytes/100 WBC (Bld) 41.8 % 19-41 [facility] Work Phone: Blood monocytes/100 leukocyt eson 11-21-2021 Monocytes/100 WBC (Bld) 8.7 % 0-10 [facility] Work Phone: Blood platelet mean volumeon 11-21-2021 Platelet mean volume (Bld) [Entitic vol] 10.0 fL 6.2-12.0 [facility] Work Phone: [phone] Determination of erythrocyte mean corpuscular volume (MCV)on 11-21-2021 MCV (RBC) [Entitic vol] 93.3 fL 81-99 [facility] Work Phone: Hematocrit Auto (Bld) [Volum e fraction]on 11-21-2021 Hematocrit (Bld) [Volume fraction] 40.6 % 37-47 [facility] Work Phone: Iron measurement (mass/mass) on 11-21-2021 Iron (Unsp spec) [Mass/Mass] 47 ug/dL 50-170 [facility] Work Phone: [phone] Laboratory - Chemistry and C hemistry - challengeon 11-21-2021 ALP [Catalytic activity/Vol] 94 U/L 45-117 [facility] Work Phone: ALT [Catalytic activity/Vol] 38 U/L 13-56 [facility] Work Phone: CO2 [Moles/Vol] 29.0 mmol/L 21.0-32.0 [facility] Work Phone: Free T4 [Mass/Vol] 1.42 ng/dL 0.76-1.46 [facility] Work Phone: Globulin (S) [Mass/Vol] 3.3 g/dL 2.2-4.2 [facility] Work Phone: Magnesium [Mass/Vol] 2.5 mg/dL 1.6-2.6 [facility] Work Phone: Urea nitrogen/Creatinine [Mass ratio] 19.7 mg/mg 10-20 [facility] Work Phone: Laboratory - Hematology and Cell countson 11-21-2021 Erythrocyte distribution width (RBC) [Entitic vol] 45.1 fL 35.1-43.9 [facility] Work Phone: Erythrocyte distribution width (RBC) [Ratio] 13.2 % 11.6-14.6 [facility] Work Phone: Immature granulocytes/100 WBC (Bld) 0.000 % 0.0-0.9 [facility] Work Phone: Comment on above: IG% - Immature Granu locytes (promyelocytes, myelocytes and metamyelocytes) > 1% indicates that a LEFT SHIFT is Present. MCH (RBC) [Entitic mass] 29.9 pg 27.0-32.0 [facility] Work Phone: Nucleated RBC/100 WBC (Bld) [Ratio] 0 % 0-5 [facility] Work Phone: MCHC Auto (RBC) [Mass/Vol]on 11-21-2021 MCHC (RBC) [Mass/Vol] 32.0 g/dL 32-36 [facility] Work Phone: No Panel Informationon 11-21 Estimated GFR (MDRD) Amer 79 mL/min >60 [facility] Work Phone: Comment on above: GFR Calc Estimated GFR (MDRD) Non-Af Amer 65 mL/min >60 [facility] Work Phone: Comment on above: Non- GFR Calc Thyroid Stimulating Hormone (TSH) 0.12 uIU/mL 0.358-3.74 [facility] Work Phone: Vitamin B12 Level > 2000 pg/mL 211-911 [facility] Work Phone: Platelets bldon 11-21-2021 Platelets (Bld) [#/Vol] 208 10*3/uL 150-450 [facility] Work Phone: Serum or plasma albumin mary anne urement (mass/volume)on 11-21-2021 Albumin [Mass/Vol] 3.8 g/dL 3.2-5.0 [facility] Work Phone: Serum or plasma albumin/glob ulin mass ratioon 11-21-2021 Albumin/Globulin [Mass ratio] 1.2 {ratio} 0.9-2.4 [facility] Work Phone: Serum or plasma calcium mary anne urement (mass/volume)on 11-21-2021 Calcium [Mass/Vol] 9.5 mg/dL 8.5-10.1 [facility] Work Phone: Serum or plasma cholesterol in HDL measurement (mass/volume)on 11-21-2021 Cholesterol in HDL [Mass/Vol] 57 mg/dL >40 [facility] Work Phone: Comment on above: The drugs N-Acetylcy steine and Metamizole may falsely depress this assay. Reference Range HDL <40 mg/dL Low HDL Cholesterol HDL >or= 60 mg/dL High HDL Cholesterol Serum or plasma cholesterol in VLDL measurement (mass/volume)on 11-21-2021 Cholesterol in VLDL [Mass/Vol] 21 mg/dL 5-40 [facility] Work Phone: Serum or plasma creatinine m easurement (mass/volume)on 11-21-2021 Creatinine [Mass/Vol] 0.91 mg/dL 0.55-1.02 [facility] Work Phone: Comment on above: The validity of the calculated GFR & GFRAA in patients over 70 years has not been determined. Clinical correlation is essential. Serum or plasma ferritin cayla surement (mass/volume)on 11-21-2021 Ferritin [Mass/Vol] 285 ng/mL 8-252 [facility] Work Phone: Serum or plasma low density lipoprotein (LDL) cholesterol measurement (mass/volume)on 11-21-2021 Cholesterol in LDL [Mass/Vol] 128 mg/dL 0-130 [facility] Work Phone: Serum or plasma urea nitroge n measurement (mass/volume)on 11-21-2021 Urea nitrogen [Mass/Vol] 18 mg/dL 7-18 [facility] Work Phone: Serum or plasma zinc measure ment (mass/volume)on 11-21-2021 Zinc [Mass/Vol] See comment [facility] Work Phone: Comment on above: TEST RESULT UNITS RE F INTERVALZinc, Plasma or SerumZinc, Plasma or Serum 99 ug/dL 44-115 Detection Limit = 5 TESTING PERFORMED AT [facility]. ORIGINAL REPORT ON FILE IN LAB CONTAINS ADDITIONAL TEST SITE INFORMATION. Thin prep Papanicolaou smear with manual screeningon 11-21-2021 Thin prep Papanicolaou smear with manual screening 31 U/L 15-37 [facility] Work Phone: Thin prep Papanicolaou smear with manual screening 4 5-15 [facility] Work Phone: Whole blood hemoglobin A1c/t otal hemoglobin ratio (mass fraction)on 11-21-2021 HbA1c (Bld) [Mass fraction] 5.3 % 3.8-5.6 [facility] Work Phone: Comment on above: Normal < 5.7 % Predi abetic 5.7 - 6.4 % Diabetic >or= 6.5 % Please note range changes. Absolute lymphocyte counton 02-18-2022 Lymphocytes Auto (Unsp spec) [#/Vol] 2.18 10*3/uL 0.83-4.51 [facility] Work Phone: Basophil percentageon 2021 Basophils/100 WBC (Bld) 0.5 % 0-1 [facility] Work Phone: Eosinophils/100 WBC (Bld) 2.4 % 0-5 [facility] Work Phone: Neutrophils (Bld) [#/Vol] 2.9 10*3/uL 2.0-7.7 [facility] Work Phone: Neutrophils/100 WBC (Bld) 49.8 % 47-70 [facility] Work Phone: WBC (Bld) [#/Vol] 5.8 10*3/uL 4.4-11.0 [facility] Work Phone: Blood erythrocytes count (nu mber/volume)on 10-17-2021 RBC (Bld) [#/Vol] 4.61 10*6/uL 4.2-5.4 [facility] Work [facility]: Blood hemoglobin measurement (mass/volume)on 10-17-2021 Hemoglobin (Bld) [Mass/Vol] 14.2 g/dL 12.0-15.0 [facility] Work Phone: Blood lymphocytes/100 leukoc yteson 10-17-2021 Lymphocytes/100 WBC (Bld) 37.5 % 19-41 [facility] Work Phone: Blood monocytes/100 leukocyt eson 10-17-2021 Monocytes/100 WBC (Bld) 9.6 % 0-10 [facility] Work Phone: Blood platelet mean volumeon 10-17-2021 Platelet mean volume (Bld) [Entitic vol] 9.7 fL 6.2-12.0 [facility] Work Phone: Determination of erythrocyte mean corpuscular volume (MCV)on 10-17-2021 MCV (RBC) [Entitic vol] 92.2 fL 81-99 [facility] Work Phone: Erythrocyte sedimentation ra jennifer 10-17-2021 ESR (Bld) [Velocity] 16 mm/h 0-30 [facility] Work Phone: Hematocrit Auto (Bld) [Volum e fraction]on 10-17-2021 Hematocrit (Bld) [Volume fraction] 42.5 % 37-47 [facility] Work Phone: Laboratory - Hematology and Cell countson 10-17-2021 Erythrocyte distribution width (RBC) [Entitic vol] 48.2 fL 35.1-43.9 [facility] Work Phone: Erythrocyte distribution width (RBC) [Ratio] 14.3 % 11.6-14.6 [facility] Work Phone: Immature granulocytes/100 WBC (Bld) 0.200 % 0.0-0.9 [facility] Work Phone: Comment on above: IG% - Immature Granu locytes (promyelocytes, myelocytes and metamyelocytes) > 1% indicates that a LEFT SHIFT is Present. MCH (RBC) [Entitic mass] 30.8 pg 27.0-32.0 [facility] Work Phone: Nucleated RBC/100 WBC (Bld) [Ratio] 0 % 0-5 [facility] Work Phone: MCHC Auto (RBC) [Mass/Vol]on 10-17-2021 MCHC (RBC) [Mass/Vol] 33.4 g/dL 32-36 [facility] Work Phone: Platelets bldon 10-17-2021 Platelets (Bld) [#/Vol] 196 10*3/uL 150-450 [facility] Work Phone: Serum or plasma C reactive p rotein measurement (mass/volume)on 10-17-2021 CRP [Mass/Vol] mg/L 0.0-3.0 [facility] Work Phone: Comment on above: C-Reactive Protein ( CRP) provides useful information for thediagnosis, therapy and monitoring of inflammatory processesand associated diseases. For the evaluation of Relative Riskfor Cardiovascular Disease, a High Sensitivity CRP (HSCRP)should be ordered. Absolute lymphocyte counton 10-08-2021 Lymphocytes Auto (Unsp spec) [#/Vol] 2.44 10*3/uL 0.83-4.51 [facility] Work Phone: Basophil percentageon 2021 Basophils/100 WBC (Bld) 0.6 % 0-1 [facility] Work Phone: Bilirubin [Mass/Vol] 0.30 mg/dL 0.20-1.00 [facility] Work Phone: Comment on above: For patients on eltr ombopag therapy, use of Dimension Smiley TBIL is not recommended. Chloride [Moles/Vol] 109 mmol/L 98-107 [facility] Work Phone: Eosinophils/100 WBC (Bld) 2.4 % 0-5 [facility] Work Phone: Glucose [Mass/Vol] 89 mg/dL 74-106 [facility] Work Phone: Neutrophils (Bld) [#/Vol] 2.3 10*3/uL 2.0-7.7 [facility] Work Phone: Neutrophils/100 WBC (Bld) 42.3 % 47-70 [facility] Work Phone: Potassium [Moles/Vol] 4.1 mmol/L 3.5-5.1 [facility] Work Phone: Protein [Mass/Vol] 6.9 g/dL 6.4-8.2 [facility] Work Phone: Sodium [Moles/Vol] 141 mmol/L 136-145 [facility] Work Phone: WBC (Bld) [#/Vol] 5.4 10*3/uL 4.4-11.0 [facility] Work Phone: Blood erythrocytes count (nu mber/volume)on 10-08-2021 RBC (Bld) [#/Vol] 4.44 10*6/uL 4.2-5.4 [facility] Work Phone: [phone] Blood hemoglobin measurement (mass/volume)on 10-08-2021 Hemoglobin (Bld) [Mass/Vol] 13.1 g/dL 12.0-15.0 [facility] Work Phone: Blood lymphocytes/100 leukoc yteson 10-08-2021 Lymphocytes/100 WBC (Bld) 44.9 % 19-41 [facility] Work Phone: Blood monocytes/100 leukocyt eson 10-08-2021 Monocytes/100 WBC (Bld) 9.6 % 0-10 [facility] Work Phone: Blood platelet mean volumeon 10-08-2021 Platelet mean volume (Bld) [Entitic vol] 9.6 fL 6.2-12.0 [facility] Work Phone: [phone] Determination of erythrocyte mean corpuscular volume (MCV)on 10-08-2021 MCV (RBC) [Entitic vol] 92.3 fL 81-99 [facility] Work Phone: [phone] Hematocrit Auto (Bld) [Volum e fraction]on 10-08-2021 Hematocrit (Bld) [Volume fraction] 41.0 % 37-47 [facility] Work Phone: [phone] Laboratory - Chemistry and C hemistry - challengeon 10-08-2021 ALP [Catalytic activity/Vol] 98 U/L 45-117 [facility] Work Phone: ALT [Catalytic activity/Vol] 44 U/L 13-56 [facility] Work Phone: [phone] CO2 [Moles/Vol] 26.0 mmol/L 21.0-32.0 [facility] Work Phone: Globulin (S) [Mass/Vol] 3.4 g/dL 2.2-4.2 [facility] Work Phone: [phone] Urea nitrogen/Creatinine [Mass ratio] 24.1 mg/mg 10-20 [facility] Work Phone: Laboratory - Hematology and Cell countson 10-08-2021 Erythrocyte distribution width (RBC) [Entitic vol] 49.9 fL 35.1-43.9 [facility] Work Phone: Erythrocyte distribution width (RBC) [Ratio] 14.7 % 11.6-14.6 [facility] Work Phone: Immature granulocytes/100 WBC (Bld) 0.200 % 0.0-0.9 [facility] Work Phone: Comment on above: IG% - Immature Granu locytes (promyelocytes, myelocytes and metamyelocytes) > 1% indicates that a LEFT SHIFT is Present. MCH (RBC) [Entitic mass] 29.5 pg 27.0-32.0 [facility] Work Phone: Nucleated RBC/100 WBC (Bld) [Ratio] 0 % 0-5 [facility] Work Phone: MCHC Auto (RBC) [Mass/Vol]on 10-08-2021 MCHC (RBC) [Mass/Vol] 32.0 g/dL 32-36 [facility] Work Phone: No Panel Informationon 10-08 Estimated GFR (MDRD) Amer 113 mL/min >60 [facility] Work Phone: Comment on above: GFR Calc Estimated GFR (MDRD) Non-Af Amer 94 mL/min >60 [facility] Work Phone: Comment on above: Non- GFR Calc Platelets bldon 10-08-2021 Platelets (Bld) [#/Vol] 204 10*3/uL 150-450 [facility] Work Phone: Serum or plasma albumin mary anne urement (mass/volume)on 10-08-2021 Albumin [Mass/Vol] 3.5 g/dL 3.2-5.0 [facility] Work Phone: Serum or plasma albumin/glob ulin mass ratioon 10-08-2021 Albumin/Globulin [Mass ratio] 1.0 {ratio} 0.9-2.4 [facility] Work Phone: Serum or plasma calcium mary anne urement (mass/volume)on 10-08-2021 Calcium [Mass/Vol] 9.4 mg/dL 8.5-10.1 [facility] Work Phone: Serum or plasma creatinine m easurement (mass/volume)on 10-08-2021 Creatinine [Mass/Vol] 0.66 mg/dL 0.55-1.02 [facility] Work Phone: Comment on above: The validity of the calculated GFR & GFRAA in patients over 70 years has not been determined. Clinical correlation is essential. Serum or plasma urea nitroge n measurement (mass/volume)on 10-08-2021 Urea nitrogen [Mass/Vol] 16 mg/dL 7-18 [facility] Work Phone: Thin prep Papanicolaou smear with manual screeningon 10-08-2021 Thin prep Papanicolaou smear with manual screening 31 U/L 15-37 [facility] Work Phone: Thin prep Papanicolaou smear with manual screening 6 5-15 [facility] Work Phone: Absolute lymphocyte counton 08-01-2021 Lymphocytes Auto (Unsp spec) [#/Vol] 1.67 10*3/uL 0.83-4.51 [facility] Work Phone: Basophil percentageon 2020 Bilirubin [Mass/Vol] 0.30 mg/dL 0.20-1.00 [facility] Work Phone: Comment on above: For patients on eltr ombopag therapy, use of Dimension Smiley TBIL is not recommended. Chloride [Moles/Vol] 107 mmol/L 98-107 [facility] Work Phone: Eosinophils/100 WBC (Bld) 2.4 % 0-5 [facility] Work Phone: Glucose [Mass/Vol] 91 mg/dL 74-106 [facility] Work Phone: Comment on above: Please note revised GLUCOSE reference range effective 2017. Neutrophils (Bld) [#/Vol] 2.8 10*3/uL 2.0-7.7 [facility] Work Phone: Potassium [Moles/Vol] 4.2 mmol/L 3.5-5.1 [facility] Work Phone: Protein [Mass/Vol] 7.0 g/dL 6.4-8.2 [facility] Work Phone: Sodium [Moles/Vol] 141 mmol/L 136-145 [facility] Work Phone: WBC (Bld) [#/Vol] 5.1 10*3/uL 4.4-11.0 [facility] Work Phone: [phone] Blood erythrocytes count (nu mber/volume)on 08-01-2021 RBC (Bld) [#/Vol] 4.61 10*6/uL 4.2-5.4 [facility] Work Phone: [phone] Blood hemoglobin measurement (mass/volume)on 08-01-2021 Hemoglobin (Bld) [Mass/Vol] 13.3 g/dL 12.0-15.0 [facility] Work Phone: Blood lymphocytes/100 leukoc yteson 08-01-2021 Lymphocytes/100 WBC (Bld) 33.0 % 19-41 [facility] Work Phone: Blood monocytes/100 leukocyt eson 08-01-2021 Monocytes/100 WBC (Bld) 9.3 % 0-10 [facility] Work Phone: Blood platelet mean volumeon 08-01-2021 Platelet mean volume (Bld) [Entitic vol] 10.2 fL 6.2-12.0 [facility] Work Phone: [phone] Determination of erythrocyte mean corpuscular volume (MCV)on 08-01-2021 MCV (RBC) [Entitic vol] 90.0 fL 81-99 [facility] Work Phone: [phone] Hematocrit Auto (Bld) [Volum e fraction]on 08-01-2021 Hematocrit (Bld) [Volume fraction] 41.5 % 37-47 [facility] Work Phone: [phone] Laboratory - Chemistry and C hemistry - challengeon 08-01-2021 ALP [Catalytic activity/Vol] 82 U/L 45-117 [facility] Work Phone: ALT [Catalytic activity/Vol] 45 U/L 13-56 [facility] Work Phone: CO2 [Moles/Vol] 28.0 mmol/L 21.0-32.0 [facility] Work Phone: [phone] Globulin (S) [Mass/Vol] 3.5 g/dL 2.2-4.2 [facility] Work Phone: [phone] Urea nitrogen/Creatinine [Mass ratio] 27.1 mg/mg 10-20 [facility] Work Phone: [phone] Laboratory - Hematology and Cell countson 08-01-2021 Basophils/100 WBC (Unsp spec) 0.6 % 0-1 [facility] Work Phone: Erythrocyte distribution width (RBC) [Entitic vol] 46.3 fL 35.1-43.9 [facility] Work Phone: Erythrocyte distribution width (RBC) [Ratio] 14.1 % 11.6-14.6 [facility] Work Phone: Immature granulocytes/100 WBC (Bld) 0.200 % 0.0-0.9 [facility] Work Phone: [phone] Comment on above: IG% - Immature Granu locytes (promyelocytes, myelocytes and metamyelocytes) > 1% indicates that a LEFT SHIFT is Present. MCH (RBC) [Entitic mass] 28.9 pg 27.0-32.0 [facility] Work Phone: Neutrophils/100 WBC (Bld) 54.5 % 47-70 [facility] Work Phone: Nucleated RBC/100 WBC (Bld) [Ratio] 0 % 0-5 [facility] Work Phone: MCHC Auto (RBC) [Mass/Vol]on 08-01-2021 MCHC (RBC) [Mass/Vol] 32.0 g/dL 32-36 [facility] Work Phone: No Panel Informationon 08-01 Estimated GFR (MDRD) Amer 114 mL/min >60 [facility] Work Phone: Comment on above: GFR Calc Estimated GFR (MDRD) Non-Af Amer 94 mL/min >60 [facility] Work Phone: Comment on above: Non- GFR Calc Platelets bldon 08-01-2021 Platelets (Bld) [#/Vol] 215 10*3/uL 150-450 [facility] Work Phone: Serum or plasma albumin mary anne urement (mass/volume)on 08-01-2021 Albumin [Mass/Vol] 3.5 g/dL 3.2-5.0 [facility] Work Phone: Serum or plasma albumin/glob ulin mass ratioon 08-01-2021 Albumin/Globulin [Mass ratio] 1.0 {ratio} 0.9-2.4 [facility] Work Phone: Serum or plasma calcium mary anne urement (mass/volume)on 08-01-2021 Calcium [Mass/Vol] 9.5 mg/dL 8.5-10.1 [facility] Work Phone: Serum or plasma creatinine m easurement (mass/volume)on 08-01-2021 Creatinine [Mass/Vol] 0.66 mg/dL 0.55-1.02 [facility] Work Phone: Comment on above: The validity of the calculated GFR & GFRAA in patients over 70 years has not been determined. Clinical correlation is essential. Serum or plasma urea nitroge n measurement (mass/volume)on 08-01-2021 Urea nitrogen [Mass/Vol] 18 mg/dL 7-18 [facility] Work Phone: Thin prep Papanicolaou smear with manual screeningon 08-01-2021 Thin prep Papanicolaou smear with manual screening 32 U/L 15-37 [facility] Work Phone: Thin prep Papanicolaou smear with manual screening 6 5-15 [facility] Work Phone: BMPon 06-02-2018 Anion gap 3 molar conc 9 mmol/L Normal 5-16 [facility] Comment on above: Order Comment: Sarwatu s: M Performed By: #### L [id number] ####[facility] [id number] [place], [place] [address]Sj# [phone] Calcium mass conc 8.3 mg/dL Low 8.5-10.1 [facility] Comment on above: Order Comment: Sarwatu s: M Performed By: #### L 200.50871 ####[facility] [id number] [place], [place] [address]Ku# [phone] Chloride molar conc 108 mmol/L High 98-107 [facility] Comment on above: Order Comment: Sarwatu s: M Performed By: #### L 200.07167 ####[facility] [id number] [place], [place] [address]Vy# [phone] CO2 molar conc 26 mmol/L Normal 21-32 [facility] Comment on above: Order Comment: Sarwatu s: M Performed By: #### L 200.02659 ####[facility] [id number] [place], [place] [address]Ni# [phone] Creatinine mass conc 0.586 mg/dL Normal 0.510-0.950 [facility] Comment on above: Order Comment: Sarwatu s: M Result Comment: Hossein ents receiving either N-Acetylcysteine (NAC) orMetamizole prior to venipuncture, may have falsely depressedresults. Performed By: #### L 200.06910 ####[facility] [id number] [place], [place] [address]Sg# [phone] Glucose mass conc 111 mg/dL High 70-100 [facility] Comment on above: Order Comment: Sarwatu s: M Result Comment: 70-1 00- Normal Fasting; 100-125 Impaired Fasting; greaterthan 126 on more than one result- Diabetes. ADA guidelines.Results may be falsely elevated after the administration ofSulfapyridine.Results may be falsely depressed after the administration ofSulfasalazine. Performed By: #### L 200.55071 ####[facility] [id number] [place], [place] [address]Zp# [phone] Potassium molar conc 3.9 mmol/L Normal 3.5-5.1 [facility] Comment on above: Order Comment: Campu s: M Performed By: #### L 200.02039 ####[facility] [id number] [place], [place] [address]Az# [phone] Sodium molar conc 143 mmol/L Normal 136-145 [facility] Comment on above: Order Comment: Campu s: M Performed By: #### L 200.90162 ####[facility] [id number] [place], [place] [address]Ph# [phone] Urea nitrogen mass conc 14 mg/dL Normal 7-26 [facility] Comment on above: Order Comment: Campu s: M Performed By: #### L 200.40052 ####[facility] [id number] [place], [place] [address]Ma# [phone] Urea nitrogen/Creatinine mass ratio 24 mg/mg Normal 15-24 [facility] Comment on above: Order Comment: Campu s: M Performed By: #### L 200.67450 ####[facility] [id number] [place] [address]Pj# [phone] CBCon 06-02-2018 Erythrocyte distribution width Auto Ratio (RBC) 14.4 % Normal 11-14.5 [facility] Comment on above: Order Comment: Campu s: M Performed By: #### L 200.69634 ####[facility] [id number] [place] [address]Ub# [phone] Hematocrit Auto Volume Fraction (Bld) 34.8 % Low 35.0-47.0 [facility] Comment on above: Order Comment: Campu s: M Performed By: #### L 200.49034 ####[facility] [id number] [place] [address]Mm# [phone] Hemoglobin mass conc (Bld) 11.5 g/dL Normal 11.5-15.5 [facility] Comment on above: Order Comment: Campu s: M Performed By: #### L 200.51669 ####[facility] [id number] [place], [place] [address]Ph# [phone] MCHC Auto mass conc (RBC) 33.0 g/dL Normal 32.0-36.0 [facility] Comment on above: Order Comment: Campu s: M Performed By: #### L 200.99216 ####[address] [address]Sw# [phone] MCV Auto Entitic volume (RBC) 89.5 fL Normal 80.0-99.0 [facility] Comment on above: Order Comment: Campu s: M Performed By: #### L 200.22122 ####[facility] [id number] [place], [place] [address]Ph# [phone] Nucleated RBC/100 WBC Ratio (Bld) 0.0 % Normal Less than 1 [facility] Comment on above: Order Comment: Campu s: M Performed By: #### L 200.28874 ####[facility] [id number] [place], [place] [address]Ph# [phone] Platelet mean volume Auto Entitic volume (Bld) 9.4 fL Normal 9.4-12.4 [facility] Comment on above: Order Comment: Campu s: M Performed By: #### L 200.00752 ####[facility] [id number] [place] [address]Vd# [phone] Platelets Auto #/vol (Bld) 153 K/CU MM Normal 150-450 [facility] Comment on above: Order Comment: Campu s: M Performed By: #### L 200.93689 ####[facility] [id number] [place], [place] [address]Xj# [phone] RBC Auto #/vol (Bld) 3.89 M/CU MM Low 3.90-5.30 [facility] Comment on above: Order Comment: Mandi s: M Performed By: #### L 200.31769 ####[facility] [id number] [place], [place] [address]Jm# [phone] WBC Auto #/vol (Bld) 7.2 K/CU MM Normal 4.5-11.0 [facility] [place] Comment on above: Order Comment: Mandi s: M Performed By: #### L 200.94920 ####[facility] [id number] [place] [address]Eg# [phone] Louie 06-02-2018 FERR 241.1 NG/ML Normal 8.0-307.0 [facility] Comment on above: Order Comment: Mandi s: M Performed By: #### L 200.28174 ####[facility] [id number] [place], [place] [address]Vs# [phone] GFR ESTon 06-02-2018 IF AMER Greater than [address] [facility] Comment on above: Order Comment: Mandi s: M Performed By: #### L 200.48735 ####[facility] [id number] [place] [address]Am# [phone] IF non-AFR AMER Greater than [address] [facility] Comment on above: Order Comment: Mandi s: M Performed By: #### L 200.65715 ####[facility] [id number] [place], [place] [address]Wa# [phone] IRON PANELon 06-02-2018 Iron mass conc 22 ug/dL Low 50-170 [facility] Comment on above: Order Comment: Mandi s: M Result Comment: Hossein ents treated with metal-binding drugs (e.g.deferoxamine)may have depressed iron values, as chelated iron may notproperly react in the Siemens iron assay. Performed By: #### L 200.26150 ####[facility] [id number] [place], [place] [address]Ko# [phone] IRON SAT 8 % Low 22-44 [facility] Comment on above: Order Comment: Sarwatu s: M Performed By: #### L 200.45225 ####[facility] [id number] [place], [place] [address]Am# [phone] TIBC 269 UG/DL Normal 221-481 [facility] Comment on above: Order Comment: Sarwatu s: M Performed By: #### L 200.67316 ####[facility] [id number] [place], [place] [address]Se# [phone] OTARon 06-02-[address] OT [address] [facility] OTAR Occupational TherapyInpatient EvaluationMedical Diagnosis: s/p Left TKA performed by Dr. Tierney on 06/01/2018OCCUPATIONAL PROFILE AND HISTORYTherapy Diagnosis:Rank Code Description1 Z74.1 Need for assistance with personal care2 R26.81 Unsteadiness on feetDemographics:Age: 67YGender: FemalePrimary Language: EnglishPreferred Language: EnglishReferring Service/Team: OrthopedicsPast Medical History: cataracts, sleep apnea, elevated blood cholesterol, HTN,depression, DM, thyroid dysfunction, colonoscop, bariatric bypass, shoulder sx,bilateral arm reduction sx, L knee sx, HTN, Right knee replacementHistory of Present Illness:Date of Surgery: 06/01/18Additional Information: Elective surgery - L TKADate of Admission: 06/01/2018 5:59:00 AMRehabilitation Precautions/Restrictions:F all risk, standard precautions, WBAT LLEImaging/Testing Results from Chart: Fall riskPrior Level of Functioning:Self Care: Patient completed the activities by him/herself, with or without anassistive device, with no assistance from a helper.Functional Cognition: Patient completed the activities by him/herself, with orwithout an assistive device, with no assistance from a helper.BranchPatient/Careg iver Goals: Patient's functional goals: To go homePain: Patient currently has pain.Location: L knee painType: AcuteQuality: Aching.Pain Scale: Visual Analog (VAS).Patient reports a pain level of 3 out of 10.Patient's acceptable level of pain 0 out of 10.Pain does not interfere with any activity at this time.Pain is alleviated by: rest [facility] PATIENT NAME: GILBERTO HERNANDEZ [id number] [facility] [address] Kamara [facility] REC #: [id number], [place] [address] DATE:SERVICE DATE: 06/02/18Occupational Therapy Assessment ATTENDING PHJermaine: Geo Tierney DOPain is exacerbated by: physical activityInterventions: Repositioned patient.Home Environment: Patient lives with (22/03 until 10/11/17. After that, pthas assistance via friends and family several hours/day) , who is able to assistpatient at discharge. Patient lives in a single family home. Home is singlelevel. Patient is not required to manage stairs within the home. First floorfull bathroom setup available. There are 4 steps to enter the home, with rightascending handrails. There is no ramp available to enter home.Equipment Owned: Walk in shower, ww, cane, high commodeMarital Status: MSocial History:Children: 2Reside: [place]sworthEmployment Status: retiredRecreational Activities/Hobbies: familyOBJECTIVE/OCCUPATION AL PERFORMANCEActivities of Daily LivingCurrent Status Previous StatusADLsFeeding Independent -Grooming Supervision -Bathing-UE Supervision -Bathing-LE Supervision -Dressing-UE Supervision -Dressing-LE Supervision -Toileting Supervision -Homemaking Minimal assistance -AM-PAC Daily Activities:Putting On/Taking Off Lower Body Clothing: A little help neededBathing:: A little help neededToileting: A little help neededPutting On/Taking Off Upper Body Clothing: A little help neededGrooming: A little help neededEating a Meal: No help neededRaw Score = 19 , AM-PAC t-Scale Score = 40.22 and G-Code Modifier = CKFunctional Mobility:Bed Mobility: All bed mobility including supine to sit, rolling,scooting. requiring stand by assistance.Transfers: Patient transferred to/from the toilet requiring stand byassistance. Patient used the following equipment: Rolling walker.Locomotion/Gait/Amb ulation: Patient was stand by assist withgait/ambulation for 20 ft x2 . Patient requires the following assistive [facility] PATIENT NAME: GILBERTO HERNANDEZ [address] [facility] [address]. Kamara MEDICAL REC #: [id number], [place] [address] DATE:SERVICE DATE: 06/02/18Occupational Therapy Assessment ATTENDING PHY: Geo Tierney(s): Rolling walker. pt demo good safety awarness. pls see PTdocumentation for full detailsRange of MotionUpper Extremity:Grossly within functional limitsStrengthUpper Extremity:Grossly within functional limitsBalance:Dynamic balance in a seated position is good.Dynamic balance in a standing position is fair. F+Tone/Spasticity: Within Functional Limits throughout.Sensation: Grossly intact.Fine Motor Coordination:Bilateral Hands: Fine motor coordination is not impaired.Gross Motor Coordination: Upper extremity gross motor coordination is intact.Edema: No edema is present.Lower Extremity Function: pls see PT documentation for full detailsVision: Within functional limits.Cognition: Within functional limits.Perceptual Skills: Within functional limits.Psychosocial: Within normal limitsInterventions: Evaluation LOW ComplexitySelf Care/Home Management: pt completed doffing and donning socks with setup A. pt completed toliet t/f and bed mobility with sba. pt completed tub t/fwith min A. pt reported home has walk in shower and tub shower. Initially ptpreferred to use tub shower, but pt concluded it would be easier to use the walkin shower at this time.Pain Reassessment: No significant change in pain during session.Education:The patient's preferred learning method is: Explanation, DemonstrationBarriers to Learning: No barriersLearning Needs: None.Education Provided: Activities of daily living. Bed mobility. Functionaltransfers. Safety issues and interventions. Fall protocol.Audience: Patient.Mode: Explanation.Response: Applied knowledge.ASSESSMENT [facility] PATIENT NAME: GILBERTO HERNANDEZ [address] [facility] [address]. Kamara MEDICAL REC #: [id number], [place] [address] DATE:SERVICE DATE: 06/02/18Occupational Therapy Assessment ATTENDING PHY: Geo Tierney DOClinical Performance Deficits: PainEquipment Recommended: none. pt with all requiredRehabilitation Potential: GoodMotivation/Commitment to Therapy: Good.Response to Evaluation: pt responded to OT eval session well. pt completedtoilet and bed mobility with sba and LBD with ser up A. pt demo difficulty withtub t/f (w/min A), pt elected to use walk in shower in home at this time. no OTneeds noted at this time. d/c from OT services. d/c rec home with family assistprnActivity/Particip ation Problem List and Goals:Functional Impairment: Self CareModifier: [id number] (at least 1%, but less than 20% impaired, limited orrestricted)Goal: LBD with set up AGoal Modifier: [id number] (at least 1%, but less than 20% impaired, limited orrestricted)Treatment Goals: Not applicable.PLANTreatment Frequency, Duration and Interventions: Occupational Therapy servicesare discontinued at this time secondary to: No need for skilled therapyintervention at this time.Recommended Occupational Therapy Follow Up: Upon acute care discharge, thefollowing is currently recommended:No further care.Recommended Consults: None currently.Development of Plan of Care: Patient participated in plan of care developmenttoday.If there are any questions regarding this service, please contact the AcuteTherapy Department at extension [phone] WILL BE TRANSFERRED TO THE (CHOICE OF ACUTE OR REHAB) OCCUPATIONALTHERAPISTComm unication to Nursing: No updates at this time.Location of Patient at End of Therapy Session: In chair, call light within reachServices:Total Billed: 10 minutes (Timed: 10, Untimed: 0)10.00 Timed: [44799] ADL-HOME MANAGEMENT EA 15 MIN0.00 Untimed: [03416] OT-EVALUATION LOW COMPLEXITY0.00 Untimed: [] OT Evaluation ORDER0.00 Untimed: [G8987] OT-Self Care-CI [facility] PATIENT NAME: GILBERTO HERNANEDZ [address] Kamara MEDICAL REC #: [id number] [address] DATE:SERVICE DATE: 06/02/18Occupational Therapy Assessment ATTENDING PHY: Geo Tierney DO0.00 Untimed: [G8988] JE-Hpie-Eunc Care-CISigned by: Geo Sanchez, 06/02/2018 10:40:31 [facility] PATIENT NAME: GILBERTO HERNANDEZ [address] Kamara MEDICAL REC #: [id number] [address] DATE:SERVICE DATE: 06/02/18Occupational Therapy Assessment ATTENDING PHY: Geo Tierney [facility] Kwesi PTDSon 06-02-2018 PTDS Physical TherapyInpa tient Last Visit NoteThe inpatient Physical Therapy services are discontinued at this time for thefollowing reasons: Goals Met. SLITTER PROCESSED FILM has assisted with documenting discharge planand recommendations under the direction of supervising therapist. Therapist'sco-signature denotes agreement with planned discharge from acute physicaltherapy.AM-PAC Basic Mobility:Turning Over in Bed: No difficultySitting/Standing Chair with Arms: No difficultyLying on Back to Sitting on Side of Bed: No difficultyMoving To/From Bed to Chair: A little help neededWalking in Hospital Room: A little help neededClimbing 3-5 Steps with Railing: A little help neededRaw Score = 21 , AM-PAC t-Scale Score = 50.25 and G-Code Modifier = CJInterventions:Therapeuti c Activities: Patient performed bed mobility w/ supervision,patient amb 50 feet x 2 w/ WW and supervision, patient transferred from multiplesurfaces including commode w/ supervision, patient verbalized understanding ofprovided HEP and parameters indep, patient negotiated up/down 5 steps w/ rightascending rail and SBA for safety. Reviewed car transfer, TKA precautions,safety awareness.Recommendations: Upon acute care discharge, the following is currentlyrecommended: Outpatient Physical Therapy.Discharge Plan: The patient's status and plan was discussed with patient andagreed upon.If there are any questions regarding this service, please contact the AcuteTherapy Department at extension [phone]:Total Billed: 40 minutes (Timed: 40, Untimed: 0)40.00 Timed: [15393] THER ACTIVITIES / 15 MIN0.00 Untimed: [] PT Treatment- General ORDERSigned by: Olga Narayan PTA 06/02/2018 11:33:52- CoSigned By: Zhanna Andrade 06/02/2018 11:57:44 AM [facility] PAT[facility] MEDICAL REC #: [id number], [place] [address] DATE:SERVICE DATE: 06/02/18Physical Therapy Discharge Summary ATTENDING PHY: Geo Tierney DO [facility] PATIENT NAME: [facility] MEDICAL REC #: [id number], [place] [address] DATE:SERVICE DATE: 06/02/18Physical Therapy Discharge Summary ATTENDING PHY: Geo Tierney DO [facility] 06-01-2018 Hematocrit Auto Volume Fraction (Bld) 41.2 % Normal 35.0-47.0 [facility] Comment on above: Order Comment: Sarwatu s: M Performed By: #### L [id number] ####[address] [address]Lj# [phone] Hemoglobin mass conc (Bld) 13.6 g/dL Normal 11.5-15.5 [facility] Comment on above: Order Comment: Sarwatu s: M Performed By: #### L [id number] ####[address] [address]Hw# [phone] HP.[facility] 06-01-2018 CONSULTATION-H&P [facility] HP.IMS.[facility] Patient Name: GILBERTO HERNANDEZ [facility] Date of : [address] [place] [address] Unit Number: [id number] Number: [id number] Patient Status: REG SDCAttending Doctor: Geo Tierney DOService Date: 06/01/181810History of Present IllnessReferring Geo Pan DOConsulted ProviderMamadou Gibson for Consultmed mgt: hypothyroidism, sleep apnea, anxiety and depression, restless leg syndromeHistory of Present IllnessPatient is an obese, pleasant 67-year-old female, patient of Dr. Brijesh Diaz, with a medical history of hypothyroidism, sleep apnea, anxiety and depression,bariatric surgery. Dr. Tierney performed a total knee replacement today, we have beenasked to manage her medical conditions. She has had pain in her left knee for severalyears and conservative management has failed. She currently rates her pain 5/10 and iscurrently on Percocet. Seen sitting in a chair in her room. She denies any fever, chills,chest pain, cough. She does complain of fatigue and shortness of breath which sheattributes to her sleep apnea. 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 Denies any tobacco, alcohol, drug use.Advance DirectivesAdvance Directives Full CodeAllergies/Home MedicationsAllergiesCoded Allergies:ADHESIVE TAPE (Mild, SKIN TEARS 09/28/17)HYDROCODONE (From VICODIN) (Mild, ITCHING 09/28/17)LATEX (06/01/18)Home MedicationsAcetaminophen (Tylenol Arthritis) 650 MG TABLET.ER 650 MG PO BID, Ref 0 (Reported)Entered as Reported by MARIAELENA RAYA on 06/01/18817Last Action: Held on 06/01/181832 by Alistair GREEN inophen/Diphenhydramine (Tylenol Pm Ex-Strength Caplet) 1 EACH TABLET 1 EACH POQHS, Ref 0 (Reported)Entered as Reported by MARIAELENA RAYA on 06/01/18 0824Last Action: Converted on 06/01/181833 by Miles GREEN ate Calcium (Madhuri-C) 500 MG TABLET 500 MG PO QAM, Ref 0 (Reported)Entered as Reported by FAVIAN BECKFORD on 09/28/17 1525Last Action: Held on 06/01/181833 by URBAN GREEN[BARIA TIC CHOOSE MULT] 1 TAB PO QID, Ref 0 (Reported)Entered as Reported by TWIN BARBER on 05/17/18 1044Last Action: Held on 06/01/181833 by Linh GREEN lopram Oxalate* (Lexapro 10MG Tab*) 10 MG TABLET 10 MG PO QHS, Ref 0 (Reported)Entered as Reported by FAVIAN BECKFORD on 09/28/17 1522Last Action: Continued on 06/01/181832 by URBAN GREENIron 18 MG TABLET 65 MG PO QDAY, Ref 0 (Reported)Entered as Reported by FAVIAN BECKFORD on 09/28/17 1527Last Action: Held on 06/01/181833 by Ileana GREEN yroxine Sodium* (Synthroid 0.112MG Tab*) 112 MCG TABLET 0.112 MG PO QDAYAC, Ref 0(Reported)Entered as Reported by FAVIAN BECKFORD on 09/28/17 1523Last Action: Continued on 06/01/181832 by Jaya GREEN ium Chloride* (Slow-Mag 64MG Tablet SA*) 64 MG TAB 250 MG PO QDAY, Ref 0 (Reported)Entered as Reported by MARIAELENA RAYA on 06/01/18 0811Last Action: Held on 06/01/181833 by Nate GREENxa lone* (Skelaxin 800MG Tab*) 800 MG TABLET 800 MG PO QHS, Ref 0 (Reported)Entered as Reported by MARIAELENA RAYA on 06/01/18 0819Last Action: Continued on 06/01/181858 by Tracey GREEN exole Di-HCl* (Mirapex 1MG Tab*) 1 MG TABLET 1 MG PO QHSPRN, Ref 0 (Reported)Entered as Reported by FAVIAN BECKFORD on 09/28/17 1522Last Action: Continued on 06/01/181832 by URBAN GREEN[SUGAR BEARHAIR BIOTIN] 1 TAB PO BID, Ref 0 (Reported)Entered as Reported by MARIAELENA RAYA on 06/01/18 0821Last Action: Held on 06/01/181833 by Laura GREEN of SystemsROS: OtherConstitutional - Denies any fever, chills. States she has some fatigue due to her sleepapnea, fatigue is improving.Eyes - Denies any blurred vision, double vision.HEENT -Denies any difficulty swallowing, headaches, or sore throat. Has hearingdifficulty and wears hearing aidCardiovascular - Denies any chest pain, chest pressure, palpitations or dizziness.Respiratory - Denies any cough, hemoptysis. occassional shortness of breath.Gastrointestinal - Denies any abdominal pain, nausea, or vomiting. States she hasintermittent diarrhea from her bariatric surgeryGenitourinary - Denies any dysuria, hematuria.Skin -Denies any jaundice, rash.Musculoskeletal -states swelling in right knee since knee replaced surgery.Neurologic - Denies any blurred vision, double vision, slurred speech, headaches, ornumbness and tingling.Psychiatric -patient has a history of anxiety and depression.Physical ExamVital SignsVital Signs (Last)ResultDate TimePulse Uj4985/03 1532B/P118/6310/03 1532O2 DeliveryROOM AIR10 3315Jyzg71.610/03 7952Xlcpi9255/03 4559Iybb6453/03 1532Medications CurrentSig/SchStart timeLastMedicationDoseRout eStop TimeStatusAdminAl Hydrox/Mg Hydrox/30 KQP3OQGC PRN10 1430ACSimethiconePO(MAALOX (ALAMAG)PLUSORAL LIQ)Bisacodyl5 MGONCE ONE06/02 1430AC(DULCOLAX TAB.EC)PO06/02 7659Hczokazaw95 MGONCE ONE10/ 1430AC(DULCOLAX RECT)RC10/04 1431Cefazolin Sodium2 GMQ8H@1110/03 1900AC(ANCEF VIAL)IV10/04 0329Sodium Wlypgedu45 ML(Sodium Chloride0.9%)Hijkvdwjf852 MGQ12H@211 2100AC(CELEBREX CAP)PODiphenhydramine HCl25 JKP2DEWE PRN10/ 1430AC(BENADRYL CAP)PODocusate Fnqzsui102 MGQ12H@ 2100AC(SURFAK CAP)POEnoxaparin Duogoe02 GPZ96B94/04 0900AC(LOVENOX D.SYR)SCLactated Ringer's1,000 HEFIRN66 1430AC(Lactated Ringers)IVOndansetron HCl4 FVK0EQEJ PRN10 1430AC(ZOFRAN VIAL)IVOxycodone/1 KEPWFN4MBZM PRN10/03 9450BZ78/03AcetaminophenPO 1742(percoCET-5/325 TAB)Oxycodone/2 LXFZGK8CDBL PRN10/03 1430ACAcetaminophenPO(perc oCET-5/325 TAB)Pantoprazole Dlswuf56 HQWUYMSL15/05 0700AC(PROTONIX TAB)POSodium Chloride3 BSC6G85/03 2200AC(Sodium ChlorideIV0.9% FLUSH D.SYR)Sodium Chloride3 MLPRN PRN10/03 1430AC(Sodium ChlorideIV0.9% FLUSH D.SYR)Zolpidem Tartrate5 MGQHSPRN PRN10/03 1430AC(AMBIEN TAB)POLaboratory Tests10/067224LfzsaaozjkMl b (11.5 - 15.5 G/DL)13.6Hct (35.0 - 47.0 %)41.2preop labs reviewed, h + P reviewed on chart.Constitutional - Patient appears appropriate, alert sitting in chair in her room in nodistressENT - Head normocephalic,atraumatic. Oral mucosa pink and moist.Cardiovascular - Heart is regular rate and rhythm. No gallops, rubs, murmurs noted. Nocarotid bruit noted.Respiratory-nonlabor ed, regular, even. Clear to auscultation.Skin - Appears warm, dry, intact.Gastrointestinal - Abdomen soft, bowel sounds present, nontender. No guarding orrebounding noted.Lymph - No gross lymphadenopathy noted.Musculoskeletal -left knee is wrapped in Jesus wrap, no drains noted. Grasps appearmoderate in strength and equal. Pulses are +2. Mild lower extremity edema noted.Neurologic - Patient is alert and oriented and appropriate 3. Speech is clear. No facialdroop noted.Psychiatric - Patient appears calm, no anxiety or depression noted.Conclusion / PlanConclusion1. Hypothyroidismcontinue Synthroid.2. Anxiety and depressionAppears well-controlled. We will continue Lexapro.3. Restless leg syndromeWe will continue patient on Mirapex4. HypertensionCurrent blood pressure is good with diet control. Patient states since her bariatricsurgery her blood pressures have been good.5. DiabetesAppears well-controlled with diet, last hemoglobin A1c was 5.2, patient states since herbariatric surgery her diabetes has been well controlled with no medication.6. Arthropathy of left kneeOrthopedics is following.s/p left knee replacement. dvt and gi prophylaxis per surgeonThank you for allowing us to participate in the medical management of this patient. Wewill continue to follow as needed.Collaborating PhysicianMamadou Gibson MDDisclaimerThisonal dictation was created using voice recognition software.Phonetic and/or minor grammatical errors may exist.eSign Date and TimeGrossUrban dumont Verified/Reviewed by 06/01/18 190Mamadou Calderon MD [facility] 06-01-2018 OPERATIVE REPORT [facility] OR DATE OF SERVICE: 06/01/2018INDICATION FOR SURGERY: This is a 67-year-old pleasant female who is seen in theoutpatient setting and diagnosed with osteoarthritis of the left knee. A trial ofconservative therapy consisting of anti-inflammatory medications, activitymodifications, PT and injections was trialed, and she subsequently failed. She wastherefore offered, given that she had end-stage arthritis refractory to conservativetherapies, that she would be a good candidate for left total knee arthroplasty. Inaddition, the patient had, had a right total knee arthroplasty done recently and date well with this. The risks, benefits, and alternatives to the procedure werediscussed with the patient at length, and she elected to proceed with left total kneearthroplasty. Informed consent was obtained in the office.PREOPERATIVE DIAGNOSIS: Left knee osteoarthritis.POSTOPERATI VE DIAGNOSIS: Left knee osteoarthritis.PROCEDURE: Left total knee arthroplasty.SURGEON: Geo Tierney DOASSISTANT: Kenan Mccormack DO, PGY-5, Radha Rubalcava DO, PGY-1 and NELIA Tyler.ANESTHESIA: Spinal with adductor canal block.ESTIMATED BLOOD LOSS: Approximately 50 mL.COMPLICATIONS: None.CONDITION: The patient was transferred to PACU in stable condition.IMPLANTS:1. Carter and Nephew size 4 cruciate-retaining Legion Oxinium femoral component.2. Carter and Nephew Vernell II size 4 nonporous tibial baseplate.3. Carter and Nephew Vernell II patellar component size 32.4. Carter and Nephew size 3-4, 11-mm polyethylene insert.DESCRIPTION OF PROCEDURE: This nice [facility] She was greeted by Dr. Tierney and by the anesthesia staff. Theleft lower extremity was identified as the operative site, and this was markedappropriately. A preoperative adductor canal block was performed by the anesthesiastaff, and spinal anesthesia was also placed by the anesthesia staff. The patientwas then transferred back to the operative suite and was laid supine on theoperative table. All bony prominences were well padded. Monitored anesthesia care [facility] PATIENT NAME: GILBERTO HERNANDEZ [facility] Dr. Kamara MEDICAL REC #: [id number], [place] [address] DATE:DISCHARGE DATE:OPERATIVE REPORT ATTENDING PHY: Geo Tierney administered by the anesthesia staff, and a well-padded, pretested pneumatictourniquet was applied to the left upper thigh. The limb was exsanguinated with anEsmarch and the tourniquet was insufflated to 2280 mmHg for approximately 62minutes.A time-out was performed, and the patient, planned procedure, and operative site wereall confirmed. All in attendance were in agreement. A preoperative dose ofantibiotics was given, and 1 g of tranexamic acid was administered as well. The leftlower extremity was then prepped and draped in sterile orthopedic fashion. A linearincision centered over the tibial tubercle measuring approximately 20 cm in lengthwas planned and carried out over the mid-portion of the left knee. All subcutaneousbleeders were cauterized with Bovie cautery and the skin edges were reflected such toidentify the VMO fascia and the retinaculum.A medial parapatellar arthrotomy was carried out in a lazy U-urcvwb-asggoif and thefat pad was removed with a 10-blade. Standard medial release was performed with o96-gypky, incising the medial meniscus and a De Paz was inserted medially undertension of the medial structures and then a medial release was carried out with [id number]-dbunz. We were then able to kathie the patella and flex the knee up at which pointthe remainder of the fat pad was removed with the 10-blade. We then drilled ourholes for our intramedullary guides. The femoral hole 1 cm proximal to the insertionof the PCL and the tibial drill hole in the footprint of the ACL.The cutting guide for the distal femoral cut was then inserted and placed onto thedistal femur. This was pinned in place and we were able to check our resection usingthe jana wing, and we felt that we would achieve a good cut in this position. Usingthe saw, the distal femoral cut was carried out through the block that had beenpinned in place. Once we were satisfied with our cut, the distal femoral cuttingguide was then removed, and the pins were removed as well.We then used the sizing guide for our femoral component and at first felt like theappropriate size would be a size 5. We took care to ensure that we were able toidentify our epicondylar access as well as Highland line. The size 5 cutting blockwas then put in place and pinned to hold it to the femur. However, once the anglewing was inserted on the anterior cut, it was clear that we would not be takingenough anterior femur. Therefore, we chose to downsize to the size 4. The size 4cutting block was then placed onto the femur and pinned into place and with this, wefelt like we had a much better anterior cut.We then made the 4-in-1 cuts starting with the anterior cut and then the posteriorcondyles, followed by the anterior chamfer and posterior chamfer cuts. These weremade without incident, taking care to protect the collateral ligaments at all times.After the femoral cuts were completed, the femoral cutting block was then removed,and we were able to sublux the tibia anteriorly using the large posterior retractor.The intramedullary tibial cutting guide was then inserted into the previously drilledhole, and the tibial cutting guide was pinned in place such that it was perpendicular [facility] PATIENT NAME: GILBERTO HERNANDEZ [address] [facility] Dr. Kamara [facility] REC #: [id number], [place] [address] DATE:DISCHARGE DATE:OPERATIVE REPORT ATTENDING PHY: Geo Tierney the anatomic access of the tibia with just enough resection just beneath the moreworn medial tibial cartilage. This was pinned in place, and we did check our cut atfirst, and did feel like we would achieve good cut into our subchondral bone andtherefore, the external pin was placed, and tibial cut was carried out, once againensuring to protect the collateral ligaments as well as the posterior structuresbehind the knee.Once the tibia cut was completed, the tibial cutting guide was removed, and a largeosteotome was used to elevate the cut portion of tibia off and this was removed usinga pituitary rongeur and Bovie cautery. We were then able to insert a lamina spreaderinto the knee sequentially both medially and laterally and we were able to clear outthe posterior aspects of the knee including the remainder of the menisci and anyosteophytes posteriorly. A small curved osteotome was used to remove osteophytes onthe posterior portion of the posterior condyles both medially and laterally.At this point, we then trialed the size 9 resection dead mail checker, and we did feel that wewere significantly tight in both and flexion and extension. Given this finding, wefelt that we needed to resect more tibia in order to properly balance the knee. Thepins had been left in place. The pins had been left in place from earlier and thetibial cutting guide was reinserted this time to take 2 more millimeters of bone.This cut was again made, taking care to protect the medial and lateral collateralligaments, as well as the posterior structures in the knee and once again, theresection dead mail checker was used, and this time we felt that we had achieved awell-balanced knee both medially and laterally.The femoral trial was then inserted onto the femur the tibial trial with a size 9polyethylene was able to be inserted. We set the proper rotation for our tibia andmarked this appropriately on the anterior tibia using a Bovie cautery. We thenturned our attention to the patella, and an appropriately sized patella reamer wasselected, and this was used to ream the articular surface of the patella down to a 12mm of remaining patella.We then selected a size 32 patellar drill guide, and this was placed onto thepatella and secured in place using the clamp and then the 3 holes in the patella weredrilled using the patella drill. The trial patella was then inserted into thedrilled holes, and we were able to test our tracking of the knee and felt that we hadvery good tracking without any significant lateral tilt or subluxation of thepatella. The patella trial was then removed, and the knee was then flexed back up.At this point, we were then able to punch our holes in our femur for the finalimplant and then the femoral component was removed, and the polyethylene trialcomponent was removed, and then we placed the tibial baseplate on the proximal tibiain order to punch for our final implants. We selected the size 4 tibial base trayas we felt that this gave us good coverage both medially and laterally, and we wereable to set our rotation using the previously marked out alexander on the anteriortibia. The tibial base tray was then punched, and at this point then, all [facility] PATIENT NAME: GILBERTO HERNANDEZ [facility] Dr. Kamara [facility] REC #: [id number], [place] [address] DATE:DISCHARGE DATE:OPERATIVE REPORT ATTENDING PHY: Geo Tierney DOcomponents were then removed from the knee.The knee was copiously lavaged with Irrisept solution, and this was allowed for sitfor approximately 1 minute and then the knee was copiously irrigated with sterile,normal saline. We then injected approximately 40 mL each of Exparel, and the localanesthetic solution both in the medial and lateral portions of the periosteum of thedistal femur as well as the tibia, and we were able to anesthetize the posteriorcapsule, as well.Once again, the knee was copiously irrigated and then the knee was flexed up and themedial and lateral retractors were placed as well as the posterior retractor toexpose the proximal tibia. At this point, the cement was mixed, and the proximaltibia was dried to ensure good interdigitation of cement. A moderate amount ofcement was then placed onto the proximal tibia as well as some cement on the keel ofthe tibial component. A tibial component was then inserted in place and was malleteddown until it was flush with the proximal tibia. Scrapers were used to remove anyaccess cement. The posterior retractor was then removed, and then we were able toput a moderate amount of cement on the bone of the femur, and then a small amount ofcement was placed on the posterior condylar portion of the femoral component.The lug screws of the femur were then inserted into the previously punched holes andthe femur was hammered down until it was flush with the distal femur. Any excesscement was again removed using scrapers, and we felt that our femoral component wasstill sitting up slightly and so the secondary impactor was used and at this point,we were flush with the femur. Again, any excess cement was removed with thescrapers. We elected to place a size 11 polyethylene as the cement set up, andthis was placed in between the femur and tibia, and then the knee was brought down toextension, and then we turned our attention to the patella component.The remaining patella was dried and then a quarter-sized dollop of cement was thenused onto the patella and the patella was placed and clamped in place. Once again,the knee was copiously irrigated with the Irrisept solution, and once the cement hadset up after approximately 15 minutes, the patellar clamp was then removed, and thetourniquet was allowed to be deflated.At the point, the tourniquet was allowed to be deflated and any remaining bleederswere cauterized. There was no undue bleeding and no pumpers that were visualized.There was a just a slow ooze from the bone cuts. The trial polyethylene was thenremoved, and the final size 11 polyethylene component was then opened and was placedinto the knee. Again, we checked our medial and lateral stability as well as ourpatellar tracking and felt that the knee was very stable, both medially and laterallyand the patellar tracking was very good.At this point, the knee was then copiously lavaged once more with sterile normalsaline, and the capsule was then closed with a No. 1 Ethibond suture in simpleinterrupted fashion with rbvuva-gk-kexwm sutures. Once the capsule was closed, the [facility] PATIENT NAME: GILBERTO HERNANDEZ [id number] [facility] Dr. Kamara [facility] REC #: [id number], [place] [address] DATE:DISCHARGE DATE:OPERATIVE REPORT ATTENDING PHY: Geo Tierney DOsecond gram of tranexamic acid was inserted on a spinal needle into the knee capsule.The remaining 20 mL each of the local solution and the Exparel was then injectedinto the subcutaneous tissues.The subcutaneous tissues were then approximated with a 2-0 Vicryl suture, and theskin was closed with tamika. The lower extremity was then dressed with the silverdressing and DuoDERM and then 4x4s and ABDs were placed over top of this and securedin place with Webril. Then a large Jesus wrap was then applied to the left lowerextremity from foot to thigh. At this point, all anesthesia was then able to bereversed, and the patient was transferred back to her prior bed. There were noknown complications at this time. Dr. Tierney was present during the entirety of theprocedure and was involved in all crucial decision making.Vane Santamaria PA-C assisted with proper preoperative positioning, determiningavailability of proper implants, prepping, and draping of patient, manipulationplacement of instruments, protection of ligaments and vital soft tissue structures,assistance in maintaining hemostasis with assistance with closure of wound. [place] and knowledge of the steps of the operation and the desired outcome of eachsurgical step was crucial, allowing for an efficient surgical procedure, and closureof the wound which lead to reduced surgical time, less blood loss, and less risk ofcomplications for the patient.Kenna Mccormack DO (RES), dictating for LUCIA Lyles/[id number]: 06/01/2018 13:39DT: 06/01/2018 15:45SSI File#: [id number] #: [id number]/Reviewed by06/01/18 1655 LYKMI [facility] PATIENT NAME: GILBERTO HERNANDEZ [address] [facility] Dr. Kamara MEDICAL REC #: [id number], [place] [address] DATE:DISCHARGE DATE:OPERATIVE REPORT ATTENDING PHY: Geo Tierney DO [facility] PTARon 06-01-[address] [facility] PTAR Physical TherapyInpa tient EvaluationMedical Diagnosis: s/p Left TKA performed by Dr. Tierney on 06/01/2018Therapy Diagnosis:Rank Code Description1 R26.81 Unsteadiness on feet2 M62.81 Muscle weakness (generalized)Demographics: Age: 67YGender: FemalePrimary Language: EnglishPreferred Language: EnglishReferring Service/Team: OrthopedicsPast Medical History: cataracts, sleep apnea, elevated blood cholesterol, HTN,depression, DM, thyroid dysfunction, colonoscop, bariatric bypass, shoulder sx,bilateral arm reduction sx, L knee sx, HTN, Right knee replacementHistory of Present Illness:Date of Surgery: 06/01/2018Additional Information: Elective surgeryDate of Admission: 06/01/2018 5:59:00 AMRehabilitation Precautions/Restrictions:F all risk, standard precautions, WBAT LLEImaging/Testing Results from Chart: Fall riskSUBJECTIVEPrior Level of Functioning:Indoor Mobility: Patient completed the activities by him/herself, with orwithout an assistive device, with no assistance from a helper.Stairs: Patient completed the activities by him/herself, with or without anassistive device, with no assistance from a helper.Indep with ADL. 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 Denies falls.Prior Device Use:[id number]. Prior DeviceNone of Above YesPatient/Caregiver Goals: Patient's functional goals: To go homePain: Patient currently without complaints of pain.Home Environment: Patient lives with (22/03 until 10/11/17. After that, pthas assistance via friends and family several hours/day) , who is able to assistpatient at discharge. Patient lives in a single family home. Home is singlelevel. Patient is not required to manage stairs within the home. First floor [facility] PATIENT NAME: GILBERTO HERNANDEZ [facility] Dr. Kamara MEDICAL REC #: [id number], [place] [address] DATE:SERVICE DATE: 06/01/18Physical Therapy Assessment Report ATTENDING PHY: Geo Tierney bathroom setup available. There are 4 steps to enter the home, with rightascending handrails. There is no ramp available to enter home.Equipment Owned: Walk in shower, ww, cane, high commodeSocial History: Marital Status: MChildren: 2Reside: [place]sworthEmployment Status: retiredRecreational Activities/Hobbies: familyOBJECTIVECognitive ScreenResponsiveness: Alert.Orientation: Oriented to person, place, time, and situation.Following Commands: Patient is able to follow 3-step commands.Range of MotionUpper Extremity: Grossly within functional limitsLower Extremity: Not within functional limits LLE ROM decreaseStrengthUpper Extremity: Grossly within functional limitsLower Extremity: Not within functional limits LLE MMT deferredTone/Spasticity: Within Normal Limits throughout.Sensation: Grossly intact.Balance:Dynamic balance in a standing position is good. SBATherapeutic/Functional Activities:Bed Mobility: All bed mobility including supine to sit, rolling,scooting. requiring supervision. Pt able to lift and lowerTransfers: Patient transferred sit to/from stand requiringsupervision. Patient used the following equipment: Arms of chair. Pt controlledeccentricallyPat ient transferred to/from the toilet requiring supervision. increase painLocomotion/Gait/Ambula tion: Patient was contact guard withgait/ambulation of 1 person for 40 feet x 2 . Patient requires the followingassistive device(s): Rolling walker. Slow janice, step to gait pattern,increase pain with limited ambulationGait was completed at: 1645Gait Deviations: No gait deviations.Stairs: Not assessed.AM-PAC Basic Mobility:Turning Over in Bed: No difficultySitting/Standing Chair with Arms: A little difficultyLying on Back to Sitting on Side of Bed: No difficultyMoving To/From Bed to Chair: A little help needed [facility] PATIENT NAME: GILBERTO HERNANDEZ [facility] Dr. Kamara MEDICAL REC #: [id number], [place] [address] DATE:SERVICE DATE: 06/01/18Physical Therapy Assessment Report ATTENDING PHY: Geo Tierney in Hospital Room: A little help neededClimbing 3-5 Steps with Railing: A little help neededRaw Score = 20 , AM-PAC t-Scale Score = 47.67 and G-Code Modifier = CJVital Signs:Not assessed.Interventions: Evaluation LOW ComplexityTherapeutic Activities: AP, LAQ, heel slides, gut sets, quad sets,educated on PT plan of care, educated on mobility benefits, educated ondischarge recommendationPain Reassessment: Increase in pain during session. Increase painEducation:The patient's preferred learning method is: Explanation, DemonstrationBarriers to Learning: Acuity of illnessLearning Needs: Precautions.Pain management.Plan of care.Rehabilitation techniques and procedures.Safety.Educatio n Provided: No education provided this session.ASSESSMENTProblem List: Decreased endurance, Impaired ambulation, Impaired balance,Impaired transfersStrengths: Independent premorbid functionRehabilitation Potential: Good Pt agreeable to PT plan of careMotivation/Commitment to Therapy: Good.Response to Evaluation: Pt tolerated PT evaluation well due to motivated.Educated patient on knee precautions, weight bearing status, functional transfertraining, safety awareness, and therapeutic exercise. Patient completedfunctional mobility of transfers and gait with CGA and use of ww.Implement acutecare PT, recommend OP PTActivity/Participation Problem List and Goals:Functional Impairment: Mobility: Walking and Moving Around.Modifier: Q1202-QZ (at least 20%, but less than 40% impaired, limited, orrestricted)Goal: Compltee 50 feet supv wwGoal Modifier: B2366-VR (at least 1%, but less than 20% impaired, limited orrestricted)Treatment Goals: Time frame to achieve treatment goal(s): 2 weeks1. Complete 50 feet supv ww2. Complete transfers supv3. Complete verbalization of HEP indep [facility] PATIENT NAME: GILBERTO HERNANDEZ [facility] Dr. Kamara MEDICAL REC #: [id number], [place] [address] DATE:SERVICE DATE: 06/01/18Physical Therapy Assessment Report ATTENDING PHY: Geo Tierney DO4. Complete 4 steps with right ascending rialPLANTreatment Frequency, Duration and Interventions: Physical Therapy is recommendedfor BID for three days Physical Therapy treatment is to include: gait, balance,HEP, thera act, thera exercise, steps, ww management, education on safetyawareness/concerns.R ecommended Physical Therapy Follow Up: Upon acute care discharge, the followingis currently recommended: Outpatient Physical Therapy.Recommended Equipment: Rolling walker. ww . Rolling walker.Recommended Consults: Occupational Therapy.Development of Plan of Care: Patient participated in plan of care developmenttoday. Pt agreeableIf there are any questions regarding this service, please contact the AcuteTherapy Department at extension [phone] to Nursing:Walking: CGALocation of Patient at End of Therapy Session: In chair, call light within reachServices:Total Billed: 8 minutes (Timed: 8, Untimed: 0)8.00 Timed: [56075] THER ACTIVITIES / 15 MIN0.00 Untimed: [95214] PT-EVALUATION LOW COMPLEXITY0.00 Untimed: [] PT Evaluation ORDER0.00 Untimed: [] PT Treatment- General ORDER0.00 Untimed: [G8978] PT-Mobility: Walking and Moving Around-CJ0.00 Untimed: [G8979] YJ-Oocv-Licaqvax: Walking and Moving Around-CISigned by: Zhanna Andrade, 06/01/2018 17:18:43 [facility] PATIENT NAME: GILBERTO HERNANDEZ [address] [facility] Dr. Kamara MEDICAL REC #: [id number], [place] [address] DATE:SERVICE DATE: 06/01/18Physical Therapy Assessment Report ATTENDING PHY: Geo Tierney DO Normal [facility] TSon 06-01-2018 ABO and Rh group Nom (Bld) B POSITIVE Normal [facility] Comment on above: Order Comment: Mandi Lemus Louie 05-25-2018 FERR 38.8 NG/ML Normal 8.0-307.0 [facility] Comment on above: Order Comment: Mandi Lemus Performed By: #### L 500.15698, L500.79479 ####[facility] [id number] [place], [place] [address]Ru# [phone] IRON PANELon 05-25-2018 Iron mass conc 424 ug/dL High 50-170 [facility] Comment on above: Order Comment: Mandi Lemus Result Comment: Slig ht Hemolysis, Result may be falsely increased.Patients treated with metal-binding drugs (e.g.deferoxamine)may have depressed iron values, as chelated iron may notproperly react in the Siemens iron assay. Performed By: #### L 500.06251, L500.36357 ####[facility] [id number] [place], [place] [address]Uy# [phone] IRON SAT 118 % High 22-44 [facility] Comment on above: Order Comment: Mandi Lemus Performed By: #### L 500.68951, L500.55459 ####[facility] [id number] [place], [place] [address]Vs# [phone] TIBC 360 UG/DL Normal 221-481 [facility] Comment on above: Order Comment: Campu s: M Performed By: #### L 500.43196, L500.91185 ####[facility] [id number] [place], [place] [address]Py# [phone] URINE CULTUREon 05-21-2018 Bacteria identified Cx Nom (U) URINE RESULT LESS THAN 10,000 COLONIES PER ML Normal [facility] Comment on above: Order Comment: Campu s: M Performed By: #### L 500.25440, L500.82380 ####[address] [address]Lu# [phone] ABO/RH NCon 05-19-2018 ABO and Rh group Nom (Bld) B POSITIVE Normal [facility] Comment on above: Order Comment: Campu s: M BMPon 05-19-2018 Anion gap 3 molar conc 9 mmol/L Normal 5-16 [facility] Comment on above: Order Comment: Campu s: M Performed By: #### L 500.49923, L500.77762 ####[facility] [id number] [place] [address]Rz# [phone] Calcium mass conc 9.0 mg/dL Normal 8.5-10.1 [facility] Comment on above: Order Comment: Campu s: M Performed By: #### L 500.60258, L500.33836 ####[facility] [id number] [place], [place] [address]Gj# [phone] Chloride molar conc 107 mmol/L Normal 98-107 [facility] Comment on above: Order Comment: Campu s: M Performed By: #### L 500.00518, L500.11563 ####[facility] [id number] [place], [place] [address]Cx# [phone] CO2 molar conc 28 mmol/L Normal 21-32 [facility] Comment on above: Order Comment: Campu s: M Performed By: #### L 500.27211, L500.24189 ####[facility] [id number] [place], [place] [address]Hc# [phone] Creatinine mass conc 0.676 mg/dL Normal 0.510-0.950 [facility] Comment on above: Order Comment: Campu s: M Result Comment: Hossein ents receiving either N-Acetylcysteine (NAC) orMetamizole prior to venipuncture, may have falsely depressedresults. Performed By: #### L 500.09805, L500.75704 ####[facility] [id number] [place] [id number]# [phone] Glucose mass conc 88 mg/dL Normal 70-100 [facility] Comment on above: Order Comment: Campu s: M Result Comment: 70-1 00- Normal Fasting; 100-125 Impaired Fasting; greaterthan 126 on more than one result- Diabetes. ADA guidelines.Results may be falsely elevated after the administration ofSulfapyridine.Results may be falsely depressed after the administration ofSulfasalazine. Performed By: #### L 500.95586, L500.05444 ####[facility] [id number] [place], [place] [address]Ni# [phone] Potassium molar conc 4.2 mmol/L Normal 3.5-5.1 [facility] Comment on above: Order Comment: Campu s: M Performed By: #### L 500.48293, L500.26958 ####[facility] [id number] [place], [place] [address]Ny# [phone] Sodium molar conc 144 mmol/L Normal 136-145 [facility] Comment on above: Order Comment: Campu s: M Performed By: #### L 500.18837, L500.14635 ####[facility] [id number] [place], [place] [address]Fw# [phone] Urea nitrogen mass conc 14 mg/dL Normal 7-26 [facility] Comment on above: Order Comment: Campu s: M Performed By: #### L 500.24290, L500.23927 ####[facility] [id number] [place] [address]Ke# [phone] Urea nitrogen/Creatinine mass ratio 21 mg/mg Normal 15-24 [facility] Comment on above: Order Comment: Campu s: M Performed By: #### L 500.59108, L500.00132 ####[place] [address]Ph# [phone] CBC W/DIFFon 05-19-2018 BASO ABS 0.00 K/CU MM Normal 0-0.2 [facility] Comment on above: Order Comment: Campu s: M Performed By: #### L 500.12255, L500.28181 ####[place] [address]Ph# [phone] Basophils/100 WBC Auto (Bld) 0.6 % Normal 0-2 [facility] Comment on above: Order Comment: Campu s: M Performed By: #### L 500.15616, L500.39904 ####[facility] [id number] [place] [address]Yw# [phone] EOS ABS 0.10 K/CU MM Normal 0-0.5 [facility] Comment on above: Order Comment: Campu s: M Performed By: #### L 500.40822, L500.14295 ####[place] [address]Ph# [phone] Eosinophils/100 WBC Auto (Bld) 1.6 % Normal 0-5 [facility] Comment on above: Order Comment: Campu s: M Performed By: #### L 500.23311, L500.50541 ####[address] [address]Ae# [phone] Erythrocyte distribution width Auto Ratio (RBC) 13.1 % Normal 11-14.5 [facility] Comment on above: Order Comment: Campu s: M Performed By: #### L 500.22824, L500.11169 ####[facility] [id number] [place] [address]Et# [phone] Hematocrit Auto Volume Fraction (Bld) 37.0 % Normal 35.0-47.0 [facility] Comment on above: Order Comment: Campu s: M Performed By: #### L 500.44705, L500.87036 ####[place] [address]Ph# [phone] Hemoglobin mass conc (Bld) 12.2 g/dL Normal 11.5-15.5 [facility] Comment on above: Order Comment: Campu s: M Performed By: #### L 500.42023, L500.92711 ####[place] [address]Ph# [phone] IMMATR GRAN ABS 0.00 K/CU MM Normal Less than 2 [facility] Comment on above: Order Comment: Campu s: M Performed By: #### L 500.87726, L500.74745 ####[place] [address]Ph# [phone] IMMATURE GRAN % 0.2 % Normal Less than 2 [facility] Comment on above: Order Comment: Campu s: M Performed By: #### L 500.98438, L500.86825 ####[facility] [id number] [place], [place] [address]Ph# [phone] Lymphocytes Auto #/vol (Bld) 1.60 K/CU MM Normal 0.9-4.4 [facility] Comment on above: Order Comment: Campu s: M Performed By: #### L 500.25769, L500.52696 ####[place] [address]Ph# [phone] Lymphocytes/100 WBC Auto (Bld) 32.0 % Normal 20-40 [facility] Comment on above: Order Comment: Campu s: M Performed By: #### L 500.95272, L500.15131 ####[facility] [id number] [place] [address]Qd# [phone] MCHC Auto mass conc (RBC) 33.0 g/dL Normal 32.0-36.0 [facility] Comment [facility]: Order Comment: Campu s: M Performed By: #### L 500.26284, L500.63251 ####[place] [address]Ph# [phone] MCV Auto Entitic volume (RBC) 87.9 fL Normal 80.0-99.0 [facility] Comment on above: Order Comment: Campu s: M Performed By: #### L 500.05825, L500.93631 ####[place] [address]Ph# [phone] MONO ABS 0.40 K/CU MM Normal 0.1-1.1 [facility] Comment on above: Order Comment: Campu s: M Performed By: #### L 500.13216, L500.95121 ####[address] [address]Xh# [phone] Monocytes/100 WBC Auto (Bld) 8.6 % Normal 2-10 [facility] Comment on above: Order Comment: Campu s: M Performed By: #### L 500.68312, L500.46715 ####[facility] [id number] [place], [place] [address]Ph# [phone] NEUTROPHIL ABS 2.90 K/CU MM Normal 2.0-8.3 [facility] Comment on above: Order Comment: Campu s: M Performed By: #### L 500.18665, L500.28996 ####[facility] [id number] [place] [address]Ak# [phone] Neutrophils/100 WBC Auto (Bld) 57.0 % Normal 45-75 [facility] Comment on above: Order Comment: Campu s: M Performed By: #### L 500.45535, L500.53219 ####[facility] [id number] [place], [place] [address]Dp# [phone] Nucleated RBC/100 WBC Ratio (Bld) 0.0 % Normal Less than 1 [facility] Comment on above: Order Comment: Campu s: M Performed By: #### L 500.08747, L500.11003 ####[address] [address]Mp# [phone] Platelet mean volume Auto Entitic volume (Bld) 9.4 fL Normal 9.4-12.4 [facility] Comment on above: Order Comment: Campu s: M Performed By: #### L 500.50333, L500.69116 ####[address] [address]Xk# [phone] Platelets Auto #/vol (Bld) 189 K/CU MM Normal 150-450 [facility] Comment on above: Order Comment: Campu s: M Performed By: #### L 500.63252, L500.18814 ####[address] [address]Qc# [phone] RBC Auto #/vol (Bld) 4.21 M/CU MM Normal 3.90-5.30 [facility] Comment [facility] above: Order Comment: Campu s: M Performed By: #### L 500.59940, L500.88979 ####[facility] [id number] [place] [address]Af# [phone] WBC Auto #/vol (Bld) 5.1 K/CU MM Normal 4.5-11.0 [facility] Comment on above: Order Comment: Campu s: M Performed By: #### L 500.17458, L500.40117 ####[facility] [id number] [place] [address]Ik# [phone] Louie 05-19-2018 FERR 48.7 NG/ML Normal 8.0-307.0 [facility] Comment on above: Order Comment: Sarwatu s: M Performed By: #### L 500.40917, L500.11122 ####[facility] [id number] [place], [place] [address]By# [phone] GFR ESTon 05-19-2018 IF AMER Greater than 60 Normal [facility] Comment on above: Order Comment: Sarwatu s: M Performed By: #### L 500.61472, L500.80267 ####[facility] [id number] [place], [place] [address]Lu# [phone] IF non-AFR AMER Greater than [address] [facility] Comment on above: Order Comment: Sarwatu s: M Performed By: #### L 500.05691, L500.67706 ####[facility] [id number] [place], [place] [address]Hj# [phone] HGB A1C GLYCOHBon 05-19-2018 Hemoglobin A1c/Hemoglobin.total mass fraction (Bld) 5.2 % Normal 4.3-6.0 [facility] Comment on above: Order Comment: Mandi s: M Performed By: #### L 500.21147, L500.23187 ####[facility] [id number] [place], [place] [address]Jj# [phone] IRON PANELon 05-19-2018 Iron mass conc 87 ug/dL Normal 50-170 [facility] Comment on above: Order Comment: Mandi s: M Result Comment: Hossein ents treated with metal-binding drugs (e.g.deferoxamine)may have depressed iron values, as chelated iron may notproperly react in the Siemens iron assay. Performed By: #### L 500.16975, L500.47959 ####[facility] [id number] [place], [place] [address]Hw# [phone] IRON SAT 24 % Normal 22-44 [facility] Comment on above: Order Comment: Mandi s: M Performed By: #### L 500.59983, L500.74963 ####[facility] [id number] [place], [place] [address]Ls# [phone] TIBC 360 UG/DL Normal 221-481 [facility] Comment on above: Order Comment: Mandi Lemus Performed By: #### L 500.95731, L500.95722 ####[facility] [id number] [place], [place] [address]Kz# [phone] MRSA PCRon 05-19-2018 MRSA PCR Negative Normal NEGATIVE [facility] Comment on above: Order Comment: Mandi pruitt: Allan Result Comment: PLEA SE NOTE: TESTING DONE BY PCR TECHNOLOGY.The SA Nasal complete MRSA assay on the [employer] GeneXperthas not been validated for use on patients under 21 years ofage. All patients under 21 years of age, run on theGeneXpert will be confirmed by a Blood Ballinger plate, followedby an ISSAC, to confirm MRSA. Performed By: #### L 500.34190, L500.56834 ####[facility] [id number] [place], [place] [address]Ph# [phone] SA PCR Negative Normal NEGATIVE [facility] Comment on above: Order Comment: Mandi s: Allan Result Comment: PLEA SE NOTE: TESTING DONE BY PCR TECHNOLOGY. Performed By: #### L 500.86906, L500.39926 ####[facility] [id number] [place], [place] [address]Iv# [phone] PTon 05-19-2018 INR Coag RelTime (PPP) 0.99 {INR} Normal 0.9-1.1 [facility] Comment on above: Order Comment: Mandi pruitt: Allan Result Comment: Frantz mmended PT INR therapeutic range for residential andprophylactic therapy is 2.0 - 3.0. For heart valve andshunt patients the range is 2.5 - 3.5. Performed By: #### L 500.37908, L500.44539 ####[facility] [id number] [place], [place] [address]Ng# [phone] PTS 10.6 SECONDS Normal 9.5-12.0 [facility] Comment on above: Order Comment: Campu s: M Performed By: #### L 500.54137, L500.85214 ####[facility] [id number] [place], [place] [address]We# [phone] PTTon 05-19-2018 aPTT Coag time (Bld) 23.9 s Normal 22.0-31.5 [facility] Comment on above: Order Comment: Campu s: M Result Comment: Ther apeutic Heparin Reference Range: High Dose: 46-75 seconds (DVT/PE) Low Dose: 39-60 seconds (Acute Coronary Syndrome)For low molecular weight heparin or danaparoid, monitoringis often NOT necessary, but the heparin assay, Xa inhibitionassay (send-out) may be used in certain circumstances, asthe PTT is generally insensitive to the effect of theseagents. Direct thrombin inhibitors are becoming more widelyutilized and these drugs are often monitored using the PTT. Performed By: #### L 500.37539, L500.60743 ####[facility] [id number] [place], [place] [address]Ry# [phone] BMPon 10-07-2017 Anion gap 3 molar conc 12 mmol/L Normal 5-16 [facility] Comment on above: Order Comment: Sarwatu s: M Performed By: #### L 300.96723, L300.74188 ####[facility] [id number] [place], [place] [address]So# [phone] Calcium mass conc 8.5 mg/dL Normal 8.5-10.1 [facility] Comment on above: Order Comment: Sarwatu s: M Performed By: #### L 300.80088, L300.07567 ####[facility] [id number] [place], [place] [address]Sl# [phone] Chloride molar conc 106 mmol/L Normal 98-107 [facility] Comment on above: Order Comment: Sarwatu s: M Performed By: #### L 300.25742, L300.71284 ####[facility] [id number] [place], [place] [address]Ro# [phone] CO2 molar conc 23 mmol/L Normal 21-32 [facility] Comment on above: Order Comment: Sarwatu s: M Performed By: #### L 300.45493, L300.95673 ####[facility] [id number] [place], [place] [address]Gn# [phone] Creatinine mass conc 0.636 mg/dL Normal 0.510-0.950 [facility] Comment on above: Order Comment: Campu s: M Result Comment: Hossein ents receiving either N-Acetylcysteine (NAC) orMetamizole prior to venipuncture, may have falsely depressedresults. Performed By: #### L 300.33165, L300.47570 ####[facility] [id number] [place], [place] [address]Fo# [phone] Glucose mass conc 112 mg/dL High 70-100 [facility] Comment on above: Order Comment: Campu s: M Result Comment: 70-1 00- Normal Fasting; 100-125 Impaired Fasting; greaterthan 126 on more than one result- Diabetes. ADA guidelines.Results may be falsely elevated after the administration ofSulfapyridine.Results may be falsely depressed after the administration ofSulfasalazine. Performed By: #### L 300.90680, L300.11679 ####[facility] [id number] [place], [place] [address]To# [phone] Potassium molar conc 3.9 mmol/L Normal 3.5-5.1 [facility] Comment on above: Order Comment: Campu s: M Performed By: #### L 300.57441, L300.81782 ####[facility] [id number] [place], [place] [address]Tf# [phone] Sodium molar conc 141 mmol/L Normal 136-145 [facility] Comment on above: Order Comment: Sarwatu s: M Performed By: #### L 300.70036, L300.98884 ####[facility] [id number] [place], [place] [address]Ni# [phone] Urea nitrogen mass conc 10 mg/dL Normal 7-26 [facility] Comment on above: Order Comment: Campu s: M Performed By: #### L 300.35485, L300.59923 ####[facility] [id number] [place], [place] [address]Az# [phone] Urea nitrogen/Creatinine mass ratio 16 mg/mg Normal 15-24 [facility] Comment on above: Order Comment: Campu s: M Performed By: #### L 300.46384, L300.39781 ####[facility] [id number] [place] [address]Ec# [phone] CBCon 10-07-2017 Erythrocyte distribution width Auto Ratio (RBC) 12.9 % Normal 11-14.5 [facility] Comment on above: Order Comment: Campu s: M Performed By: #### L 300.07852, L300.23937 ####[address] [place], [place] [address]Te# [phone] Hematocrit Auto Volume Fraction (Bld) 36.6 % Normal 35.0-47.0 [facility] Comment on above: Order Comment: Campu s: M Performed By: #### L 300.80792, L300.52957 ####[facility] [id number] [place] [address]Li# [phone] Hemoglobin mass conc (Bld) 12.1 g/dL Normal 11.5-15.5 [facility] Comment on above: Order Comment: Campu s: M Performed By: #### L 300.59911, L300.01864 ####[facility] [id number] [place] [address]En# [phone] MCHC Auto mass conc (RBC) 33.1 g/dL Normal 32.0-36.0 [facility] Comment on above: Order Comment: Campu s: M Performed By: #### L 300.69324, L300.86944 ####[facility] [id number] [place], [place] [address]Qi# [phone] MCV Auto Entitic volume (RBC) 87.1 fL Normal 80.0-99.0 [facility] Comment on above: Order Comment: Campu s: M Performed By: #### L 300.40725, L300.71106 ####[address] [address]Nl# [phone] Nucleated RBC/100 WBC Ratio (Bld) 0.0 % Normal Less than 1 [facility] Comment on above: Order Comment: Campu s: M Performed By: #### L 300.12619, L300.80601 ####[address] [address]Mk# [phone] Platelet mean volume Auto Entitic volume (Bld) 9.4 fL Normal 9.4-12.4 [facility] Comment on above: Order Comment: Campu s: M Performed By: #### L 300.80968, L300.86264 ####[place] [address]Ph# [phone] Platelets Auto #/vol (Bld) 181 K/CU MM Normal 150-450 [facility] Comment on above: Order Comment: Campu s: M Performed By: #### L 300.66881, L300.64030 ####[address] [address]Md# [phone] RBC Auto #/vol (Bld) 4.20 M/CU MM Normal 3.90-5.30 [facility] Comment on above: Order Comment: Campu s: M Performed By: #### L 300.14529, L300.61975 ####[address] [address]Nb# [phone] WBC Auto #/vol (Bld) 12.3 K/CU MM High 4.5-11.0 [facility] Comment on above: Order Comment: Campu s: M Performed By: #### L 300.72136, L300.68902 ####[place] [address]Ph# [phone] Louie 10-07-2017 FERR 80.5 NG/ML Normal 8.0-307.0 [facility] Comment on above: Order Comment: Mandi s: M Performed By: #### L 500.04775, L500.07711 ####[facility] [id number] [place], [place] [address]Mw# [phone] GFR ESTon 10-07-2017 IF AMER Greater than 60 Normal [facility] Comment on above: Order Comment: Sarwatu s: M Performed By: #### L 300.86670, L300.89559 ####[facility] [id number] [place], [place] [address]Ep# [phone] IF non-AFR AMER Greater than 60 Normal [facility] Comment on above: Order Comment: Mandi s: M Performed By: #### L 300.48004, L300.73069 ####[facility] [id number] [place], [place] [address]Hi# [phone] IRON PANELon 10-07-2017 Iron mass conc 22 ug/dL Low 50-170 [facility] Comment on above: Order Comment: Mandi s: M Result Comment: Hossein ents treated with metal-binding drugs (e.g.deferoxamine)may have depressed iron values, as chelated iron may notproperly react in the Siemens iron assay. Performed By: #### L 500.88578, L500.44469 ####[facility] [id number] [place], [place] [address]Xx# [phone] IRON SAT 8 % Low 22-44 [facility] Comment on above: Order Comment: Mandi s: M Performed By: #### L 500.34098, L500.49133 ####[facility] [id number] [place], [place] [address]Kv# [phone] TIBC 288 UG/DL Normal 221-481 [facility] Comment on above: Order Comment: Mandi s: M Performed By: #### L 500.91658, L500.97617 ####[facility] [id number] [place], [place] [address]Fk# [phone] OTARon 10-07-2017 OT Assessment Report [address] [facility] Kwesi OROZCO Occupational TherapyInpatient EvaluationMedical Diagnosis: R KNEE OSTEOARTHRITIS; S/P R TKA 10/06/17OCCUPATIONAL PROFILE AND HISTORYTherapy Diagnosis:Rank Code Description1 R26.81 Unsteadiness on feet2 Z74.1 Need for assistance with personal careDemographics:Age: 67YGender: FemalePrimary Language: EnglishPreferred Language: EnglishReferring Service/Team: MedicinePast Medical History: cataracts, sleep apnea, elevated blood cholesterol, HTN,depression, DM, thyroid dysfunction, colonoscop, bariatric bypass, shoulder sx,bilateral arm reduction sx, L knee sxHistory of Present Illness:Date of Surgery: 10/06/17Additional Information: R TKADate of Admission: 10/06/2017 6:00:00 AMRehabilitation Precautions/Restrictions:s tandard precautions, fall risk, knee precautions, L LE FWBAT, maintain SpO2>92%Prior Level of Functioning:Self Care: Patient completed the activities by him/herself, with or without anassistive device, with no assistance from a helper.Functional Cognition: Patient completed the activities by him/herself, with orwithout an assistive device, with no assistance from a helper.Pt reports she typically does not ambulate with an assistive device; however,had begun to use straight cane and WW just before sx due to increasing pain. Ptindependent with all ADL and IADLs.Patient/Caregiver Goals: Patient's functional goals: go homePain: Patient currently has pain.Location: R KNEEType: AcuteQuality: Tender.Pain Scale: Visual Analog (VAS).Patient reports a pain level of 5 out of 10.Patient's acceptable level of pain 2 out of 10. [facility] PATIENT NAME: GILBERTO HERNANDEZ [address] Katie Kamara [facility] REC #: [id number], [place] [address] DATE: 10/06/17ERVICE DATE: 10/07/17Occupational Therapy Assessment ATTENDING KALYAN: Geo Tierney with physical activity.Pain is alleviated by: PAIN MEDS,RESTPain is exacerbated by: MOVING AROUND,BENDING KNEE, WALKING/STANDINGInterventi ons: Repositioned patient.Home Environment: Patient lives with (22/03 until 10/11/17. After that, pthas assistance via friends and family several hours/day) , who is able to assistpatient at discharge. Patient lives in a single family home. Home is two levels.Patient is not required to manage stairs within the home. First floor fullbathroom setup available. There are 2 steps to enter the home, with no handrailings. There is no ramp available to enter home.Equipment Owned: CANE,WW,ROLLATOR,BSC-PUTTI NG OVER TOILET, SEPARATE SHOWER CHAIRFOR IN SHOWER STALL. HUSB GOING TO OBTAIN HIP KIT W/ LONG HANDLED ADAPTIVEEQUIPMENT FOR HOME TODAYMarital Status: MSocial History:Children: 2Reside: [place]sworthEmployment Status: retiredRecreational Activities/Hobbies: familyOBJECTIVE/OCCUPATION AL PERFORMANCEActivities of Daily LivingCurrent Status Previous StatusADLsFeeding Independent -Grooming Supervision -Bathing-UE Supervision -Bathing-LE Minimal assistance -Dressing-UE Supervision -Dressing-LE Minimal assistance -Toileting Supervision -AM-PAC Daily Activities:Putting On/Taking Off Lower Body Clothing: A little help neededBathing:: A little help neededToileting: A little help neededPutting On/Taking Off Upper Body Clothing: A little help neededGrooming: A little help neededEating a Meal: No help neededRaw Score = 19 , AM-PAC t-Scale Score = 40.22 and G-Code Modifier = CKFunctional Mobility:Bed Mobility: MIN ASSIST TO LIFT R LEG ONTO BED BUT CAN TAKE OFF BEDW/O HELPTransfers: Patient transferred bed to/from chair requiring [facility] PATIENT NAME: GILBERTO HERNANDEZ [id number] [facility] [address] Kamara MEDICAL REC #: [id number], [place] [address] DATE: 10/06/17ERVICE DATE: 10/07/17Occupational Therapy Assessment ATTENDING PHY: Geo Tierney DOsupervision.Locomotion/G ait/Ambulation: Patient was supervision withgait/ambulation for SHORT TO MEDIUM DISTANCE FUNCTIONAL MOBILITY . Patientrequires the following assistive device(s): Rolling walker. SEEP.T.documentationRange of MotionUpper Extremity:Grossly within functional limitsStrengthUpper Extremity:Grossly within functional limitsBalance:Static balance in a seated position is good.Static balance in a standing position is good.Dynamic balance in a standing position is fair. cueing to use one hand on frontcenter bar of walker for stability when other hand off walker to avoid tippingwalkerTone/Spastici ty: No relevant impairments.Sensation: Grossly intact.Fine Motor Coordination: Fine motor coordination was not assessed.Gross Motor Coordination: Upper extremity gross motor coordination is intact.Edema: Edema is present.Location: Right lower extremity edema- Moderate.Location:Lower Extremity Function: REQUIRES ASSIST TO LIFT R LEG UP ONTO BED WHEN LYINGDOWN. MOD DIFFICULTY REACHING FEET ESPECIALLY R FOOT TO START CLOTHING ON FOOTVision: Within functional limits.Cognition: Within functional limits.Perceptual Skills: Within functional limits.Psychosocial: Within normal limitsInterventions: Evaluation LOW ComplexitySelf Care/Home Management: GROOMING,BATHING, DRESSING,EDUCATIONWALKER/H OME SAFETY, USE OF LONG HANDLED ADAPTIVE EQUIPMENT TO IMPROVEINDEPENDENCE AND EASE W/ LB DRESSING,PT/FAMILY EDUCATION-HUSB PRSENT FOR SESSIONPain Reassessment: No significant change in pain during session.Education:The patient's preferred learning method is: Explanation, DemonstrationBarriers to Learning: Acuity of illness, MobilityLearning Needs: Safety.Functional activities/mobility. [facility] PATIENT NAME: GILBERTO HERNANDEZ [id number] [facility] [address] Kamara MEDICAL REC #: [id number], [place] [address] DATE: 10/06/17ERVICE DATE: 10/07/17Occupational Therapy Assessment ATTENDING PHY: Geo Tierney DOEquipment.Education Provided: Activities of daily living. Bed mobility. Functionaltransfers. Safety. Equipment.Audience: Patient and significant other.Mode: Explanation. Demonstration.Response: Verbalized understanding. Needs practice.ASSESSMENTClcolleen steiner Performance Deficits: Impaired ADLs, Impaired instrumental ADLs,Impaired functional mobility, Impaired balanceEquipment Recommended:HUSB GETTING LONG HANDLED ADAPTIVE EQUIPMENT FOR HER. NOOTHER OT EQUIPMENT NEEDSRehabilitation Potential: GoodMotivation/Commitment to Therapy: Good.Response to Evaluation: Pt demonstrates good participation with fatigue andpain only limiting factor. Husb present for session. Educated regarding use oflong handled adaptive equipment to increase independence and ease of doing LBself care. Husb getting kit w/ the equipment for her. Pt should continue toimprove w/o need for ongoing OT just given time to recover and time to practicew/ the equipment.Activity/Partici pation Problem List and Goals:Functional Impairment: Self CareModifier: G6857-DL (at least 40%, but less than 60% impaired, limited, orrestricted)Goal: SET UP ASSIST UB SELF CARE, MIN A LB SELF CARE, SUPERVISION FUNCTIONALTRANSFERSGoal Modifier: S6043-WS (at least 40%, but less than 60% impaired, limited, orrestricted)Treatment Goals: Not applicable.PLANTreatment Frequency, Duration and Interventions: Occupational Therapy servicesare discontinued at this time secondary to: Goals have been MET.Recommended Occupational Therapy Follow Up: Upon acute care discharge, thefollowing is currently recommended:No further care.Recommended Consults: None currently.Development of Plan of Care: Patient and family participated in plan of caredevelopment today.If there are any questions regarding this service, please contact the AcuteTherapy Department at extension [phone] WILL BE TRANSFERRED TO THE (CHOICE OF ACUTE OR REHAB) OCCUPATIONAL [facility] PATIENT NAME: GILE[facility]RT[facility] MED[facility] REC #: [id number], [place] [address] DATE: 10/06/17ERVICE DATE: 10/07/17Occupational Therapy Assessment ATTENDING PHY: Geo TierneyHERAPISTCommunication to Nursing: No updates at this time.Location of Patient at End of Therapy Session: In chair, call light within reachServices:Total Billed: 30 minutes (Timed: 30, Untimed: 0)30.00 Timed: [92996] ADL-HOME MANAGEMENT EA 15 MIN0.00 Untimed: [28804] OT-EVALUATION LOW COMPLEXITY0.00 Untimed: [] OT Evaluation ORDER0.00 Untimed: [G8987] OT-Self Care-CK0.00 Untimed: [G8988] PR-Igaw-Czkg Care-CKSigned by: ABDULKADIR DUMONT 10/07/2017 12:40:30 [facility] PATIENT NAME: GILBERTO HERNANDEZ Katie Kamara MEDICAL REC #: [id number], [place] [address] DATE: 10/06/17ERVICE DATE: 10/07/17Occupational Therapy Assessment ATTENDING PHY: Geo Tierney DO Normal [facility] PROG IMSon 10-07-2017 Protein mass conc [facility] Patient Name: GILBERTO HERNANDEZ [address] Date of : [address] [address] Unit Number: [id number] Number: [id number] Note-Hospitalist Patient Status: ADM INAttending Doctor: Geo Tierney DOService Date: 10/07/17 1006SubjectiveS: (2 ROS minimum)She denies any chest pain, shortness of breathNo nausea, vomitingNo abdominal painNo fever spikeObjective (ROS)Nursing VitalsVital Signs (Last)ResultDate TimePulse Sl5320/08 0728B/P136/7302/08 0728O2 DeliveryROOM AIR02/08 3284Todm02.202/08 3477Amdfl0030/08 2610Jhzy0434/08 0728Physical ExamPhysical Examination NotesObese femaleCardio vascular examination first, second heart sound normal, no gallopChest examination decreased breath sound both basesAbdomen examination soft, nontender, no mass palpable, bowel sounds presentExtremity shows no significant edemaPatient awake, alertMedications CurrentSig/SchStart timeLastMedicationDoseRout eStop TimeStatusAdminAl Hydrox/Mg Hydrox/30 XGH0IUJX PRN02/07 1030ACSimethiconePO(MAALOX (ALAMAG)PLUSORAL LIQ)Ascorbic Mnos166 MGQAM/ 0900AC(VITAMIN C TAB)POBisacodyl5 MGONCE ONE10/07 1030AC(DULCOLAX TAB.EC)PO02/08 9189Ektwpskwm54 MGONCE ONE02/08 1030AC(DULCOLAX RECT)RC02/ 1847Vxizegzhhkpaqw7,000 UCWCVHU11/ 0900AC(VITAMIN B12 TAB)PODiphenhydramine HCl25 CVB7GHPQ PRN02/07 1030AC(BENADRYL CAP)PODocusate Etamool380 MGQ12H@210/07 5730ZK90/08(SURFAK CAP)MR5318Kxjvhekpxr Zdogqh66 BKT56G49/08 5421TW99/08(LOVENOX D.SYR)GN6255Zlewfnynwtgvmz 50,000 VZWCFE2LGH31/ 0900AC(VITAMIN D CAP)POEscitalopram Cxkngmf68 MGQHS02/07 9020ZH80/07(LEXAPRO TAB)SK5408Fyoykfajxwpng HCl1 ISQ7AZIB PRN02/07 5057MZ40/08(DILAUDID D.SYR)XQ3949Mbwqbxtpfcrbg7 KDTBUI00/08 1129QI49/08Acidoph/Bulgari vqkSX3810(LACTINEX/FLORANE XTABLET)Levothyroxine Sodium0.112 IWUEUVVV03/08 6728PH36/08(SYNTHROID TAB)MY6183Siukbinsg Ogeqp376 MGQAM02 0900AC(MAG-OX TAB)POMultivitamins1 BTRXWNRIV10/08 0900AC(MULTIVITAMIN TAB)POOndansetron HCl4 XHL0JXCP PRN02/07 1030AC(ZOFRAN VIAL)IVOxycodone/1 DEZJGI3PLBG PRN02/07 5952BT71/08AcetaminophenPO 0822(percoCET-5/325 TAB)Pantoprazole Ikqylr87 JLNAKFNZ75/09 0700AC(PROTONIX TAB)POPatient Own1 EAQAM10/07 0900ACMedicationPO(PATIENT USING OWNMEDICATION FROM HOME)Patient Own1 EAQAM10/07 0900ACMedicationPO(PATIENT USING OWNMEDICATION FROM HOME)Patient Own1 EAQAM10/07 0900ACMedicationPO(PATIENT USING OWNMEDICATION FROM HOME)Patient Own1 EAQAM10/07 0900ACMedicationPO(PATIENT USING OWNMEDICATION FROM HOME)Pramipexole0.125 MGQPM02/07 5039DJ52/08Dihydrochloride PK9741(MIRAPEX TAB)Sodium Chloride3 ZDE2U34/07 1400AC(Sodium ChlorideIV0.9% FLUSH D.SYR)Sodium Chloride1,000 TNOMCI03/07 1030AC(Sodium ChlorideIV0.9%)Sodium Chloride3 MLPRN PRN02/07 1030AC(Sodium ChlorideIV0.9% FLUSH D.SYR)Zolpidem Tartrate5 MGQHSPRN PRN02/07 3280IV90/07(AMBIEN TAB)ER8537Xmkpnbgmsw Tests781571OgqbqducxYmk ium (136 - 145 MMOL/L)141Potassium (3.5 - 5.1 MMOL/L)3.9Chloride (98 - 107 MMOL/L)106Carbon Dioxide (21 - 32 MMOL/L)23Anion Gap (5 - 16 MMOL/L)12BUN (7 - 26 MG/DL)10Creatinine (0.510 - 0.950 MG/DL)0.636Est GFR ( Amer) (ML/MIN)Greater than 60Est GFR (Non-Af Amer) (ML/MIN)Greater than 60BUN/Creatinine Ratio (15 - 24)16Glucose (70 - 100 MG/DL)112 HTotal Calcium (8.5 - 10.1 MG/DL)8.5Iron (50 - 170 UG/DL)22 LTIBC (221 - 481 UG/DL)288Iron Saturation (22 - 44 %)8 LFerritin (8.0 - 307.0 NG/ML)80.5HematologyWBC (4.5 - 11.0 K/CU MM)12.3 HRBC (3.90 - 5.30 M/CU MM)4.20Hgb (11.5 - 15.5 G/DL)12.1Hct (35.0 - 47.0 %)36.6MCV (80.0 - 99.0 fl)87.1MCHC (32.0 - 36.0 GM/DL)33.1RDW (11 - 14.5)12.9Plt Count (150 - 450 K/CU MM)181MPV (9.4 - 12.4)9.4Nucleated RBCs (Less than 1 %)0.0Assessment and PlanConclusion1. Arthritis of right kneeAssessmentRight knee arthroplastyHypothyroidism Obesity, status post previous gastric bypass surgeryIron deficiency anemia chronicVitamin D deficiencyRestless leg syndromeObstructive sleep apnea on CPAPDepressionplanContinue current treatmentPatient mentioned that she needs to have repeat sleep study done as an outpatient whichwas already arranged and CPAP machine sitting needs to be changedon DVT prophylaxisPT/OT consultedWe'll sign off, call if neededDisclaimerThis dictation was created using voice recognition software.Phonetic and/or minor grammatical errors may exist.eSign Date and Shade White MD Verified/Reviewed by 10/07/17 1009 [facility] [place] Protein mass conc [facility] PTDSon 10-07-2017 PTDS Physical TherapyInpa tient Last Visit NoteThe inpatient Physical Therapy services are discontinued at this time for thefollowing reasons: Goals Met. SLITTER PROCESSED FILM has assisted with documenting discharge planand recommendations under the direction of supervising therapist. Therapist'sco-signature denotes agreement with planned discharge from acute physicaltherapy.AM-PAC Basic Mobility:Turning Over in Bed: A little difficultySitting/Standing Chair with Arms: A little difficultyLying on Back to Sitting on Side of Bed: A little difficultyMoving To/From Bed to Chair: A little help neededWalking in Hospital Room: A little help neededClimbing 3-5 Steps with Railing: A little help neededRaw Score = 18 , AM-PAC t-Scale Score = 43.63 and G-Code Modifier = CKInterventions:Gait Training: Bed mobility:supine to sit w/ Supervision, Sit<->stand xseveral trials from various surfaces all w/ Supervision and good balance. Cartx:verbal education/review w/ pt voicing understanding and no questions. Gaittraining:amb. 100'+ x 2 w/ ww and Supervision w/ increased time to complete ambdistance. Step to pattern progressing to step through w/ initial vc to not liftwalker. Good balance w/o dizziness/SOB. Steps;Up/down 2 steps up retro and downforward w/ ww and CGA for walker stabilization only. Pt education:home saftey,walker safety, home set up and discharge planning. Pt educated on no need forcontinued inpt rehab, recommend outptPT. Pt voiced agreement. Pt cleared forhome and pt w/o any questions at this time.Therapeutic Exercise: Seated TKR thex x 15 reps. ea. including heel/toeups, LAQ, Marching and HS w/ limited ROM due to jesus wrap in place., No forcedflexion performed. Written HEP issued for home w/ pt voicing understanding toperform x 2 daily. Verbal review supine TKR thex as well. Pt voiced comfort inperforming once home.Recommendations: Upon acute care discharge, the following is currentlyrecommended: Outpatient Physical Therapy.Discharge Plan: The patient's status and plan was discussed with patient andagreed upon.If there are any questions regarding this service, please contact the AcuteTherapy Department at extension [phone]: [facility] PATIENT NAME: GILBERTO HERNANDEZ [address] Kamara MEDICAL REC #: [id number], [place] [address] DATE: 10/06/17ERVICE DATE: 10/07/17Physical Therapy Discharge Summary ATTENDING PHY: Geo Tierney DOTotal Billed: 39 minutes (Timed: 39, Untimed: 0)24.00 Timed: [96601] GAIT TRAIN EA 15 MIN15.00 Timed: [61366] THERAPEUTIC EXERCISE EA 15 MIN0.00 Untimed: [] PT Treatment- General ORDERSigned by: FERMIN LAM, SLITTER PROCESSED FILM 10/07/2017 10:23:22- CoSigned By: TORSTEN PAREKH PT 10/07/2017 12:29:52 PM [facility] PATIENT NAME: GILBERTO HERNANDEZ [address] Katie Kaamra MEDICAL REC #: [id number], [place] [address] DATE: 10/06/17ERVICE DATE: 10/07/17Physical Therapy Discharge Summary ATTENDING PHY: Geo Tierney DO [facility].Jose 10-06-2017 CONSULTATION-H&P [facility] Patient Name: GILBERTO HERNANDEZ [id number] [employer] [address] Date [place] : [address] [address] Unit Number: [id number] Number: [id number] Patient Status: ADM INAttending Doctor: Geo Tierney DOService Date: 10/06/172147History of Present IllnessReferring PhysicianGeo Tierney DOConsulted ProviderWalGeo MDSource of Information Patient, Medical RecordsReason for ConsultMedical Consult; Medication ReconciliationLiving Situation Home - IndependentHistory of Present IllnessPatient is a pleasant 67-year-old female with history of hypothyroidism, chronicanemia, depression, osteoarthritis, and restless leg syndrome who is followed by Dr. Tubbs. She is admitted to [facility] by Dr. Tierney for a right total knee replacement. Thehospital service was consulted for medical consult and completion of the medicationreconciliation. Symptoms prior to surgery include constant right knee pain, described asstiff and unstable, pain interfered with completion of activities of daily living, use ofa walker to assist with ambulation. She has tried joint injections with no relief, Tylenolby mouth with no relief, and has completed physical therapy with mild relief. He was seenand examined post surgery, she is well-appearing. She reports her pain is well controlledat 3/10 after use of passive range of motion machine. She has ambulated to the bathroomwithout issue or pain, has tolerated PO fluids and food. She denies headache, blurredvision, no shortness of breath, nausea, vomiting, or diarrhea. She denies other complaintsat this time.Past Medical/Surgical HxPast Medical HistoryIron deficiency anemia, hypothyroidism, restless leg syndrome, depression, osteoarthritis,cataracts, history of obstructive sleep apnea, history of diabetes mellitus type 2--controlled with diet and post gastric bypassPast Surgical HistoryGastric bypass in 2006, left total knee arthroscopy, bilateral upper extremity skinreduction, right rotator cuff repair, right total knee replacement September 2017.Family/Social HistoryFamily HistoryMOTHER, , Age 60+; Cause: Lung cancer.FATHER, , Age 60+; Cause: Pancreatic carcinoma.Social HxPatient is retired, lives at home with her significant other. She denies issues completingADLs. She states she's never smoker, denies illicit drug use, denies alcohol use.Advance DirectivesAdvance Directives Full CodeAllergies/Home MedicationsAllergiesCoded Allergies:ADHESIVE TAPE (Mild, SKIN TEARS 09/28/17)HYDROCODONE (From VICODIN) (Mild, ITCHING 09/28/17)Home MedicationsAscorbate Calcium (Madhuri-C) 500 MG TABLET 500 MG PO QAM, Ref 0 (Reported)Entered as Reported by FAVIAN BECKFORD on 09/28/171524Last Action: Reviewed on 10/06/17838 by ESCOBAR CALLAHAN JBiotin 1,000 MCG TAB.CHEW 200 MCG PO QAM, Ref 0 (Reported)Entered as Reported by FAVIAN BECKFORD on 09/28/171525Last Action: Reviewed on 10/06/17838 by ESCOBAR CALLAHANyanocobalamin* (Vitamin B12 (1,000MCG) Tab*) 1,000 MCG TABLET 1,000 MCG PO QDAY, Ref 0(Reported)Entered as Reported by FAVIAN BECKFORD on 09/28/171525Last Action: Reviewed on 10/06/17838 by ESCOBAR CALLAHANgocalciferol (Vitamin D2)* (Vitamin D 50,000 Unit Cap*) 50,000 UNIT CAPSULE 50,000UNIT PO Q, Ref 0 (Reported)WEDNESDAYEntered as Reported by FAVIAN BECKFORD on 09/28/171521Last Action: Reviewed on 10/06/17838 by ESCOBAR CALLAHAN JEscitalopram Oxalate* (Lexapro 10MG Tab*) 10 MG TABLET 10 MG PO QHS, Ref 0 (Reported)Entered as Reported by FAVIAN BECKFORD on 09/28/171521Last Action: Continued on 10/06/172138 by FLORESITA EATONcosam/Chond/Hyalu/Cf Borate (Move Free Joint Health Tablet) 1 EACH TABLET 1 EACH POQAM, Ref 0 (Reported)Entered as Reported by FAVIAN BECKFORD on 09/28/17 1524Last Action: Reviewed on 10/06/17838 by ESCOBAR CALLAHAN 18 MG TABLET 18 MG PO QAM, Ref 0 (Reported)Entered as Reported by FAVIAN BECKFORD on 09/28/17 1527Last Action: Reviewed on 10/06/17838 by ESCOBAR CALLAHANactobacillus Acidophilus (Probiotic) 1 EACH CAPSULE 1 EACH PO QAM, Ref 0 (Reported)Entered as Reported by FAVIAN BECKFORD on 09/28/17 1525Last Action: Reviewed on 10/06/17838 by ESCOBAR CALLAHANevothyroxine Sodium* (Synthroid 0.112MG Tab*) 112 MCG TABLET 0.112 MG PO QDAYAC, Ref 0(Reported)Entered as Reported by FAVIAN BECKFORD on 09/28/17 152Last Taken: 0.112MG on 10/06/17 0430 Last Action: Reviewed on 10/06/17838 byESCOBAR CALLAHANysine (L-Lysine) 600 MG TABLET 600 MG PO QAM, Ref 0 (Reported)Entered as Reported by FAVIAN BECKFORD on 09/28/171526Last Action: Reviewed on 10/06/17838 by ESCOBAR CALLAHANagnesium 250 MG TABLET 250 MG PO QAM, Ref 0 (Reported)Entered as Reported by FAVIAN BECKFORD on 09/28/17 152Last Action: Reviewed on 10/06/1739 by ESCOBAR CALLAHANultivitamin* (Multiple Vitamins Daily Tab*) 1 EACH TABLET 1 UDTAB PO QDAY, Ref 0 (Reported)Entered as Reported by FAVIAN BECKFORD on 09/28/17 1523Last Action: Reviewed on 10/06/17838 by ESCOBAR CALLAHAN JPramipexole Di-HCl* (Mirapex 0.125MG Tab*) 0.125 MG TABLET 0.125 MG PO QPM, Ref 0 (Reported)Entered as Reported by FAVIAN BECKFORD on 09/28/17 152Last Action: Continued on 10/06/172139 by FLORESITA EATONview of SystemsROS: OtherConstitutionalDenies: Fever, chills, weakness, Fatigue.EENTDenies: Sore throat, congestion, Vision Change, Vision Problems.CardiovascularDen ies: Chest pain or discomfort, Palpitations, Syncope, swelling to lower extremities.PulmonaryDenie s: Shortness of breath, Cough or wheezing, hemoptysis.Gastrointestina lDenies: Abdominal Pain, Nausea, Vomiting, diarrhea, melena, hematochezia.Genitourinary Denies: Hematuria, dysuria, frequency, or retention.MusculoskeletalR eports: Mild postsurgical pain to right knee. Denies: Back painSkinDenies: Jaundice, rash, lesions.EndocrineDenies: Flushing, diaphoresis, Cold Intolerance, Heat Intolerance.NeuroDenies: Headache, Syncope, Dizziness, changes in bowel or bladder control, seizures,numbness or tingling in extremities.PsychiatricDen ies: Depression, Anxiety, suicidal ideation.Physical ExamVital SignsVital Signs (Last)ResultDate TimePulse Cu2893/07 1800B/P131/7102/07 5132Taua31.902/07 8733Tdbim2319/07 1158Uovg7518/07 1800Physical Examination:General: Awake, alert and oriented x4. Cooperative. Seated upright in bed, no apparentdistress. Well-developed.Skin: [place], dry, warm to touch. No rash or lesions. Normal turgor, no icterus, cyanosis.HEENT: Atraumatic, normocephalic. PERRL. Moist mucous membranes. No JVD noted.Lungs: CTA bilateral, no rales, ronchi, or wheezing. Regular and even respirations.Symmetric expansion.Cardiovascular: Regular rate and rhythm; no murmurs, gallops, or rubs audible. Peripheralpulses strong and equal to bilateral upper and lower extremities.Abdomen: Soft, round, and nontender to palpation. Normoactive bowel sounds in all fourquadrants. No distension appreciated.Extremities: No cyanosis or clubbing. JESUS wrap applied to RLE. Bilateral TEDs and SCDs inplace.Musculoskeletal: Full ROM to bilateral upper and lower extremities. Muscle strength andtone were normal to all extremities.Neurological: Cognitive function intact. Pupils equal and reactive to light; cranialnerves II-XII grossly intact. No focal deficits, strength preserved. Sensation to touchnormal.Psychiatric: Affect appears normal, no acute evidence of depressive or anxious feelings.Conclusion / PlanConclusion1. Arthritis of right knee2. Iron deficiency anemia3. Hypothyroidism4. Depression5. Restless leg syndromePlanArthritis of right knee/status post right total knee arthroscopy: Patient reports her painis well controlled with Dilaudid IV, Tylenol IV. Will add oral pain control. PT and OThave been consulted. Will defer additional treatment to Dr. Tierney.Iron deficiency anemia: Hgb 14.4, Hct 42.7; Continue with low-dose daily iron per outptdosing. Follow-up with Dr. Coley.Hypothyroidism: Continue Synthroid per outpatient dosing. Follow-up with Dr. Coley.Depression: Continue Lexapro per outpatient dosing. Follow-up with Dr. Coley.Restless Leg Syndrome: Continue Mirapex per outpatient dosing. Follow-up with Dr. Coley.Patient does report a history of BRIANNA and DM2, both of which are not medically treated atthis time 2/2 clinical improvement post weight loss from gastric bypass. (Hgb A1C 5.5).DVT prophylaxis with bilateral SCDs, TEDS, subQ lovenox; GI prophylaxis with protonix POper Dr. Tierney orders.Patient's medical diagnoses appear well-managed. No acute issues at this time; follow-upwith Dr. Coley outpatient is reasonable.Collaborating PhysicianGeo Lane MDDisclaimerThis dictation was created using voice recognition software.Phonetic and/or minor grammatical errors may exist.eSign Elysia and Floresita Vanegas BUZZSAW OPERATOR Verified/Reviewed by 10/06/17 222Geo Patel MD [facility]igi Antonio 10-06-2017 OPERATIVE REPORT [facility] OR DATE OF SERVICE: 10/06/2017, 11 a.m.PREOPERATIVE DIAGNOSIS: Primary end-stage osteoarthritis of the right knee.POSTOPERATIVE DIAGNOSIS: Primary end-stage osteoarthritis of the right knee.OPERATION: Total knee replacement arthroplasty right, utilizing size 4cruciate-retaining Legion Oxinium femoral component, a size 4 Vernell tibial baseplate, an 11 mm deep dished articular insert and a 32 mm patella.SURGEON: Geo Tierney DOASSISTANT: Dennis Enriquez DO, orthopedic resident, PGY-2ANESTHESIA: Spinal with peripheral and local nerve blocks for postoperative painmanagement.BLOOD LOSS: 25 mL.COMPLICATIONS: None.CONDITION: Stable.HISTORY: Gilberto is a 67-year-old white female who is having substantial problems withswelling, pain, stiffness involving her right knee, primary end-stage osteoarthritis,that has failed conservative treatment. She is finally ready for surgicalintervention. We did discuss the procedure, risks, benefits and postoperativemanagement. She is aware and a consent signed.DESCRIPTION OF PROCEDURE: Patient brought down to the OR, placed in a supineposition after induction of spinal anesthetic. Tourniquet was placed on her rightproximal thigh. Right leg was sterilely prepped and draped in usual orthopedicfashion. Esmarch was used to exsanguinate the limb. Tourniquet was inflated to 280mmHg for approximately 45 minutes. An 8 cm incision was made anteriorly, followed bymedial arthrotomy. The patella was reflected back. A pes release was performedmedially. This revealed the underlying severe hypertrophic synovium that wasremoved, as was the synovial fluid. Intramedullary guides were utilized to make ourfemoral and tibial cuts. Once we had our soft tissue balanced in between flexion andextension gaps, we replaced the patella with a 32 button. Tracking was anatomicalwith the no-thumbs technique. All trials were then removed. We went ahead andirrigated and then injected our local mixture in the posterior and anterior tissuesfor postoperative pain management, followed by cementing in our components. Once thecement hardened, we let the tourniquet down. There was no arterial bleedingencountered. We ended up going with an 11 mm articular insert, which fit excellentlyin flexion and extension, and then closed the quadriceps and retinaculum with a no. 1 [facility] PATIENT NAME: GILBERTO HERNANDEZ [address] [facility] [address] Kamara MEDICAL REC #: [id number], [place] [address] DATE: 10/06/17DISCHARGE DATE: 10/07/17OPERATIVE REPORT ATTENDING PHY: Geo Tierney DOEthibond suture. Then 1 g of tranexamic acid was then injected intra-articularly tocontrol bleeding. The remainder of the closure was subcuticular with 0 Vicryl, 3-0Vicryl, tamika, and the application of a silver dressing. She was then placed in amodified Sanford dressing with the knee in full extension. She tolerated procedurequite well, was brought up off the table to the bed and to the recovery room instable condition. LUCIA Lyles/[id number]: 10/06/2017 12:23DT: 10/06/2017 12:43SSI File#: [id number] #: [id number]/Reviewed by10/29/17 1231 LYKMI [facility] PATIENT NAME: GILBERTO HERNANDEZ [address] [facility] [address] Kamara MEDICAL REC #: [id number], [place] [address] DATE: 10/06/17DISCHARGE DATE: 10/07/17OPERATIVE REPORT ATTENDING PHY: Geo Tierney DO Normal [facility] PTARon 10-06-[address] [facility] PTAR Physical TherapyInpa tient EvaluationMedical Diagnosis: R KNEE OSTEOARTHRITIS; S/P R TKA 10/06/17Therapy Diagnosis:Rank Code Description1 R26 Abnormalities of gait and mobility2 R26.81 Unsteadiness on feet3 M62.81 Muscle weakness (generalized)4 M25.562 Pain in left kneeDemographics:Age: 67YGender: FemalePrimary Language: EnglishPreferred Language: EnglishReferring Service/Team: Kendal Tierney Medical History: cataracts, sleep apnea, elevated blood cholesterol, HTN,depression, DM, thyroid dysfunction, colonoscop, bariatric bypass, shoulder sx,bilateral arm reduction sx, L knee sxHistory of Present Illness:Date of Surgery: 10/06/17Additional Information: R TKADate of Admission: 10/06/2017 6:02:00 AMRehabilitation Precautions/Restrictions:s tandard precautions, fall risk, knee precautions, R LE FWBAT, maintain SpO2>92%SUBJECTIVEPrior Level of Functioning:Indoor Mobility: Patient completed the activities by him/herself, with orwithout an assistive device, with no assistance from a helper.Stairs: Patient completed the activities by him/herself, with or without anassistive device, with no assistance from a helper.Pt reports she typically does not ambulate with an assistive device; however,had begun to use straight cane and WW just before sx due to increasing pain. Ptindependent with all ADL and IADLs.Prior Device Use:[id number]. Prior DeviceNone of Above YesPatient/Caregiver Goals: Patient's functional goals: go homePain: Patient currently has pain.Location: L knee [facility] PATIENT NAME: GILBERTO HERNANDEZ [address] [facility] [address] Kamara [facility] REC #: [id number], [place] [address] DATE: 10/06/17ERVICE DATE: 10/06/17Physical Therapy Assessment Report ATTENDING PHY: Geo Tierney DOType: AcuteQuality: Aching.Pain Scale: Visual Analog (VAS).Patient reports a pain level of 5 out of 10.Patient's acceptable level of pain 2 out of 10.Interferes with physical activity.Pain is alleviated by: pain medicationPain is exacerbated by: movementInterventions: Patient medicated. via RNHome Environment: Patient lives with (22/03 until 10/11/17. After that, pthas assistance via friends and family several hours/day) , who is able to assistpatient at discharge. Patient lives in a single family home. Home is two levels.Patient is not required to manage stairs within the home. First floor fullbathroom setup available. There are 2 steps to enter the home, with no handrailings. There is no ramp available to enter home.Equipment Owned: WW, straight cane, rollator, walk in shower, shower seat, 3 in1 commodeSocial History: Marital Status: MChildren: 2Reside: [place]sworthEmployment Status: retiredRecreational Activities/Hobbies: familyOBJECTIVECognitive ScreenResponsiveness: Alert.Orientation: Oriented to person, place, time, and situation.Following Commands: Patient is able to follow 3-step commands.Range of MotionUpper Extremity: Grossly within functional limitsLower Extremity: Not within functional limits WFL except L knee 8-80 degreesStrengthUpper Extremity: Grossly within functional limitsLower Extremity: Not within functional limits R LE 5/5; L hip 4-/5, L knee 4/5,L ankle 5/5Tone/Spasticity: No relevant impairments.Sensation: Grossly intact.Balance:Static balance in a seated position is good.Dynamic balance in a seated position is good.Static balance in a standing position is good.Dynamic balance in a standing position is fair. [facility] PATIENT NAME: GILBERTO HERNANDEZ [address] [facility] [address] Kamara MEDICAL REC #: [id number], [place] [address] DATE: 10/06/17ERVICE DATE: 10/06/17Physical Therapy Assessment Report ATTENDING PHY: Geo Tierney DOTherapeutic/Functional Activities:Bed Mobility: All bed mobility including supine to sit, rolling,scooting. with independence. Pt denies dizziness upon initial sitting andstandingTransfers: Patient transferred sit to/from stand requiring stand byassistance. Patient used the following equipment: Arms of chair. Pt educated ontechnique and safety with good adherence throughoutLocomotion/Gait/ Ambulation: Patient was stand by assist withgait/ambulation for 55'x2 . Patient requires the following assistive device(s):Rolling walker. Pt amb with antalgic step-to gait pattern initially withdecreased step length, janice, and step through. Pt progressed to reciprocalgait pattern and heel-toe gait pattern with cues and instruction. No overt LOBnoted with ambulationGait Deviations: Antalgic.Stairs: Not assessed.AM-PAC Basic Mobility:Turning Over in Bed: No difficultySitting/Standing Chair with Arms: A little difficultyLying on Back to Sitting on Side of Bed: No difficultyMoving To/From Bed to Chair: A little help neededWalking in Hospital Room: A little help neededClimbing 3-5 Steps with Railing: A little help neededRaw Score = 20 , AM-PAC t-Scale Score = 47.67 and G-Code Modifier = CJVital Signs:Vitals:Oxygen Saturation: 95 % post amb on room airInterventions: Evaluation LOW ComplexityTherapeutic Exercise: Pt educated and completed 15x bilateral LE PRE's insitting including GS, QS, ankle pumps, heel slides, SAQ, and marching. Pteducated to complete 10-15x/exercise, 2-3x/day within the pain free ROM.Pain Reassessment: No significant change in pain during session.Education:The patient's preferred learning method is: Explanation, Demonstration, PrintedmaterialsBarriers to Learning: Acuity of illnessLearning Needs: Precautions.Pain management.Plan of care.Rehabilitation techniques and procedures.Safety.Function al activities/mobility.Equipm ent.Education Provided: Precautions. Pain management. Pain scale. Clinicalindicators of pain. Plan of care. Rehab techniques and procedures. purpose of PT [facility] PATIENT NAME: GILBERTO HERNANDEZ [address] [facility] [address] Kamara MEDICAL REC #: [id number], [place] [address] DATE: 10/06/17ERVICE DATE: 10/06/17Physical Therapy Assessment Report ATTENDING PHY: Geo Tierney DOevaluation, knee precautions, L LE FWBAT Safety issues and interventions.Supervision requirements. Use of adaptive devices. Bed mobility. Functionaltransfers. Gait. Home exercise/activity plan.Audience: Patient.Mode: Explanation. Demonstration.Response: Verbalized understanding. Demonstrated skill. Needs practice.Needs reinforcement.ASSESSMENTPr oblem List: Decreased range of motion, Decreased strength, Difficulty withprolonged standing, Impaired activities of daily living, Impaired ambulation,Impaired balance, Impaired stair/curb negotiation, Impaired transfers, Need saida independent home exercise programStrengths: Independent premorbid function, Social/family support, Motivated toimprove functionRehabilitation Potential: ExcellentMotivation/Commit ment to Therapy: Good.Response to Evaluation: Pt demonstrates good participation with fatigue andpain only limiting factor. Pt would benefit highly from outpatient PT upondischarge (AM-PAC 20)Activity/Participation Problem List and Goals:Functional Impairment: Mobility: Walking and Moving Around.Modifier: E1868-GX (at least 20%, but less than 40% impaired, limited, orrestricted)Goal: AM-PAC 24Goal Modifier: M1885-VI (0% impaired, limited or restricted)Treatment Goals: Time frame to achieve treatment goal(s): 2 weeks1. transfers supervision R LE FWBAT2. amb supervision WW 75' R LE FWBAT3. negotiate up/down 2 steps LRAD no handrail SBA R LE FWBAT4. independent bilateral LE PRE's to improve functional ambulationPLANTreatment Frequency, Duration and Interventions: Physical Therapy is recommendedfor BID for 3 days, then 7x/week Physical Therapy treatment is to include:therex, theract, neuro-reeducation, gait training, educationRecommended Physical Therapy Follow Up: Upon acute care discharge, the followingis currently recommended: Outpatient Physical Therapy.Recommended Equipment: None. No needs .Recommended Consults: None currently.Development of Plan of Care: Patient participated in plan of care developmenttoday.If there are any questions regarding this service, please contact the Acute [facility] PATIENT NAME: CHAYITOGILBERTO Kamara MEDICAL REC #: [id number], [place] [address] DATE: 10/06/17ERVICE DATE: 10/06/17Physical Therapy Assessment Report ATTENDING PHY: Geo Tierney DOTapy Department at [facility] 1135Location of Patient at End of Therapy Session: In bed, without bed alarm, calllight within reach CPM, ice, and leg pumps onServices:Total Billed: 10 minutes (Timed: 10, Untimed: 0)10.00 Timed: [90579] THERAPEUTIC EXERCISE EA 15 MIN0.00 Untimed: [59594] PT-EVALUATION LOW COMPLEXITY0.00 Untimed: [] PT Evaluation ORDER0.00 Untimed: [] PT Treatment- General ORDER0.00 Untimed: [G8978] PT-Mobility: Walking and Moving Around-CJ0.00 Untimed: [G8979] KS-Fecs-Ygxtfvha: Walking and Moving Around-CHSigned by: Teena Doherty, 10/06/2017 16:47:51 [facility] PATIENT NAME: LORIN HERNANDEZWilliam Kamara MEDICAL REC #: [id number], [place] [address] DATE: 10/06/17ERVICE DATE: 10/06/17Physical Therapy Assessment Report ATTENDING PHY: Geo Tierney DO Normal [facility] TSon 10-06-2017 ABO and Rh group Nom (Bld) B POSITIVE [facility] Comment on above: Order Comment: Campu s: M URINE CULTUREon 10-01-2017 Bacteria identified Cx Nom (U) URINE RESULT LESS THAN 10,000 COLONIES PER ML Normal [facility] Comment on above: Order Comment: Campu s: M Performed By: #### L 300.97157, L300.49157 ####[facility] [id number] [place], [place] [address]Lt# [phone] ABO/RH NCon 09-29-2017 ABO and Rh group Nom (Bld) B POSITIVE [facility] Comment on above: Order Comment: Campu s: MIs This Patient Going To Surgery? YSurgery Date: 10/06/17 BMPon 09-29-2017 Anion gap 3 molar conc 7 mmol/L Normal 5-16 [facility] Comment on above: Order Comment: Campu s: M Performed By: #### L 500.19478, L500.37361 ####[facility] [id number] [place], [place] [address]Fs# [phone] Calcium mass conc 8.7 mg/dL Normal 8.5-10.1 [facility] Comment on above: Order Comment: Campu s: M Performed By: #### L 500.10757, L500.47043 ####[facility] [id number] [place], [place] [address]Rr# [phone] Chloride molar conc 106 mmol/L Normal 98-107 [facility] Comment on above: Order Comment: Campu s: M Performed By: #### L 500.07209, L500.70161 ####[facility] [id number] [place], [place] [address]Dx# [phone] CO2 molar conc 28 mmol/L Normal 21-32 [facility] Comment on above: Order Comment: Sarwatu s: M Performed By: #### L 500.37035, L500.78457 ####[facility] [id number] [place], [place] [address]Wm# [phone] Creatinine mass conc 0.676 mg/dL Normal 0.510-0.950 [facility] Comment on above: Order Comment: Campu s: M Result Comment: Hossein ents receiving either N-Acetylcysteine (NAC) orMetamizole prior to venipuncture, may have falsely depressedresults. Performed By: #### L 500.28739, L5.63297 ####[facility] [id number] [place], [place] [address]Vj# [phone] Glucose mass conc 82 mg/dL Normal 70-100 [facility] Comment on above: Order Comment: Sarwatu s: M Result Comment: 70-1 00- Normal Fasting; 100-125 Impaired Fasting; greaterthan 126 on more than one result- Diabetes. ADA guidelines.Results may be falsely elevated after the administration ofSulfapyridine.Results may be falsely depressed after the administration ofSulfasalazine. Performed By: #### L 500.06369, L500.60395 ####[facility] [id number] [place], [place] [address]Oh# [phone] Potassium molar conc 4.1 mmol/L Normal 3.5-5.1 [facility] Comment on above: Order Comment: Campu s: M Performed By: #### L 500.33050, L500.02990 ####[facility] [id number] [place], [place] [address]Gp# [phone] Sodium molar conc 140 mmol/L Normal 136-145 [facility] Comment on above: Order Comment: Sarwatu s: M Performed By: #### L 500.21274, L500.91975 ####[facility] [id number] [place], [place] [address]Pp# [phone] Urea nitrogen mass conc 11 mg/dL Normal 7-26 [facility] Comment on above: Order Comment: Campu s: M Performed By: #### L 500.32026, L500.99222 ####[facility] [id number] [place], [place] [address]Ph# [phone] Urea nitrogen/Creatinine mass ratio 16 mg/mg Normal 15-24 [facility] Comment on above: Order Comment: Campu s: M Performed By: #### L 500.44997, L500.04943 ####[facility] [id number] [place], [place] [address]Ph# [phone] CBC W/DIFFon 09-29-2017 BAND % 1.0 % Normal 0-7 [facility] Comment on above: Order Comment: Campu s: M Performed By: #### L 200.52926 ####[address] [address]Qf# [phone] BAND ABS 0.06 K/CU MM Normal [facility] Comment on above: Order Comment: Campu s: M Performed By: #### L 200.95589 ####[place] [address]Ph# [phone] EOS ABS 0.06 K/CU MM Normal 0-0.5 [facility] Comment on above: Order Comment: Campu s: M Performed By: #### L 200.47345 ####[facility] [id number] [place], [place] [address]Ph# [phone] Eosinophils/100 WBC Auto (Bld) 1.0 % Normal 0-5 [facility] Comment on above: Order Comment: Campu s: M Performed By: #### L 200.61709 ####[facility] [id number] [place], [place] [address]Ph# [phone] Lymphocytes Auto #/vol (Bld) 1.80 K/CU MM Normal 0.9-4.4 [facility] Comment on above: Order Comment: Campu s: M Performed By: #### L 200.32371 ####[facility] [id number] [place], [place] [address]Ic# [phone] Lymphocytes/100 WBC Auto (Bld) 29.0 % Normal 20-40 [facility] Comment on above: Order Comment: Campu s: M Performed By: #### L 200.64198 ####[facility] [id number] [place], [place] [address]Di# [phone] MONO ABS 0.37 K/CU MM Normal 0.1-1.1 [facility] Comment on above: Order Comment: Campu s: M Performed By: #### L 200.83728 ####[place] [address]Ph# [phone] Monocytes/100 WBC Auto (Bld) 6.0 % Normal 2-10 [facility] Comment on above: Order Comment: Campu s: M Performed By: #### L 200.51043 ####[place] [address]Ph# [phone] NEUTROPHIL ABS 3.91 K/CU MM Normal 2.0-8.3 [facility] Comment on above: Order Comment: Campu s: M Performed By: #### L 200.49175 ####[facility] [id number] [place] [address]Ne# [phone] Neutrophils/100 WBC Auto (Bld) 63.0 % Normal 45-75 [facility] Comment on above: Order Comment: Campu s: M Performed By: #### L 200.16951 ####[facility] [id number] [place], [place] [address]Ph# [phone] PLT EST ADEQUATE Normal [facility] Comment on above: Order Comment: Campu s: M Performed By: #### L 200.06303 ####[facility] [id number] [place], [place] [address]Ph# [phone] POIK 1+ Normal [facility] Comment on above: Order Comment: Campu s: M Performed By: #### L 200.38497 ####[facility] [id number] [place], [place] [address]Av# [phone] Erythrocyte distribution width Auto Ratio (RBC) 12.8 % Normal 11-14.5 [facility] Comment on above: Order Comment: Campu s: M Performed By: #### L 200.41853 ####[facility] [id number] [place], [place] [address]Il# [phone] Hematocrit Auto Volume Fraction (Bld) 42.7 % Normal 35.0-47.0 [facility] Comment on above: Order Comment: Campu s: M Performed By: #### L 200.74062 ####[facility] [id number] [place] [address]Fd# [phone] Hemoglobin mass conc (Bld) 14.1 g/dL Normal 11.5-15.5 [facility] Comment on above: Order Comment: Campu s: M Performed By: #### L 200.31229 ####[facility] [id number] [place] [address]Wp# [phone] MCHC Auto mass conc (RBC) 33.0 g/dL Normal 32.0-36.0 [facility] Comment on above: Order Comment: Campu s: M Performed By: #### L 200.26669 ####[facility] [id number] [place] [address]Sq# [phone] MCV Auto Entitic volume (RBC) 86.6 fL Normal 80.0-99.0 [facility] Comment on above: Order Comment: Campu s: M Performed By: #### L 200.21671 ####[facility] [id number] [place] [address]Ud# [phone] Nucleated RBC/100 WBC Ratio (Bld) 0.0 % Normal Less than 1 [facility] Comment on above: Order Comment: Campu s: M Performed By: #### L 200.58499 ####[facility] [id number] [place] [address]Wb# [phone] Platelet mean volume Auto Entitic volume (Bld) 9.5 fL Normal 9.4-12.4 [facility] Comment on above: Order Comment: Campu s: M Performed By: #### L 200.82248 ####[facility] [id number] [place], [place] [address]Yc# [phone] Platelets Auto #/vol (Bld) 193 K/CU MM Normal 150-450 [facility] Comment on above: Order Comment: Campu s: M Performed By: #### L 200.01508 ####[facility] [id number] [place], [place] [address]Hk# [phone] RBC Auto #/vol (Bld) 4.93 M/CU MM Normal 3.90-5.30 [facility] Comment on above: Order Comment: Campu s: M Performed By: #### L 200.74782 ####[facility] [id number] [place], [place] [address]Xr# [phone] WBC Auto #/vol (Bld) 6.2 K/CU MM Normal 4.5-11.0 [facility] Comment on above: Order Comment: Campu s: M Performed By: #### L 200.13859 ####[facility] [id number] [place], [place] [address]Je# [phone] EKGon 09-29-2017 Protein mass conc Procedure Date and T waqas: 09/29/17 1246Test Reason :Blood Pressure : / mmHGVent. Rate : 066 BPM Atrial Rate : 066 BPMP-R Int : 148 ms QRS Dur : 094 msQT Int : 400 ms P-R-T Axes : 007 -33 008 degreesQTc Int : 419 msNormal sinus rhythmLeft axis deviationAbnormal ECGNo previous ECGs availableConfirmed by TONY VAUGHN MD ([id number]) on 09/29/2017 6:02:16 PMReferred By: Geo Tierney Confirmed By:TONY VAUGHN MD NeelamDDandT: 09/29/17 1246TDandT:[facility] PATIENT NAME: GILBERTO HERNANDEZ [facility] Dr. Kamara MEDICAL REC #: [id number], [place] [address] DATE:DISCHARGE DATE:ATTENDING PHY: Geo Tierney DOELECTROCARDIOGRAM REPORTCLBcc:[facility] PATIENT NAME: GILBERTO HERNANDEZ [facility] Dr. Kamara MEDICAL REC #: [id number], [place] [address] DATE:DISCHARGE DATE:ATTENDING PHY: Geo Tierney DOELECTROCARDIOGRAM REPORT Normal [facility] GFR ESTon 09-29-2017 IF AMER Greater than [address] [facility] Comment on above: Order Comment: Sarwatu s: M Performed By: #### L 500.98392, L500.41686 ####[facility] [id number] [place], [place] [address]Rf# [phone] IF non-AFR AMER Greater than [address] [facility] Comment on above: Order Comment: Sarwatu s: M Performed By: #### L 500.66732, L500.00938 ####[facility] [id number] [place], [place] [address]Fg# [phone] HGB A1C GLYCOHBon 09-29-2017 Hemoglobin A1c/Hemoglobin.total mass fraction (Bld) 5.1 % Normal 4.3-6.0 [facility] Comment on above: Order Comment: Sarwatu s: M Performed By: #### L 550.35349 ####[facility] [id number] [place] [address]Aq# [phone] MRSA PCRon 09-29-2017 MRSA PCR Negative Normal NEGATIVE [facility] Comment on above: Order Comment: Mandi s: M Result Comment: MARIA ALEJANDRA KAPOOR NOTE: TESTING DONE BY [employer]CHN[employer].The SA Nasal complete MRSA assay on the [employer] GeneXAnybodyOutTherehas not been validated for use on patients under 21 years ofage. All patients under 21 years of age, run on theTrabajoPanelXpert will be confirmed by a Blood Ballinger plate, followedby an ISSAC, to confirm MRSA. Performed By: #### L 300.99058, L300.26249 ####[facility] [id number] [place], [place] [address]Ap# [phone] SA PCR Negative Normal NEGATIVE [facility] Comment on above: Order Comment: Mandi pruitt: Allan Result Comment: MARIA ALEJANDRA KAPOOR NOTE: TESTING DONE BY [employer]. Performed By: #### L 300.23648, L300.96938 ####[facility] [id number] [place], [place] [address]Nl# [phone] ORon 09-29-2017 OPERATIVE REPORT Normal [facility] OR DATE OF SERVICE: 10/06/2017, 11 a.m.PREOPERATIVE DIAGNOSIS: Primary end-stage osteoarthritis of the right knee.POSTOPERATIVE DIAGNOSIS: Primary end-stage osteoarthritis of the right knee.OPERATION: Total knee replacement arthroplasty right, utilizing size 4cruciate-retaining Legion Oxinium femoral component, a size 4 Vernell tibial baseplate, an 11 mm deep dished articular insert and a 32 mm patella.SURGEON: Geo Tierney DOASSISTANT: Dennis Enriquez DO, orthopedic resident, PGY-2ANESTHESIA: Spinal with peripheral and local nerve blocks for postoperative painmanagement.BLOOD LOSS: 25 mL.COMPLICATIONS: None.CONDITION: Stable.HISTORY: Gilberto is a 67-year-old white female who is having substantial problems withswelling, pain, stiffness involving her right knee, primary end-stage osteoarthritis,that has failed conservative treatment. She is finally ready for surgicalintervention. We did discuss the procedure, risks, benefits and postoperativemanagement. She is aware and a consent signed.DESCRIPTION OF PROCEDURE: Patient brought down to the OR, placed in a supineposition after induction of spinal anesthetic. Tourniquet was placed on her rightproximal thigh. Right leg was sterilely prepped and draped in usual orthopedicfashion. Esmarch was used to exsanguinate the limb. Tourniquet was inflated to 280mmHg for approximately 45 minutes. An 8 cm incision was made anteriorly, followed bymedial arthrotomy. The patella was reflected back. A pes release was performedmedially. This revealed the underlying severe hypertrophic synovium that wasremoved, as was the synovial fluid. Intramedullary guides were utilized to make ourfemoral and tibial cuts. Once we had our soft tissue balanced in between flexion andextension gaps, we replaced the patella with a 32 button. Tracking was anatomicalwith the no-thumbs technique. All trials were then removed. We went ahead andirrigated and then injected our local mixture in the posterior and anterior tissuesfor postoperative pain management, followed by cementing in our components. Once thecement hardened, we let the tourniquet down. There was no arterial bleedingencountered. We ended up going with an 11 mm articular insert, which fit excellentlyin flexion and extension, and then closed the quadriceps and retinaculum with a no. 1 [facility] PATIENT NAME: GILBERTO HERNANDEZ [address] [facility] Dr. Kamara [facility] REC #: [id number], [place] [address] DATE:DISCHARGE DATE:OPERATIVE REPORT ATTENDING PHY: Geo Tierney DOSabrina suture. Then 1 g of tranexamic acid was then injected intra-articularly tocontrol bleeding. The remainder of the closure was subcuticular with 0 Vicryl, 3-0Vicryl, tamika, and the application of a silver dressing. She was then placed in amodified Sanford dressing with the knee in full extension. She tolerated procedurequite well, was brought up off the table to the bed and to the recovery room instable condition. LUCIA Lyles/[id number]: 10/06/2017 12:23DT: 10/06/2017 12:43SSI File#: [id number] #: [id number]/Reviewed by10/06/17 1427 LYKMI [facility] PATIENT NAME: GILBERTO HERNANDEZ [facility] Dr. Kamara MEDICAL REC #: [id number], [place] [address] DATE:DISCHARGE DATE:OPERATIVE REPORT ATTENDING PHY: Geo Tierney DO Normal [facility] PATIENT RETYPEon 09-29-2017 RETYPE INTERP Positive Normal [facility] Comment on above: Order Comment: Mandi s: MIs This Patient Going To Surgery? YSurgery Date: 10/06/17 PBNP TESTon 09-29-2017 Natriuretic peptide B mass conc (Bld) 70 pg/mL Normal 0-900 [facility] Comment on above: Order Comment: Mandi s: M Result Comment: NT-p roBNP results of less than 300 pg/ml effectively rulesout acute congestive heart failure with 99% negativepredictive value. Performed By: #### L 500.23949 ####[facility] [id number] [place], [place] [address]Yj# [phone] PTon 09-29-2017 INR Coag RelTime (PPP) 1.0 {INR} Normal 0.9-1.1 [facility] Comment on above: Order Comment: Mandi s: M Result Comment: Frantz mmended PT INR therapeutic range for residential andprophylactic therapy is 2.0 - 3.0. For heart valve andshunt patients the range is 2.5 - 3.5. Performed By: #### L 300.07089, L300.65546 ####[facility] [id number] [place], [place] [address]Zq# [phone] PTS 10.8 SECONDS Normal 9.4-12.0 [facility] Comment on above: Order Comment: Mandi pruitt: Allan Performed By: #### L 300.36892, L300.22065 ####[facility] [id number] [place], [place] [address]Gk# [phone] PTTon 09-29-2017 aPTT Coag time (Bld) 24.8 s Normal 22.5-31.4 [facility] Comment on above: Order Comment: Mandi s: Allan Result Comment: Ther apeutic Heparin Reference Range: High Dose: 56 - 86 seconds (DVT/PE) Low Dose: 50 - 70 seconds (Acute Coronary Syndrome)For low molecular weight heparin or danaparoid, monitoringis often NOT necessary, but the heparin assay, Xa inhibitionassay (send-out) may be used in certain circumstances, asthe PTT is generally insensitive to the effect of theseagents. Direct thrombin inhibitors are becoming more widelyutilized and these drugs are often monitored using the PTT. Performed By: #### L 300.05836, L300.99513 ####[facility] [id number] [place], [place] [address]Og# [phone] Bacteria identified Anaer cx Nom (Unsp spec) Anaerobic microbial culture No anaerobic bacteria isolated. [facility] Work Phone: Gram stain for investigation of transfusion reaction Microscopic observation Gram stain Nom (Unsp spec) [facility] Work Phone: No Panel Information Nasal Screen MRSA/MSSA [facility] Work Phone: Vital Signs Date Time Vital Sign Value Performing Clinician Faci lity 06-16-2022 12:16-0400 Diastolic blood pressure 71 mm[Hg] Dr. Jarred Sanabria Work Phone: [facility] Work Phone: 06-16-2022 12:16-0400 Heart rate 66 /min Dr. Jarred Sanabria Work Phone: [facility] Work Phone: 06-16-2022 12:16-0400 Respiratory rate 15 /min Dr. Jarred Sanabria Work Phone: [facility] Work Phone: 06-16-2022 12:16-0400 SaO2% (BldA) [Mass fraction] 98 % Dr. Jarred Sanabria Work Phone: [facility] Work Phone: 06-16-2022 12:16-0400 Systolic blood pressure 135 mm[Hg] Dr. Jarred Sanabria Work Phone: [facility] Work Phone: 06-16-2022 10:35-0400 Body height 152.[address] Jarred Sanabria Work Phone: [facility] Work Phone: 06-16-2022 10:35-0400 Body mass index (BMI) [Ratio] 41.5 kg/m2 Dr. Jarred Sanabria Work Phone: [facility] Work Phone: 06-16-2022 10:35-0400 Body temperature 98.2 [degF] Dr. Jarred Sanabria Work Phone: [facility] Work Phone: 06-16-2022 10:35-0400 Body weight 96.[address] Jarred Sanabria Work Phone: [facility] Work Phone: 04-03-2022 13:24-0400 Diastolic blood pressure 75 mm[Hg] Dr. Jarred Sanabria Work Phone: [facility] Work Phone: 04-03-2022 13:24-0400 Heart rate 71 /min Dr. Jarred Sanabria Work Phone: [facility] Work Phone: 04-03-2022 13:24-0400 SaO2% (BldA) [Mass fraction] 93 % Dr. Jarred Sanabria Work Phone: [facility] Work Phone: 04-03-2022 13:24-0400 Systolic blood pressure 136 mm[Hg] Dr. Jarred Sanabria Work Phone: [facility] Work Phone: 04-03-2022 10:29-0400 Respiratory rate 19 /min Dr. Jarred Sanabria Work Phone: [facility] Work Phone: 04-03-2022 08:46-0400 Body height 152.[address] Jarred Sanabria Work Phone: [facility] Work Phone: 04-03-2022 08:46-0400 Body mass index (BMI) [Ratio] 44.5 kg/m2 Dr. Jarred Sanabria Work Phone: [facility] Work Phone: 04-03-2022 08:46-0400 Body temperature 98.6 [degF] Dr. Jarred Sanabria Work Phone: [facility] Work Phone: 04-03-2022 08:46-0400 Body weight 103.[address] Jarred Sanabria Work Phone: [facility] Work Phone: 03-13-2022 12:11-0400 Body temperature 98.2 [degF] Dr. Jarred Sanabria Work Phone: [facility] Work Phone: 03-13-2022 12:11-0400 Diastolic blood pressure 62 mm[Hg] Dr. Jarred Sanabria Work Phone: [facility] Work Phone: 03-13-2022 12:11-0400 Heart rate 103 /min Dr. Jarred Sanabria Work Phone: [facility] Work Phone: 03-13-2022 12:11-0400 Respiratory rate 18 /min Dr. Jarred Sanabria Work Phone: [facility] Work Phone: 03-13-2022 12:11-0400 SaO2% (BldA) [Mass fraction] 97 % Dr. Jarred Sanabria Work Phone: [facility] Work Phone: 03-13-2022 12:11-0400 Systolic blood pressure 138 mm[Hg] Dr. Jarred Sanabria Work Phone: [facility] Work Phone: 03-12-2022 16:47-0400 Body height 152.[address] Jarred Sanabria Work Phone: [facility] Work Phone: 03-12-2022 16:47-0400 Body weight [address] Jarred Sanabria Work Phone: [facility] Work Phone: 03-11-2022 19:35-0400 Inhaled oxygen flow rate 4 L/min Dr. Jarred Sanabria Work Phone: [facility] Work Phone: 03-11-2022 17:15-0400 Body mass index (BMI) [Ratio] 43.9 kg/m2 Dr. Jarred Sanabria Work Phone: [facility] Work Phone: 02-24-2022 15:22-0400 Body height 152.[address] Jarred Sanabria Work Phone: [facility] Work Phone: 02-24-2022 15:22-0400 Body weight 99.[address] Jarred Sanabria Work Phone: [facility] Work Phone: 01-13-2022 15:51-0400 Body height 152.[address] Jarred Sanabria Work Phone: [facility] Work Phone: 01-13-2022 15:51-0400 Body weight 99.[address] Jarred Sanabria Work Phone: [facility] Work Phone: 12-23-2021 11:24-0400 Body height 152.4 cm [facility] Work Phone: 12-23-2021 11:24-0400 Body weight 97.79 kg [facility] Work Phone: 12-02-2021 18:57-0400 Body weight 97.61 kg [facility] Work Phone: 11-18-2021 16:39-0400 Body weight 99.33 kg [facility] Work Phone: Encounters Encounter Date Encounter Type Care Provider Facility Start: 02-02-2025 ambulatory Jarred Sanabria [facility] Start: 01-31-2025 End: 01-31-2025 ambulatory Austin Chanel [place] [place]: 01-19-2025 End: 01-19-[address] [facility]abria [facility] [facility] Work Phone: Start: 01-19-2025 End: 01-19-[address] Jarred Sanabria MD -Laboratory [facility] Start: 01-19-2025 End: 01-19-2025 ambulatory Jarred Sanabria Facility:[facility] Start: 12-25-2024 Encounter for genera l adult medical examination without abnormal findings Jarred Sanabria [facility] Start: 12-20-2024 End: 12-20-[address] Jarred Sanabria MD -Laboratory Work Phone: Start: 12-19-2024 End: 12-20-[address] Jarred Sanabria MD Work Phone: [facility] Work Phone: Start: 12-19-2024 End: 12-19-[address] Jarred Sanabria MD -Laboratory, [facility] Start: 12-19-2024 End: 12-19-2024 ambulatory Jarred Sanabria Facility:[facility] Start: 08-15-2024 End: 08-15-2024 ambulatory Jarred Kasia Sanabria Facility:[facility] Start: 08-01-2024 End: 08-01-2024 ambulatory [facility] El[facility] Facility:[facility] Start: 04-20-2024 End: 04-20-2024 ambulatory [facility] Facility:[facility] Start: 12-28-2023 End: 12-28-2023 ambulatory [facility] Work Phone: Start: 12-28-2023 End: 12-28-2023 Patient encounter procedure [facility]-Outpatient Bone Densitometry Work Phone: Start: 10-25-2023 End: 10-25-2023 ambulatory [facility] Work Phone: Start: 10-25-2023 End: 10-25-2023 Patient encounter procedure [facility] Start: 10-14-2023 End: 10-14-2023 ambulatory [facility] Work Phone: Start: 10-14-2023 End: 10-14-2023 Patient encounter procedure [facility] Start: 07-30-2023 End: 07-30-2023 ambulatory [facility] Work Phone: Start: 07-30-2023 End: 07-30-2023 Patient encounter procedure [facility]-Outpatient Breast Imaging Work Phone: Start: 06-16-2023 Registered Recurring [facility]-Occupational Therapy Work Phone: Start: 06-14-2023 End: 06-14-2023 Patient encounter procedure [facility] Start: 05-05-2023 End: 05-05-2023 ambulatory [facility] Work Phone: Start: 05-05-2023 End: 05-05-2023 Discharged Recurring [facility]-Physical Therapy Work Phone: Start: 04-22-2023 End: 04-22-2023 ambulatory [facility] Work Phone: Start: 04-22-2023 End: 04-22-2023 Patient encounter procedure [facility] Start: 04-21-2023 Registered Recurring [facility]-Physical Therapy Work Phone: Start: 12-08-2022 End: 12-08-2022 ambulatory [facility] Work Phone: Start: 12-08-2022 End: 12-08-2022 Patient encounter procedure [facility] Start: 10-19-2022 End: 10-19-2022 Patient encounter procedure [facility] Start: 10-12-2022 End: 10-12-2022 ambulatory [facility] Work Phone: Start: 10-12-2022 End: 10-12-2022 Patient encounter procedure [facility] Start: 07-17-2022 End: 07-17-2022 ambulatory [facility] Work Phone: Start: 07-17-2022 End: 07-17-2022 Patient encounter procedure [facility]-Outpatient Breast Imaging Start: 06-17-2022 End: 06-17-[address] Jarred Sanabria Work Phone: [facility] Work Phone: Start: 06-17-2022 End: 06-17-[address] Jarred Sanabria Work Phone: [facility]-Physical Therapy Start: 06-16-2022 End: 06-16-2022 Emergency department patient visit Dr. Jarred Sanabria Work Phone: [facility]-Emergency Department Start: 06-15-[address] Jarred Sanabria Work Phone: [facility]-Physical Therapy Start: 06-12-[address] Jarred Sanabria Work Phone: [facility]-Physical Therapy Start: 06-09-2022 End: 06-09-[address] Jarred Sanabria Work Phone: [facility] Work Phone: Start: 06-09-2022 End: 06-09-[address] Jarred Sanabria Work Phone: [facility] Start: 04-09-2022 End: 04-09-[address] Jarred Sanabria Work Phone: [facility] Start: 04-03-2022 End: 04-03-2022 Emergency department patient visit Dr. Jarred Sanabria Work Phone: [facility]-Emergency Department Start: 04-01-[address] Jarred Sanabria Work Phone: [facility]-Physical Therapy Start: 03-26-2022 End: 03-26-[address] Jarred Sanabria Work Phone: [facility]-Cardiovascular Services Start: 03-23-[address] [facility] Start: 03-20-2022 End: 03-20-[address] Jarred Sanabria Work Phone: [facility] Start: 03-13-2022 Non-patient / Non-visit Dr. Dominique Sanabria Work Phone: [facility] Inpatient Physicians Start: 03-12-2022 Non-patient / Non-visit Dr. Dominique Sanabria Work Phone: [facility] Start: 03-11-2022 Non-patient / Non-visit Dr. Dominique Sanabria Work Phone: [facility] Inpatient Physicians Start: 03-11-2022 End: 03-13-2022 Evaluation and management of inpatient Dr. Jar[facility] Start: 03-05-2022 End: 03-05-[address] Jarred Sanabria Work Phone: [facility] Start: 03-03-2022 End: 03-03-[address] Jarred Sanabria Work Phone: [facility] Start: 02-24-2022 End: 02-26-[address] Jarred Sanabria Work Phone: [facility]-Nutritional Services Start: 02-17-2022 End: 02-17-[address] Jarred Sanabria Work Phone: [facility] Start: 01-13-2022 End: 01-27-[address] Jarred Sanabria Work Phone: [facility]-Nutritional Services Start: 01-13-[address] Jarred Sanabria Work Phone: [facility]-Nutritional Services Start: 01-12-2022 Non-patient / Non-visit Dr. Dominique Sanabria Work Phone: [facility] Start: 01-12-2022 End: 01-12-[address] Jarred Sanabria Work Phone: [facility]-Cardiovascular Services Start: 12-23-2021 End: 12-27-2021 [facility] Start: 12-23-2021 [facility] Start: 12-17-2021 End: 12-17-2021 Patient encounter procedure [facility] Start: 12-02-2021 [facility] Start: 11-27-2021 End: 11-27-2021 Patient encounter procedure [facility]-Outpatient Bone Densitometry Start: 11-21-2021 End: 11-21-2021 Patient encounter procedure [facility] Start: 11-18-2021 End: 11-27-2021 Discharged Recurring [facility]-Nutritional Services Start: 11-18-2021 [facility] Start: 10-17-2021 End: 10-17-2021 Patient encounter procedure [facility] Start: 10-08-2021 End: 10-08-2021 Patient encounter procedure [facility] Start: 08-01-2021 Patient encounter procedure [facility] Start: 06-01-2018 Evaluation and management of inpatient Geo Tierney Facility:[facility] Start: 05-26-2018 Patient encounter procedure Geo Tierney Facility:[facility] Start: 05-25-2018 Patient encounter procedure Geo Tierney Facility:[facility] Start: 05-19-2018 Patient encounter procedure Geo Tierney Facility:[facility] Start: 10-06-2017 End: 10-07-2017 Evaluation and management of inpatient Geo Tierney Facility:[facility] Start: 09-29-2017 Patient encounter procedure Geo Tierney Facility:[facility] Procedures Date Procedure Procedure Detail Performing Clinician Start: 01-19-[address] Jarred Sanabria MD Work Phone: Start: 01-19-2025 Serum inorganic phos phate measurement Dr. Jarred Sanabria MD Work Phone: Start: 01-19-2025 Total iron binding c apacity measurement Dr. Jarred Sanabria MD Work Phone: Start: 01-19-2025 Vitamin D, 25-hydrox y measurement Dr. Jarred Sanabria MD Work Phone: Comment on above: Vitamin D StatusDefi ciency: <20 ng/mL (50nmol/L)Insufficiency: 20-30 ng/mL (50-75 nmol/L)Sufficiency: 30-100 ng/mL (75-250 nmol/L)Toxicity: >100 ng/mL (>250 nmol/L) Start: 12-28-2023 Dual energy X-ray absorptiometry Start: 07-30-2023 Screening mammography Start: 07-17-2022 Screening mammography Start: 04-03-2022 Computed tomography of abdomen and pelvis with intravenous contrast Dr. Jarred Sanabria Work Phone: Start: 04-03-2022 CT angiography of ch est with contrast Dr. Jarred Sanabria Work Phone: Start: 03-20-2022 Plain chest X-ray Dr. Destinee Sanabria Work Phone: Start: 03-12-2022 CT cervical spine wi thout contrast Dr. Jarred Sanabria Work Phone: Start: 03-11-2022 Radiologic examinati on of knee Dr. Jarred Sanabria Work Phone: Start: 03-11-2022 Revision of right to [place] knee arthroplasty Dr. Jarred Sanabria Work Phone: Start: 11-27-2021 Dual energy X-ray absorptiometry Start: 06-01-2018 Antibody screen Geo Tierney Comment on above: Order Comment: Mandi pruitt: Allan Result Comment: Hossein ent was NOT transfused or in the past 3 months.Antibody screen not indicated. Start: 05-19-2018 Antibody screen Geo Tierney Comment on above: Order Comment: Mandi Lemus Start: 10-06-2017 Antibody screen Geo Tierney Comment on above: Order Comment: Mandi pruitt: Allan Result Comment: Hossein ent was NOT transfused or in the past 3 months.Antibody screen not indicated. Start: 09-29-2017 Antibody screen Geo Tierney Comment on above: Order Comment: Mandi pruitt: MIs This Patient Going To Surgery? YSurgery Date: 10/06/17 Start: 09-29-2017 Ecg routine ecg w/le ast 12 lds i&r only Geo Tierney Acid fast bacilli culture Dr Cj Sanabria Work Phone: Acid fast bacilli culture Anaerobic microbial culture Dr. Jarred Sanabria Work Phone: Cytopathology proced ure, preparation of smear, genital source Dr. Jarred Sanabria Work Phone: Cytopathology proced ure, preparation of smear, genital source Fungus stain method Dr. Jarred Sanabria Work Phone: Investigation of transfusion reaction Dr. Jarred Sanabria Work Phone: Investigation of transfusion reaction Microbial culture, routine D jerardo Sanabria Work Phone: Mycology culture Dr. Jarred shaikh Work Phone: Mycology culture Nasal Screen MRSA/MSSA Dr. Destinee Sanabria Work Phone: Plan of Treatment Date Care Activity Detail Author Start: 10-19-2022 [facility] Start: 06-16-2022 Control nasal hemorrhage anterior simple CONTROL OF NOSEBLEED [facility] Work Phone: Start: 03-13-2022 Patient discharge [facility] Work Phone: Start: 03-12-2022 Following clinical pathway protocol [facility] Work Phone: Start: 03-11-2022 Following clinical pathway protocol [facility] Work Phone: Start: 03-11-2022 Provision of overbed trapeze [facility] Work Phone: Start: 03-11-2022 Admission procedure [facility] Work Phone: Start: 03-11-2022 Ambulation therapy management [facility] Work Phone: Start: 03-11-2022 Application of device [facility] Work Phone: Start: 03-11-2022 Application of elastic bandage [facility] Work Phone: Start: 03-11-2022 Assessment of risk of venous thromboembolism [facility] Work Phone: Start: 03-11-2022 Catheterization of vein [facility] Work Phone: Start: 03-11-2022 Consultation [facility] Work Phone: Start: 03-11-2022 Exercises [facility] Work Phone: Start: 03-11-2022 Following clinical pathway protocol [facility] Work Phone: Start: 03-11-2022 Incentive spirometry [facility] Work Phone: Start: 03-11-2022 Introduction of urinary catheter [facility] Work Phone: Start: 03-11-2022 Measuring intake and output [facility] Work Phone: Start: 03-11-2022 Neurovascular assessment [facility] Work Phone: Start: 03-11-2022 Patient education [facility] Work Phone: Start: 03-11-2022 Procedure discontinued [facility] Work Phone: Start: 03-11-2022 Provision of activity privileges [facility] Work Phone: Start: 03-11-2022 Referral to occupational therapist [facility] Work Phone: Start: 03-11-2022 Referral to service [facility] Work Phone: Start: 03-11-2022 Vital signs measurements [facility] Work Phone: Start: 03-11-2022 Wound care [facility] Work Phone: Start: 03-11-2022 End: 03-11-2022 [facility] Work Phone: Start: 03-11-2022 [facility] Work Phone: Start: 11-27-2021 Dual energy X-ray absorptiometry [facility] Work Phone: Acid fast bacilli culture [facility] Work Phone: Acid fast bacilli culture [facility] Anaerobic Culture Anaerobic Culture [facility] Bacteria identified in Unspecified specimen by Anaerobe culture [facility] Work Phone: Bacteria identified in Unspecified specimen by Anaerobe culture [facility] Bacterial culture Body Fluid Culture [facility] Microbial culture, routine Wound Culture [facility] Work Phone: Mycobacterium sp cody ntified in Unspecified specimen by Organism specific culture [facility] Work Phone: Mycobacterium sp cody ntified in Unspecified specimen by Organism specific culture [facility] Patient Education [facility] Work Phone: Patient referral [facility] Work Phone: Zinc [Mass/volume] i n Serum or Plasma [facility] Work Phone: Zinc [Mass/volume] i n Serum or Plasma [facility] Zinc [Mass/volume] i n Serum or Plasma [facility] Payers Date Payer Category Payer Self-pay [id number] 2022 Medicare [id number] 2022 Unknown [id number] 2017 Medicare [id number] 2016 Unknown [id number] Unknown [id number] 2.16.8 [id number] Unknown [id number] 2.16.8 [id number] Unknown [id number] 2.16.8 [id number] Unknown [id number] 2.16.8 [id number] Unknown [id number] 2.16.8 [id number] Unknown [id number] 2.16.8 [id number] Unknown [id number] 2.16.8 [id number] Unknown [id number] 2.16.8 [id number] Unknown [id number] 2.16.8 [id number] Unknown [id number] 2.16.8 [id number] Unknown [id number] 2.16.8 [id number] Unknown [id number] 2.16.8 [id number] Unknown [id number] 2.16.8 [id number] Unknown [id number] 2.16.8 [id number] Social History Date Type Detail Facility Start: 04-22-2018 End: 06-16-2022 Tobacco smoking status HIIS Unknown if ever smoked [facility] Start: 1950 Sex Assigned At Female [facility] Start: 01[facility]12-2024 [facility] Start: 12-25-2024 Sex Female (finding) [facility] Medical Equipment Procedure Code Equipment Code Equipment Origin al Text Equipment Identifier Dates ([id number]) Knee arthroplast y wedge ()[id number] FDA Start: 03-11-2022 ([id number]) Polymer orthopae dic cement restrictor, non-bioabsorbable, sterile ()[id number] [id number] FDA Start: 03-11-2022 ([id number]) Polymer orthopae dic cement restrictor, non-bioabsorbable, sterile ()[id number] [id number])[id number] FDA Start: 03-11-2022 Orthopaedic ceme nt, antimicrobial ()[id number] [id number] FDA Start: 03-11-2022 ([id number]) Tibial insert ()[id number] [id number] FDA Start: 03-11-2022 ([id number]) Knee arthroplast y wedge ()[id number]( [id number] FDA Start: 03-11-2022 ([id number]) Knee arthroplast y wedge ([id number] [id number] FDA Start: 03-11-2022 ([id number]) Knee arthroplast y wedge ([id number] [id number] FDA Start: 03-11-2022 (680446761) Knee arthroplast y wedge ()[id number]( [id number])[id number] FDA Start: 03-11-2022 (365592163) Uncoated knee ti nidia prosthesis, metallic ()[id number] [id number] FDA Start: 03-11-2022 ([id number]) Uncoated knee fe mur prosthesis, metallic ()[id number] [id number] FDA Start: 03-11-2022 (885173501) Knee femur stem prosthesis ()[id number] [id number] [id number] FDA Start: 03-11-2022 ([id number]) Knee femur stem prosthesis ()[id number] [id number] FDA Start: 03-11-2022 Goals Date Patient Goal Desired Activity /State Functional Status Date Assessment Result Facility 03-13-2022 Functional status Chair [facility] Work Phone: Mental Status Date Assessment Result Facility 03-13-2022 Cognitive function Voice/Name [facility] Work Phone: Discharge summary 05-05-2023 Note Date & Type Note Facility 05-05-2023 Discharge summary Note Date/Time May 05, 2023 2:00pm [facility] Physical Therapy [facility] [place] [address] / REHABILITATION SERVICES DISCHARGE SUMMARY MR#: [id number] Acct: [id number] Name: GILBERTO HERNANDEZ Rep #: [id number] : 1950 72 From: David Avina PT, ATC Referring Dr.: SYDNEE Gutierrez Status: REG RCR Insurance: MEDICARE PART A B [facility] Discharge Summary D/C summary: It has been my pleasure to treat GILBERTO HERNANDEZ referred by SYDNEE Barksdale, with the diagnosis of B knee pain for a total of 10 visit(s). Discharge Date: Please see the following information for a summary of their discharge status. Subjective Subjective: Pt. reports of severe P! in B hips and B knees lower back. Pain B knees: Pain Intensity (Out of 10): 8 LBP: Pain Intensity (Out of 10): 9 Overall Improvement % Improvement: 30 Objective Objective/Function: Pt. did not respond well to rx. Sever P! in B hips and B knees which prevented rx. Goals Goal 1:: Decrease B knee pain x 25% to aid with sleep Goal 2:: Increase B knee ROM x 20 degrees to aid with decreasing pain Goal 3:: Increase B knee strength x 20 #F to aid with stair negotiation Goal 4:: I with HEP Plan Plan: Discontinue to HEP per patients request D/C Information d/c sentence: If there are questions or concerns regarding this patient's physical therapy, please feel free to call me at [phone]. Thank you for the referral of thispatient. Sincerely, David Avina, PT, ATC Balance/Gait/Functional tests Balance/Special Test Scores Lower Extremity Functional Score: 22 Improvement % Improvement: 30 <Electronically signed by David Avina PT, ATC> 05/05/23 1400 CC: SYDNEE Gutierrez; Dr. Jarred Sanabria MD ~ [facility] Signed [facility] Work Phone: Evaluation note Note Date & Type Note Facility Evaluation note No assessment information availa ble [facility] Work Phone: Evaluation note Note Date & Type Note Facility Evaluation note Diagnosis Onset Date Status post revision of tota l replacement of right knee acute Status post total right knee replacement acute [facility] Work Phone: Reason for referral (narrative) Note Date & Type Note Facility Reason for referral (narrative) No reason for referral information available [facility] Work Phone: Summary Purpose Family History No Family History Records FoundNo Family History Records Found Advance Directives No Advanced Directives Records Found Advance Directive Response Recorded Date/ Time Living Will Yes April 22 8 10:10am Power of Operational Risk Consultant Yes April 22 018 10:10am Advance Directive Response Recorded Date/ Time Living Will Yes February 25, 2022 11:05am Power of Operational Risk Consultant Yes February 25 11:05am Advance Directive Response Recorded Date/ Time Name of Medical Power of Operational Risk Consultant Jake Hernandez March 11, 2022 6:00pm Living Will Yes March 11, 2022 6:00pm Power of Operational Risk Consultant Yes March 11 6:00pm Advance Directive Response Recorded Date/ Time Name of Medical Power of Operational Risk Consultant Jake Hernandez March 11, 2022 6:00pm Name of Medical Power of Operational Risk Consultant April 03, 2022 8:49am Living Will Yes April 03, 2022 8:49am Power of Operational Risk Consultant Yes April 03 8:49am Advance Directive Response Recorded Date/ Time Name of Medical Power of Operational Risk Consultant Jake Hernandez March 11, 2022 6:00pm Name of Medical Power of Operational Risk Consultant April 03, 2022 8:49am Name of Medical Power of Operational Risk Consultant Joshua Hernandez June 16, 2022 11:01am Living Will Yes June 16 11:01am Power of Operational Risk Consultant Yes June 16, 2022 11:01am Advance Directive Response Recorded Date/ Time Name of Medical Power of Operational Risk Consultant April 03, 2022 7:49am Name of Medical Power of Operational Risk Consultant Joshua Hernandez June 16, 2022 10:01am Living Will Yes June 16 10:01am Power of Operational Risk Consultant Yes June 16, 2022 10:01am Advance Directive Response Recorded Date/ Time Living Will Yes June 16 10:01am Power of Operational Risk Consultant Yes June 16, 2022 10:01am Advance Directive Response Recorded Date/ Time Living Will Yes June 16 11:01am Power of Operational Risk Consultant Yes June 16, 2022 11:01am Chief Complaint and Reason for Visit Chief Complaint TYPE 2 DM Chief Complaint TYPE 2 DM Other specified disorders of bone density and stru Chief Complaint TYPE 2 DM Other specified disorders of bone density and stru TYPE 2 DM Chief Complaint TYPE 2 DM Other specified disorders of bone density and stru TYPE 2 DM MURMUR TYPE 2 DM Chief Complaint TYPE 2 DM Other specified disorders of bone density and stru TYPE 2 DM MURMUR TYPE 2 DM TYPE 2 DM Chief Complaint TYPE 2 DM Other specified disorders of bone density and stru TYPE 2 DM MURMUR TYPE 2 DM TYPE 2 DM RT TOTAL KNEE REVISION RT TOTAL KNEE REVISION RT TOTAL KNEE REVISION RT TOTAL KNEE REVISION Reason for Visit Status post revision of total replacement of right knee Status post total right knee replacement Chief Complaint Other specified diso rders of bone density and stru TYPE 2 DM MURMUR TYPE 2 DM TYPE 2 DM RT TOTAL KNEE REVISION RT TOTAL KNEE REVISION RT TOTAL KNEE REVISION RT TOTAL KNEE REVISION TRK,KN PAIN/RX HERE Reason for Visit Status post revision of total replacement of right knee Status post total right knee replacement Chief Complaint TYPE 2 DM MURMUR TYPE 2 DM TYPE 2 DM RT TOTAL KNEE REVISION RT TOTAL KNEE REVISION RT TOTAL KNEE REVISION RT TOTAL KNEE REVISION RLE PAIN AFTER CARE POSTOP TRK,KN PAIN/RX HERE ABD PAIN Reason for Visit Status post revision of total replacement of right knee Status post total right knee replacement Chief Complaint TYPE 2 DM RT TOTAL KNEE REVISION RT TOTAL KNEE REVISION RT TOTAL KNEE REVISION RT TOTAL KNEE REVISION RLE PAIN AFTER CARE POSTOP ABD PAIN TRK,KN PAIN/RX HERE Reason for Visit Status post revision of total replacement of right knee Status post total right knee replacement Chief Complaint TYPE 2 DM RT TOTAL KNEE REVISION RT TOTAL KNEE REVISION RT TOTAL KNEE REVISION RT TOTAL KNEE REVISION RLE PAIN AFTER CARE POSTOP ABD PAIN TRK,KN PAIN/RX HERE NOSE BLEED Reason for Visit Status post revision of total replacement of right knee Status post total right knee replacement Chief Complaint TYPE 2 DM RT TOTAL KNEE REVISION RT TOTAL KNEE REVISION RT TOTAL KNEE REVISION RT TOTAL KNEE REVISION RLE PAIN AFTER CARE POSTOP ABD PAIN NOSE BLEED TRK,KN PAIN/RX HERE Reason for Visit Status post revision of total replacement of right knee Status post total right knee replacement Chief Complaint RLE PAIN AFTER CARE POSTOP ABD PAIN NOSE BLEED TRK,KN PAIN/RX HERE SCREENING Chief Complaint SCREENING Chief Complaint BILATERAL KNEES . RX HERE Chief Complaint BILATERAL KNEES . RX HERE LYMPHEDEMA RX HERE SCREENING Chief Complaint SCREENING Chief Complaint OSTEOPOROSIS Chief Complaint Admit Date INT LAB ORDERS Jazlyn 23rd, 2025 2:3 5pm Additional Source Comments INFORMATION SOURCE (unrecogn ized section and content) DATE CREATED AUTHOR 08/07/2018 [facility] Ce mauricio Orosco DATE CREATED AUTHOR AUTHOR'S ORGANIZ ATION 02/01/2025 [facility] Goals (unrecognized section and content) Goals may be documented in a n alternate sectionGoals may be documented in an alternate sectionGoals may be documented in an alternate sectionGoals may be documented in an alternate sectionGoals may be documented in an alternate sectionGoals may be documented in an alternate sectionGoals may be documented in an alternate sectionGoals may be documented in an alternate sectionGoals may be documented in an alternate sectionGoals may be documented in an alternate sectionGoals may be documented in an alternate sectionGoals may be documented in an alternate sectionGoals may be documented in an alternate sectionGoals may be documented in an alternate sectionGoals may be documented in an alternate sectionGoals may be documented in an alternate sectionGoals may be documented in an alternate sectionGoals may be documented in an alternate sectionGoals may be documented in an alternate sectionGoals may be documented in an alternate sectionGoals may be documented in an alternate sectionGoals may be documented in an alternate section Care Teams (unrecognized sec tion and content) Team Status: Active Member Role Status Dates Dr. Jarred Beckman MD Family Provider Active Dr. Jarred Sanabria MD Primary Care Provider Active Team Status: Inactive Member Role Status Dates Dr. Jarred Sanabria MD Primary Care Provider, Attend ing Provider Active Team Status: Inactive Member Role Status Dates Dr. Jarred Sanabria MD Primary Care Provider Active Dr. Christopher Mercedes MD Attending Provider Active Team Status: Active Member Role Status Dates Dr. Jarred Sanabria MD Primary Care Provider Active Dr. Christopher Mercedes MD Attending Provider, Referring P rovider Active Team Status: Inactive Member Role Status Dates Dr. Jarred Sanabria MD Primary Care Provider Active Dr. Christopher Mercedes MD Attending Provider, Referring P rovider Active Team Status: Active Member Role Status Dates Dr. Jarred Sanabria MD Primary Care Provider Active Citlali Gutierrez HEPATOLOGIST-C Attending Provider, Referring Pro vider Active Team Status: Inactive Member Role Status Dates Dr. Jarred Sanabria MD Primary Care Provider Active Citlali Gutierrez HEPATOLOGIST-C Attending Provider, Referring Pro vider Active Team Status: Active Member Role Status Dates Dr. Jarred Sanabria MD Primary Care Provider Active Dr. Juan Carter MD Referring Provider Active Dr. Lee Parra MD Attending Provider Active Team Status: Inactive Member Role Status Dates Dr. Jarred Sanabria MD Primary Care Provider Active Dr. Bruno Saenz MD Attending Provider, Referri ng Provider Active Team Status: Inactive Member Role Status Dates Dr. Jarred Sanabria MD Primary Care Pr ovider, Attending Provider, Referring Provider Active Team Status: Inactive Member Role Status Dates Dr. Jarred Sanabria MD Primary Care Provider Active Start: December 19, 2024 End: December 19, 2024 Dr. Jarred Sanabria MD Attending Provider Active Start: December 19, 2024 End: December 19, 2024 Dr. Jarred Sanabria MD Referring Provider Active Start: December 19, 2024 End: December 19, 2024 Team Status: Active Member Role Status Dates Dr. Jarred Sanabria MD Primary Care Provider Active Start: December 20, 2024 Dr. Jarred Sanabria MD Attending Provider Active Start: December 20, 2024 Dr. Jarred Sanabria MD Referring Provider Active Start: December 20, 2024 Team Status: Inactive Member Role Status Dates Dr. Jarred Sanabria MD Primary Care Provider Active Start: December 20, 2024 End: December 20, 2024 Dr. Jarred Sanabria MD Attending Provider Active Start: December 20, 2024 End: December 20, 2024 Dr. Jarred Sanabria MD Referring Provider Active Start: December 20, 2024 End: December 20, 2024 Team Status: Inactive Member Role Status Dates Dr. Jarred Sanabria MD Primary Care Provider Active Start: January 19, 2025 End: January 19, 2025 Dr. Jarred Sanabria MD Attending Provider Active Start: January 19, 2025 End: January 19, 2025 Dr. Jarred Sanabria MD Referring Provider Active Start: January 19, 2025 End: January 19, 2025 FOR RECORDS PERTAINING TO PATIENTS WHO ARE [...] BE BASED ON THE PRIMARY CLINICAL RECORDS. [email or web address] [facility]. provides no warranty or guarantee of the accuracy or completeness of information in this document.
== END | disposition home or self-care (01) ==
LOC: OPMRI 06:52
PROVIDERS: PCP Family Medicine
DX: R41.89 Other symptoms and signs involving cognitive functions and awareness (principal)
CPT/HCPCS: 70551

== ENCOUNTER → 2025-05-15 | Outpatient (CLI) | payer MEDICARE, OTHER, SELFPAY ==
[2025-05-15 15:27] LABS: Hematocrit 42.3 % (37-47); Hemoglobin 13.8 g/dL (12.0-15.0); Immature Granulocytes Count 0.010 X10^3/uL (0.0-0.0); Mean Corp Hgb Conc 32.6 g/dL (32-36); Mean Corpuscular Volume 89.6 fL (81-99); Mean Platelet Vol. 10.1 fl (6.2-12.0); NRBC Flagged by Analyzer 0 % (0-5); POSITIVE DIFFERENTIAL YES; POSITIVE MORPHOLOGY YES; Platelet Count 204 K/mm3 (150-450); RBC Distribution Width CV 13.4 % (11.6-14.6); RBC Distribution Width SD 44.2 fl (35.1-43.9); Red Blood Count 4.72 M/mm3 (4.2-5.4); White Blood Count 9.1 K/mm3 (4.4-11.0)
[2025-05-15 16:03] LABS: Differential Indicated SCAN CRITERIA MET
[2025-05-15 16:46] LABS: AST(SGOT) 42 U/L (<=31); Alanine Aminotransfer ALT/SGPT 40 U/L (<=34); Albumin, Serum 4.1 g/dL (3.4-4.8); Alkaline Phosphatase 64 U/L (35-104); Anion Gap 13 (5-15); BUN 21 mg/dL (4-19); BUN/Creat Ratio 21.7 RATIO (10-20); Calcium,Total 9.7 mg/dL (7.6-11.0); Carbon Dioxide 26.1 mmol/L (21.0-32.0); Chloride 102 mmol/L (98-108); Cholesterol 198 mg/dL (<=200); Globulin 2.8 g/dL (2.2-4.2); Glucose 98 mg/dL (70-99); Low Density Lipoprotein Calc. 120 mg/dL; Potassium 4.3 mmol/L (3.3-5.1); Triglycerides 125 mg/dL; Very Low Density Lipoprotein 25 mg/dL (5-40); Vitamin B12 1857 pg/mL (180-914); Vitamin D,25 Hydroxy 47.9 ng/mL (30-100); cholesterol:hdl ratio screen 3.75
[2025-05-15 16:49] LABS: Reactive Lymphocyte 3+
[2025-05-15 17:04] LABS: Magnesium 2.3 mg/dL (1.5-2.2)
[2025-05-15 17:05] LABS: Iron 78 ug/dL (50-170)
== END | disposition home or self-care (01) ==
LOC: MFPLAB 11:15
PROVIDERS: PCP Family Medicine; Visit Provider Family Medicine
DX: E03.8 Other specified hypothyroidism (principal); Z98.84 Bariatric surgery status
CPT/HCPCS: 36415; 80053; 80061; 82306; 82607; 83540; 83735; 84439; 84443; 85025

== ENCOUNTER → 2025-08-17 | Outpatient (CLI) | payer MEDICARE, OTHER, SELFPAY ==
--- NOTE | 2025-08-17 10:45 | BI_ITS ---
EXAM: SCRN MAMM (CAD)W/JOSE BILAT DATE: 08/17/2025 CLINICAL HISTORY: F, Age 75 y/o , SCREENING TECHNIQUE: Procedure Code: [id number] Modality: MG Procedure: SCRN MAMM (CAD)W/JOSE BILAT COMPARISON: Prior exam(s) dated 08/01/2024, 07/30/2023, 07/17/2022. FINDINGS: TISSUE DENSITY: The breasts are almost entirely fatty. Bilateral Breast Mammographic Findings: No significant masses, calcifications or other abnormalities are identified. BI/SCRN MAMM (CAD)W/JOSE BILAT IMPRESSION: There is no mammographic evidence of malignancy. OVERALL FINAL ASSESSMENT BI-RADS 1: NEGATIVE. RECOMMENDATION: Routine annual follow-up in 1 Year Additional Recommendation none A letter with findings and recommendations will be mailed to the patient. Reading Location: [id number]
== END | disposition home or self-care (01) ==
LOC: OPBI 10:36
PROVIDERS: PCP Family Medicine; Referring Provider Family Medicine; Visit Provider Family Medicine
DX: Z12.31 Encounter for screening mammogram for malignant neoplasm of breast (principal)
CPT/HCPCS: 77063; 77067

== ENCOUNTER → 2025-08-21 | Outpatient (CLI) | payer MEDICARE, OTHER, SELFPAY ==
[2025-08-21 17:55] LABS: Hematocrit 42.2 % (37-47); Hemoglobin 13.9 g/dL (12.0-15.0); Mean Corp Hgb Conc 32.9 g/dL (32-36); Mean Corpuscular Volume 90.4 fL (81-99); Mean Platelet Vol. 10.0 fl (6.2-12.0); POSITIVE DIFFERENTIAL YES; POSITIVE MORPHOLOGY YES; Platelet Count 203 K/mm3 (150-450); RBC Distribution Width CV 14.0 % (11.6-14.6); RBC Distribution Width SD 44.5 fl (35.1-43.9); Red Blood Count 4.67 M/mm3 (4.2-5.4); White Blood Count 11.4 K/mm3 (4.4-11.0)
[2025-08-21 18:09] LABS: Iron 45 ug/dL (50-170); Iron Binding Capacity,Total 312 ug/dL (250-450); Iron Binding Capacity,Unsat 267 ug/dL (228-428)
[2025-08-21 18:11] LABS: AST(SGOT) 33 U/L (<=31); Alanine Aminotransfer ALT/SGPT 30 U/L (<=34); Albumin, Serum 4.1 g/dL (3.4-4.8); Alkaline Phosphatase 70 U/L (35-104); Anion Gap 11 (7-18); BUN 18 mg/dL (4-19); BUN/Creat Ratio 18.0 RATIO (10-20); Calcium,Total 9.8 mg/dL (7.6-11.0); Carbon Dioxide 26.3 mmol/L (20.0-29.0); Chloride 104 mmol/L (96-106); Ferritin 232 ng/mL (22-378); Globulin 2.9 g/dL (2.2-4.2); Glucose 123 mg/dL (70-99); Magnesium 2.3 mg/dL (1.5-2.2); Potassium 4.0 mmol/L (3.5-5.1); Vitamin D,25 Hydroxy 49.8 ng/mL (30-100)
[2025-08-21 18:39] LABS: Differential Indicated MANUAL DIFF
[2025-08-21 20:09] LABS: Neutrophil-Segmented 38 % (47-70); Total Cells Counted 100 (MANUAL DIFF)
[2025-08-26 19:07] LABS: Zinc, Plasma or Serum 71 ug/dL (44-115)
== END | disposition home or self-care (01) ==
LOC: MTLAB 14:20
PROVIDERS: PCP Family Medicine; Referring Provider Family Medicine; Visit Provider Family Medicine
DX: R73.09 Other abnormal glucose (principal); Z98.84 Bariatric surgery status; E61.1 Iron deficiency; E03.8 Other specified hypothyroidism; E55.9 Vitamin D deficiency, unspecified
CPT/HCPCS: 36415; 80053; 82306; 82728; 83036; 83540; 83550; 83735; 84439; 84443; 84630; 85025